=== PATIENT | female | born 1945 | race Caucasian/White ===

== ENCOUNTER 2020-10-23 21:28 | Inpatient (IN) | payer MEDICARE ==
--- NOTE | 2020-10-23 21:42 | ED ---
Psych HPI - General Stated Complaint: Mental Health Time Seen by Provider: 10/23/20 21:32 Source: RN notes reviewed, old records reviewed Mode of arrival: EMS Limitations: altered mental status, physical limitation - History of Present Illness Initial Comments: This is a 75-year-old female DF. Patient is unable to give history secondary to altered mental status, and appropriate delusions delirium anger yelling screaming crying. Patient is brought on pickup order for psychiatric evaluation and treatment otherwise not participating history of present illness, history obtained by EMS MD Complaint: feels depressed, altered mental status -: unknown Associated Psychiatric Symptoms: racing thoughts, visual hallucinations, delusions Quality: constant Improves With: none Worsens With: none Context: not taking psychiatric medications Associated Symptoms: denies other symptoms Treatments Prior to Arrival: placed on mental health hold - Related Data Home Medications Medication Instructions Recorded Confirmed L.acidoph,Paracasei, B.lactis 1 cap PO DAILY 04/24/16 04/24/16 [Probiotic] LORazepam [Ativan] 1 mg PO HS 04/24/16 04/24/16 Pantoprazole [Protonix] 40 mg PO DAILY 04/24/16 04/24/16 Topiramate [Topamax] 100 mg PO HS 04/24/16 04/24/16 Allergies Allergy/AdvReac Type Severity Reaction Status Date / Time duloxetine [From Cymbalta] Allergy Unknown Verified 10/23/20 21:59 escitalopram [From Lexapro] Allergy Unknown Verified 10/23/20 21:59 fluoxetine [From Prozac] Allergy Unknown Verified 10/23/20 21:59 risperidone [From Risperdal] Allergy Unknown Verified 10/23/20 21:59 Sulfa (Sulfonamide Allergy Unknown Verified 10/23/20 21:59 Antibiotics) steroids Allergy Unknown Uncoded 10/23/20 21:59 Review of Systems ROS Statement: Those systems with pertinent positive or pertinent negative responses have been documented in the HPI. ROS Other: All systems not noted in ROS Statement are negative. Past Medical History Past Medical History: Unable to Obtain History of Any Multi-Drug Resistant Organisms: None Reported Past Surgical History: Unable to Obtain Past Psychological History: Anxiety, Bipolar, Depression, PTSD Past Alcohol Use History: None Reported Past Drug Use History: None Reported General Exam Limitations: altered mental status, physical limitation General appearance: alert, in no apparent distress, anxious Head exam: Present: atraumatic, normocephalic, normal inspection Eye exam: Present: normal appearance, PERRL, EOMI. Absent: scleral icterus, conjunctival injection, periorbital swelling ENT exam: Present: normal exam, mucous membranes moist Neck exam: Present: normal inspection. Absent: tenderness, meningismus, lymph adenopathy Respiratory exam: Present: normal lung sounds bilaterally. Absent: respiratory distress, wheezes, rales, rhonchi, stridor Cardiovascular Exam: Present: regular rate, normal rhythm, normal heart sounds. Absent: systolic murmur, diastolic murmur, rubs, gallop, clicks GI/Abdominal exam: Present: soft, normal bowel sounds. Absent: distended, tenderness, guarding, rebound, rigid Extremities exam: Present: normal inspection, full ROM, normal capillary refill. Absent: tenderness, pedal edema, joint swelling, calf tenderness Back exam: Present: normal inspection Neurological exam: Present: alert, oriented X3, CN II-XII intact Psychiatric exam: Present: normal affect, normal mood Skin exam: Present: warm, dry, intact, normal color. Absent: rash Course Vital Signs 10/23/20 21:56 Temperature 97.8 F Pulse Rate 70 Respiratory 18 Rate Blood Pressure 98/54 O2 Sat by Pulse 97 Oximetry - Reevaluation(s) Reevaluation #1: 10/24/20 01:56 Medical record is reviewed Reevaluation #2: 10/24/20 01:56 Patient seen and evaluated psychiatry here in the ER after be made medically clear Medical Decision Making - Medical Decision Making 75 female be admitted for psychiatric evaluation and treatment - Lab Data Result diagrams: 10/23/20 22:13 Lab Results 10/23/20 10/23/20 10/23/20 Range/Units 22:13 22:13 22:13 WBC 6.6 (3.8-10.6) k/uL RBC 4.91 (3.80-5.40) m/uL Hgb 15.6 (11.4-16.0) gm/dL Hct 45.4 (34.0-46.0) % MCV 92.5 (80.0-100.0) fL MCH 31.7 (25.0-35.0) pg MCHC 34.3 (31.0-37.0) g/dL RDW 14.4 (11.5-15.5) % Plt Count 141 L (150-450) k/uL MPV 10.3 Neutrophils % 63 % Lymphocytes % 27 % Monocytes % 6 % Eosinophils % 2 % Basophils % 0 % Neutrophils # 4.2 (1.3-7.7) k/uL Lymphocytes # 1.8 (1.0-4.8) k/uL Monocytes # 0.4 (0-1.0) k/uL Eosinophils # 0.1 (0-0.7) k/uL Basophils # 0.0 (0-0.2) k/uL Salicylates <1.0 mg/dL Acetaminophen <10.0 ug/mL Serum Alcohol <10 mg/dL Coronavirus (PCR) Not Detected (Not Detectd) Disposition Clinical Impression: Psychosis, Monopolar john, Acute psychosis Disposition: TRANSFER TO PSYCH HOSP/UNIT Condition: Fair Is patient prescribed a controlled substance at d/c from ED?: No Referrals: Brigida Aguilar DO [Primary Care Provider] - 1-2 days
[2020-10-23 22:27] LABS: Basophils % (A) 0 %; Eosinophils # (A) 0.1 k/uL (0-0.7); Eosinophils % (A) 2 %; HCT 45.4 % (34.0-46.0); HGB 15.6 gm/dL (11.4-16.0); Lymphocytes # (A) 1.8 k/uL (1.0-4.8); Lymphocytes % (A) 27 %; MCH 31.7 pg (25.0-35.0); MCHC 34.3 g/dL (31.0-37.0); MCV 92.5 fL (80.0-100.0); Mean Platelet Volume 10.3; Monocytes # (A) 0.4 k/uL (0-1.0); Monocytes % (A) 6 %; Neutrophils # (A) 4.2 k/uL (1.3-7.7); Neutrophils % (A) 63 %; Platelet Count 141 k/uL (150-450); RBC 4.91 m/uL (3.80-5.40); RDW 14.4 % (11.5-15.5); WBC 6.6 k/uL (3.8-10.6)
[2020-10-23 22:30] LABS: Acetaminophen <10.0 ug/mL; Alcohol <10 mg/dL; Salicylate <1.0 mg/dL
[2020-10-24] MEDS ORDERED: LORazepam 2 MG/ML INJ IM STA (00:48)
[2020-10-24] MEDS ORDERED: diphenhydrAMINE 50 MG/ML 1 ML VIAL IM STA (00:48)
[2020-10-24] MEDS ORDERED: LORazepam 1 MG TAB PO PRN (02:31)
[2020-10-24] MEDS ORDERED: MAG HYDROX/AL HYDROX/SIMETH 30 ML CUP PO PRN (02:31)
[2020-10-24] MEDS ORDERED: HALOPERIDOL LACTATE 5 MG/ML 1 ML VIAL IM PRN (02:47)
[2020-10-24] MEDS ORDERED: haloperidoL 1 MG TAB PO PRN ×2 (02:47→03:04)
[2020-10-24] MEDS ORDERED: LORazepam 2 MG/ML INJ IM PRN (03:02)
[2020-10-24] MEDS: MAGNESIUM OXIDE 400 MG TAB PO SCH (11:39)
[2020-10-24] MEDS: FLUCONAZOLE 150 MG TAB PO SCH (11:39)
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
[2020-10-24] MEDS: DIVALPROEX ER 250 MG TAB.ER.24H PO SCH ×2 (14:33→20:23)
[2020-10-24] MEDS: NICOTINE POLACRILEX 2 MG GUM BUCCAL PRN (19:50)
[2020-10-25] MEDS: NICOTINE POLACRILEX 2 MG GUM BUCCAL PRN ×4 (00:20→21:20)
[2020-10-25] MEDS ORDERED: diphenhydrAMINE 50 MG CAP PO STA (06:04)
[2020-10-25] MEDS: FLUCONAZOLE 150 MG TAB PO SCH (08:55)
[2020-10-25] MEDS: MAGNESIUM OXIDE 400 MG TAB PO SCH (08:56)
[2020-10-25] MEDS: DIVALPROEX ER 250 MG TAB.ER.24H PO SCH (08:58)
--- NOTE | 2020-10-25 09:06 | P.CONS ---
History of Present Illness - Reason for Consult Consult date: 10/24/20 medical eval - Chief Complaint psychosis - History of Present Illness Falguni Guadarrama is a 75 yo F with PMH of bipolar disorder, HTN, hypothyroidism who was brought to the ED via EMS on a petition. She has been expressing paranoid and delusional beliefs such as her phone being tapped and GPS tracker on her car as well as claiming that her brother has been present. Pt has not been taking her prescribed seroquel in months and is very apprehensive about restarting this. Today she complains to me of chafing and tenderness in her bilateral axilla and groin folds. Review of Systems All systems: negative Constitutional: Denies chills, Denies fever Eyes: denies blurred vision, denies pain Ears, nose, mouth and throat: Denies headache, Denies sore throat Cardiovascular: Denies chest pain, Denies shortness of breath Respiratory: Denies cough Gastrointestinal: Denies abdominal pain, Denies diarrhea, Denies nausea, Denies vomiting Genitourinary: Denies dysuria, Denies hematuria Musculoskeletal: Denies myalgias Integumentary: Denies pruritus, Denies rash Neurological: Denies numbness, Denies weakness Psychiatric: Reports anxiety, Reports difficulty concentrating, Reports irritability, Reports paranoia, Denies depression Endocrine: Denies fatigue, Denies weight change Past Medical History Past Medical History: Unable to Obtain, Hearing Disorder / Deafness, Hypertension, Thyroid Disorder Additional Past Medical History / Comment(s): lymphedema History of Any Multi-Drug Resistant Organisms: None Reported Past Surgical History: No Surgical Hx Reported Past Anesthesia/Blood Transfusion Reactions: No Reported Reaction Past Psychological History: Anxiety, Bipolar, Depression, PTSD Smoking Status: Current every day smoker, Smoker, current status unknown Past Alcohol Use History: None Reported Additional Past Alcohol Use History / Comment(s): When asked about smoking status, pt states that she has not smoked in 4 years and that it was 18 years before that. pt then states that she takes one puff of a cigarette and blows out the smoke to determine which way the wind is going and then puts it out. Tile Mechanic questioned if pt then only smoked one cigarette per day. pt states, "No." Tile Mechanic asked if pt smoked half pack per day or less and pt states, "Probably more. Because I just take them and smoke one puff, blow it out, and then put out the cigarette." Tile Mechanic unable to determine from pt number of PPD, how often, or for how long. Smoking cessation information given. Past Drug Use History: None Reported Medications and Allergies Home Medications Medication Instructions Recorded Confirmed Type L.acidoph,Paracasei, B.lactis 1 cap PO DAILY 04/24/16 10/24/20 History [Probiotic] LORazepam [Ativan] 1 mg PO HS 04/24/16 10/24/20 History Pantoprazole [Protonix] 40 mg PO DAILY 04/24/16 10/24/20 History Topiramate [Topamax] 100 mg PO HS 04/24/16 10/24/20 History Allergies Allergy/AdvReac Type Severity Reaction Status Date / Time duloxetine [From Cymbalta] Allergy Unknown Verified 10/24/20 03:01 escitalopram [From Lexapro] Allergy Unknown Verified 10/24/20 03:01 fluoxetine [From Prozac] Allergy Unknown Verified 10/24/20 03:01 risperidone [From Risperdal] Allergy Unknown Verified 10/24/20 03:01 Sulfa (Sulfonamide Allergy Unknown Verified 10/24/20 03:01 Antibiotics) steroids Allergy Unknown Uncoded 10/24/20 03:01 Physical Exam Vitals: Vital Signs Temp 10/24/20 13:57 97.9 F Intake and Output 10/24/20 10/24/20 10/24/20 06:59 14:59 22:59 Other: Weight 121.194 kg 121.194 kg General: well nourished, obese, NAD. Vitals reviewed Eyes: PERRL, EOMI, conjunctiva normal HENT: normocephalic, mucus membranes moist Neck: supple, no JVD Lungs: normal respiratory effort, no wheezes or rales CV: Regular rate and rhythm, no murmur. Peripheral pulses 2+ Abdomen: soft, nondistended, no organomegaly Lymph: no cervical or axillary LAD Skin: warm and dry. Erythema to axilla Neuro: alert and oriented. anxious mood. tangential thought process. impaired insight and judgement Results CBC & Chem 7: 10/23/20 22:13 Assessment and Plan Plan: 1. Psychosis. Paranoid delusion. Management per psychiatry 2. Tinea corporis. Start oral diflucan 3. Hx HTN. Normotensive today. Continue to monitor
[2020-10-25] MEDS: VALPROIC ACID ORAL SOLN 250 MG/5 ML CUP PO SCH ×2 (10:16→21:21)
--- NOTE | 2020-10-25 10:59 | P.PN ---
Progress Note - Text Progress Note Date: 10/25/20 Interval History: Patient was seen coming out of the bathroom in her room as she was speaking to herself and was directable and agreeable to speak with inspector automatic typewriter in the office. Patient continues to appear to be disheveled in appearance, bizarre and paranoid. She continues to be suspicious of inspector automatic typewriter and claims that she did not take her medications yesterday. She continues to speak highly of her primary care physician and claims "I'm only getting to take medications that's approved by Dr Rob" and repeatedly asked inspector automatic typewriter if he had spoken to him. She was grandiose at times and appeared to be responding to internal stimuli during the conversation. She has poor insight into her condition and her need for treatment. She claims that she would be agreeable to take the Depakote if it was available in liquid daily. She states that she is not able to sleep fairly last night. She claims her mood is "just fine" and has an incongruent affect. At this time patient denies any suicidal or homical ideations, intent or plan. Patient denies any visual hallucinations. She did mention that she was hearing voices of her mother and father. She had racing thoughts and flight of ideas and was fairly labile in her affect. Mental Status Exam: General Appearance: Patient appears to be obese, elderly, stated age is alert, difficult to redirect. Patient appears to have poor hygiene and grooming. Disheveled appearance. Long unkempt hair Behavior: Patient is seated without any agitated behavior. Intrusive Speech: Patient's speech is fluent and nonpressured. Mood/Affect: Patient reports their mood is "just fine", affect is labile. Suicidality/Homicidality: Patient denies having any homicidal ideation intent or plan. Denies any suicidal ideations intent or plan Perceptions: Patient denies any visual hallucinations and denies any auditory hallucinations Though content/process: Endorsing paranoia. Religiously preoccupied. Disorganized speech and thought process. Illogical at times. Memory and concentration: AOX3, grossly intact for the purposes of this session. Judgment and insight: poor Assessment Schizoaffective disorder, bipolar type Nicotine dependence Plan: -Patient continues to meet criteria for inpatient psychiatric admission for symptom stabilization and safety. Patient has not signed adult voluntary form and medication consent and was placed in patient's chart. -Medications: Continue with by mouth Prolixin 1 mg twice a day for psychosis. Switched Depakote tab to depakene liquid 250 mg twice a day for mood stabilization. -When necessary Haldol for agitation/aggression. -NRT - nicotine gum -SW on board for discharge planning. Encouraged the patient to participate in milieu. Currently awaiting deferral with trust and estates attorney and court date.
[2020-10-25] MEDS: ACETAMINOPHEN TAB 325 MG TAB PO PRN (12:29)
[2020-10-25] MEDS ORDERED: hydrOXYzine pamoate 25 MG CAP PO ONE (17:15)
[2020-10-26] MEDS: NICOTINE POLACRILEX 2 MG GUM BUCCAL PRN ×3 (01:11→20:57)
[2020-10-26] MEDS: VALPROIC ACID ORAL SOLN 250 MG/5 ML CUP PO SCH ×2 (07:32→20:57)
[2020-10-26] MEDS: FLUCONAZOLE 150 MG TAB PO SCH (07:32)
[2020-10-26] MEDS: MAGNESIUM OXIDE 400 MG TAB PO SCH (07:32)
[2020-10-26] MEDS: allopurinoL 100 MG TAB PO SCH (09:28)
--- NOTE | 2020-10-26 11:21 | P.PN ---
Progress Note - Text Progress Note Date: 10/26/20 Interval History: Patient was seen wandering the hallways near the nurse's desk this morning and was persistent and demanded to speak to feature writer several times. Patient continues to appear to be disheveled in appearance, bizarre and paranoid. She continues to be demanding and somatically preoccupied. Today she spoke about not trusting the medications that feature writer has been prescribing and listed off several different side effects. She appeared to be difficult to redirect during conversation and was responding to internal stimuli. She continues to speak highly of her primary care physician and states that she wants approval from him and claims that "they're not accepting his psychiatric training". She also claims that she is trusting feature writer more and asked if she can follow-up with him in his clinic. She was labile during the interview and cried several times and spoke today about being scientology and feeling that she is being "pranked" by others and "persecuted against". She was grandiose at times. She has poor insight into her condition and her need for treatment. She states that she is not able to sleep fairly last night. She refused her prolixin this morning however has been taking her depakote. She claims her mood is "sad" and has an incongruent affect. At this time patient denies any suicidal or homical ideations, intent or plan. Patient denies any visual hallucinations. She did mention that she was hearing voices of her mother and father. She had racing thoughts and flight of ideas and was fairly labile in her affect. Mental Status Exam: General Appearance: Patient appears to be obese, elderly, stated age is alert, difficult to redirect. Patient appears to have mildly improving hygiene and grooming. Disheveled appearance. Behavior: Patient is seated without any agitated behavior. bizarre Speech: Patient's speech is fluent and nonpressured. Mood/Affect: Patient reports their mood is "sad", affect is labile. Crying. Suicidality/Homicidality: Patient denies having any homicidal ideation intent or plan. Denies any suicidal ideations intent or plan Perceptions: Patient denies any visual hallucinations and denies any auditory hallucinations Though content/process: Endorsing paranoia, improving mildly. Religiously preoccupied. Disorganized speech and thought process. Illogical at times. Memory and concentration: AOX3, grossly intact for the purposes of this session. Judgment and insight: poor Assessment Schizoaffective disorder, bipolar type Nicotine dependence Plan: -Patient continues to meet criteria for inpatient psychiatric admission for symptom stabilization and safety. Patient has not signed adult voluntary form and medication consent and was placed in patient's chart. -Medications: Increased PO Prolixin 1.5 mg twice a day for psychosis. Increased depakene liquid 325 mg twice a day for mood stabilization. -When necessary Haldol for agitation/aggression. -NRT - nicotine gum -SW on board for discharge planning. Encouraged the patient to participate in milieu. Patient met with her mergers and acquisitions attorney today and deferred.
[2020-10-26 13:09] LABS: Calcium 10.1 mg/dL (8.4-10.2); Potassium 4.6 mmol/L (3.5-5.1); Total Bilirubin 0.5 mg/dL (0.2-1.3)
[2020-10-27] MEDS: FLUCONAZOLE 150 MG TAB PO SCH (07:59)
[2020-10-27] MEDS: allopurinoL 100 MG TAB PO SCH (07:59)
[2020-10-27] MEDS: MAGNESIUM OXIDE 400 MG TAB PO SCH (07:59)
[2020-10-27] MEDS: VALPROIC ACID ORAL SOLN 250 MG/5 ML CUP PO SCH ×2 (08:00→19:57)
[2020-10-27] MEDS ORDERED: flUPHENAZine 2.5 MG/ML (MDV) 10 ML VIAL IM PRN (09:19)
--- NOTE | 2020-10-27 09:35 | P.PN ---
Progress Note - Text Progress Note Date: 10/27/20 Interval History: Patient was seen attending group this morning and was agreeable to speak with financial writer in the office today. Patient continues to appear to be disheveled in appearance, bizarre and paranoid. She brought in a list of different items that she wanted to speak about. She spoke about mainly somatic issues that she has been having. She was fairly demanding today again with financial writer and preoccupied with medications. She claims that she believes that one of the night nurses is giving her Haldol instead of Tylenol. She states that she is "deathly ALLERGIC" to Haldol. She appeared to be difficult to redirect during conversation and today was not responding to internal stimuli. She continues to be labile at times and easily to anger. She claims that she believes that people have been messing with her house and also had been tapping her phones. She continues to request to see other doctors in the hospital for very specific conditions. She states that she is not able to sleep fairly last night. She has been taking her Prolixin and Depakote. She claims her mood is "sad" and has an incongruent affect. At this time patient denies any suicidal or homical ideations, intent or plan. Patient denies any visual hallucinations. She had racing thoughts and flight of ideas and was fairly labile in her affect. Mental Status Exam: General Appearance: Patient appears to be obese, elderly, stated age is alert, difficult to redirect. Patient appears to have mildly improving hygiene and grooming. Disheveled appearance. Behavior: Patient is seated without any agitated behavior. bizarre, improving mildly. Demanding Speech: Patient's speech is fluent and nonpressured. Mood/Affect: Patient reports their mood is "sad", affect is labile. Improving mildly Suicidality/Homicidality: Patient denies having any homicidal ideation intent or plan. Denies any suicidal ideations intent or plan Perceptions: Patient denies any visual hallucinations and denies any auditory hallucinations Though content/process: Endorsing paranoia, improving mildly. Religiously preoccupied. Somatically preoccupied. Memory and concentration: AOX3, grossly intact for the purposes of this session. Judgment and insight: poor, improving mildly Assessment Schizoaffective disorder, bipolar type Nicotine dependence Plan: -Patient continues to meet criteria for inpatient psychiatric admission for symptom stabilization and safety. Patient has not signed adult voluntary form and medication consent and was placed in patient's chart. -Medications: Increased PO Prolixin 2 mg twice a day for psychosis. increase depakene liquid 500 mg twice a day for mood stabilization starting on friday. -When necessary Haldol for agitation/aggression. -NRT - nicotine gum -SW on board for discharge planning. Encouraged the patient to participate in milieu. Patient met with her environmental attorney today and deferred.
[2020-10-27] MEDS: SENNOSIDES-DOCUSATE SODIUM 1 EACH TAB PO SCH ×2 (09:44→20:01)
[2020-10-27] MEDS: NICOTINE POLACRILEX 2 MG GUM BUCCAL PRN ×2 (10:18→19:55)
[2020-10-27] MEDS: LEVOTHYROXINE 50 MCG TAB PO SCH (12:26)
[2020-10-28] MEDS ORDERED: LEVOTHYROXINE 50 MCG TAB PO SCH (06:30)
[2020-10-28] MEDS: LEVOTHYROXINE 50 MCG TAB PO SCH (07:14)
[2020-10-28] MEDS: allopurinoL 100 MG TAB PO SCH (09:38)
[2020-10-28] MEDS: FLUCONAZOLE 150 MG TAB PO SCH (09:39)
[2020-10-28] MEDS: MAGNESIUM OXIDE 400 MG TAB PO SCH (09:40)
[2020-10-28] MEDS: SENNOSIDES-DOCUSATE SODIUM 1 EACH TAB PO SCH ×2 (09:40→22:35)
[2020-10-28] MEDS: VALPROIC ACID ORAL SOLN 250 MG/5 ML CUP PO SCH ×3 (09:42→22:36)
--- NOTE | 2020-10-28 15:43 | P.PN ---
Progress Note - Text Progress Note Date: 10/28/20 Clinical Problems: Schizoaffective disorder bipolar type, tobacco use Interim history: I reviewed the medical record and interviewed the patient. She was labile and aggressive. At times during interview she became angry and loud but then asked regain control of herself. Other times she began sobbing uncontrollably. There is no organized theme to the conversation with the exception of her repeatedly stating that we had met before and at one point expressed the belief that we had met on a plane trip from [facility] to [place]. She has taken her prescribed psychotropic medications-Prolixin and Depakene syrup. She intermittently attends therapeutic groups and activities. The therapist described for a disheveled, attention seeking, intrusive and restless. She only slept 4 hours last night. Mental status exam: She presented as a somewhat disheveled appearing moderately obese elderly woman who is mostly pleasant. She made eye contact but had difficulty concentrating and attending to the interview. She had a labile facial expressions that were consistent with the marked fluctuations in her affect. She was not restless or agitated. Her speech was spontaneous with normal rate and rhythm. Her affect was markedly labile and fluctuated from depression and crying to uncontrolled anger. She denied express suicidal ideation or wishes. She did not express clear ideas reference but was generally paranoid and suspicious. She denied hallucinations did not appear to be responding to internal stimuli. Her thinking was disorganized. Assessment: She is severely mentally ill and mentally improve from admission. Plan: Continue inpatient treatment. Safety precautions. Encourage continued compliance with her psychotropic medications including Prolixin 2 mg twice a day and Depakene syrup 325 mg twice a day. Continue Prolixin3 milligrams IM or by mouth for agitation or aggression. Encourage participation in therapeutic groups and activities. Evaluate clinical status response to treatment daily basis.
[2020-10-29] MEDS: NICOTINE POLACRILEX 2 MG GUM BUCCAL PRN ×2 (05:09→12:47)
[2020-10-29] MEDS: LEVOTHYROXINE 50 MCG TAB PO SCH (05:10)
[2020-10-29] MEDS: FLUCONAZOLE 150 MG TAB PO SCH (07:51)
[2020-10-29] MEDS: allopurinoL 100 MG TAB PO SCH (07:51)
[2020-10-29] MEDS: VALPROIC ACID ORAL SOLN 250 MG/5 ML CUP PO SCH ×2 (07:51→21:19)
[2020-10-29] MEDS: SENNOSIDES-DOCUSATE SODIUM 1 EACH TAB PO SCH ×2 (07:54→21:19)
[2020-10-29] MEDS: MAGNESIUM OXIDE 400 MG TAB PO SCH (07:55)
[2020-10-29] MEDS: CHOLECALCIFEROL 25 MCG (1000 IU) TABLET PO SCH (14:49)
--- NOTE | 2020-10-29 15:16 | P.PN ---
Progress Note - Text Progress Note Date: 10/29/20 linical Problems: Schizoaffective disorder bipolar type, tobacco use Interim history: I reviewed the medical record and interviewed the patient. She was attention seeking throughout the day and frequently demanded to speak with me. We met she was irritable and demanding. For example, she demanded that I prescribe her" D2, K2, coconut oil and coconut water", that I allow her to leave the hospital were open a window to have some "fresh air." She was markedly labile and displayed intense anger and marked dysphoria. At times she became flirtatious. She received 3 mg of Prolixin yesterday afternoon for acute agitation. She has taken her prescribed psychotropic medications-Prolixin and Depakene syrup. She intermittently attends therapeutic groups and activities. She only slept 4 hours last night. Mental status exam: She presented as a somewhat disheveled appearing moderately obese elderly woman who is mostly pleasant. She made eye contact but had difficulty concentrating and attending to the interview. She had a labile facial expressions that were consistent with the marked fluctuations in her affect. She was not restless or agitated. Her speech was spontaneous with normal rate and rhythm. Her affect was markedly labile and fluctuated from depression and crying to uncontrolled anger. She denied express suicidal ideation or wishes. She did not express clear ideas reference but was generally paranoid and suspicious. She denied hallucinations did not appear to be responding to internal stimuli. Her thinking was disorganized. Assessment: She is severely mentally ill and minimally improve from admission. Plan: Continue inpatient treatment. Safety precautions. Encourage continued compliance with her psychotropic medications including Prolixin 2 mg twice a day and Depakene syrup 325 mg twice a day. Continue Prolixin 3 milligrams IM or by mouth for agitation or aggression. Encourage participation in therapeutic groups and activities. Evaluate clinical status response to treatment daily basis.
[2020-10-30] MEDS: LEVOTHYROXINE 50 MCG TAB PO SCH (06:45)
[2020-10-30] MEDS: CHOLECALCIFEROL 25 MCG (1000 IU) TABLET PO SCH (09:19)
[2020-10-30] MEDS: SENNOSIDES-DOCUSATE SODIUM 1 EACH TAB PO PRN ×2 (09:19→09:25)
[2020-10-30] MEDS: MAGNESIUM OXIDE 400 MG TAB PO SCH (09:19)
[2020-10-30] MEDS: FLUCONAZOLE 150 MG TAB PO SCH (09:19)
[2020-10-30] MEDS: VALPROIC ACID ORAL SOLN 250 MG/5 ML CUP PO SCH ×2 (09:19→20:54)
[2020-10-30] MEDS: allopurinoL 100 MG TAB PO SCH (09:19)
[2020-10-30] MEDS: SENNOSIDES-DOCUSATE SODIUM 1 EACH TAB PO SCH (09:26)
--- NOTE | 2020-10-30 10:00 | P.PN ---
Progress Note - Text Progress Note Date: 10/30/20 Interval History: Patient was seen wandering the hallways this morning and was agreeable to speak with selling underwriter in the office today. Patient appeared to have an improvement in her paranoia today. She was less irritable and less labile and only cried once during the conversation. She continues to be preoccupied with her medications and her medical treatment. She is also somatically preoccupied. She listed off different medications that she believes that she is supposed beyond along with different vitamins. She continues to speak about being "deathly ALLERGIC" to Haldol. She appeared to be mildly more appropriately during conversation however continues to be tangential at times. She is showing an improvement in her flight of ideas. She states that she was able to sleep better last night however nurse recorded patient only sleeping 3 hours. She claims that her mood is "fine" and denies any depression today. Technical Sales Support Manager spoke with patient about Prolixin D injection and patient was agreeable to take it upon discharge. At this time patient denies any suicidal or homical ideations, intent or plan. Patient denies any visual hallucinations. Mental Status Exam: General Appearance: Patient appears to be obese, elderly, stated age is alert, more directable today Patient appears to have mildly improving hygiene and grooming. Behavior: Patient is seated without any agitated behavior. bizarre, improving mildly. Demanding Speech: Patient's speech is fluent and nonpressured. Mood/Affect: Patient reports their mood is "fine", affect is less labile today. Suicidality/Homicidality: Patient denies having any homicidal ideation intent or plan. Denies any suicidal ideations intent or plan Perceptions: Patient denies any visual hallucinations and denies any auditory hallucinations Though content/process: Endorsing paranoia, improving mildly. Somatically preoccupied. Memory and concentration: AOX3, grossly intact for the purposes of this session. Judgment and insight: poor, improving mildly Assessment Schizoaffective disorder, bipolar type Nicotine dependence Plan: -Patient continues to meet criteria for inpatient psychiatric admission for symptom stabilization and safety. Patient has not signed adult voluntary form and medication consent and was placed in patient's chart. -Medications: Increased PO Prolixin 2 mg daily +3 mg daily at bedtime for psychosis. Continue with depakene liquid 500 mg twice a day for mood stabilization starting on osvaldo. Patient will receive Prolixin D injection likely tomorrow. -When necessary Haldol for agitation/aggression. -NRT - nicotine gum -SW on board for discharge planning. Encouraged the patient to participate in milieu. Patient met with her litigation attorney deferred and has been taking her medications. Likely discharge in 2-3 days after patient receives her long- acting injection.
[2020-10-30 20:09] LABS: Glucose,Whole Blood 112 mg/dL (75-99)
[2020-10-30] MEDS ORDERED: MELATONIN 5 MG TABLET PO SCH (21:00)
[2020-10-31] MEDS: ACETAMINOPHEN TAB 325 MG TAB PO PRN (01:38)
[2020-10-31] MEDS: LEVOTHYROXINE 50 MCG TAB PO SCH (05:33)
[2020-10-31] MEDS: allopurinoL 100 MG TAB PO SCH (09:25)
[2020-10-31] MEDS: MAGNESIUM OXIDE 400 MG TAB PO SCH (09:25)
[2020-10-31] MEDS: FLUCONAZOLE 150 MG TAB PO SCH (09:25)
[2020-10-31] MEDS: CHOLECALCIFEROL 25 MCG (1000 IU) TABLET PO SCH (09:26)
[2020-10-31] MEDS: VALPROIC ACID ORAL SOLN 250 MG/5 ML CUP PO SCH (09:26)
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
[2020-10-31] MEDS ORDERED: VALPROIC ACID ORAL SOLN 250 MG/5 ML CUP PO SCH (21:00)
[2020-10-31] MEDS: MELATONIN 5 MG TABLET PO SCH (21:34)
[2020-11-01] MEDS: LEVOTHYROXINE 50 MCG TAB PO SCH (06:27)
[2020-11-01] MEDS: FLUCONAZOLE 150 MG TAB PO SCH (08:53)
[2020-11-01] MEDS: MAGNESIUM OXIDE 400 MG TAB PO SCH (08:54)
[2020-11-01] MEDS: CHOLECALCIFEROL 25 MCG (1000 IU) TABLET PO SCH (08:54)
[2020-11-01] MEDS: allopurinoL 100 MG TAB PO SCH (08:54)
[2020-11-01] MEDS ORDERED: VALPROIC ACID ORAL SOLN 250 MG/5 ML CUP PO SCH (09:00)
[2020-11-01] MEDS ORDERED: fluPHENAZine DECANOATE 25 MG/ML 5ML MDV IM ONE (11:30)
--- NOTE | 2020-11-01 13:44 | P.PN ---
Progress Note - Text Progress Note Date: 11/01/20 Interval History: Patient was seen in her room this morning and was agreeable to speak with [facility]. Patient was initially sleeping. Patient appeared to have improvement in her racing thoughts and flight of ideas today. She was mildly less demanding today however did speak of her medications and also different errands that she has to do once she leaves the hospital. She was asking communications writer several times to be moved to another room where she can have the use of the "sunrise in [place]". She also accused certain nurses of "calling me names" and also speaking bad about her however did speak highly of one of the nurses. She continues to ask about further medical treatment and being seen by certain specialists in the area and today pulled out the newspaper and pointed to a assistant prosecuting attorney advertisement and states that "I want an assistant prosecuting attorney who skilled like him". She was a lot less labile today and was not crying. She appeared to be mildly more appropriately during conversation and was more goal oriented today. She is showing an improvement in her flight of ideas. She continues to state that she only slept approximately 4 hours a night. She claims that her mood is "ok" and denies any depression today. At this time patient denies any suicidal or homical ideations, intent or plan. Patient denies any visual hallucinations. Mental Status Exam: General Appearance: Patient appears to be obese, elderly, stated age is alert, more directable today Patient appears to have mildly improving hygiene and grooming. Behavior: Patient is seated without any agitated behavior. Less bizarre. Less Demanding Speech: Patient's speech is fluent and nonpressured. Mood/Affect: Patient reports their mood is "ok", affect is less labile today and not crying. Suicidality/Homicidality: Patient denies having any homicidal ideation intent or plan. Denies any suicidal ideations intent or plan Perceptions: Patient denies any visual hallucinations and denies any auditory hallucinations Though content/process: Somatically preoccupied. Less demanding. More goal oriented. Memory and concentration: AOX3, grossly intact for the purposes of this session. Judgment and insight: Chronically poor, improving mildly Assessment Schizoaffective disorder, bipolar type Nicotine dependence Plan: -Patient continues to meet criteria for inpatient psychiatric admission for symptom stabilization and safety. Patient has not signed adult voluntary form and medication consent and was placed in patient's chart. -Medications: Continue PO Prolixin 3 mg daily + 3 mg qhs for psychosis. Will give patient Prolixin D 25 mg IM today, will be due for her next long-acting injection on 11/15/2020. Switch Depakene to Depakote ER 500 mg daily +1000 mg daily at bedtime for mood stabilization. Continue with melatonin 10mg qhs for insomnia. -When necessary Haldol for agitation/aggression. -NRT - nicotine gum -SW on board for discharge planning. Encouraged the patient to participate in milieu. Patient met with her assistant prosecuting attorney and deferred and has been taking her medications. Likely discharge tomorrow if patient does well overnight.
[2020-11-01] MEDS: DIVALPROEX ER 500 MG TAB.ER.24H PO SCH (22:04)
[2020-11-01] MEDS: MELATONIN 5 MG TABLET PO SCH (22:04)
[2020-11-01] MEDS: SENNOSIDES-DOCUSATE SODIUM 1 EACH TAB PO PRN (22:05)
[2020-11-02] MEDS: LEVOTHYROXINE 50 MCG TAB PO SCH (06:48)
[2020-11-02] MEDS: CHOLECALCIFEROL 25 MCG (1000 IU) TABLET PO SCH (09:16)
[2020-11-02] MEDS: allopurinoL 100 MG TAB PO SCH (09:16)
[2020-11-02] MEDS: DIVALPROEX ER 500 MG TAB.ER.24H PO SCH ×2 (09:16→22:52)
[2020-11-02] MEDS: MAGNESIUM OXIDE 400 MG TAB PO SCH (09:17)
[2020-11-02] MEDS: SENNOSIDES-DOCUSATE SODIUM 1 EACH TAB PO SCH (09:39)
--- NOTE | 2020-11-02 09:44 | P.PN ---
Progress Note - Text Progress Note Date: 11/02/20 Interval History: Patient was seen wandering the hallways this morning and was agreeable to speak with chief writer. Patient was directable with chief writer initially and continues to carry around a folder with various words written on it. She continues to be fairly demanding and spoke about wanting to have her room changed. She also claims that she wants to speak with her primary care doctor and also her surface plate finisher. She claims that she was feeling constipated last night. She was fairly preoccupied today with discharge. She continues to have chronically poor insight into her condition however claims that she has been taking her medications. Patient received the Prolixin D dose yesterday and tolerated it well. She was mildly less demanding today however did speak of her medications and also different errands that she has to do once she leaves the hospital. She continues to speak poorly about the nursing staff on the unit. She was less labile today and was not crying. She appeared to be mildly more appropriately during conversation and was more goal oriented today. She is showing an i mprovement in her flight of ideas. She continues to state that she only slept approximately 4-5 hours a night. She claims that her mood is "fine" and denies any depression today. At this time patient denies any suicidal or homical ideations, intent or plan. Patient denies any visual hallucinations. Mental Status Exam: General Appearance: Patient appears to be obese, elderly, stated age is alert, more directable today Patient appears to have mildly improving hygiene and grooming. Behavior: Patient is seated without any agitated behavior. bizarre. Less Demanding Speech: Patient's speech is fluent and nonpressured. Mood/Affect: Patient reports their mood is "fine", affect is less labile today and not crying. Suicidality/Homicidality: Patient denies having any homicidal ideation intent or plan. Denies any suicidal ideations intent or plan Perceptions: Patient denies any visual hallucinations and denies any auditory hallucinations Though content/process: Somatically preoccupied. Less demanding. More goal oriented. Memory and concentration: AOX3, grossly intact for the purposes of this session. Judgment and insight: Chronically poor, improving mildly Assessment Schizoaffective disorder, bipolar type Nicotine dependence Plan: -Patient continues to meet criteria for inpatient psychiatric admission for symptom stabilization and safety. Patient has not signed adult voluntary form and medication consent and was placed in patient's chart. -Medications: increased Prolixin 4 mg qhs + 3 mg daily for psychosis. Patient received Prolixin D 25 mg IM on 11/01, will be due for her next long-acting injection on 11/15/2020. Continue with Depakote ER 500 mg daily +1000 mg daily at bedtime for mood stabilization. Continue with melatonin 10mg qhs for insomnia. -When necessary Haldol for agitation/aggression. -NRT - nicotine gum -SW on board for discharge planning. Encouraged the patient to participate in milieu. Patient met with her insurance defense attorney and deferred and has been taking her medications. Patient once again took a by mouth Prolixin in the middle of the night. She is improivng mildly and now has taken her SANTOS to ensure compliance however patient still is psychotic and demanding at this time. Patient will need [facility] intake on the unit which can be done at earliest tomorrow prior to d/c as patient is high risk for non compliance and re-hospitalization.
[2020-11-02 15:33] VITALS: BMI 50.7
[2020-11-02] MEDS: MELATONIN 5 MG TABLET PO SCH (22:52)
[2020-11-03] MEDS: LEVOTHYROXINE 50 MCG TAB PO SCH (05:02)
[2020-11-03] MEDS: CHOLECALCIFEROL 25 MCG (1000 IU) TABLET PO SCH (08:06)
[2020-11-03] MEDS: DIVALPROEX ER 500 MG TAB.ER.24H PO SCH ×2 (08:06→21:58)
[2020-11-03] MEDS: allopurinoL 100 MG TAB PO SCH (08:06)
[2020-11-03] MEDS: SENNOSIDES-DOCUSATE SODIUM 1 EACH TAB PO SCH (08:06)
[2020-11-03] MEDS: MAGNESIUM OXIDE 400 MG TAB PO SCH (08:06)
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
[2020-11-03] MEDS: MELATONIN 5 MG TABLET PO SCH (21:58)
[2020-11-04 04:40] VITALS: BP 131/64; PULSE 72; RESP 18
[2020-11-04] MEDS: LEVOTHYROXINE 50 MCG TAB PO SCH (06:32)
[2020-11-04] MEDS: CHOLECALCIFEROL 25 MCG (1000 IU) TABLET PO SCH (09:07)
[2020-11-04] MEDS: DIVALPROEX ER 500 MG TAB.ER.24H PO SCH ×2 (09:07→21:50)
[2020-11-04] MEDS: MAGNESIUM OXIDE 400 MG TAB PO SCH (09:07)
[2020-11-04] MEDS: allopurinoL 100 MG TAB PO SCH (09:07)
[2020-11-04] MEDS: SENNOSIDES-DOCUSATE SODIUM 1 EACH TAB PO SCH (09:07)
[2020-11-04] MEDS: MELATONIN 5 MG TABLET PO SCH (21:50)
--- NOTE | 2020-11-04 21:55 | P.PN ---
Progress Note - Text Progress Note Date: 11/04/20 Identifying Information 75-year-old female admitted for delusional behaviors. Her only complaint is about her being little slow in elimination/ constipation. denies most of the symptoms. She reports her medications are working well for her. She reports good sleep and appetite. She reports going to all her assigned groups and says some of the group instructors are gifted. She denies side effects from medications and has tolerating them well. Mental Status Exam: General Appearance: Patient ambulates with walker. She is obese. Appears stated age in fair hygiene and grooming. Behavior: No psychomotor agitation or retardation. Pleasant and cooperative Speech: Patient's speech is fluent and nonpressured. Mood/Affect: Patient reports their mood is "better", affect is reactive to mood. Suicidality/Homicidality: Patient denies having any homicidal ideation intent or plan. Denies any suicidal ideations intent or plan Perceptions: Patient denies any visual hallucinations and denies any auditory hallucinations Though content/process: Not delusional. Judgment and insight: Chronically poor, improving mildly Assessment Schizoaffective disorder, bipolar type Nicotine dependence Plan: Patient received Prolixin D 25 mg IM on 11/01, will be due for her next long- acting injection on 11/15/2020. Continue with Depakote ER 500 mg daily +1000 mg daily at bedtime for mood stabilization. Continue with melatonin 10mg qhs for insomnia. -When necessary Haldol for agitation/aggression. -NRT - nicotine gum -SW on board for discharge planning.
[2020-11-05] MEDS: LEVOTHYROXINE 50 MCG TAB PO SCH (06:46)
[2020-11-05] MEDS: DIVALPROEX ER 500 MG TAB.ER.24H PO SCH ×2 (08:36→21:11)
[2020-11-05] MEDS: SENNOSIDES-DOCUSATE SODIUM 1 EACH TAB PO SCH (08:36)
[2020-11-05] MEDS: allopurinoL 100 MG TAB PO SCH (08:36)
[2020-11-05] MEDS: MAGNESIUM OXIDE 400 MG TAB PO SCH (08:36)
[2020-11-05] MEDS: CHOLECALCIFEROL 25 MCG (1000 IU) TABLET PO SCH (08:36)
[2020-11-05 12:56] VITALS: TEMP 97.7
--- NOTE | 2020-11-05 19:29 | P.PN ---
Progress Note - Text Progress Note Date: 11/05/20 Identifying Information 75-year-old female admitted for delusional behaviors. Patient ambulates with walker and was seen ambulating in the hallways. She says she is hard of hearing and has to repeat questions. She has no complaints today. . She denies side effects from medications and has tolerating them well. Mental Status Exam: General Appearance: Patient ambulates with walker. She is obese. Appears stated age in fair hygiene and grooming. Behavior: No psychomotor agitation or retardation. Pleasant and cooperative Speech: Patient's speech is fluent and nonpressured. Mood/Affect: Patient reports their mood is "GOOD", affect is reactive to mood. Suicidality/Homicidality: Patient denies having any homicidal ideation intent or plan. Denies any suicidal ideations intent or plan Perceptions: Patient denies any visual hallucinations and denies any auditory hallucinations Though content/process: Not delusional. Judgment and insight: Chronically poor, improving mildly Assessment Schizoaffective disorder, bipolar type Nicotine dependence Plan: Patient received Prolixin D 25 mg IM on 11/01, will be due for her next long- acting injection on 11/15/2020. Continue with Depakote ER 500 mg daily +1000 mg daily at bedtime for mood stabilization. Continue with melatonin 10mg qhs for insomnia. -When necessary Haldol for agitation/aggression. -NRT - nicotine gum -SW on board for discharge planning.
[2020-11-05] MEDS: MELATONIN 5 MG TABLET PO SCH (21:11)
[2020-11-06] MEDS: LEVOTHYROXINE 50 MCG TAB PO SCH (06:26)
[2020-11-06] MEDS: allopurinoL 100 MG TAB PO SCH (08:18)
[2020-11-06] MEDS: MAGNESIUM OXIDE 400 MG TAB PO SCH (08:18)
[2020-11-06] MEDS: CHOLECALCIFEROL 25 MCG (1000 IU) TABLET PO SCH (08:18)
[2020-11-06] MEDS: SENNOSIDES-DOCUSATE SODIUM 1 EACH TAB PO SCH (08:18)
[2020-11-06] MEDS: DIVALPROEX ER 500 MG TAB.ER.24H PO SCH (08:18)
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
== END 2020-11-06 15:44 | disposition home or self-care (01) | DRG 885 ==
LOC: EC 21:28 → 3MHU 10-24 02:14
PROVIDERS: ADMIT Psychiatry & Neurology Psychiatry; ATTEND Psychiatry & Neurology Psychiatry
DX: F25.0 Schizoaffective disorder, bipolar type (principal); Z68.43 Body mass index [BMI] 50.0-59.9, adult; F17.210 Nicotine dependence, cigarettes, uncomplicated; E03.9 Hypothyroidism, unspecified; F17.200 Nicotine dependence, unspecified, uncomplicated; F43.10 Post-traumatic stress disorder, unspecified; G47.00 Insomnia, unspecified; H91.90 Unspecified hearing loss, unspecified ear; I10 Essential (primary) hypertension; K59.00 Constipation, unspecified; Z79.899 Other long term (current) drug therapy; Z88.8 Allergy status to other drugs, medicaments and biological substances; L30.4 Erythema intertrigo; Z20.822 Contact with and (suspected) exposure to COVID-19; E66.9 Obesity, unspecified; M10.9 Gout, unspecified; Z88.1 Allergy status to other antibiotic agents; Z88.2 Allergy status to sulfonamides
CPT/HCPCS: 80053; 80143; 80179; 80320; 82075; 85025; 87635; 96372; 99285

== ENCOUNTER 2020-11-25 09:32 | Inpatient (IN) | payer MEDICARE ==
[2020-11-25] MEDS ORDERED: ACETAMINOPHEN TAB 500 MG TAB PO STA (09:40)
[2020-11-25] MEDS ORDERED: IBUPROFEN 600 MG TAB PO STA (09:40)
--- NOTE | 2020-11-25 09:44 | ED ---
General Adult HPI - General Stated complaint: Fever/Diarrhea Time Seen by Provider: 11/25/20 09:32 Source: patient, RN notes reviewed, old records reviewed - History of Present Illness Initial comments: This is a 69 citral female presents emergency Department complaining that she's had 2 days of diarrhea. Patient states today she had shakes and felt very cold but she couldn't stop having diarrhea so she called EMS. EMS stated patient had 103.7 fever in route. Patient denies any cough however she is coughing right in front of it. Patient denies any chest pain palpitations or abdominal pain. Patient denies knowing that she had a fever prior to EMS taking her temperature. Patient states she did not get the COVID vaccine. Patient states she does not want the COVID vaccine - Related Data Home Medications Medication Instructions Recorded Confirmed Atorvastatin [Lipitor] 10 mg PO MOWEFR 10/27/20 10/27/20 Previous Rx's Medication Instructions Recorded Acetaminophen Tab [Tylenol] 650 mg PO Q4HR PRN tab 11/03/20 Cholecalciferol [Vitamin D3 (25 25 mcg PO DAILY 30 Days tablet 11/03/20 Mcg = 1000 Iu)] Divalproex ER [Depakote ER] 1,000 mg PO HS 30 Days tab.er.24h 11/03/20 Divalproex ER [Depakote ER] 500 mg PO DAILY 30 Days tab.er.24h 11/03/20 Levothyroxine Sodium [Synthroid] 50 mcg PO DAILY@0630 30 Days tab 11/03/20 Melatonin 10 mg PO HS 30 Days tablet 11/03/20 Nicotine Polacrilex [Nicorette] 2 mg BUCCAL Q4HR PRN 14 Days gum 11/03/20 Sennosides-Docusate Sodium 1 each PO DAILY 30 Days tab 11/03/20 [Senokot-S] allopurinoL [Zyloprim] 100 mg PO DAILY 30 Days tab 11/03/20 fluPHENAZine [Prolixin] 4 mg PO HS 5 Days tab 11/03/20 fluPHENAZine decanoate [Prolixin 25 mg IM [id number] #1 vial 11/03/20 Decanoate] Allergies Allergy/AdvReac Type Severity Reaction Status Date / Time duloxetine [From Cymbalta] Allergy Unknown Verified 11/25/20 09:43 escitalopram [From Lexapro] Allergy Unknown Verified 11/25/20 09:43 fluoxetine [From Prozac] Allergy Unknown Verified 11/25/20 09:43 risperidone [From Risperdal] Allergy Unknown Verified 11/25/20 09:43 Sulfa (Sulfonamide Allergy Unknown Verified 11/25/20 09:43 Antibiotics) steroids Allergy Unknown Uncoded 11/25/20 09:43 Review of Systems ROS Statement: Those systems with pertinent positive or pertinent negative responses have been documented in the HPI. ROS Other: All systems not noted in ROS Statement are negative. Past Medical History Past Medical History: Unable to Obtain, Hearing Disorder / Deafness, Hypertension, Thyroid Disorder Additional Past Medical History / Comment(s): lymphedema History of Any Multi-Drug Resistant Organisms: None Reported Past Surgical History: No Surgical Hx Reported Past Anesthesia/Blood Transfusion Reactions: No Reported Reaction Past Psychological History: Anxiety, Bipolar, Depression, PTSD Smoking Status: Current every day smoker, Smoker, current status unknown Past Alcohol Use History: None Reported Additional Past Alcohol Use History / Comment(s): When asked about smoking status, pt states that she has not smoked in 4 years and that it was 18 years before that. pt then states that she takes one puff of a cigarette and blows out the smoke to determine which way the wind is going and then puts it out. Instrument Repair Supervisor questioned if pt then only smoked one cigarette per day. pt states, "No." Instrument Repair Supervisor asked if pt smoked half pack per day or less and pt states, "Probably more. Because I just take them and smoke one puff, blow it out, and then put out the cigarette." Instrument Repair Supervisor unable to determine from pt number of PPD, how often, or for how long. Smoking cessation information given. Past Drug Use History: None Reported General Exam - General Exam Comments Initial Comments: GENERAL: Patient is well-developed and well-nourished. Patient is nontoxic and well-h ydrated and is in mild distress. Pulse ox on room air is 91-92% ENT: Neck is soft and supple. No significant lymphadenopathy is noted. Oropharynx is clear. Moist mucous membranes. Neck has full range of motion without eliciting any pain. EYES: The sclera were anicteric and conjunctiva were pink and moist. Extraocular movements were intact and pupils were equal round and reactive to light. Eyelids were unremarkable. PULMONARY: Unlabored respirations. Good breath sounds bilaterally. No audible rales rhonchi or wheezing was noted. CARDIOVASCULAR: Patient is tachycardic. ABDOMEN: Soft and nontender with normal bowel sounds. SKIN: Skin is clear with no lesions or rashes and otherwise unremarkable. NEUROLOGIC: Patient is alert and oriented x3. Cranial nerves II through XII are grossly intact. Motor and sensory are also intact. Normal speech, volume and content. Symmetrical smile. MUSCULOSKELETAL: Normal extremities with adequate strength and full range of motion. LYMPHATICS: No significant lymphadenopathy is noted PSYCHIATRIC: Normal psychiatric evaluation. Course Vital Signs 11/25/20 11/25/20 11/25/20 09:36 10:02 11:00 Temperature 103.1 F H Pulse Rate 105 H 99 92 Respiratory 20 20 24 Rate Blood Pressure 123/72 138/73 138/73 O2 Sat by Pulse 91 L 92 L 94 L Oximetry 11/25/20 11/25/20 11/25/20 11:08 12:00 12:17 Temperature 100.6 F H 98.4 F Pulse Rate 84 Respiratory 24 Rate Blood Pressure 94/62 O2 Sat by Pulse 93 L Oximetry Medical Decision Making - Medical Decision Making EKG shows sinus tachycardia at 106 bpm IN interval 284 QRS is 162 QT interval 370 QTC is 502. Patient's EKG shows left bundle branch block. Chest x-ray shows no acute abnormality. Because the patient has some white cells in the urine I gave the patient a gram of Rocephin. Patient's creatinine is 4.9 Psych consult the nephrology. I spoke with Dr. Cordova he agreed to admit the patient and the patient wrote admitting orders. I went back into the room to reevaluate the patient she stated that she was feeling considerably better after her temperature came down. - Lab Data Result diagrams: 11/25/20 09:42 11/25/20 09:42 Lab Results 11/25/20 11/25/20 11/25/20 Range/Units 09:42 09:42 09:42 WBC 13.3 H (3.8-10.6) k/uL RBC 4.58 (3.80-5.40) m/uL Hgb 14.4 (11.4-16.0) gm/dL Hct 41.5 (34.0-46.0) % MCV 90.5 (80.0-100.0) fL MCH 31.3 (25.0-35.0) pg MCHC 34.6 (31.0-37.0) g/dL RDW 14.5 (11.5-15.5) % Plt Count 55 L D (150-450) k/uL MPV 10.3 Neutrophils % 84 % Lymphocytes % 10 % Monocytes % 4 % Eosinophils % 1 % Basophils % 0 % Neutrophils # 11.2 H (1.3-7.7) k/uL Lymphocytes # 1.3 (1.0-4.8) k/uL Monocytes # 0.5 (0-1.0) k/uL Eosinophils # 0.2 (0-0.7) k/uL Basophils # 0.1 (0-0.2) k/uL Manual Slide Review Performed RBC Morphology Normal Sodium 132 L (137-145) mmol/L Potassium 4.4 (3.5-5.1) mmol/L Chloride 104 (98-107) mmol/L Carbon Dioxide 18 L (22-30) mmol/L Anion Gap 10 mmol/L BUN 40 H (7-17) mg/dL Creatinine 4.99 H (0.52-1.04) mg/dL Est GFR (CKD-EPI)AfAm 9 (>60 ml/min/1.73 sqM) Est GFR (CKD-EPI)NonAf 8 (>60 ml/min/1.73 sqM) Glucose 140 H (74-99) mg/dL Plasma Lactic Acid José Manuel (0.7-2.0) mmol/L Calcium 8.6 (8.4-10.2) mg/dL Total Bilirubin 0.7 (0.2-1.3) mg/dL AST 43 H (14-36) U/L ALT 22 (4-34) U/L Alkaline Phosphatase 47 (38-126) U/L Total Protein 5.9 L (6.3-8.2) g/dL Albumin 3.0 L (3.5-5.0) g/dL Urine Color Yellow Urine Appearance Cloudy H (Clear) Urine pH 8.0 (5.0-8.0) Ur Specific [place] 1.016 (1.001-1.035) Urine Protein 3+ H (Negative) Urine Glucose (UA) 1+ H (Negative) Urine Ketones Negative (Negative) Urine Blood Moderate H (Negative) Urine Nitrite Negative (Negative) Urine Bilirubin Negative (Negative) Urine Urobilinogen <2.0 (<2.0) mg/dL Ur Leukocyte Esterase Negative (Negative) Urine RBC 137 H (0-5) /hpf Urine WBC 48 H (0-5) /hpf Ur Squamous Epith Cells 1 (0-4) /hpf Urine Bacteria Rare H (None) /hpf Urine Mucus Rare H (None) /hpf Coronavirus (PCR) (Not Detectd) Influenza Type A RNA (Not Detectd) Influenza Type B (PCR) (Not Detectd) 11/25/20 11/25/20 11/25/20 Range/Units 09:42 09:42 09:45 WBC (3.8-10.6) k/uL RBC (3.80-5.40) m/uL Hgb (11.4-16.0) gm/dL Hct (34.0-46.0) % MCV (80.0-100.0) fL MCH (25.0-35.0) pg MCHC (31.0-37.0) g/dL RDW (11.5-15.5) % Plt Count (150-450) k/uL MPV Neutrophils % % Lymphocytes % % Monocytes % % Eosinophils % % Basophils % % Neutrophils # (1.3-7.7) k/uL Lymphocytes # (1.0-4.8) k/uL Monocytes # (0-1.0) k/uL Eosinophils # (0-0.7) k/uL Basophils # (0-0.2) k/uL Manual Slide Review RBC Morphology Sodium (137-145) mmol/L Potassium (3.5-5.1) mmol/L Chloride (98-107) mmol/L Carbon Dioxide (22-30) mmol/L Anion Gap mmol/L BUN (7-17) mg/dL Creatinine (0.52-1.04) mg/dL Est GFR (CKD-EPI)AfAm (>60 ml/min/1.73 sqM) Est GFR (CKD-EPI)NonAf (>60 ml/min/1.73 sqM) Glucose (74-99) mg/dL Plasma Lactic Acid José Manuel 1.3 (0.7-2.0) mmol/L Calcium (8.4-10.2) mg/dL Total Bilirubin (0.2-1.3) mg/dL AST (14-36) U/L ALT (4-34) U/L Alkaline Phosphatase (38-126) U/L Total Protein (6.3-8.2) g/dL Albumin (3.5-5.0) g/dL Urine Color Urine Appearance (Clear) Urine pH (5.0-8.0) Ur Specific [place] (1.001-1.035) Urine Protein (Negative) Urine Glucose (UA) (Negative) Urine Ketones (Negative) Urine Blood (Negative) Urine Nitrite (Negative) Urine Bilirubin (Negative) Urine Urobilinogen (<2.0) mg/dL Ur Leukocyte Esterase (Negative) Urine RBC (0-5) /hpf Urine WBC (0-5) /hpf Ur Squamous Epith Cells (0-4) /hpf Urine Bacteria (None) /hpf Urine Mucus (None) /hpf Coronavirus (PCR) Not Detected (Not Detectd) Influenza Type A RNA Not Detected (Not Detectd) Influenza Type B (PCR) Not Detected (Not Detectd) Disposition Clinical Impression: Acute renal failure, Diarrhea, Urinary tract infection Disposition: ADMITTED IP TO THIS HOSP Referrals: Kellei Rob DO [Primary Care Provider] - 1-2 days Time of Disposition: 12:56
[2020-11-25] MEDS: SODIUM CHLORIDE 0.9% 500 ML 500 ML IV SCH ×2 (09:49→11:14)
[2020-11-25 10:01] LABS: Basophils # (A) 0.1 k/uL (0-0.2); Basophils % (A) 0 %; Eosinophils # (A) 0.2 k/uL (0-0.7); Eosinophils % (A) 1 %; HCT 41.5 % (34.0-46.0); HGB 14.4 gm/dL (11.4-16.0); Lymphocytes # (A) 1.3 k/uL (1.0-4.8); Lymphocytes % (A) 10 %; MCH 31.3 pg (25.0-35.0); MCHC 34.6 g/dL (31.0-37.0); MCV 90.5 fL (80.0-100.0); Mean Platelet Volume 10.3; Monocytes # (A) 0.5 k/uL (0-1.0); Monocytes % (A) 4 %; Neutrophils # (A) 11.2 k/uL (1.3-7.7); Neutrophils % (A) 84 %; RBC 4.58 m/uL (3.80-5.40); RDW 14.5 % (11.5-15.5); WBC 13.3 k/uL (3.8-10.6)
[2020-11-25 10:16] LABS: Calcium 8.6 mg/dL (8.4-10.2); Total Bilirubin 0.7 mg/dL (0.2-1.3); Total Protein 5.9 g/dL (6.3-8.2)
[2020-11-25 10:17] LABS: Potassium 4.4 mmol/L (3.5-5.1)
[2020-11-25 10:25] LABS: Platelet Count 55 k/uL (150-450)
--- NOTE | 2020-11-25 10:50 | XR ---
EXAMINATION TYPE: XR chest 1V portable DATE OF EXAM: 11/25/2020 COMPARISON: None INDICATION: Fever x2 days TECHNIQUE: Single frontal view of the chest is obtained. FINDINGS: The heart size is mildly prominent. The pulmonary vasculature is normal. The lungs are clear. IMPRESSION: 1. Mild cardiomegaly. 2. No suspicious acute changes
[2020-11-25 12:20] LABS: Appearance,Urine Cloudy (Clear); Bacteria,Urine Rare /hpf; Bilirubin,Urine Negative (Negative); Blood,Urine Moderate (Negative); Color,Urine Yellow; Glucose,Urine (UA) 1+ (Negative); Ketones,Urine Negative (Negative); Leukocyte Esterase,Urine Negative (Negative); Mucus,Urine Rare /hpf; Nitrite,Urine Negative (Negative); Protein,Urine 3+ (Negative); RBC,Urine 137 /hpf (0-5); Specific Gravity,Urine 1.016 (1.001-1.035); Squamous Epithelial Cell,Urine 1 /hpf (0-4); Urobilinogen,Urine <2.0 mg/dL (<2.0); WBC,Urine 48 /hpf (0-5)
[2020-11-25] MEDS ORDERED: SODIUM CHLORIDE 0.9% 1,000 ML IV ONE ×2 (12:45→12:56)
--- NOTE | 2020-11-25 13:32 | US ---
EXAMINATION TYPE: US kidneys/renal and bladder DATE OF EXAM: 11/25/2020 COMPARISON: NONE CLINICAL HISTORY: LUKE. EXAM MEASUREMENTS: Right Kidney: 12.9 x 6.2 x 6.5 cm Left Kidney: 12.0 x 6.3 x 6.7 cm Right Kidney: No hydronephrosis or masses seen Left Kidney: No hydronephrosis or masses seen Bladder: not well distended limited Bilateral Jets seen: No IMPRESSION: 1. Normal renal ultrasound
[2020-11-25] MEDS: HEPARIN SODIUM,PORCINE/PF 5,000 UNIT/0.5 ML SYRINGE SQ SCH ×2 (15:57→23:40)
--- NOTE | 2020-11-25 16:02 | CT ---
EXAMINATION TYPE: CT chest wo con DATE OF EXAM: 11/25/2020 COMPARISON: None HISTORY: SOB. Wide mediastinum by chest x-ray. CT DLP: 765.5 mGycm. Automated Exposure Control for Dose Reduction was Utilized. TECHNIQUE: CT scan of the thorax is performed without IV contrast. FINDINGS: The lungs are clear of consolidative or masslike density. There is no pleural effusion, pleural thickening or pneumothorax. There is a 3.5 mm nodular density in the right upper lobe. There is moderate to marked cardiomegaly. The aortic root and aortic arch are normal in size. The pulmonary artery is moderately enlarged likel y indicating pulmonary hypertension. The osseous structures and soft tissues are unremarkable. Impression 1 1. Enlarged pulmonary artery region question of pulmonary hypertension. 2. Moderate to marked cardiomegaly without acute CHF. 3. No parenchymal infiltrates to suggest pneumonia or pulmonary edema.
[2020-11-25] MEDS: ACETAMINOPHEN TAB 325 MG TAB PO PRN (17:51)
[2020-11-25] MEDS: DIVALPROEX ER 500 MG TAB.ER.24H PO SCH (20:24)
[2020-11-25] MEDS: MELATONIN 5 MG TABLET PO SCH (20:24)
[2020-11-25 23:54] LABS: Creatinine,Urine Random 84.3 mg/dL
[2020-11-26] MEDS: ACETAMINOPHEN TAB 325 MG TAB PO PRN ×3 (04:42→20:24)
[2020-11-26] MEDS: LEVOTHYROXINE 50 MCG TAB PO SCH (06:14)
[2020-11-26 08:12] LABS: Basophils % (A) 0 %; Eosinophils % (A) 0 %; HCT 37.9 % (34.0-46.0); Lymphocytes # (A) 1.1 k/uL (1.0-4.8); Lymphocytes % (A) 7 %; MCH 31.3 pg (25.0-35.0); MCHC 34.4 g/dL (31.0-37.0); Mean Platelet Volume 10.8; Monocytes # (A) 0.4 k/uL (0-1.0); Monocytes % (A) 2 %; Neutrophils # (A) 13.7 k/uL (1.3-7.7); Neutrophils % (A) 89 %; RBC 4.17 m/uL (3.80-5.40); RDW 14.7 % (11.5-15.5); WBC 15.3 k/uL (3.8-10.6)
[2020-11-26 08:18] LABS: Platelet Count 54 k/uL (150-450)
[2020-11-26] MEDS: DIVALPROEX ER 500 MG TAB.ER.24H PO SCH ×2 (08:24→20:24)
[2020-11-26] MEDS: HEPARIN SODIUM,PORCINE/PF 5,000 UNIT/0.5 ML SYRINGE SQ SCH ×2 (08:33→16:51)
[2020-11-26 08:41] LABS: African American GFR (CKD) 6 (>60 ml/min/1.73 sqM); Anion Gap 13 mmol/L; Blood Urea Nitrogen 54 mg/dL (7-17); Calcium 7.6 mg/dL (8.4-10.2); Carbon Dioxide 15 mmol/L (22-30); Chloride 104 mmol/L (98-107); Glucose 111 mg/dL (74-99); Non-African American GFR(CKD) 5 (>60 ml/min/1.73 sqM); Sodium 132 mmol/L (137-145)
--- NOTE | 2020-11-26 08:54 | P.NPCON ---
History of Present Illness - Reason for Consult acute renal failure - History of Present Illness Reason for consultation: Acute kidney injury History of present illness: Patient is a 75-year-old female seen in renal consultation for acute kidney injury. Creatinine was 4.99 on admission. Baseline creatinine near 1 from October 2020. Patient presented to the hospital due to diarrhea and poor intake. She also felt weak. Patient states the symptoms started about 3-4 days ago. She also admits to taking about 4-5 tabs of ibuprofen on a daily basis. She has been voiding. No hematuria or dysuria. No vomiting. No history of diabetes. Denies family history of renal disease. She is noted to be febrile. Her temperature was 103.1F on admission. This morning was 99.7F. She is still complaining of loose stools. Renal ultrasound revealed normal size kidneys without any evidence of hydronephrosis. CT of the chest revealed no evidence of vascular congestion. She is currently receiving normal saline at 75 mL an hour. Vital signs are stable. General: The patient appeared well nourished and normally developed. HEENT: Head exam is unremarkable. Neck is without jugular venous distension. LUNGS: Breath sounds decreased. HEART: Rate and Rhythm are regular. ABDOMEN: Soft, nontender. Obese. EXTREMITITES: No edema. Past Medical History Past Medical History: Unable to Obtain, Hearing Disorder / Deafness, Hypertension, Thyroid Disorder Additional Past Medical History / Comment(s): lymphedema History of Any Multi-Drug Resistant Organisms: None Reported Past Surgical History: No Surgical Hx Reported Additional Past Surgical History / Comment(s): removal of nodual rt breast 54 yrs ago. Past Anesthesia/Blood Transfusion Reactions: No Reported Reaction Past Psychological History: Anxiety, Bipolar, Depression, PTSD Smoking Status: Current every day smoker, Smoker, current status unknown Past Alcohol Use History: None Reported Additional Past Alcohol Use History / Comment(s): When asked about smoking status, pt states that she has not smoked in 4 years and that it was 18 years before that. pt then states that she takes one puff of a cigarette and blows out the smoke to determine which way the wind is going and then puts it out. Analyzer Sales questioned if pt then only smoked one cigarette per day. pt states, "No." Analyzer Sales asked if pt smoked half pack per day or less and pt states, "Probably more. Because I just take them and smoke one puff, blow it out, and then put out the cigarette." Analyzer Sales unable to determine from pt number of PPD, how often, or for how long. Smoking cessation information given. Past Drug Use History: None Reported Medications and Allergies Home Medications Medication Instructions Recorded Confirmed Type Atorvastatin [Lipitor] 10 mg PO MOWEFR 10/27/20 11/25/20 History Acetaminophen Tab [Tylenol] 650 mg PO Q4HR PRN tab 11/03/20 11/25/20 Rx Cholecalciferol [Vitamin D3 (25 25 mcg PO DAILY 30 Days tablet 11/03/20 11/25/20 Rx Mcg = 1000 Iu)] Divalproex ER [Depakote ER] 1,000 mg PO HS 30 Days tab.er.24h 11/03/20 11/25/20 Rx Divalproex ER [Depakote ER] 500 mg PO DAILY 30 Days tab.er.24h 11/03/2011/25 Rx Levothyroxine Sodium [Synthroid] 50 mcg PO DAILY@0630 30 Days tab 11/03/20 11/25/20 Rx Melatonin 10 mg PO HS 30 Days tablet 11/03/20 11/25/20 Rx allopurinoL [Zyloprim] 100 mg PO DAILY 30 Days tab 11/03/20 11/25/20 Rx fluPHENAZine decanoate [Prolixin 25 mg IM [id number] #1 vial 11/03/20 11/25/20 Rx Decanoate] Allergies Allergy/AdvReac Type Severity Reaction Status Date / Time duloxetine [From Cymbalta] Allergy Unknown Verified 11/25/20 09:43 escitalopram [From Lexapro] Allergy Unknown Verified 11/25/20 09:43 fluoxetine [From Prozac] Allergy Unknown Verified 11/25/20 09:43 risperidone [From Risperdal] Allergy Unknown Verified 11/25/20 09:43 Sulfa (Sulfonamide Allergy Unknown Verified 11/25/20 09:43 Antibiotics) steroids Allergy Unknown Uncoded 11/25/20 09:43 Physical Exam Vitals: Vital Signs Temp Pulse Pulse Resp BP BP Pulse Ox 11/26/20 08:41 99.7 F H 11/26/20 04:23 98.5 F 117 H 22 130/76 93 L 11/25/20 23:23 100.5 F H 11/25/20 20:10 99.5 F 90 18 91/69 98 11/25/20 19:42 99.5 F 11/25/20 17:58 98.3 F 11/25/20 13:55 97.5 F L 74 22 99/62 95 11/25/20 13:15 98.8 F 78 22 107/54 94 L 11/25/20 12:17 98.4 F 11/25/20 12:00 84 24 94/62 93 L 11/25/20 11:08 100.6 F H 11/25/20 11:00 92 24 138/73 94 L 11/25/20 10:02 99 20 138/73 92 L 11/25/20 09:36 103.1 F H 105 H 20 123/72 91 L Intake and Output 11/25/20 11/26/20 11/26/20 22:59 06:59 14:59 Intake Total 450 Balance 450 Intake: Intake, IV Titration 450 Amount Sodium Chloride 0.9% 1, 450 000 ml @ 75 mls/hr IV . [id number] ONE Rx#:[id number] Other: Voiding Method Toilet Bedside Commode Diaper Diaper # Voids 1 3 # Bowel Movements 1 Results - Lab Results Most recent lab results Calcium 8.6 mg/dL (8.4-10.2) 11/25/20 09:42 Urine Creatinine 84.3 mg/dL 11/25/20 23:26 Urine Total Protein >600 mg/dL 11/25/20 23:26 11/26/20 07:24 11/25/20 09:42 Assessment and Plan Plan: Assessment: 1. Acute kidney injury mostly prerenal secondary to nonsteroidals and hypovolemia from diarrhea. Creatinine 4.99 admission. Baseline creatinine near 1 from October 2020. No evidence of hydronephrosis noted on kidney ultrasound. 2. Diarrhea. Rule out C. diff. 3. Metabolic acidosis secondary to acute kidney injury and GI losses. 4. Hypovolemic hyponatremia. Plan: Maintain normal saline at 75 mL an hour. Avoid nephrotoxins. Follow-up cultures. Morning labs pending. Repeat urinalysis. Thank you for the consultation. I will continue to follow the patient with you during her hospital stay.
--- NOTE | 2020-11-26 11:20 | P.HPIM ---
History of Present Illness H&P Date: 11/25/20 Chief Complaint: Fever Patient is a 75-year-old female with a known history of hypertension, hypothyroidism, hearing disorder/deafness, lymphedema, anxiety/depression, bipolar disorder and PTSD and currently everyday smoker presents to ER due to complaints of fever. Patient states that she has been having diarrhea for the last 2 days prior to admission. Patient states that she felt shaky and had fever at home and called EMS. T-max was 103.1 on admission. Heart rate 105 and saturating at 91% on room air. Otherwise patient denied any cough or sputum production. Patient does have cough without any sputum production. Denied any abdominal pain. No chest pain. Denied any dizziness or lightheadedness. Chest x-ray showed mild cardiomegaly. No suspicious acute changes. EKG showed sinus tachycardia Ultrasound bladder showed normal renal ultrasound. CT chest without contrast showed enlarged pulmonary artery raising question of pulmonary hypertension. Moderate to marked cardiomegaly without acute CHF. No parenchymal infiltrates to suggest pneumonia or pulmonary edema. Laboratory showed WBC 13.3 hemoglobin 14.4 platelets 55 Sodium 132 potassium 4.4 chloride 104 BUN 14 creatinine 4.99 and blood sugar is 140 AST 43 ALT 22 alk phos 47 urinalysis showed cloudy with 3+ protein 1+ glucose leukocyte esterase negative and elevated RBCs and WBCs. Coronavirus PCR not detected. CT is negative. Patient was recently discharged home [facility] on 11/07/2019 Review of Systems Constitutional: Patient does have fever. no chills . + generalized weakness or weight loss. Abdomen: Patient denied nausea vomiting. + diarrhea and no abdominal pain. Cardiovascular: Patient denies any chest pain or short of breath no palpitations. Respiratory: patient denied any cough or sputum production. No shortness of breath Neurologic: Patient denied any numbness or tingling headache. Musculoskeletal: Patient denies any complaints of joint swelling or deformity. Skin: Negative Psychiatric: Negative Endocrine: No heat or cold intolerance. No recent weight gain. Genitourinary: No dysuria or hematuria. All other 14 point ROS negative except the above Past Medical History Past Medical History: Unable to Obtain, Hearing Disorder / Deafness, Hypertension, Thyroid Disorder Additional Past Medical History / Comment(s): lymphedema History of Any Multi-Drug Resistant Organisms: None Reported Past Surgical History: No Surgical Hx Reported Past Anesthesia/Blood Transfusion Reactions: No Reported Reaction Past Psychological History: Anxiety, Bipolar, Depression, PTSD Smoking Status: Current every day smoker, Smoker, current status unknown Past Alcohol Use History: None Reported Additional Past Alcohol Use History / Comment(s): When asked about smoking status, pt states that she has not smoked in 4 years and that it was 18 years before that. pt then states that she takes one puff of a cigarette and blows out the smoke to determine which way the wind is going and then puts it out. Cotton Bag Sewer questioned if pt then only smoked one cigarette per day. pt states, "No." Cotton Bag Sewer asked if pt smoked half pack per day or less and pt states, "Probably more. Because I just take them and smoke one puff, blow it out, and then put out the cigarette." Cotton Bag Sewer unable to determine from pt number of PPD, how often, or for how long. Smoking cessation information given. Past Drug Use History: None Reported Medications and Allergies Home Medications Medication Instructions Recorded Confirmed Type Atorvastatin [Lipitor] 10 mg PO MOWEFR 10/27/20 11/25/20 History Acetaminophen Tab [Tylenol] 650 mg PO Q4HR PRN tab 11/03/20 11/25/20 Rx Cholecalciferol [Vitamin D3 (25 25 mcg PO DAILY 30 Days tablet 11/03/20 11/25/20 Rx Mcg = 1000 Iu)] Divalproex ER [Depakote ER] 1,000 mg PO HS 30 Days tab.er.24h 11/03/20 11/25/20 Rx Divalproex ER [Depakote ER] 500 mg PO DAILY 30 Days tab.er.24h 11/03/20 11/25/20 Rx Levothyroxine Sodium [Synthroid] 50 mcg PO DAILY@0630 30 Days tab 11/03/20 11/25/20 Rx Melatonin 10 mg PO HS 30 Days tablet 11/03/20 11/25/20 Rx allopurinoL [Zyloprim] 100 mg PO DAILY 30 Days tab 11/03/20 11/25/20 Rx fluPHENAZine decanoate [Prolixin 25 mg IM [id number] #1 vial 11/03/20 11/25/20 Rx Decanoate] Allergies Allergy/AdvReac Type Severity Reaction Status Date / Time duloxetine [From Cymbalta] Allergy Unknown Verified 11/25/20 09:43 escitalopram [From Lexapro] Allergy Unknown Verified 11/25/20 09:43 fluoxetine [From Prozac] Allergy Unknown Verified 11/25/20 09:43 risperidone [From Risperdal] Allergy Unknown Verified 11/25/20 09:43 Sulfa (Sulfonamide Allergy Unknown Verified 11/25/20 09:43 Antibiotics) steroids Allergy Unknown Uncoded 11/25/20 09:43 Physical Exam Vitals: Vital Signs Temp Pulse Resp BP Pulse Ox 11/25/20 13:15 98.8 F 78 22 107/54 94 L 11/25/20 12:17 98.4 F 11/25/20 12:00 84 24 94/62 93 L 11/25/20 11:08 100.6 F H 11/25/20 11:00 92 24 138/73 94 L 11/25/20 10:02 99 20 138/73 92 L 11/25/20 09:36 103.1 F H 105 H 20 123/72 91 L Intake and Output 11/24/20 11/25/20 11/25/20 22:59 06:59 14:59 Other: Weight 120.656 kg PHYSICAL EXAMINATION: Patient is lying in the bed comfortably, no acute distress, awake alert and oriented.Morbid obese. Hard of hearing.. HEENT: Normocephalic. Neck is supple. Pupils reactive. Nostrils clear. Oral cavity is moist. Ears reveal no drainage. Neck reveals no JVD, carotid bruits, or thyromegaly. CHEST EXAMINATION: Trachea is central. Symmetrical expansion. Bibasilar diminished sounds.. CARDIAC: Normal S1, S2 with no gallops. No murmurs ABDOMEN: Soft. Bowel sounds normal. No organomegaly. No abdominal bruits. Extremities: reveal trace edema. No clubbing or cyanosis Neurologically awake, alert, oriented x3 with well-coordinated movements. No focal deficits noted Skin: No rash or skin lesions. Psychiatric: Coperative. Nonsuicidal Musculoskeletal: No joint swelling or deformity. Normal range of motion. Results CBC & Chem 7: 11/26/20 07:24 11/26/20 07:24 Labs: Abnormal Lab Results - Last 24 Hours (Table) 11/25/20 11/25/20 11/25/20 Range/Units 09:42 09:42 09:42 WBC 13.3 H (3.8-10.6) k/uL Plt Count 55 L D (150-450) k/uL Neutrophils # 11.2 H (1.3-7.7) k/uL Sodium 132 L (137-145) mmol/L Carbon Dioxide 18 L (22-30) mmol/L BUN 40 H (7-17) mg/dL Creatinine 4.99 H (0.52-1.04) mg/dL Glucose 140 H (74-99) mg/dL AST 43 H (14-36) U/L Total Protein 5.9 L (6.3-8.2) g/dL Albumin 3.0 L (3.5-5.0) g/dL Urine Appearance Cloudy H (Clear) Urine Protein 3+ H (Negative) Urine Glucose (UA) 1+ H (Negative) Urine Blood Moderate H (Negative) Urine RBC 137 H (0-5) /hpf Urine WBC 48 H (0-5) /hpf Urine Bacteria Rare H (None) /hpf Urine Mucus Rare H (None) /hpf Thrombosis Risk Factor Assmnt - DVT/VTE Prophylaxis DVT/VTE Prophylaxis: Pharmacologic Prophylaxis ordered Assessment and Plan Assessment: Acute kidney injury due to ATN secondary to hypotension with diarrhea and sepsis. Creatinine level 4.99 Possible acute urinary tract infection Sepsis secondary to above Acute diarrhea. Rule out C. difficile infection. Hearing disorder/deafness Hypertension Hypothyroidism Anxiety/depression, bipolar and PTSD Currently everyday smoker DVT prophylaxis with heparin subcu Plan: Patient will be continued on IV hydration and antibiotics in the form of ceftriaxone. Follow-up urine culture report. Monitor renal function closely. Nephrology was consulted. Continue with home medications and avoid NSAIDs and nephrotoxic agents. Ultrasound renal was ordered. CT chest showed no evidence of pneumon ia/pulmonary edema. Random urine protein, creatinine, sodium level started. Further recommendations based on the clinical course. Time with Patient: Greater than 30
[2020-11-26] MEDS ORDERED: SODIUM CHLORIDE 0.9% 1,000 ML IV SCH (11:45)
[2020-11-26] MEDS ORDERED: IPRATROPIUM-ALBUTEROL 3 ML NEB INHALATION PRN (12:41)
[2020-11-26] MEDS: DEXTROSE 5% IN WATER 1,000 ML with SODIUM BICARB (1 MEQ/ML) 150 ML IV SCH (14:05)
--- NOTE | 2020-11-26 14:17 | XR ---
EXAMINATION TYPE: XR chest 1V portable DATE OF EXAM: 11/26/2020 COMPARISON: 11/25/2020 HISTORY: Fever TECHNIQUE: Single frontal view of the chest is obtained. FINDINGS: The pulmonary arteries and heart are prominent in size. Question pulmonary hypertension. T he lungs are clear of consolidative or interstitial masslike opacity. There is no pleural effusion or pneumothorax. The osseous structures are intact. There is been no int erval change since the prior study IMPRESSION: Prominence of the pulmonary vasculature and heart reason question pulmonary hypertension . There is been no interval change since prior study. There is no definite acute cardiopulmonary dise ase.
[2020-11-26] MEDS ORDERED: LEVOFLOXACIN 750MG-D5W PMX 750 MG in DEXTROSE/WATER 1 150ML.BAG IVPB SCH (16:00)
[2020-11-26] MEDS: IPRATROPIUM-ALBUTEROL 3 ML NEB INHALATION SCH ×2 (16:29→21:19)
[2020-11-26 16:42] LABS: C Reactive Protein 34.3 mg/dL (<1.0)
--- NOTE | 2020-11-26 19:28 | CONS ---
CONSULTATION DATE OF SERVICE: 11/26/2020 REASON FOR CONSULTATION: Sepsis, UTI. HISTORY OF PRESENT ILLNESS: The patient is a 75-year-old female who presented to [facility] ER yesterday morning for evaluation of diarrhea, feeling shakes and very cold. The patient had diarrhea going on for about 2 days, multiple loose stools. Denies any blood or mucus in the stool. No significant abdominal pain though. The patient felt very cold and did have shaking chills. The patient denies any cough, shortness of breath. No nausea, no vomiting or any other symptoms. With these symptoms, the patient has been evaluated by the ER physician. On arrival to the ER, the patient had a fever of 103.8 degrees Fahrenheit. The patient did have persistent fever and a fever of 102.8 degrees Fahrenheit. Today the patient was tachycardic and mildly hypoxic requiring supplemental oxygen. The patient did have a white count of 13.3, white count up to 15.3 today. There was no lymphopenia and did have a left shift. She did have elevated BUN and creatinine, creatinine up to 7.39, AST mildly elevated. Urine has been positive. Pickard PCR negative x2. Stool for C difficile was negative. The patient did have a chest x-ray, mild atelectasis acute changes. Ultrasound of the abdomen was negative, did not show any abnormality. The patient has been treated with Rocephin with persistent fever and ID was consulted for further management. The patient herself is very hard of hearing, so most of the information has been extracted from review of the chart and as well as talking with the nursing staff. REVIEW OF SYSTEMS: Positive points have been mentioned in HPI. The rest of the systems negative. PAST MEDICAL HISTORY: Hypertension, hypothyroidism, deafness and hearing disorder, lymphedema. PAST SURGICAL HISTORY: No surgeries. PAST PSYCHOLOGICAL DISORDER: History of anxiety, depression, PTSD. SOCIAL HISTORY: Current everyday smoker. No drinking or drug use. FAMILY HISTORY: No pertinent findings noticed. ALLERGIES: TO MULTIPLE MEDICATION INCLUDING SULFA, STEROID, RISPERDAL, LEXAPRO AND CYMBALTA. MEDICATIONS: Medications currently include the patient is on Tylenol, DuoNeb, Lipitor, Rocephin 1 g daily. She is on Depakote, Synthroid and melatonin. PHYSICAL EXAMINATION: Blood pressure is 176/77 with a pulse of 170, temperature 102.8. She is 95% on 2 L nasal cannula. General description: The patient is an elderly female lying in bed in no distress. HEENT examination: No pallor or scleral icterus. Oral mucosal membranes are dry. NECK: Trachea central. No thyromegaly. LUNGS: Unlabored breathing, clear to auscultation anteriorly. No wheeze or crackles. HEART S1, S2. Regular rate and rhythm. ABDOMEN: Soft, no tenderness. No guarding. No rigidity. EXTREMITIES are no edema of the feet. SKIN: No rash or mass palpable. NEUROLOGICAL: Patient is awake and alert and oriented times three. Mood and affect normal. LABS: Hemoglobin 13, white count 15.3 with left shift. No lymphopenia. BUN of 54, creatinine 7.39. WBC up to 48. Pickard PCR negative. CT chest did not show any ground glass opacities suspicious for COVID-19 infection. DIAGNOSTIC IMPRESSION AND PLAN: Patient admitted to the hospital with sepsis. The patient did have fever, tachycardia and elevated white count. The patient did have positive UA. Concern for possible urinary tract infection. The patient did have a soft abdomen on examination. No evidence of any cellulitis. However, in view of significant diarrhea, now with shortness of breath, concern for infection to be ruled out. PLAN: 1. We will check a urine for Legionella antigen check a D-dimer, if positive, she will benefit from a VQ scan. CT angiogram could not be done because of the kidney function. 2. Keep the patient on Rocephin. However add Levaquin 750 mg every 48 hours. 3. We will follow on clinical condition and culture to further adjust medication if needed. Thank you for this consultation. Will follow this patient with you. MMODL / IJN: [id number] / MTDD
[2020-11-26] MEDS: MELATONIN 5 MG TABLET PO SCH (20:24)
[2020-11-26] MEDS ORDERED: methylPREDNISolone SOD SUCCI 125 MG/2 ML VIAL IV STA (20:33)
[2020-11-26] MEDS: LORazepam 2 MG/ML INJ IV PRN (20:39)
[2020-11-26] MEDS ORDERED: QUEtiapine 25 MG TAB PO SCH (21:00)
--- NOTE | 2020-11-26 22:44 | P.PN ---
Subjective Progress Note Date: 11/26/20 Principal diagnosis: Fever. UTI LUKE Diarrhea Patient is a 75-year-old female with a known history of hypertension, hypothyroidism, hearing disorder/deafness, lymphedema, anxiety/depression, bipolar disorder and PTSD and currently everyday smoker presents to ER due to complaints of fever. Patient states that she has been having diarrhea for the last 2 days prior to admission. Patient states that she felt shaky and had fever at home and called EMS. T-max was 103.1 on admission. Heart rate 105 and saturating at 91% on room air. Otherwise patient denied any cough or sputum production. Patient does have cough without any sputum production. Denied any abdominal pain. No chest pain. Denied any dizziness or lightheadedness. Chest x-ray showed mild cardiomegaly. No suspicious acute changes. EKG showed sinus tachycardia Ultrasound bladder showed normal renal ultrasound. CT chest without contrast showed enlarged pulmonary artery raising question of pulmonary hypertension. Moderate to marked cardiomegaly without acute CHF. No parenchymal infiltrates to suggest pneumonia or pulmonary edema. Laboratory showed WBC 13.3 hemoglobin 14.4 platelets 55 Sodium 132 potassium 4.4 chloride 104 BUN 14 creatinine 4.99 and blood sugar is 140 AST 43 ALT 22 alk phos 47 urinalysis showed cloudy with 3+ protein 1+ glucose leukocyte esterase negative and elevated RBCs and WBCs. Coronavirus PCR not detected. CT is negative. 11/26/2020 Patient is awake alert and oriented. Hard of hearing. Otherwise patient is still febrile with T-max 100.5 last night. Patient is being continued on antibiotics in the form of ceftriaxone for urinary tract infection. Laboratory data showed WBC count went up to 15.3 and neutrophils 13.7. Sodium 132 potassium 4.0 BUN 54 and creatinine 7.39. Patient was seen by nephrology. Patient was tachypneic this afternoon time and is saturating at 94% on 2 L oxygen via nasal cannula. Heart rate is improving. Repeat chest x-ray was done which showed prominence of pulmonary vasculature and heart raising question of pulmonary hypertension. There has been no interval change since prior study. There is no definite acute cardiopulmonary disease. Due to suspected COVID-19 viral infection, PCR was sent again. Lab data showed D-dimer level 1.36, LDH 1025 and CRP 34.3. VQ scan was ordered to rule out PE Patient was seen by ID and IV Levaquin. C. difficile is negative. Patient did have 4-5 episodes of diarrhea this morning. Current medications reviewed. Objective - Vital Signs Vital signs: Vital Signs Temp 99.1 F 11/26/20 19:32 Pulse 96 11/26/20 21:29 Resp 16 11/26/20 19:32 BP 118/77 11/26/20 19:32 Pulse Ox 94 L 11/26/20 19:32 Intake & Output 11/26/20 11/26/20 11/27/20 06:59 18:59 06:59 Intake Total 875 Output Total 10 Balance 865 Intake: Intake, IV Titration 875 Amount Dextrose 5% in Water 1, 200 000 ml @ 100 mls/hr IV . [id number] MARCIO with Sodium Bicarb (1 Meq/ml) 150 ml Rx#:[id number] Sodium Chloride 0.9% 1, 675 000 ml @ 75 mls/hr IV . [id number] MARCIO Rx#:[id number] Output: Stool 10 Other: Voiding Method Toilet Bedside Commode Diaper Diaper # Voids 3 2 # Bowel Movements 1 - Exam PHYSICAL EXAMINATION: Patient is lying in the bed comfortably, no acute distress, awake alert and oriented.Morbid obese. Hard of hearing.. HEENT: Normocephalic. Neck is supple. Pupils reactive. Nostrils clear. Oral cavity is moist. Ears reveal no drainage. Neck reveals no JVD, carotid bruits, or thyromegaly. CHEST EXAMINATION: Trachea is central. Symmetrical expansion. Bibasilar diminish ed sounds.. CARDIAC: Normal S1, S2 with no gallops. No murmurs ABDOMEN: Soft. Bowel sounds normal. No organomegaly. No abdominal bruits. Extremities: reveal trace edema. No clubbing or cyanosis Neurologically awake, alert, oriented x3 with well-coordinated movements. No focal deficits noted Skin: No rash or skin lesions. Psychiatric: Coperative. Nonsuicidal Musculoskeletal: No joint swelling or deformity. Normal range of motion. - Labs CBC & Chem 7: 11/26/20 07:24 11/26/20 07:24 Labs: Abnormal Lab Results - Last 24 Hours (Table) 11/26/20 11/26/20 11/26/20 Range/Units 07:24 07:24 07:24 WBC 15.3 H (3.8-10.6) k/uL Plt Count 54 L (150-450) k/uL Neutrophils # 13.7 H (1.3-7.7) k/uL D-Dimer (<0.60) mg/L FEU Sodium 132 L (137-145) mmol/L Carbon Dioxide 15 L (22-30) mmol/L BUN 54 H (7-17) mg/dL Creatinine 7.39 H* (0.52-1.04) mg/dL Glucose 111 H (74-99) mg/dL Calcium 7.6 L (8.4-10.2) mg/dL Lactate Dehydrogenase (313-618) U/L C-Reactive Protein 32.9 H (<1.0) mg/dL 11/26/20 11/26/20 Range/Units 15:44 15:44 WBC (3.8-10.6) k/uL Plt Count (150-450) k/uL Neutrophils # (1.3-7.7) k/uL D-Dimer 11.36 H (<0.60) mg/L FEU Sodium (137-145) mmol/L Carbon Dioxide (22-30) mmol/L BUN (7-17) mg/dL Creatinine (0.52-1.04) mg/dL Glucose (74-99) mg/dL Calcium (8.4-10.2) mg/dL Lactate Dehydrogenase 1025 H (313-618) U/L C-Reactive Protein 34.3 H (<1.0) mg/dL Microbiology - Last 24 Hours (Table) 11/25/20 09:42 Urine Culture - Final Urine,Catheterized 11/25/20 10:13 Blood Culture - Preliminary Blood No Growth after 24 hours 11/25/20 10:13 Blood Culture - Preliminary Blood No Growth after 24 hours Assessment and Plan Assessment: Acute kidney injury due to ATN secondary to hypotension with diarrhea and sepsis. Creatinine level 4.99-->7.39 acute urinary tract infection Sepsis secondary to above Suspected COVID-19 infection. Repeat PCR negative. Acute diarrhea. Ruled out C. difficile infection. Hearing disorder/deafness Hypertension Hypothyroidism Anxiety/depression, bipolar and PTSD Currently everyday smoker DVT prophylaxis with heparin subcu Plan: Patient will be continued on IV hydration and antibiotics in the form of ceftriaxone. added levoquin. Follow-up urine culture report. Monitor renal function closely. Nephrology is on board. Continue with home medications and avoid NSAIDs and nephrotoxic agents. Ultrasound renal Showed no evidence of hydronephrosis.. CT chest showed no evidence of pneumonia/pulmonary edema. Random urine protein, creatinine, sodium level reviewed.. VQ scan was ordered to rule out PE due to elevated D-dimer level. CTA chest could not be done due to elevated creatinine level. Further recommendations based on the clinical course. Time with Patient: Greater than 30
[2020-11-27] MEDS: IPRATROPIUM-ALBUTEROL 3 ML NEB INHALATION SCH ×7 (01:26→21:08)
[2020-11-27] MEDS: DEXTROSE 5% IN WATER 1,000 ML with SODIUM BICARB (1 MEQ/ML) 150 ML IV SCH ×2 (02:25→15:39)
[2020-11-27] MEDS: HEPARIN SODIUM,PORCINE/PF 5,000 UNIT/0.5 ML SYRINGE SQ SCH ×3 (03:10→15:39)
[2020-11-27] MEDS: LORazepam 2 MG/ML INJ IV PRN ×3 (04:41→20:59)
[2020-11-27] MEDS: LEVOTHYROXINE 50 MCG TAB PO SCH (06:08)
[2020-11-27 06:22] LABS: Amorphous Sediment,Urine Moderate /hpf; Appearance,Urine Cloudy (Clear); Bilirubin,Urine Negative (Negative); Blood,Urine Moderate (Negative); Color,Urine Yellow; Glucose,Urine (UA) Trace (Negative); Ketones,Urine Negative (Negative); Leukocyte Esterase,Urine Small (Negative); Nitrite,Urine Negative (Negative); Protein,Urine 3+ (Negative); RBC,Urine 53 /hpf (0-5); Specific Gravity,Urine 1.013 (1.001-1.035); Squamous Epithelial Cell,Urine 2 /hpf (0-4); Urobilinogen,Urine <2.0 mg/dL (<2.0); WBC,Urine 39 /hpf (0-5)
[2020-11-27] MEDS: DIVALPROEX ER 500 MG TAB.ER.24H PO SCH ×3 (08:13→21:03)
[2020-11-27 10:28] LABS: African American GFR (CKD) 4.8 (60.0-200.0); Anion Gap 15.2 mmol/L (4.00-12.00); BUN/Creat Ratio 8.59 Ratio (12.00-20.00); C Reactive Protein 29.9 mg/dL (0.0-0.8); Calcium 7.4 mg/dL (8.7-10.3); Carbon Dioxide 18.8 mmol/L (21.6-31.8); Magnesium 2.1 mg/dL (1.5-2.4); Non-African American GFR(CKD) 4.1 (60.0-200.0)
--- NOTE | 2020-11-27 11:18 | NM ---
EXAMINATION TYPE: NM pul vent and perfuse DATE OF EXAM: 11/27/2020 COMPARISON: NONE HISTORY: elevated D-dimer TECHNIQUE: Utilizing inhalation of 68 mCi Tc 99m DTPA aerosol and intravenous injection of 5.4 mCi o f Tc 99m MAA, ventilation and perfusion images are acquired post injection in multiple projections. FINDINGS: There is central accumulation of radiotracer compatible with COPD. Matched defects are seen within th e periphery of the left mid lung. No perfusion mismatch is identified. IMPRESSION: Low probability for pulmonary embolism.
[2020-11-27 11:37] LABS: Basophils % (A) 0 %; Eosinophils # (A) 0.1 k/uL (0-0.7); Eosinophils % (A) 1 %; HCT 37.9 % (34.0-46.0); HGB 12.7 gm/dL (11.4-16.0); Lymphocytes # (A) 1.1 k/uL (1.0-4.8); Lymphocytes % (A) 11 %; MCH 30.1 pg (25.0-35.0); MCHC 33.6 g/dL (31.0-37.0); MCV 89.7 fL (80.0-100.0); Mean Platelet Volume 12.8; Monocytes # (A) 0.2 k/uL (0-1.0); Monocytes % (A) 2 %; Neutrophils # (A) 8.6 k/uL (1.3-7.7); Neutrophils % (A) 86 %; RBC 4.22 m/uL (3.80-5.40); RDW 15.2 % (11.5-15.5)
[2020-11-27 11:43] LABS: Platelet Count 70 k/uL (150-450)
[2020-11-27] MEDS ORDERED: SODIUM CHLORIDE 0.9% 500 ML 500 ML IV ONE (12:48)
[2020-11-27] MEDS ORDERED: FUROSEMIDE 10 MG/ML 10 ML VIAL IV STA (13:03)
--- NOTE | 2020-11-27 13:04 | P.PN ---
Subjective Patient is seen in follow for acute kidney injury. Renal function progressively worsening. Creatinine 8.5 today. Fernandez catheter was placed last night. Urine output on the lower side. Maintained on bicarb drip. Acidosis improving. No edema. Denies chest pain or shortness of breath. Oral intake has been fair. Currently on 3 L is cannula. Vital signs are stable. General: The patient appeared well nourished and normally developed. HEENT: Head exam is unremarkable. Neck is without jugular venous distension. LUNGS: Breath sounds decreased. HEART: Rate and Rhythm are regular. ABDOMEN: Soft, obese. EXTREMITITES: No edema. Objective - Vital Signs Vital signs: Vital Signs Temp 97.5 F L 11/27/20 11:05 Pulse 84 11/27/20 11:59 Resp 26 H 11/27/20 11:05 BP 110/72 11/27/20 11:05 Pulse Ox 95 11/27/20 11:05 Intake & Output 11/26/20 11/27/20 11/27/20 18:59 06:59 18:59 Intake Total 875 900 Output Total 10 20 100 Balance 865 880 -100 Intake: Intake, IV Titration 875 900 Amount Dextrose 5% in Water 1, 200 900 000 ml @ 100 mls/hr IV . [id number] MARCOI with Sodium Bicarb (1 Meq/ml) 150 ml Rx#:[id number] Sodium Chloride 0.9% 1, 675 000 ml @ 75 mls/hr IV . [id number] MARCIO Rx#:[id number] Output: Urine 20 Uretheral (Fernandez) 20 Stool 10 100 Other: Voiding Method Bedside Commode Diaper Diaper Diaper Incontinent Incontinent # Voids 2 # Bowel Movements 1 3 1 - Labs CBC & Chem 7: 11/27/20 11:22 11/27/20 05:56 Labs: Abnormal Lab Results - Last 24 Hours (Table) 11/26/20 11/26/20 11/26/20 Range/Units 07:24 15:44 15:44 Plt Count (150-450) k/uL Neutrophils # (1.3-7.7) k/uL D-Dimer 11.36 H (<0.60) mg/L FEU Sodium (135-145) mmol/L Carbon Dioxide (21.6-31.8) mmol/L Anion Gap (4.00-12.00) mmol/L BUN (9.0-27.0) mg/dL Creatinine (0.6-1.5) mg/dL Est GFR (CKD-EPI)AfAm (60.0-200.0) Est GFR (CKD-EPI)NonAf (60.0-200.0) BUN/Creatinine Ratio (12.00-20.00) Ratio Glucose (70-110) mg/dL Calcium (8.7-10.3) mg/dL Lactate Dehydrogenase 1025 H (313-618) U/L C-Reactive Protein 32.9 H 34.3 H (<1.0) mg/dL Procalcitonin (0.02-0.09) ng/mL Urine Appearance (Clear) Urine Protein (Negative) Urine Glucose (UA) (Negative) Urine Blood (Negative) Ur Leukocyte Esterase (Negative) Urine RBC (0-5) /hpf Urine WBC (0-5) /hpf Amorphous Sediment (None) /hpf 11/26/20 11/27/20 11/27/20 Range/Units 15:44 03:15 05:56 Plt Count (150-450) k/uL Neutrophils # (1.3-7.7) k/uL D-Dimer (<0.60) mg/L FEU Sodium 133 L (135-145) mmol/L Carbon Dioxide 18.8 L (21.6-31.8) mmol/L Anion Gap 15.20 H (4.00-12.00) mmol/L BUN 73.0 H (9.0-27.0) mg/dL Creatinine 8.5 H* (0.6-1.5) mg/dL Est GFR (CKD-EPI)AfAm 4.8 L (60.0-200.0) Est GFR (CKD-EPI)NonAf 4.1 L (60.0-200.0) BUN/Creatinine Ratio 8.59 L (12.00-20.00) Ratio Glucose 200 H (70-110) mg/dL Calcium 7.4 L (8.7-10.3) mg/dL Lactate Dehydrogenase (313-618) U/L C-Reactive Protein 29.9 H (<1.0) mg/dL Procalcitonin 25.31 H (0.02-0.09) ng/mL Urine Appearance Cloudy H (Clear) Urine Protein 3+ H (Negative) Urine Glucose (UA) Trace H (Negative) Urine Blood Moderate H (Negative) Ur Leukocyte Esterase Small H (Negative) Urine RBC 53 H (0-5) /hpf Urine WBC 39 H (0-5) /hpf Amorphous Sediment Moderate H (None) /hpf 11/27/20 Range/Units 11:22 Plt Count 70 L (150-450) k/uL Neutrophils # 8.6 H (1.3-7.7) k/uL D-Dimer (<0.60) mg/L FEU Sodium (135-145) mmol/L Carbon Dioxide (21.6-31.8) mmol/L Anion Gap (4.00-12.00) mmol/L BUN (9.0-27.0) mg/dL Creatinine (0.6-1.5) mg/dL Est GFR (CKD-EPI)AfAm (60.0-200.0) Est GFR (CKD-EPI)NonAf (60.0-200.0) BUN/Creatinine Ratio (12.00-20.00) Ratio Glucose (70-110) mg/dL Calcium (8.7-10.3) mg/dL Lactate Dehydrogenase (313-618) U/L C-Reactive Protein (<1.0) mg/dL Procalcitonin (0.02-0.09) ng/mL Urine Appearance (Clear) Urine Protein (Negative) Urine Glucose (UA) (Negative) Urine Blood (Negative) Ur Leukocyte Esterase (Negative) Urine RBC (0-5) /hpf Urine WBC (0-5) /hpf Amorphous Sediment (None) /hpf Microbiology - Last 24 Hours (Table) 11/25/20 10:13 Blood Culture - Preliminary Blood No Growth after 48 hours 11/25/20 10:13 Blood Culture - Preliminary Blood No Growth after 48 hours 11/26/20 19:50 Stool Culture - Preliminary Stool 11/25/20 09:42 Urine Culture - Final Urine,Catheterized Assessment and Plan Plan: Assessment: 1. Acute kidney injury secondary to ATN secondary to nonsteroidals and h ypovolemia from diarrhea. Creatinine 4.99 admission and is up to 8.5 today. Baseline creatinine near 1 from October 2020. No evidence of hydronephrosis noted on kidney ultrasound. Rule out GN. 2. Diarrhea. Improved. C. diff negative. 3. Metabolic acidosis secondary to acute kidney injury and GI losses. Improving with bicarbonate drip. 4. Hypovolemic hyponatremia. Stable. Plan: Maintain bicarb drip at 100 mL an hour. 500 mL bolus of 0.9 saline now. Lasix 80 mg IV once today. Avoid nephrotoxins. Follow-up cultures. Check serologies and quantify proteinuria. Check echocardiogram. If no improvement in renal function and urine output in the next 24 hours, will initiate renal replacement therapy.
[2020-11-27 14:42] LABS: Creatinine,Urine Random 100.3 mg/dL; Protein/Creatinine Ratio,Urine 1.854
[2020-11-27] MEDS: guaiFENesin 600 MG TABLET.ER PO SCH ×2 (15:39→20:47)
[2020-11-27] MEDS: methylPREDNISolone SOD SUCCI 125 MG/2 ML VIAL IV SCH (17:37)
--- NOTE | 2020-11-27 17:53 | P.CNPUL ---
History of Present Illness Consult date: 11/27/20 Reason for consult: dyspnea, cough, abnormal CXR/CT Chief complaint: Dyspnea, wheezing, cough History of present illness: This is a 75-year-old white female patient was admitted to the hospital on 11/26/1999 2820 she presented to the hospital with complaints of fever and diarrhea. She called EMS, and when EMS arrived she had a fever of 103.7. She was complaining of a mild cough, but no chest discomfort, no palpitations or abdominal pain. Patient states she did not get the COVID vaccine, however she tested negative for Crohn the virus in the emergency department, C. difficile was negative, influenza and that Legionella urine antigen were also negative. She had been on and off febrile in the hospital and the last 48 hours. Her blood work showed leukocytosis on admission with a white blood cell count of 13 .3, hemoglobin of 14.4, sodium was 132, CO2 was 18, BUN is 40 and creatinine of 4.99, urinalysis showed urinary tract infection, patient's pro calcitonin level came back elevated at 25.3 suggesting possibility of a bacterial infection, patient continued to have multiple episodes of diarrhea. Her kidney function continued to worsen through the hospital stay, and on today's labs are BUN is 73, and creatinine is 8.5. A repeat COVID test came back negative, her d-dimer was also elevated at 11.36. VQ scan showed low probability of pulmonary embolism. Her renal ultrasound showed no evidence of hydronephrosis, and it was a normal renal ultrasound. CT of the chest without contrast showed enlarged pulmonary artery region suggestive of pulmonary hypertension, and moderate to marked cardiomegaly without acute CHF, and in no parenchymal infiltrates to suggest pneumonia or pulmonary edema. Patient has a congested cough, she has wheezing bilaterally, and patient admits to being a former smoker. She was given a dose of IV steroids, and started on breathing treatments, and we were asked to see the patient in evaluation for cough, wheezing, and acute hypoxic respiratory failure. Review of Systems All systems: negative Constitutional: Reports fever, Reports weakness, Denies chills Eyes: denies blurred vision, denies pain Ears, nose, mouth and throat: Denies headache, Denies sore throat Cardiovascular: Denies chest pain, Denies shortness of breath Respiratory: Reports dyspnea, Reports wheezing, Denies cough Gastrointestinal: Denies abdominal pain, Denies diarrhea, Denies nausea, Denies vomiting Genitourinary: Denies dysuria, Denies hematuria Musculoskeletal: Denies myalgias Integumentary: Denies pruritus, Denies rash Neurological: Denies numbness, Denies weakness Psychiatric: Denies anxiety, Denies depression Endocrine: Denies fatigue, Denies weight change Past Medical History Past Medical History: Unable to Obtain, Hearing Disorder / Deafness, Hypertension, Thyroid Disorder Additional Past Medical History / Comment(s): lymphedema History of Any Multi-Drug Resistant Organisms: None Reported Past Surgical History: No Surgical Hx Reported Additional Past Surgical History / Comment(s): removal of nodual rt breast 54 yrs ago. Past Anesthesia/Blood Transfusion Reactions: No Reported Reaction Past Psychological History: Anxiety, Bipolar, Depression, PTSD Smoking Status: Current every day smoker, Smoker, current status unknown Past Alcohol Use History: None Reported Additional Past Alcohol Use History / Comment(s): When asked about smoking status, pt states that she has not smoked in 4 years and that it was 18 years before that. pt then states that she takes one puff of a cigarette and blows out the smoke to determine which way the wind is going and then puts it out. Casing Builder questioned if pt then only smoked one cigarette per day. pt states, "No." Casing Builder asked if pt smoked half pack per day or less and pt states, "Probably more. Because I just take them and smoke one puff, blow it out, and then put out the cigarette." Casing Builder unable to determine from pt number of PPD, how often, or for how long. Smoking cessation information given. Past Drug Use History: None Reported Medications and Allergies Home Medications Medication Instructions Recorded Confirmed Type Atorvastatin [Lipitor] 10 mg PO MOWEFR 10/27/20 11/25/20 History Acetaminophen Tab [Tylenol] 650 mg PO Q4HR PRN tab 11/03/20 11/25/20 Rx Cholecalciferol [Vitamin D3 (25 25 mcg PO DAILY 30 Days tablet 11/03/20 Rx Mcg = 1000 Iu)] Divalproex ER [Depakote ER] 1,000 mg PO HS 30 Days tab.er.24h 11/03/20 11/25/20 Rx Divalproex ER [Depakote ER] 500 mg PO DAILY 30 Days tab.er.24h 11/03/20 11/25/20 Rx Levothyroxine Sodium [Synthroid] 50 mcg PO DAILY@0630 30 Days tab 11/03/20 11/25/20 Rx Melatonin 10 mg PO HS 30 Days tablet 11/03/20 11/25/20 Rx allopurinoL [Zyloprim] 100 mg PO DAILY 30 Days tab 11/03/20 11/25/20 Rx fluPHENAZine decanoate [Prolixin 25 mg IM [id number] #1 vial 11/03/20 11/25/20 Rx Decanoate] Allergies Allergy/AdvReac Type Severity Reaction Status Date / Time duloxetine [From Cymbalta] Allergy Unknown Verified 11/25/20 09:43 escitalopram [From Lexapro] Allergy Unknown Verified 11/25/20 09:43 fluoxetine [From Prozac] Allergy Unknown Verified 11/25/20 09:43 risperidone [From Risperdal] Allergy Unknown Verified 11/25/20 09:43 Sulfa (Sulfonamide Allergy Unknown Verified 11/25/20 09:43 Antibiotics) steroids Allergy Unknown Uncoded 11/25/20 09:43 Physical Exam Vitals: Vital Signs Temp Pulse Pulse Resp BP Pulse Ox 11/27/20 16:55 96 11/27/20 16:42 92 11/27/20 11:59 84 11/27/20 11:48 80 11/27/20 11:05 97.5 F L 82 26 H 110/72 95 11/27/20 05:00 83 24 98/66 93 L 11/27/20 00:10 97.6 F 83 22 126/84 94 L 11/26/20 21:29 96 11/26/20 21:19 96 11/26/20 20:30 117 H 36 H 95 11/26/20 19:32 99.1 F 104 H 16 118/77 94 L Intake and Output 11/27/20 11/27/20 11/27/20 06:59 14:59 22:59 Intake Total 900 Output Total 20 100 Balance 880 -100 Intake: Intake, IV Titration 900 Amount Dextrose 5% in Water 1, 900 000 ml @ 100 mls/hr IV . [id number] MARCIO with Sodium Bicarb (1 Meq/ml) 150 ml Rx#:[id number] Output: Urine 20 Uretheral (Fernandez) 20 Stool 100 Other: Voiding Method Diaper Incontinent # Bowel Movements 3 1 GENERAL EXAM: Alert, very pleasant, 75-year-old white female, on 3 L of oxygen the pulse ox of 95%, has a congested cough, and wheezing comfortable in no apparent distress. HEAD: Normocephalic/atraumatic. EYES: Normal reaction of pupils, equal size. Conjunctiva pink, sclera white. NOSE: Clear with pink turbinates. THROAT: No erythema or exudates. NECK: No masses, no JVD, no thyroid enlargement, no adenopathy. CHEST: No chest wall deformity. Symmetrical expansion. LUNGS: Equal air entry with diffuse wheezes CVS: Regular rate and rhythm, normal S1 and S2, no gallops, no murmurs, no rubs ABDOMEN: Soft, nontender. No hepatosplenomegaly, normal bowel sounds, no guarding or rigidity. EXTREMITIES: No clubbing, no edema, no cyanosis, 2+ pulses and upper and lower extremities. MUSCULOSKELETAL: Muscle strength and tone normal. SPINE: No scoliosis or deformity SKIN: No rashes CENTRAL NERVOUS SYSTEM: Alert and oriented -3. No focal deficits, tone is normal in all 4 extremities. PSYCHIATRIC: Alert and oriented -3. Appropriate affect. Intact judgment and insight. Results - Laboratory Findings CBC and BMP: 11/27/20 11:22 11/27/20 05:56 PT/INR, D-dimer D-Dimer 11.36 mg/L FEU (<0.60) H 11/26/20 15:44 Abnormal lab findings: Abnormal Labs 11/25/20 11/25/20 11/25/20 09:42 09:42 09:42 WBC 13.3 H Plt Count 55 L D Neutrophils # 11.2 H D-Dimer Sodium 132 L Carbon Dioxide 18 L Anion Gap BUN 40 H Creatinine 4.99 H Est GFR (CKD-EPI)AfAm Est GFR (CKD-EPI)NonAf BUN/Creatinine Ratio Glucose 140 H Calcium AST 43 H Lactate Dehydrogenase C-Reactive Protein Total Protein 5.9 L Albumin 3.0 L Procalcitonin Urine Appearance Cloudy H Urine Protein 3+ H Urine Glucose (UA) 1+ H Urine Blood Moderate H Ur Leukocyte Esterase Urine RBC 137 H Urine WBC 48 H Amorphous Sediment Urine Bacteria Rare H Urine Mucus Rare H 11/26/20 11/26/20 11/26/20 07:24 07:24 07:24 WBC 15.3 H Plt Count 54 L Neutrophils # 13.7 H D-Dimer Sodium 132 L Carbon Dioxide 15 L Anion Gap BUN 54 H Creatinine 7.39 H* Est GFR (CKD-EPI)AfAm Est GFR (CKD-EPI)NonAf BUN/Creatinine Ratio Glucose 111 H Calcium 7.6 L AST Lactate Dehydrogenase C-Reactive Protein 32.9 H Total Protein Albumin Procalcitonin Urine Appearance Urine Protein Urine Glucose (UA) Urine Blood Ur Leukocyte Esterase Urine RBC Urine WBC Amorphous Sediment Urine Bacteria Urine Mucus 11/26/20 11/26/20 11/26/20 15:44 15:44 15:44 WBC Plt Count Neutrophils # D-Dimer 11.36 H Sodium Carbon Dioxide Anion Gap BUN Creatinine Est GFR (CKD-EPI)AfAm Est GFR (CKD-EPI)NonAf BUN/Creatinine Ratio Glucose Calcium AST Lactate Dehydrogenase 1025 H C-Reactive Protein 34.3 H Total Protein Albumin Procalcitonin 25.31 H Urine Appearance Urine Protein Urine Glucose (UA) Urine Blood Ur Leukocyte Esterase Urine RBC Urine WBC Amorphous Sediment Urine Bacteria Urine Mucus 11/27/20 11/27/20 11/27/20 03:15 05:56 11:22 WBC Plt Count 70 L Neutrophils # 8.6 H D-Dimer Sodium 133 L Carbon Dioxide 18.8 L Anion Gap 15.20 H BUN 73.0 H Creatinine 8.5 H* Est GFR (CKD-EPI)AfAm 4.8 L Est GFR (CKD-EPI)NonAf 4.1 L BUN/Creatinine Ratio 8.59 L Glucose 200 H Calcium 7.4 L AST Lactate Dehydrogenase C-Reactive Protein 29.9 H Total Protein Albumin Procalcitonin Urine Appearance Cloudy H Urine Protein 3+ H Urine Glucose (UA) Trace H Urine Blood Moderate H Ur Leukocyte Esterase Small H Urine RBC 53 H Urine WBC 39 H Amorphous Sediment Moderate H Urine Bacteria Urine Mucus - Diagnostic Findings Chest x-ray: report reviewed, image reviewed CT scan - chest: report reviewed, image reviewed Additional studies: EKG reviewed, renal ultrasound reviewed, VQ scan reviewed Assessment and Plan Plan: Assessment: #1. Acute hypoxic respiratory failure, likely related to acute exacerbation of COPD. CT chest showed no pulmonary infiltrates, chest x-ray showed evidence of pulmonary hypertension, no acute cardiopulmonary disease #2. Acute urinary tract infection, with sepsis #3. Diarrhea and dehydration #4. Acute kidney injury related to ATN #5. Elevated d-dimer, VQ scan showed low probability of pulmonary embolism #6. Hypertension #7. Hypothyroidism #8. Anxiety #9. Former smoker #10. Suspect history of COPD Plan: We'll continue with the Solu-Medrol at 60 mg every 6 hours Patient can continue on current antibiotics Continue DuoNeb Chest x-ray and CT chest reviewed showing no evidence of active cardiopulmonary disease VQ scan showed low probability of PE We'll obtain lower extremity Dopplers GI and DVT prophylaxis We'll continue to follow I performed a history & physical examination of the patient and discussed their management with my nurse practitioner, Vickie Hopkins. I reviewed the nurse practitioner's note and agree with the documented findings and plan of care. Lung sounds are positive for diffuse wheezes throughout the lung elliott. The findings and the impression was discussed with the patient. I attest to the documentation by the nurse practitioner. Time with Patient: Greater than 30
[2020-11-27] MEDS: MELATONIN 5 MG TABLET PO SCH (20:45)
[2020-11-27] MEDS: ATORVASTATIN 10 MG TAB PO SCH ×2 (20:46→21:03)
[2020-11-27 21:05] LABS: Hepatitis A Antibody IgM Non-Reactive (Non-Reactive); Hepatitis B Core IgM Non-Reactive (Non-Reactive); Hepatitis B Surface Antigen Non-Reactive (Non-Reactive); Hepatitis C IgG Antibody Non-Reactive (Non-Reactive)
[2020-11-27 21:51] LABS: Anti-DNA, DS unit <1.0 IU/mL; DNA Double-Stranded NEGATIVE (NEGATIVE)
[2020-11-28] MEDS: methylPREDNISolone SOD SUCCI 125 MG/2 ML VIAL IV SCH ×5 (00:19→23:05)
[2020-11-28] MEDS: HEPARIN SODIUM,PORCINE/PF 5,000 UNIT/0.5 ML SYRINGE SQ SCH ×4 (00:19→23:05)
[2020-11-28] MEDS: IPRATROPIUM-ALBUTEROL 3 ML NEB INHALATION SCH ×6 (01:18→20:21)
[2020-11-28 03:26] LABS: Protein, Total 5.4 g/dL (6.2-8.2)
[2020-11-28] MEDS: DEXTROSE 5% IN WATER 1,000 ML with SODIUM BICARB (1 MEQ/ML) 150 ML IV SCH ×2 (03:32→05:41)
[2020-11-28] MEDS: LORazepam 2 MG/ML INJ IV PRN ×2 (05:36→20:25)
[2020-11-28] MEDS: LEVOTHYROXINE 50 MCG TAB PO SCH (05:39)
--- NOTE | 2020-11-28 05:59 | PN ---
PROGRESS NOTE DATE OF SERVICE: 11/27/2020 REASON FOR FOLLOWUP: Fever, UTI and pneumonia. INTERVAL HISTORY: Patient overall fever pattern has improved. The patient has been breathing more comfortably, currently on 3 L nasal cannula O2. Denies having any chest pain, shortness of breath. Occasional cough. No abdominal pain. No diarrhea. PHYSICAL EXAMINATION: Blood pressure 107/71 with a pulse of 92, temperature 97.9, she is 95% on 3 L nasal cannula. General description is an elderly female lying in bed in no distress. Respiratory system: Unlabored breathing, decreased intensity of breath sounds. No wheeze. HEART: S1, S2. Regular rate and rhythm. Abdomen soft, no tenderness. LABS: Hemoglobin is 12.1, white count 10, BUN of 73, creatinine 8.5. DIAGNOSTIC IMPRESSION AND PLAN: Patient with fever, concern for UTI and pneumonia, possible atypical. The patient's fever did respond to the Levaquin which was started yesterday to continue along with Rocephin and will monitor clinical course closely. Continue supportive care. MMODL / IJN: [id number] /
[2020-11-28] MEDS: DIVALPROEX ER 500 MG TAB.ER.24H PO SCH ×2 (08:23→20:01)
[2020-11-28] MEDS: guaiFENesin 600 MG TABLET.ER PO SCH ×2 (08:23→20:01)
--- NOTE | 2020-11-28 08:57 | US ---
EXAMINATION TYPE: US venous doppler duplex LE BI DATE OF EXAM: 11/28/2020 8:02 AM COMPARISON: NONE CLINICAL HISTORY: rule out DVT. SIDE PERFORMED: Bilateral TECHNIQUE: The lower extremity deep venous system is examined utilizing real time linear array sonog leanne with graded compression, doppler sonography and color-flow sonography. VESSELS IMAGED: Common Femoral Vein Deep Femoral Vein Greater Saphenous Vein * Femoral Vein Popliteal Vein Small Saphenous Vein * Proximal Calf Veins (* superficial vessels) Right Leg: Negative for DVT as able to visualize Left Leg: Negative for DVT as able to visualize IMPRESSION: 1. Bilateral lower extremity ultrasound negative for deep venous thrombosis. There is some limitation in the examination
--- NOTE | 2020-11-28 09:01 | ECHOF ---
Referral Reason:R/O CHF MEASUREMENTS -------- HEIGHT: 162.6 cm WEIGHT: 120.7 kg BP: IVSd: 0.8 cm (0.6 - 1.1) LVIDd: 6.0 cm (3.9 - 5.3) LVPWd: 1.2 cm (0.6 - 1.1) IVSs: 1.4 cm LVIDs: 5.0 cm LVPWs: 1.3 cm Ao Diam: 2.7 cm (2.0 - 3.7) AV Cusp: 1.9 cm (1.5 - 2.6) LA Diam: 3.1 cm (2.7 - 3.8) MV EXCURSION: 14.577 mm (> 18.000) MV EF SLOPE: 47 mm/s (70 - 150) EPSS: 0.6 cm RAP: 5.00 mmHg RVSP: 15.28 mmHg FINDINGS -------- This was a technically difficult study with suboptimal views. The left ventricle is moderately dilated. Left ventricular wall thickness is normal. There is sev ere global hypokinesis of LV . Overall left ventricular systolic function is severely impaired with , an EF between 20 - 25 %. The right ventricle is normal in size. The left atrial size is normal. The right atrium was not well visualized. 5.0mg of Lumason was utilized for enhancement of images The aortic valve was not well visualized. The mitral valve was not well visualized. Mild mitral regurgitation is present. The tricuspid valve was not well visualized. Mild tricuspid regurgitation present. Right ventricu lar systolic pressure is normal at < 35 mmHg. The pulmonic valve was not well visualized. The aortic root size is normal. IVC Not well visulized. There is no pericardial effusion. CONCLUSIONS -------- 1. The left ventricle is moderately dilated. 2. Left ventricular wall thickness is normal. 3. There is severe global hypokinesis of LV . 4. Overall left ventricular systolic function is severely impaired with, an EF between 20 - 25 %. 5. Mild mitral regurgitation is present. 6. Mild tricuspid regurgitation present. 7. There is no pericardial effusion. CATALOGUE CLERK: Martha Prather [facility]
[2020-11-28 10:16] LABS: African American GFR (CKD) 4.4 (60.0-200.0); Anion Gap 14.9 mmol/L (4.00-12.00); BUN/Creat Ratio 10.22 Ratio (12.00-20.00); Carbon Dioxide 23.1 mmol/L (21.6-31.8); Non-African American GFR(CKD) 3.8 (60.0-200.0); Phosphorus 7.7 mg/dL (2.4-5.1); Potassium 3.7 mmol/L (3.5-5.5)
--- NOTE | 2020-11-28 10:57 | P.PN ---
Subjective Patient is seen in follow for acute kidney injury. Renal function progressively worsening. Creatinine 9 today. Has a Fernandez catheter. Urine output documented as near 900 mL in the last 24 hours. Maintained on bicarb drip. Acidosis improved. No edema. Denies chest pain or shortness of breath. Oral intake has been fair. Currently on 3 L is cannula. Vital signs are stable. General: The patient appeared well nourished and normally developed. HEENT: Head exam is unremarkable. Neck is without jugular venous distension. LUNGS: Breath sounds decreased. HEART: Rate and Rhythm are regular. ABDOMEN: Soft, obese. EXTREMITITES: No edema. Objective - Vital Signs Vital signs: Vital Signs Temp 97.7 F 11/28/20 04:19 Pulse 81 11/28/20 04:19 Resp 24 11/28/20 04:19 BP 110/72 11/28/20 04:19 Pulse Ox 95 11/28/20 04:19 Intake & Output 11/27/20 11/28/20 11/28/20 18:59 06:59 18:59 Intake Total 1500 1500 Output Total 310 600 Balance 1190 900 Intake: Intake, IV Titration 1500 1200 Amount Dextrose 5% in Water 1, 1000 1200 000 ml @ 100 mls/hr IV . [id number] MARCIO with Sodium Bicarb (1 Meq/ml) 150 ml Rx#:[id number] Sodium Chloride 0.9% 500 500 ml 500 ml @ 999 mls/hr IV .Q31M ONE Rx#:[id number] Oral 300 Output: Urine 210 600 Uretheral (Fernandez) 210 300 Stool 100 Other: Voiding Method Diaper Indwelling Catheter Indwelling Catheter Incontinent # Bowel Movements 7 1 - Labs CBC & Chem 7: 11/27/20 11:22 11/28/20 06:42 Labs: Abnormal Lab Results - Last 24 Hours (Table) 11/27/20 11/27/20 11/28/20 Range/Units 11:22 11:22 06:42 Plt Count 70 L (150-450) k/uL Neutrophils # 8.6 H (1.3-7.7) k/uL Sodium 133 L (135-145) mmol/L Chloride 95 L (96-109) mmol/L Anion Gap 14.90 H (4.00-12.00) mmol/L BUN 92.0 H (9.0-27.0) mg/dL Creatinine 9.0 H* (0.6-1.5) mg/dL Est GFR (CKD-EPI)AfAm 4.4 L (60.0-200.0) Est GFR (CKD-EPI)NonAf 3.8 L (60.0-200.0) BUN/Creatinine Ratio 10.22 L (12.00-20.00) Ratio Glucose 179 H (70-110) mg/dL Calcium 7.0 L (8.7-10.3) mg/dL Phosphorus 7.7 H (2.4-5.1) mg/dL Total Protein (PEP) 5.4 L (6.2-8.2) g/dL Microbiology - Last 24 Hours (Table) 11/26/20 15:44 Blood Culture - Preliminary Blood No Growth after 24 hours 11/25/20 10:13 Blood Culture - Preliminary Blood No Growth after 48 hours 11/25/20 10:13 Blood Culture - Preliminary Blood No Growth after 48 hours 11/26/20 19:50 Stool Culture - Preliminary Stool Assessment and Plan Plan: Assessment: 1. Acute kidney injury secondary to ATN secondary to nonsteroidals and hypovolemia from diarrhea. Creatinine 4.99 admission and is up to 9 today. Baseline creatinine near 1 from October 2020. No evidence of hydronephrosis noted on kidney ultrasound. Rule out GN - UPC 1.8 g. 2. Diarrhea. Improved. C. diff negative. 3. Metabolic acidosis secondary to acute kidney injury and GI losses. Improving with bicarbonate drip. 4. Hypovolemic hyponatremia. Stable. 5. Acute systolic CHF with ejection fraction of 20-25%. 6. UTI and possible pneumonia maintained on antibiotics. Infectious disease following. Plan: Stop Bicarb drip. Start normal saline at 75 mL an hour. Status post IV Lasix November 27. Avoid nephrotoxins. Follow-up pending serologies. Will consider kidney biopsy. Due to worsening renal function, initiate renal replacement therapy. Consult vascular surgery for dialysis catheter placement. Plan for first treatment today and second treatment tomorrow. Monitor for renal recovery.
--- NOTE | 2020-11-28 11:09 | P.PN ---
Subjective Progress Note Date: 11/28/20 Principal diagnosis: Exacerbation of COPD This is a 75-year-old white female patient was admitted to the hospital on 11/26/1999 2820 she presented to the hospital with complaints of fever and diarrhea. She called EMS, and when EMS arrived she had a fever of 103.7. She was complaining of a mild cough, but no chest discomfort, no palpitations or abdominal pain. Patient states she did not get the COVID vaccine, however she tested negative for Coronavirus in the emergency department, C. difficile was negative, influenza and that Legionella urine antigen were also negative. She had been on and off febrile in the hospital and the last 48 hours. Her blood work showed leukocytosis on admission with a white blood cell count of 13.3, hemoglobin of 14.4, sodium was 132, CO2 was 18, BUN is 40 and creatinine of 4.99, urinalysis showed urinary tract infection, patient's pro calcitonin level came back elevated at 25.3 suggesting possibility of a bacterial infection, patient continued to have multiple episodes of diarrhea. Her kidney function continued to worsen through the hospital stay, and on today's labs are BUN is 73, and creatinine is 8.5. A repeat COVID test came back negative, her d-dimer was also elevated at 11.36. VQ scan showed low probability of pulmonary embolism. Her renal ultrasound showed no evidence of hydronephrosis, and it was a normal renal ultrasound. CT of the chest without contrast showed enlarged pulmonary artery region suggestive of pulmonary hypertension, and moderate to marked cardiomegaly without acute CHF, and in no parenchymal infiltrates to suggest pneumonia or pulmonary edema. Patient has a congested cough, she has wheezing bilaterally, and patient admits to being a former smoker. She was given a dose of IV steroids, and started on breathing treatments, and we were asked to see the patient in evaluation for cough, wheezing, and acute hypoxic respiratory failure. On 11/28/2020 patient seen in follow-up on medical surgical floor, she is awake, oriented 3, sitting up and into the bed, she is on 3 L of oxygen pulse ox of 95%, she is breathing easier, she remains on IV Solu-Medrol, she still has a cough, and shortness of breath with exertion, but vital signs have been stable, she's been afebrile overnight. Lower extremity Dopplers showed no evidence of DVT. Today's labs have been reviewed, sodium is 133, potassium is 3.7, CO2 is 23, BUN of 92, creatinine of 9.0. Patient had 2 more episodes of diarrhea in the last 24 hours. Cultures have been reviewed, stool culture has been sent and pending, blood cultures and urine cultures have shown no growth thus far. ID service is following, patient is currently on a combination of Rocephin and Levaquin for possibility of urinary tract infection, no evidence of pneumonia CT chest or the chest x-ray. Objective - Vital Signs Vital signs: Vital Signs Temp 97.7 F 11/28/20 04:19 Pulse 81 11/28/20 04:19 Resp 24 11/28/20 04:19 BP 110/72 11/28/20 04:19 Pulse Ox 95 11/28/20 04:19 Intake & Output 11/27/20 11/28/20 11/28/20 18:59 06:59 18:59 Intake Total 1500 1500 Output Total 310 600 Balance 1190 900 Intake: Intake, IV Titration 1500 1200 Amount Dextrose 5% in Water 1, 1000 1200 000 ml @ 100 mls/hr IV . [id number] MARCIO with Sodium Bicarb (1 Meq/ml) 150 ml Rx#:[id number] Sodium Chloride 0.9% 500 500 ml 500 ml @ 999 mls/hr IV .Q31M ONE Rx#:[id number] Oral 300 Output: Urine 210 600 Uretheral (Fernandez) 210 300 Stool 100 Other: Voiding Method Diaper Indwelling Catheter Indwelling Catheter Incontinent # Bowel Movements 7 1 - Exam GENERAL EXAM: Alert, very pleasant, 75-year-old white female, on 3 L of oxygen the pulse ox of 95%, has a congested cough, and wheezing comfortable in no apparent distress. HEAD: Normocephalic/atraumatic. EYES: Normal reaction of pupils, equal size. Conjunctiva pink, sclera white. NOSE: Clear with pink turbinates. THROAT: No erythema or exudates. NECK: No masses, no JVD, no thyroid enlargement, no adenopathy. CHEST: No chest wall deformity. Symmetrical expansion. LUNGS: Equal air entry with diffuse wheezes CVS: Regular rate and rhythm, normal S1 and S2, no gallops, no murmurs, no rubs ABDOMEN: Soft, nontender. No hepatosplenomegaly, normal bowel sounds, no gua rding or rigidity. EXTREMITIES: No clubbing, no edema, no cyanosis, 2+ pulses and upper and lower extremities. MUSCULOSKELETAL: Muscle strength and tone normal. SPINE: No scoliosis or deformity SKIN: No rashes CENTRAL NERVOUS SYSTEM: Alert and oriented -3. No focal deficits, tone is normal in all 4 extremities. PSYCHIATRIC: Alert and oriented -3. Appropriate affect. Intact judgment and insight. - Labs CBC & Chem 7: 11/27/20 11:11/28/20 06:42 Labs: Abnormal Lab Results - Last 24 Hours (Table) 11/27/20 11/27/20 11/28/20 Range/Units 11: 11: 06:42 Plt Count 70 L (150-450) k/uL Neutrophils # 8.6 H (1.3-7.7) k/uL Sodium 133 L (135-145) mmol/L Chloride 95 L (96-109) mmol/L Anion Gap 14.90 H (4.00-12.00) mmol/L BUN 92.0 H (9.0-27.0) mg/dL Creatinine 9.0 H* (0.6-1.5) mg/dL Est GFR (CKD-EPI)AfAm 4.4 L (60.0-200.0) Est GFR (CKD-EPI)NonAf 3.8 L (60.0-200.0) BUN/Creatinine Ratio 10.22 L (12.00-20.00) Ratio Glucose 179 H (70-110) mg/dL Calcium 7.0 L (8.7-10.3) mg/dL Phosphorus 7.7 H (2.4-5.1) mg/dL Total Protein (PEP) 5.4 L (6.2-8.2) g/dL Microbiology - Last 24 Hours (Table) 11/26/20 15:44 Blood Culture - Preliminary Blood No Growth after 24 hours 11/25/20 10:13 Blood Culture - Preliminary Blood No Growth after 48 hours 11/25/20 10:13 Blood Culture - Preliminary Blood No Growth after 48 hours 11/26/20 19:50 Stool Culture - Preliminary Stool Assessment and Plan Plan: Assessment: #1. Acute hypoxic respiratory failure, likely related to acute exacerbation of COPD. CT chest showed no pulmonary infiltrates, chest x-ray showed evidence of pulmonary hypertension, no acute cardiopulmonary disease #2. Acute urinary tract infection, with sepsis #3. Diarrhea and dehydration #4. Acute kidney injury related to ATN, worsening on today's labs and is up to 9.0 today on 11/28/2020, nephrology is following. Patient remains on IV hydration with 0.9 normal sinus 75 ML per hour. #5. Elevated d-dimer, VQ scan showed low probability of pulmonary embolism #6. Hypertension #7. Hypothyroidism #8. Anxiety #9. Former smoker #10. Suspect history of COPD Plan: We'll continue with the Solu-Medrol at 60 mg every 6 hours Patient can continue on current antibiotics for possibility of urinary tract infection ID service is following Continue DuoNeb VQ scan showed low probability of PE Lower extremity Dopplers were negative for DVT Continue GI and DVT prophylaxis We'll continue to follow I performed a history & physical examination of the patient and discussed their management with my nurse practitioner, Vickie Hopkins. I reviewed the nurse practitioner's note and agree with the documented findings and plan of care. Lung sounds are positive for diffuse wheezes throughout the lung elliott. The findings and the impression was discussed with the patient. I attest to the documentation by the nurse practitioner. Time with Patient: Less than 30
[2020-11-28] MEDS: SODIUM CHLORIDE 0.9% 1,000 ML IV SCH (12:32)
[2020-11-28] MEDS: MIDAZOLAM 2 MG/2 ML VIAL IVP ONE ×2 (13:28→13:36)
[2020-11-28] MEDS ORDERED: LIDOCAINE 1% INJ 10MG/ML (20 ML MDV) SQ ONE (13:32)
[2020-11-28 13:41] LABS: C-ANCA <1:20 Titer (<1:20)
--- NOTE | 2020-11-28 13:57 | P.GSCN ---
History of Present Illness History of present illness: 75-year-old white female, patient came with acute chronic renal failure creatinine is 9 today I was consulted for placement of urgent dialysis catheter patient also has history of diabetes heart failure. Patient also has a history of COPD short of breath Neck examination neck is supple no bruit appreciated Chest patient has elected with somewhat decreased bilaterally pulses second maria del rosario nd present Abdomen is soft nontender Vascular brachial radial femoral pulses are present Plan is placement of a dialysis catheter risk and complication discussed Past Medical History Past Medical History: Unable to Obtain, Hearing Disorder / Deafness, Hyper tension, Thyroid Disorder Additional Past Medical History / Comment(s): lymphedema History of Any Multi-Drug Resistant Organisms: None Reported Past Surgical History: No Surgical Hx Reported Additional Past Surgical History / Comment(s): removal of nodual rt breast 54 yrs ago. Past Anesthesia/Blood Transfusion Reactions: No Reported Reaction Past Psychological History: Anxiety, Bipolar, Depression, PTSD Smoking Status: Current every day smoker, Smoker, current status unknown Past Alcohol Use History: None Reported Additional Past Alcohol Use History / Comment(s): When asked about smoking status, pt states that she has not smoked in 4 years and that it was 18 years be fore that. pt then states that she takes one puff of a cigarette and blows out the smoke to determine which way the wind is going and then puts it out. Chicken Fancier questioned if pt then only smoked one cigarette per day. pt states, "No." Chicken Fancier asked if pt smoked half pack per day or less and pt states, "Probably more. Because I just take them and smoke one puff, blow it out, and then put out the cigarette." Chicken Fancier unable to determine from pt number of PPD, how often, or for how long. Smoking cessation information given. Past Drug Use History: None Reported Medications and Allergies Home Medications Medication Instructions Recorded Confirmed Type Atorvastatin [Lipitor] 10 mg PO MOWEFR 10/27/20 11/25/20 History Acetaminophen Tab [Tylenol] 650 mg PO Q4HR PRN tab 11/03/20 11/25/20 Rx Cholecalciferol [Vitamin D3 (25 25 mcg PO DAILY 30 Days tablet 11/03/20 11/25/20 Rx Mcg = 1000 Iu)] Divalproex ER [Depakote ER] 1,000 mg PO HS 30 Days tab.er.24h 11/03/20 11/25/20 Rx Divalproex ER [Depakote ER] 500 mg PO DAILY 30 Days tab.er.24h 11/03/20 11/25/20 Rx Levothyroxine Sodium [Synthroid] 50 mcg PO DAILY@0630 30 Days tab 11/03/20 11/25/20 Rx Melatonin 10 mg PO HS 30 Days tablet 11/03/20 11/25/20 Rx allopurinoL [Zyloprim] 100 mg PO DAILY 30 Days tab 11/03/20 11/25/20 Rx fluPHENAZine decanoate [Prolixin 25 mg IM [id number] #1 vial 11/03/20 11/25/20 Rx Decanoate] Allergies Allergy/AdvReac Type Severity Reaction Status Date / Time duloxetine [From Cymbalta] Allergy Unknown Verified 11/25/20 09:43 escitalopram [From Lexapro] Allergy Unknown Verified 11/25/20 09:43 fluoxetine [From Prozac] Allergy Unknown Verified 11/25/20 09:43 risperidone [From Risperdal] Allergy Unknown Verified 11/25/20 09:43 Sulfa (Sulfonamide Allergy Unknown Verified 11/25/20 09:43 Antibiotics) steroids Allergy Unknown Uncoded 11/25/20 09:43 Surgical - Exam Vital Signs Temp Pulse Resp BP Pulse Ox 103.1 F H 105 H 20 123/72 91 L 11/25/20 09:36 11/25/20 09:36 11/25/20 09:36 11/25/20 09:36 11/25/20 09:36 Results - Labs 11/27/20 11:22 11/28/20 06:42 Abnormal Lab Results - Last 24 Hours (Table) 11/27/20 11/28/20 Range/Units 11:22 06:42 Sodium 133 L (135-145) mmol/L Chloride 95 L (96-109) mmol/L Anion Gap 14.90 H (4.00-12.00) mmol/L BUN 92.0 H (9.0-27.0) mg/dL Creatinine 9.0 H* (0.6-1.5) mg/dL Est GFR (CKD-EPI)AfAm 4.4 L (60.0-200.0) Est GFR (CKD-EPI)NonAf 3.8 L (60.0-200.0) BUN/Creatinine Ratio 10.22 L (12.00-20.00) Ratio Glucose 179 H (70-110) mg/dL Calcium 7.0 L (8.7-10.3) mg/dL Phosphorus 7.7 H (2.4-5.1) mg/dL Total Protein (PEP) 5.4 L (6.2-8.2) g/dL Microbiology - Last 24 Hours (Table) 11/25/20 10:13 Blood Culture - Preliminary Blood No Growth after 72 hours 11/25/20 10:13 Blood Culture - Preliminary Blood No Growth after 72 hours 11/26/20 15:44 Blood Culture - Preliminary Blood No Growth after 24 hours Diabetes panel 11/28/20 Range/Units 06:42 Sodium 133 L (135-145) mmol/L Potassium 3.7 (3.5-5.5) mmol/L Chloride 95 L (96-109) mmol/L Carbon Dioxide 23.1 (21.6-31.8) mmol/L BUN 92.0 H (9.0-27.0) mg/dL Creatinine 9.0 H* (0.6-1.5) mg/dL Glucose 179 H (70-110) mg/dL Calcium 7.0 L (8.7-10.3) mg/dL Calcium panel 11/28/20 Range/Units 06:42 Calcium 7.0 L (8.7-10.3) mg/dL Phosphorus 7.7 H (2.4-5.1) mg/dL Pituitary panel 11/28/20 Range/Units 06:42 Sodium 133 L (135-145) mmol/L Potassium 3.7 (3.5-5.5) mmol/L Chloride 95 L (96-109) mmol/L Carbon Dioxide 23.1 (21.6-31.8) mmol/L BUN 92.0 H (9.0-27.0) mg/dL Creatinine 9.0 H* (0.6-1.5) mg/dL Glucose 179 H (70-110) mg/dL Calcium 7.0 L (8.7-10.3) mg/dL Adrenal panel 11/28/20 Range/Units 06:42 Sodium 133 L (135-145) mmol/L Potassium 3.7 (3.5-5.5) mmol/L Chloride 95 L (96-109) mmol/L Carbon Dioxide 23.1 (21.6-31.8) mmol/L BUN 92.0 H (9.0-27.0) mg/dL Creatinine 9.0 H* (0.6-1.5) mg/dL Glucose 179 H (70-110) mg/dL Calcium 7.0 L (8.7-10.3) mg/dL
--- NOTE | 2020-11-28 13:59 | P.PCN ---
Description of Procedure: Diagnoses acute chronic renal failure Postoperative same Procedure placement of a dialysis catheter ultrasound-guided 20 cm right femoral approach sedation time was 17 minutes Procedure patient brought to the City Director right groin was prepped and draped applied usual standard manner. 1% lidocaine were infiltrated right groin area ultrasound-guided micropuncture introduced to right femoral vein micropuncture guidewire passed and 4. at her advanced top the guidewire. After that we passed a regular guidewire and dilator was advanced. The guidewire then we placed 20 same dialysis catheter flushed with heparin saline and Hep-Lock Secured with 3-0 nylon dressing applied patient tolerated the procedure well
--- NOTE | 2020-11-28 14:05 | PN ---
PROGRESS NOTE DATE OF SERVICE: 11/28/2020 REASON FOR FOLLOWUP: Fever, source likely pneumonia/UTI. INTERVAL HISTORY: The patient is currently afebrile. The patient is feeling much better. She is breathing comfortably. The patient did have a cough, not bringing up any sputum. No chest pain. No abdominal pain. She did have diarrhea but no worsening. PHYSICAL EXAMINATION: Blood pressure 118/75, pulse of 70, temperature 97.7. She is 93% on 2 L nasal cannula. GENERAL DESCRIPTION: An elderly female lying in bed in no distress. RESPIRATORY SYSTEM: Unlabored breathing, clear to auscultation anteriorly. HEART: S1, S2. Regular rate and rhythm. ABDOMEN: Soft, no tenderness. LAB DATA: BUN of 92, creatinine 9.0. Cultures so far negative. DIAGNOSTIC IMPRESSION AND PLAN: Patient admitted to the hospital with a fever, shortness of breath, concern for possible pneumonia. He did have elevated procalcitonin. Clinical suspicion for Legionella with significant GI symptoms. The patient's fever responded to Levaquin that will be continued for now while monitoring clinical course closely. Continue supportive care. MMODL / IJN: [id number] / MTDD
--- NOTE | 2020-11-28 14:40 | IR ---
Fluoroscopy HISTORY: Dialysis catheter placement 0.1 minutes fluoroscopy time supplied to the referring clinician. 59 intraoperative C-arm images doc ument the procedure. See dictated report from vascular surgery.
[2020-11-28] MEDS ORDERED: LEVOFLOXACIN 750 MG TAB PO SCH (16:00)
[2020-11-28] MEDS: MELATONIN 5 MG TABLET PO SCH (20:01)
--- NOTE | 2020-11-29 00:50 | P.PN ---
Subjective Progress Note Date: 11/27/20 Principal diagnosis: Fever. UTI LUKE Diarrhea Patient is a 75-year-old female with a known history of hypertension, hypothyroidism, hearing disorder/deafness, lymphedema, anxiety/depression, bipolar disorder and PTSD and currently everyday smoker presents to ER due to complaints of fever. Patient states that she has been having diarrhea for the last 2 days prior to admission. Patient states that she felt shaky and had fever at home and called EMS. T-max was 103.1 on admission. Heart rate 105 and saturating at 91% on room air. Otherwise patient denied any cough or sputum production. Patient does have cough without any sputum production. Denied any abdominal pain. No chest pain. Denied any dizziness or lightheadedness. Chest x-ray showed mild cardiomegaly. No suspicious acute changes. EKG showed sinus tachycardia Ultrasound bladder showed normal renal ultrasound. CT chest without contrast showed enlarged pulmonary artery raising question of pulmonary hypertension. Moderate to marked cardiomegaly without acute CHF. No parenchymal infiltrates to suggest pneumonia or pulmonary edema. Laboratory showed WBC 13.3 hemoglobin 14.4 platelets 55 Sodium 132 potassium 4.4 chloride 104 BUN 14 creatinine 4.99 and blood sugar is 140 AST 43 ALT 22 alk phos 47 urinalysis showed cloudy with 3+ protein 1+ glucose leukocyte esterase negative and elevated RBCs and WBCs. Coronavirus PCR not detected. CT is negative. 11/26/2020 Patient is awake alert and oriented. Hard of hearing. Otherwise patient is still febrile with T-max 100.5 last night. Patient is being continued on antibiotics in the form of ceftriaxone for urinary tract infection. Laboratory data showed WBC count went up to 15.3 and neutrophils 13.7. Sodium 132 potassium 4.0 BUN 54 and creatinine 7.39. Patient was seen by nephrology. Patient was tachypneic this afternoon time and is saturating at 94% on 2 L oxygen via nasal cannula. Heart rate is improving. Repeat chest x-ray was done which showed prominence of pulmonary vasculature and heart raising question of pulmonary hypertension. There has been no interval change since prior study. There is no definite acute cardiopulmonary disease. Due to suspected COVID-19 viral infection, PCR was sent again. Lab data showed D-dimer level 1.36, LDH 1025 and CRP 34.3. VQ scan was ordered to rule out PE Patient was seen by ID and IV Levaquin. C. difficile is negative. Patient did have 4-5 episodes of diarrhea this morning. 11/27/2020 Patient is more awake and oriented today. Feels comfortable. Afebrile today. Currently on 3 L o2 via nasal cannula. Patient is being continued antibiotics in the form of ceftriaxone and Levaquin was added by ID. Cultures showed no growth so far. Laboratory data showed sodium 133 potassium 4.0 BUN 73 and creatinine 8.5. Patient does have good urine output. CRP level is 29.9 and serological work-up for CKD is negative so far. Nephrology is planning for hemodialysis. Patient is being continued on duo nebs and IV steroids were added. Pulmonary is on board. Current medications reviewed. Objective - Vital Signs Vital signs: Vital Signs Temp 97.6 F 11/27/20 00:10 Pulse 83 11/27/20 05:00 Resp 24 11/27/20 05:00 BP 98/66 11/27/20 05:00 Pulse Ox 93 L 11/27/20 05:00 Intake & Output 11/26/20 11/27/20 11/27/20 18:59 06:59 18:59 Intake Total 875 900 Output Total 10 20 100 Balance 865 880 -100 Intake: Intake, IV Titration 875 900 Amount Dextrose 5% in Water 1, 200 900 000 ml @ 100 mls/hr IV . [id number] MARCIO with Sodium Bicarb (1 Meq/ml) 150 ml Rx#:[id number] Sodium Chloride 0.9% 1, 675 000 ml @ 75 mls/hr IV . [id number] MARCIO Rx#:[id number] Output: Urine 20 Uretheral (Fernandez) 20 Stool 10 100 Other: Voiding Method Bedside Commode Diaper Diaper Diaper Incontinent Incontinent # Voids 2 # Bowel Movements 1 3 1 - Exam PHYSICAL EXAMINATION: Patient is lying in the bed comfortably, no acute distress, awake alert and oriented.Morbid obese. Hard of hearing.. HEENT: Normocephalic. Neck is supple. Pupils reactive. Nostrils clear. Oral cavity is moist. Ears reveal no drainage. Neck reveals no JVD, carotid bruits, or thyromegaly. CHEST EXAMINATION: Trachea is central. Symmetrical expansion. Bibasilar diminished sounds.. CARDIAC: Normal S1, S2 with no gallops. No murmurs ABDOMEN: Soft. Bowel sounds normal. No organomegaly. No abdominal bruits. Extremities: reveal trace edema. No clubbing or cyanosis Neurologically awake, alert, oriented x3 with well-coordinated movements. No focal deficits noted Skin: No rash or skin lesions. Psychiatric: Coperative. Nonsuicidal Musculoskeletal: No joint swelling or deformity. Normal range of motion. - Labs CBC & Chem 7: 11/27/20 11:22 11/28/20 06:42 Labs: Abnormal Lab Results - Last 24 Hours (Table) 11/26/20 11/26/20 11/26/20 Range/Units 07:24 15:44 15:44 D-Dimer 11.36 H (<0.60) mg/L FEU Sodium (135-145) mmol/L Carbon Dioxide (21.6-31.8) mmol/L Anion Gap (4.00-12.00) mmol/L BUN (9.0-27.0) mg/dL Creatinine (0.6-1.5) mg/dL Est GFR (CKD-EPI)AfAm (60.0-200.0) Est GFR (CKD-EPI)NonAf (60.0-200.0) BUN/Creatinine Ratio (12.00-20.00) Ratio Glucose (70-110) mg/dL Calcium (8.7-10.3) mg/dL Lactate Dehydrogenase 1025 H (313-618) U/L C-Reactive Protein 32.9 H 34.3 H (<1.0) mg/dL Procalcitonin (0.02-0.09) ng/mL Urine Appearance (Clear) Urine Protein (Negative) Urine Glucose (UA) (Negative) Urine Blood (Negative) Ur Leukocyte Esterase (Negative) Urine RBC (0-5) /hpf Urine WBC (0-5) /hpf Amorphous Sediment (None) /hpf 11/26/20 11/27/20 11/27/20 Range/Units 15:44 03:15 05:56 D-Dimer (<0.60) mg/L FEU Sodium 133 L (135-145) mmol/L Carbon Dioxide 18.8 L (21.6-31.8) mmol/L Anion Gap 15.20 H (4.00-12.00) mmol/L BUN 73.0 H (9.0-27.0) mg/dL Creatinine 8.5 H* (0.6-1.5) mg/dL Est GFR (CKD-EPI)AfAm 4.8 L (60.0-200.0) Est GFR (CKD-EPI)NonAf 4.1 L (60.0-200.0) BUN/Creatinine Ratio 8.59 L (12.00-20.00) Ratio Glucose 200 H (70-110) mg/dL Calcium 7.4 L (8.7-10.3) mg/dL Lactate Dehydrogenase (313-618) U/L C-Reactive Protein 29.9 H (<1.0) mg/dL Procalcitonin 25.31 H (0.02-0.09) ng/mL Urine Appearance Cloudy H (Clear) Urine Protein 3+ H (Negative) Urine Glucose (UA) Trace H (Negative) Urine Blood Moderate H (Negative) Ur Leukocyte Esterase Small H (Negative) Urine RBC 53 H (0-5) /hpf Urine WBC 39 H (0-5) /hpf Amorphous Sediment Moderate H (None) /hpf Microbiology - Last 24 Hours (Table) 11/26/20 19:50 Stool Culture - Preliminary Stool 11/25/20 09:42 Urine Culture - Final Urine,Catheterized 11/25/20 10:13 Blood Culture - Preliminary Blood No Growth after 24 hours 11/25/20 10:13 Blood Culture - Preliminary Blood No Growth after 24 hours Assessment and Plan Assessment: Acute kidney injury due to ATN secondary to hypotension with diarrhea and sepsis. Creatinine level 4.99-->7.39--8 acute urinary tract infection Sepsis secondary to above Acute COPD exacerbation Suspected COVID-19 infection. Repeat PCR negative. Acute diarrhea. Ruled out C. difficile infection. Hearing disorder/deafness Hypertension Hypothyroidism Anxiety/depression, bipolar and PTSD Currently everyday smoker DVT prophylaxis with heparin subcu Plan: Patient will be continued on IV hydration and antibiotics in the form of ceftriaxone. added levoquin. Follow-up urine culture report. Monitor renal function closely. Nephrology is on board. Continue with home medications and avoid NSAIDs and nephrotoxic agents. Ultrasound renal Showed no evidence of hydronephrosis.. CT chest showed no ursula dence of pneumonia/pulmonary edema. Random urine protein, creatinine, sodium level reviewed.. VQ scan was ordered to rule out PE due to elevated D-dimer level. CTA chest could not be done due to elevated creatinine level.Elevated D-dimer level could be due to LUKE. Further recommendations based on the clinical course. Time with Patient: Greater than 30
--- NOTE | 2020-11-29 00:53 | P.PN ---
Subjective Progress Note Date: 11/28/20 Principal diagnosis: Fever. UTI LUKE Diarrhea Patient is a 75-year-old female with a known history of hypertension, hypothyroidism, hearing disorder/deafness, lymphedema, anxiety/depression, bipolar disorder and PTSD and currently everyday smoker presents to ER due to complaints of fever. Patient states that she has been having diarrhea for the last 2 days prior to admission. Patient states that she felt shaky and had fever at home and called EMS. T-max was 103.1 on admission. Heart rate 105 and saturating at 91% on room air. Otherwise patient denied any cough or sputum production. Patient does have cough without any sputum production. Denied any abdominal pain. No chest pain. Denied any dizziness or lightheadedness. Chest x-ray showed mild cardiomegaly. No suspicious acute changes. EKG showed sinus tachycardia Ultrasound bladder showed normal renal ultrasound. CT chest without contrast showed enlarged pulmonary artery raising question of pulmonary hypertension. Moderate to marked cardiomegaly without acute CHF. No parenchymal infiltrates to suggest pneumonia or pulmonary edema. Laboratory showed WBC 13.3 hemoglobin 14.4 platelets 55 Sodium 132 potassium 4.4 chloride 104 BUN 14 creatinine 4.99 and blood sugar is 140 AST 43 ALT 22 alk phos 47 urinalysis showed cloudy with 3+ protein 1+ glucose leukocyte esterase negative and elevated RBCs and WBCs. Coronavirus PCR not detected. CT is negative. 11/26/2020 Patient is awake alert and oriented. Hard of hearing. Otherwise patient is still febrile with T-max 100.5 last night. Patient is being continued on antibiotics in the form of ceftriaxone for urinary tract infection. Laboratory data showed WBC count went up to 15.3 and neutrophils 13.7. Sodium 132 potassium 4.0 BUN 54 and creatinine 7.39. Patient was seen by nephrology. Patient was tachypneic this afternoon time and is saturating at 94% on 2 L oxygen via nasal cannula. Heart rate is improving. Repeat chest x-ray was done which showed prominence of pulmonary vasculature and heart raising question of pulmonary hypertension. There has been no interval change since prior study. There is no definite acute cardiopulmonary disease. Due to suspected COVID-19 viral infection, PCR was sent again. Lab data showed D-dimer level 1.36, LDH 1025 and CRP 34.3. VQ scan was ordered to rule out PE Patient was seen by ID and IV Levaquin. C. difficile is negative. Patient did have 4-5 episodes of diarrhea this morning. 11/27/2020 Patient is more awake and oriented today. Feels comfortable. Afebrile today. Currently on 3 L o2 via nasal cannula. Patient is being continued antibiotics in the form of ceftriaxone and Levaquin was added by ID. Cultures showed no growth so far. Laboratory data showed sodium 133 potassium 4.0 BUN 73 and creatinine 8.5. Patient does have good urine output. CRP level is 29.9 and serological work-up for CKD is negative so far. Nephrology is planning for hemodialysis. Patient is being continued on duo nebs and IV steroids were added. Pulmonary is on board. 11/28/2020 Patient is awake alert oriented x3. Currently on 3 L oxygen via nasal cannula. Patient is being continued IV Solu-Medrol and duo nebs. Patient does have cough without much sputum production. Patient has been afebrile. No nausea vomiting or abdominal pain or diarrhea. Patient is being continued on antibiotics (from ceftriaxone and Levaquin. Cultures showed no growth so far. Lab data showed sodium 133 potassium 3.7 BUN 92 and creatinine went up to 9.0. Nephrology is planning for hemodialysis. Bilateral lower extremity duplex scan is negative for DVT. Current medications reviewed. Objective - Vital Signs Vital signs: Vital Signs Temp 97.4 F L 11/28/20 15:31 Pulse 80 11/28/20 20:52 Resp 22 11/28/20 15:31 BP 127/82 11/28/20 15:31 Pulse Ox 95 11/28/20 15:31 Intake & Output 11/28/20 11/28/20 11/29/20 06:59 18:59 06:59 Intake Total 1500 Output Total 600 Balance 900 Intake: Intake, IV Titration 1200 Amount Dextrose 5% in Water 1, 1200 000 ml @ 100 mls/hr IV . [id number] MARCIO with Sodium Bicarb (1 Meq/ml) 150 ml Rx#:[id number] Oral 300 Output: Urine 600 Uretheral (Fernandez) 300 Other: Voiding Method Indwelling Catheter Indwelling Catheter # Bowel Movements 3 - Exam PHYSICAL EXAMINATION: Patient is lying in the bed comfortably, no acute distress, awake alert and oriented.Morbid obese. Hard of hearing.. HEENT: Normocephalic. Neck is supple. Pupils reactive. Nostrils clear. Oral cavity is moist. Ears reveal no drainage. Neck reveals no JVD, carotid bruits, or thyromegaly. CHEST EXAMINATION: Trachea is central. Symmetrical expansion. Bibasilar diminished sounds. mild exp wheeze. CARDIAC: Normal S1, S2 with no gallops. No murmurs ABDOMEN: Soft. Bowel sounds normal. No organomegaly. No abdominal bruits. Extremities: reveal trace edema. No clubbing or cyanosis Neurologically awake, alert, oriented x3 with well-coordinated movements. No focal deficits noted Skin: No rash or skin lesions. Psychiatric: Coperative. Nonsuicidal Musculoskeletal: No joint swelling or deformity. Normal range of motion. - Labs CBC & Chem 7: 11/27/20 11:22 11/28/20 06:42 Labs: Abnormal Lab Results - Last 24 Hours (Table) 11/27/20 11/28/20 Range/Units 11:22 06:42 Sodium 133 L (135-145) mmol/L Chloride 95 L (96-109) mmol/L Anion Gap 14.90 H (4.00-12.00) mmol/L BUN 92.0 H (9.0-27.0) mg/dL Creatinine 9.0 H* (0.6-1.5) mg/dL Est GFR (CKD-EPI)AfAm 4.4 L (60.0-200.0) Est GFR (CKD-EPI)NonAf 3.8 L (60.0-200.0) BUN/Creatinine Ratio 10.22 L (12.00-20.00) Ratio Glucose 179 H (70-110) mg/dL Calcium 7.0 L (8.7-10.3) mg/dL Phosphorus 7.7 H (2.4-5.1) mg/dL Total Protein (PEP) 5.4 L (6.2-8.2) g/dL Microbiology - Last 24 Hours (Table) 11/26/20 15:44 Blood Culture - Preliminary Blood No Growth after 48 hours 11/25/20 10:13 Blood Culture - Preliminary Blood No Growth after 72 hours 11/25/20 10:13 Blood Culture - Preliminary Blood No Growth after 72 hours Assessment and Plan Assessment: Acute kidney injury due to ATN secondary to hypotension with diarrhea and sepsis. Requiring hemodialysis. Creatinine level 4.99-->7.39--8.5--9 acute urinary tract infection Sepsis secondary to above Acute COPD exacerbation Suspected COVID-19 infection. Repeat PCR negative. Acute diarrhea. Ruled out C. difficile infection. Hearing disorder/deafness Hypertension Hypothyroidism Anxiety/depression, bipolar and PTSD Currently everyday smoker DVT prophylaxis with heparin subcu Plan: Patient will be continued on IV hydration and antibiotics in the form of ceftriaxone. added levoquin. Follow-up urine culture report. Monitor renal function closely. Nephrology is on board. Continue with home medications and avoid NSAIDs and nephrotoxic agents. Planning for hemodialysis due to worsening renal function. Ultrasound renal Showed no evidence of hydronephrosis.. CT chest showed no evidence of pneumonia/pulmonary edema. Random urine protein, creatinine, sodium level reviewed.. VQ scan was ordered to rule out PE due to elevated D-dimer level. CTA chest could not be done due to elevated creatinine level.Elevated D-dimer level could be due to LUKE. Lower extremity Duplex scan negative. Further recommendations based on the clinical course. Time with Patient: Greater than 30
[2020-11-29 01:32] LABS: Hepatitis B Surface AB- Quant 3.5 mIU/mL; Hepatitis B Surface Antibody Non-Reactive (Non-Reactive); Hepatitis B Surface Antigen Non-Reactive (Non-Reactive)
[2020-11-29] MEDS: IPRATROPIUM-ALBUTEROL 3 ML NEB INHALATION SCH ×6 (02:29→20:51)
[2020-11-29] MEDS: methylPREDNISolone SOD SUCCI 125 MG/2 ML VIAL IV SCH ×3 (03:01→17:05)
[2020-11-29] MEDS: LORazepam 2 MG/ML INJ IV PRN ×3 (03:38→20:21)
[2020-11-29] MEDS: SODIUM CHLORIDE 0.9% 1,000 ML IV SCH ×2 (04:45→11:05)
[2020-11-29 06:20] LABS: Basophils % (A) 0 %; Eosinophils % (A) 0 %; HCT 35.8 % (34.0-46.0); HGB 12.2 gm/dL (11.4-16.0); Lymphocytes # (A) 0.7 k/uL (1.0-4.8); Lymphocytes % (A) 11 %; MCH 30.6 pg (25.0-35.0); MCHC 34.1 g/dL (31.0-37.0); MCV 89.8 fL (80.0-100.0); Mean Platelet Volume 11.6; Monocytes # (A) 0.2 k/uL (0-1.0); Monocytes % (A) 4 %; Neutrophils # (A) 5.9 k/uL (1.3-7.7); Neutrophils % (A) 85 %; Platelet Count 76 k/uL (150-450); RBC 3.98 m/uL (3.80-5.40); RDW 14.4 % (11.5-15.5)
[2020-11-29 06:27] LABS: WBC 6.9 k/uL (3.8-10.6)
[2020-11-29 07:40] LABS: African American GFR (CKD) 5 (>60 ml/min/1.73 sqM); Anion Gap 12 mmol/L; Blood Urea Nitrogen 85 mg/dL (7-17); Calcium 7.4 mg/dL (8.4-10.2); Carbon Dioxide 22 mmol/L (22-30); Chloride 97 mmol/L (98-107); Glucose 145 mg/dL (74-99); Magnesium 2.1 mg/dL (1.6-2.3); Non-African American GFR(CKD) 4 (>60 ml/min/1.73 sqM); Potassium 3.6 mmol/L (3.5-5.1); Sodium 131 mmol/L (137-145)
[2020-11-29] MEDS: LEVOTHYROXINE 50 MCG TAB PO SCH (08:05)
--- NOTE | 2020-11-29 08:08 | XR ---
EXAMINATION TYPE: XR chest 1V DATE OF EXAM: 11/29/2020 COMPARISON: 11/26/2020 INDICATION: Short of breath TECHNIQUE: Single frontal view of the chest is obtained. FINDINGS: The heart size is mildly prominent. The pulmonary vasculature is normal. Lung elliott are clear. IMPRESSION: 1. Mild cardiomegaly
[2020-11-29] MEDS: HEPARIN SODIUM,PORCINE/PF 5,000 UNIT/0.5 ML SYRINGE SQ SCH ×2 (09:50→17:03)
[2020-11-29] MEDS: DIVALPROEX ER 500 MG TAB.ER.24H PO SCH ×3 (09:56→20:21)
[2020-11-29] MEDS: guaiFENesin 600 MG TABLET.ER PO SCH ×2 (09:56→20:21)
--- NOTE | 2020-11-29 11:12 | P.PN ---
Subjective Patient is seen in follow for acute kidney injury. Creatinine peaked at 9 this admission. Started on hemodialysis November 28. Tolerating dialysis well. Has a Fernandez catheter. Urine output documented as near 1000 mL in the last 24 hours. Maintained on normal saline. No edema. Denies chest pain or shortness of breath. Oral intake has been fair. Currently on 3 L is cannula. Vital signs are stable. General: The patient appeared well nourished and normally developed. HEENT: Head exam is unremarkable. LUNGS: Breath sounds decreased. HEART: Rate and Rhythm are regular. ABDOMEN: Soft, obese. EXTREMITITES: No edema. Objective - Vital Signs Vital signs: Vital Signs Temp 97.5 F L 11/29/20 05:30 Pulse 76 11/29/20 07:55 Resp 20 11/29/20 05:30 BP 112/72 11/29/20 05:30 Pulse Ox 95 11/29/20 05:30 Intake & Output 11/28/20 11/29/20 11/29/20 18:59 06:59 18:59 Intake Total 300 Output Total 1000 Balance -700 Intake: Oral 300 Output: Urine 900 Uretheral (Fernandez) 200 Stool 100 Other: Voiding Method Indwelling Catheter Indwelling Catheter # Bowel Movements 3 - Labs CBC & Chem 7: 11/29/20 05:40 11/29/20 05:40 Labs: Abnormal Lab Results - Last 24 Hours (Table) 11/29/20 11/29/20 Range/Units 05:40 05:40 Plt Count 76 L (150-450) k/uL Lymphocytes # 0.7 L (1.0-4.8) k/uL Sodium 131 L (137-145) mmol/L Chloride 97 L (98-107) mmol/L BUN 85 H (7-17) mg/dL Creatinine 8.10 H* (0.52-1.04) mg/dL Glucose 145 H (74-99) mg/dL Calcium 7.4 L (8.4-10.2) mg/dL Microbiology - Last 24 Hours (Table) 11/26/20 19:50 Stool Culture - Preliminary Stool 11/26/20 15:44 Blood Culture - Preliminary Blood No Growth after 48 hours 11/25/20 10:13 Blood Culture - Preliminary Blood No Growth after 72 hours 11/25/20 10:13 Blood Culture - Preliminary Blood No Growth after 72 hours Assessment and Plan Plan: Assessment: 1. Acute kidney injury secondary to ATN secondary to nonsteroidals and hypovolemia from diarrhea. Creatinine 4.99 admission and peaked at 9 this admission. Baseline creatinine near 1 from October 2020. No evidence of hydronephrosis noted on kidney ultrasound. Rule out GN - UPC 1.8 g. Started on hemodialysis November 28. Has a femoral catheter. 2. Diarrhea. Improved. C. diff negative. 3. Metabolic acidosis secondary to acute kidney injury and GI losses. Status post bicarb drip. Better. 4. Hyponatremia secondary to acute kidney injury. 5. Chronic systolic CHF with ejection fraction of 20-25%. 6. UTI and possible pneumonia maintained on antibiotics. Infectious disease following. 7. Hyperphosphatemia secondary to acute kidney injury. Plan: Maintain normal saline at 75 mL an hour. Status post IV Lasix November 27. Avoid nephrotoxins. Follow-up pending serologies - negative so far. Will consider kidney biopsy. Monitor for renal recovery. Currently seen while undergoing hemodialysis. Third treatment tomorrow. Add PhosLo.
--- NOTE | 2020-11-29 12:40 | P.PN ---
Subjective Progress Note Date: 11/29/20 Principal diagnosis: Acute exacerbation of COPD This is a 75-year-old white female patient was admitted to the hospital on 11/26/1999 2820 she presented to the hospital with complaints of fever and diarrhea. She called EMS, and when EMS arrived she had a fever of 103.7. She was complaining of a mild cough, but no chest discomfort, no palpitations or abdominal pain. Patient states she did not get the COVID vaccine, however she tested negative for Coronavirus in the emergency department, C. difficile was negative, influenza and that Legionella urine antigen were also negative. She had been on and off febrile in the hospital and the last 48 hours. Her blood work showed leukocytosis on admission with a white blood cell count of 13.3, hemoglobin of 14.4, sodium was 132, CO2 was 18, BUN is 40 and creatinine of 4.99, urinalysis showed urinary tract infection, patient's pro calcitonin level came back elevated at 25.3 suggesting possibility of a bacterial infection, p atient continued to have multiple episodes of diarrhea. Her kidney function continued to worsen through the hospital stay, and on today's labs are BUN is 73, and creatinine is 8.5. A repeat COVID test came back negative, her d-dimer was also elevated at 11.36. VQ scan showed low probability of pulmonary embolism. Her renal ultrasound showed no evidence of hydronephrosis, and it was a normal renal ultrasound. CT of the chest without contrast showed enlarged pulmonary artery region suggestive of pulmonary hypertension, and moderate to marked cardiomegaly without acute CHF, and in no parenchymal infiltrates to suggest pneumonia or pulmonary edema. Patient has a congested cough, she has wh eezing bilaterally, and patient admits to being a former smoker. She was given a dose of IV steroids, and started on breathing treatments, and we were asked to see the patient in evaluation for cough, wheezing, and acute hypoxic respiratory failure. On 11/28/2020 patient seen in follow-up on medical surgical floor, she is awake, oriented 3, sitting up and into the bed, she is on 3 L of oxygen pulse ox of 95%, she is breathing easier, she remains on IV Solu-Medrol, she still has a cough, and shortness of breath with exertion, but vital signs have been stable, she's been afebrile overnight. Lower extremity Dopplers showed no evidence of DVT. Today's labs have been reviewed, sodium is 133, potassium is 3.7, CO2 is 23, BUN of 92, creatinine of 9.0. Patient had 2 more episodes of diarrhea in the last 24 hours. Cultures have been reviewed, stool culture has been sent and pending, blood cultures and urine cultures have shown no growth thus far. ID service is following, patient is currently on a combination of Rocephin and Levaquin for possibility of urinary tract infection, no evidence of pneumonia CT chest or the chest x-ray. The patient is seen today November 29, 2020 in follow-up on the regular medical floor. She is currently resting flat in bed. Awake and alert in no acute d istress. Maintaining O2 saturation in the 90s on 3 L/m per nasal cannula. Chest x-ray reveals mild cardiomegaly with clear lung elliott. She is receiving hemodialysis again today. Creatinine 8.10. BUN 85. White count 6.9. Hemoglobin 12.2. Hepatitis screen negative. Blood culture reveals no growth. Urine culture no growth. Stool culture pending. She remains on bronchodilators, IV Solu-Medrol, Mucinex. Antibiotics in the form of Levaquin and ceftriaxone. Objective - Vital Signs Vital signs: Vital Signs Temp 97.5 F L 11/29/20 05:30 Pulse 76 11/29/20 07:55 Resp 20 11/29/20 05:30 BP 112/72 11/29/20 05:30 Pulse Ox 95 11/29/20 05:30 Intake & Output 11/28/20 11/29/20 11/29/20 18:59 06:59 18:59 Intake Total 300 Output Total 1000 100 Balance -700 -100 Intake: Oral 300 Output: Urine 900 Uretheral (Fernandez) 200 Stool 100 100 Other: Voiding Method Indwelling Catheter Indwelling Catheter Indwelling Catheter # Bowel Movements 3 - Exam GENERAL EXAM: Alert, 75-year-old female, on 3 L of oxygen the pulse ox of 95%, comfortable in no apparent distress. HEAD: Normocephalic/atraumatic. EYES: Normal reaction of pupils, equal size. Conjunctiva pink, sclera white. NOSE: Clear with pink turbinates. THROAT: No erythema or exudates. NECK: No masses, no JVD, no thyroid enlargement, no adenopathy. CHEST: No chest wall deformity. Symmetrical expansion. LUNGS: Equal air entry with diffuse wheezes CVS: Regular rate and rhythm, normal S1 and S2, no gallops, no murmurs, no rubs ABDOMEN: Soft, nontender. No hepatosplenomegaly, normal bowel sounds, no guarding or rigidity. EXTREMITIES: No clubbing, no edema, no cyanosis, 2+ pulses and upper and lower extremities. MUSCULOSKELETAL: Muscle strength and tone normal. SPINE: No scoliosis or deformity SKIN: No rashes CENTRAL NERVOUS SYSTEM: No focal deficits, tone is normal in all 4 extremities. PSYCHIATRIC: Alert and oriented -3. Appropriate affect. Intact judgment and insight. - Labs CBC & Chem 7: 11/29/20 05:40 11/29/20 05:40 Labs: Abnormal Lab Results - Last 24 Hours (Table) 11/29/20 11/29/20 Range/Units 05:40 05:40 Plt Count 76 L (150-450) k/uL Lymphocytes # 0.7 L (1.0-4.8) k/uL Sodium 131 L (137-145) mmol/L Chloride 97 L (98-107) mmol/L BUN 85 H (7-17) mg/dL Creatinine 8.10 H* (0.52-1.04) mg/dL Glucose 145 H (74-99) mg/dL Calcium 7.4 L (8.4-10.2) mg/dL Microbiology - Last 24 Hours (Table) 11/25/20 10:13 Blood Culture - Preliminary Blood No Growth after 96 hours 11/25/20 10:13 Blood Culture - Preliminary Blood No Growth after 96 hours 11/26/20 19:50 Stool Culture - Preliminary Stool 11/26/20 15:44 Blood Culture - Preliminary Blood No Growth after 48 hours Assessment and Plan Assessment: 1 Acute hypoxic respiratory failure, likely related to acute exacerbation of COPD. CT chest showed no pulmonary infiltrates, chest x-ray showed evidence of pulmonary hypertension, no acute cardiopulmonary disease 2 Acute urinary tract infection, with sepsis 3 Diarrhea and dehydration, stool culture pending 4 Acute kidney injury related to ATN, currently receiving hemodialysis 5 Elevated d-dimer, VQ scan showed low probability of pulmonary embolism 6 Hypertension 7 Hypothyroidism 8 Anxiety 9 Former smoker 10 Suspect history of COPD Plan: The patient was seen and evaluated by Dr. Mcghee Chest x-ray and labs reviewed Receiving hemodialysis again today Continue the current treatment plan We will continue to follow I, the cosigning physician, performed a history & physical examination of the patient. Lungs sounds with bilateral end expiratory. Maintaining good O2 sat urations in the 90s on 3 L/m per nasal cannula. I discussed the assessment and plan of care with my nurse practitioner, Cheryle Diez. I attest to the above note as dictated by her.
[2020-11-29] MEDS: CALCIUM ACETATE 667 MG TAB PO SCH ×2 (13:30→17:21)
[2020-11-29] MEDS: MELATONIN 5 MG TABLET PO SCH (20:21)
[2020-11-29] MEDS: ATORVASTATIN 10 MG TAB PO SCH (22:15)
--- NOTE | 2020-11-29 22:28 | PN ---
PROGRESS NOTE DATE OF SERVICE: 11/29/2020 REASON FOR FOLLOWUP: Pneumonia and UTI. INTERVAL HISTORY: The patient is currently afebrile. Patient is breathing more comfortably. Patient denies having any chest pain, shortness of breath or cough. No nausea. No vomiting. No abdominal pain. No diarrhea. PHYSICAL EXAMINATION: Blood pressure is 132/78 with a pulse of 73, temperature 98.3. She is 94% on room air. General description: The patient is an elderly female lying in bed in no distress. Respiratory system: Unlabored breathing, clear to auscultation anteriorly. Heart S1, S2. Regular rate and rhythm. ABDOMEN: Soft, no tenderness. EXTREMITIES: No edema of the feet. LABS: Hemoglobin is 12.1, white count 6.9, BUN of 85, creatinine 8.10. Blood culture negative. Stool culture negative. DIAGNOSTIC IMPRESSION AND PLAN: Patient admitted to the hospital with fever and shortness of breath with concern for possible pneumonia/urinary tract infection and concern for possible Legionella. Legionella came back negative. The patient's fever responded to the Rocephin and Levaquin to continue while monitoring clinical course closely. Continue supportive care. MMODL / IJN: [id number] /
[2020-11-30] MEDS: IPRATROPIUM-ALBUTEROL 3 ML NEB INHALATION SCH ×7 (01:08→23:59)
[2020-11-30] MEDS: methylPREDNISolone SOD SUCCI 125 MG/2 ML VIAL IV SCH ×5 (01:16→23:26)
[2020-11-30] MEDS: HEPARIN SODIUM,PORCINE/PF 5,000 UNIT/0.5 ML SYRINGE SQ SCH ×4 (01:16→23:25)
[2020-11-30] MEDS: SODIUM CHLORIDE 0.9% 1,000 ML IV SCH ×2 (03:18→13:12)
[2020-11-30] MEDS: LEVOTHYROXINE 50 MCG TAB PO SCH (05:38)
[2020-11-30 07:27] LABS: Basophils % (A) 0 %; Eosinophils % (A) 1 %; HCT 36.2 % (34.0-46.0); HGB 12.3 gm/dL (11.4-16.0); Lymphocytes # (A) 0.7 k/uL (1.0-4.8); Lymphocytes % (A) 12 %; MCH 30.6 pg (25.0-35.0); MCHC 33.9 g/dL (31.0-37.0); MCV 90.2 fL (80.0-100.0); Mean Platelet Volume 10.9; Monocytes # (A) 0.2 k/uL (0-1.0); Monocytes % (A) 4 %; Neutrophils # (A) 4.6 k/uL (1.3-7.7); Neutrophils % (A) 83 %; RBC 4.02 m/uL (3.80-5.40); RDW 14.4 % (11.5-15.5); WBC 5.5 k/uL (3.8-10.6)
[2020-11-30] MEDS: CALCIUM ACETATE 667 MG TAB PO SCH ×3 (07:35→18:06)
[2020-11-30] MEDS: guaiFENesin 600 MG TABLET.ER PO SCH ×2 (07:35→20:03)
[2020-11-30] MEDS: DIVALPROEX ER 500 MG TAB.ER.24H PO SCH ×2 (07:35→19:25)
[2020-11-30 07:41] LABS: Platelet Count 82 k/uL (150-450)
[2020-11-30] MEDS: LORazepam 2 MG/ML INJ IV PRN ×2 (07:47→20:04)
[2020-11-30 09:17] LABS: Albumin 2.53 g/dL (3.80-4.90); Gamma Globulin 0.67 g/dL (0.70-1.50)
--- NOTE | 2020-11-30 11:50 | P.PN ---
Subjective Patient is seen in follow for acute kidney injury. Creatinine peaked at 9 this admission. Started on hemodialysis November 28. Tolerating dialysis well. Has a Fernandez catheter. Urine output documented as near 1.6 L in the last 24 hours. No edema. Denies chest pain or shortness of breath. Oral intake has been fair. Currently on 2 L is cannula. Vital signs are stable. General: The patient appeared well nourished and normally developed. HEENT: Head exam is unremarkable. LUNGS: Breath sounds decreased. HEART: Rate and Rhythm are regular. ABDOMEN: Soft, obese. EXTREMITITES: No edema. Objective - Vital Signs Vital signs: Vital Signs Temp 98.2 F 11/30/20 05:00 Pulse 72 11/30/20 08:29 Resp 16 11/30/20 05:00 BP 123/72 11/30/20 05:00 Pulse Ox 95 11/30/20 05:00 Intake & Output 11/29/20 11/30/20 11/30/20 18:59 06:59 18:59 Intake Total 560 Output Total 900 750 Balance -900 -190 Intake: Intake, IV Titration 240 Amount Sodium Chloride 0.9% 1, 240 000 ml @ 75 mls/hr IV . [id number] [facility] Rx#:[id number] Oral 320 Output: Urine 800 750 Stool 100 Hemodialysis 0 Other: Voiding Method Indwelling Catheter Indwelling Catheter Indwelling Catheter # Bowel Movements 1 - Labs CBC & Chem 7: 11/30/20 06:51 11/29/20 05:40 Labs: Abnormal Lab Results - Last 24 Hours (Table) 11/27/20 11/30/20 Range/Units 11:22 06:51 Plt Count 82 L (150-450) k/uL Lymphocytes # 0.7 L (1.0-4.8) k/uL Albumin (PEP) 2.53 L (3.80-4.90) g/dL Camed-1-Zxltnofpd 0.74 H (0.10-0.40) g/dL Gamma Globulins 0.67 L (0.70-1.50) g/dL Microbiology - Last 24 Hours (Table) 11/26/20 19:50 Stool Culture - Final Stool 11/26/20 15:44 Blood Culture - Preliminary Blood No Growth after 72 hours 11/25/20 10:13 Blood Culture - Preliminary Blood No Growth after 96 hours 11/25/20 10:13 Blood Culture - Preliminary Blood No Growth after 96 hours Assessment and Plan Plan: Assessment: 1. Acute kidney injury secondary to ATN secondary to nonsteroidals, infection and hypovolemia from diarrhea. Creatinine 4.99 admission and peaked at 9 this admission. Baseline creatinine near 1 from October 2020. No evidence of hydronephrosis noted on kidney ultrasound. Rule out GN - UPC 1.8 g. Started on hemodialysis November 28. Has a femoral catheter. 2. Diarrhea. Improved. C. diff negative. 3. Metabolic acidosis secondary to acute kidney injury and GI losses. Status post bicarb drip. Better. 4. Hyponatremia secondary to acute kidney injury. 5. Chronic systolic CHF with ejection fraction of 20-25%. 6. UTI and possible pneumonia maintained on antibiotics. Infectious disease following. 7. Hyperphosphatemia secondary to acute kidney injury. Maintained on PhosLo. Plan: Decrease normal saline to 50 mL an hour. Avoid nephrotoxins. Follow-up pending serologies - negative so far. Will consider kidney biopsy. Currently seen while undergoing hemodialysis. Plan to hold dialysis tomorrow. Monitor for renal recovery. Strict Is and Os. Add PhosLo. Repeat electrolytes in the morning.
--- NOTE | 2020-11-30 12:16 | P.PN ---
Subjective Progress Note Date: 11/30/20 Principal diagnosis: Acute exacerbation of COPD This is a 75-year-old white female patient was admitted to the hospital on 11/26/1999 2820 she presented to the hospital with complaints of fever and diarrhea. She called EMS, and when EMS arrived she had a fever of 103.7. She was complaining of a mild cough, but no chest discomfort, no palpitations or abdominal pain. Patient states she did not get the COVID vaccine, however she tested negative for Coronavirus in the emergency department, C. difficile was negative, influenza and that Legionella urine antigen were also negative. She had been on and off febrile in the hospital and the last 48 hours. Her blood work showed leukocytosis on admission with a white blood cell count of 13.3, hemoglobin of 14.4, sodium was 132, CO2 was 18, BUN is 40 and creatinine of 4.99, urinalysis showed urinary tract infection, patient's pro calcitonin level came back elevated at 25.3 suggesting possibility of a bacterial infection, p atient continued to have multiple episodes of diarrhea. Her kidney function continued to worsen through the hospital stay, and on today's labs are BUN is 73, and creatinine is 8.5. A repeat COVID test came back negative, her d-dimer was also elevated at 11.36. VQ scan showed low probability of pulmonary embolism. Her renal ultrasound showed no evidence of hydronephrosis, and it was a normal renal ultrasound. CT of the chest without contrast showed enlarged pulmonary artery region suggestive of pulmonary hypertension, and moderate to marked cardiomegaly without acute CHF, and in no parenchymal infiltrates to suggest pneumonia or pulmonary edema. Patient has a congested cough, she has wh eezing bilaterally, and patient admits to being a former smoker. She was given a dose of IV steroids, and started on breathing treatments, and we were asked to see the patient in evaluation for cough, wheezing, and acute hypoxic respiratory failure. On 11/28/2020 patient seen in follow-up on medical surgical floor, she is awake, oriented 3, sitting up and into the bed, she is on 3 L of oxygen pulse ox of 95%, she is breathing easier, she remains on IV Solu-Medrol, she still has a cough, and shortness of breath with exertion, but vital signs have been stable, she's been afebrile overnight. Lower extremity Dopplers showed no evidence of DVT. Today's labs have been reviewed, sodium is 133, potassium is 3.7, CO2 is 23, BUN of 92, creatinine of 9.0. Patient had 2 more episodes of diarrhea in the last 24 hours. Cultures have been reviewed, stool culture has been sent and pending, blood cultures and urine cultures have shown no growth thus far. ID service is following, patient is currently on a combination of Rocephin and Levaquin for possibility of urinary tract infection, no evidence of pneumonia CT chest or the chest x-ray. The patient is seen today November 29, 2020 in follow-up on the regular medical floor. She is currently resting flat in bed. Awake and alert in no acute d istress. Maintaining O2 saturation in the 90s on 3 L/m per nasal cannula. Chest x-ray reveals mild cardiomegaly with clear lung elliott. She is receiving hemodialysis again today. Creatinine 8.10. BUN 85. White count 6.9. Hemoglobin 12.2. Hepatitis screen negative. Blood culture reveals no growth. Urine culture no growth. Stool culture pending. She remains on bronchodilators, IV Solu-Medrol, Mucinex. Antibiotics in the form of Levaquin and ceftriaxone. The patient is seen today 11/30/2020 in follow-up on the regular medical floor. Currently resting in bed. Just completing another round of hemodialysis. He denies any worsening shortness of breath, cough or congestion. Maintaining O2 saturation in the mid 90s on room air. She's afebrile. Hemodynamically stable. Blood, urine, stool cultures reveal no growth. White count 5.5. Hemoglobin 12.3. Platelet count 82,000. She remains on DuoNeb inhalations, Mucinex, IV Solu-Medrol. Antibiotics in the form of Levaquin and ceftriaxone. Objective - Vital Signs Vital signs: Vital Signs Temp 98.2 F 11/30/20 05:00 Pulse 72 11/30/20 08:29 Resp 16 11/30/20 05:00 BP 123/72 11/30/20 05:00 Pulse Ox 95 11/30/20 05:00 Intake & Output 11/29/20 11/30/20 11/30/20 18:59 06:59 18:59 Intake Total 560 Output Total 900 750 Balance -900 -190 Intake: Intake, IV Titration 240 Amount Sodium Chloride 0.9% 1, 240 000 ml @ 75 mls/hr IV . [id number] [facility] Rx#:[id number] Oral 320 Output: Urine 800 750 Stool 100 Hemodialysis 0 Other: Voiding Method Indwelling Catheter Indwelling Catheter Indwelling Catheter # Bowel Movements 1 - Exam GENERAL EXAM: Alert, 75-year-old female, on room air with a pulse ox of 95%, comfortable in no apparent distress. HEAD: Normocephalic/atraumatic. EYES: Normal reaction of pupils, equal size. Conjunctiva pink, sclera white. NOSE: Clear with pink turbinates. THROAT: No erythema or exudates. NECK: No masses, no JVD, no thyroid enlargement, no adenopathy. CHEST: No chest wall deformity. Symmetrical expansion. LUNGS: Equal air entry with faint end expiratory wheeze CVS: Regular rate and rhythm, normal S1 and S2, no gallops, no murmurs, no rubs ABDOMEN: Soft, nontender. No hepatosplenomegaly, normal bowel sounds, no guarding or rigidity. EXTREMITIES: No clubbing, no edema, no cyanosis, 2+ pulses and upper and lower extremities. MUSCULOSKELETAL: Muscle strength and tone normal. SPINE: No scoliosis or deformity SKIN: No rashes CENTRAL NERVOUS SYSTEM: No focal deficits, tone is normal in all 4 extremities. PSYCHIATRIC: Alert and oriented -3. Appropriate affect. Intact judgment and insight. - Labs CBC & Chem 7: 11/30/20 06:51 11/29/20 05:40 Labs: Abnormal Lab Results - Last 24 Hours (Table) 11/27/20 11/30/20 Range/Units 11:22 06:51 Plt Count 82 L (150-450) k/uL Lymphocytes # 0.7 L (1.0-4.8) k/uL Albumin (PEP) 2.53 L (3.80-4.90) g/dL Tbrdc-5-Niqjhvcip 0.74 H (0.10-0.40) g/dL Gamma Globulins 0.67 L (0.70-1.50) g/dL Microbiology - Last 24 Hours (Table) 11/26/20 19:50 Stool Culture - Final Stool 11/26/20 15:44 Blood Culture - Preliminary Blood No Growth after 72 hours 11/25/20 10:13 Blood Culture - Preliminary Blood No Growth after 96 hours 11/25/20 10:13 Blood Culture - Preliminary Blood No Growth after 96 hours Assessment and Plan Assessment: 1 Acute hypoxic respiratory failure, likely related to acute exacerbation of COPD. CT chest showed no pulmonary infiltrates, chest x-ray showed evidence of pulmonary hypertension, no acute cardiopulmonary disease 2 Suspect urinary tract infection, with sepsis, however follow-up culture revealed no growth 3 Diarrhea and dehydration, stool culture negative 4 Acute kidney injury related to ATN, currently receiving hemodialysis 5 Elevated d-dimer, VQ scan showed low probability of pulmonary embolism 6 Hypertension 7 Hypothyroidism 8 Anxiety 9 Former smoker 10 Suspect history of COPD Plan: The patient was seen and evaluated by Dr. Litzy Jennings from the pulmonary standpoint Receiving hemodialysis again today Continue the current treatment plan We will continue to follow I, the cosigning physician, performed a history & physical examination of the patient. Lungs sounds with bilateral end expiratory wheeze. Diminished. Maintaining good O2 saturations in the 90s on room air. I discussed the assessment and plan of care with my nurse practitioner, Cheryle Diez. I attest to the above note as dictated by her.
[2020-11-30 15:25] VITALS: BMI 45.6
[2020-11-30 16:03] LABS: African American GFR (CKD) 7.7 (60.0-200.0); Anion Gap 17.4 mmol/L (4.00-12.00); BUN/Creat Ratio 12.63 Ratio (12.00-20.00); Calcium 7.7 mg/dL (8.7-10.3); Carbon Dioxide 23.6 mmol/L (21.6-31.8); Non-African American GFR(CKD) 6.7 (60.0-200.0); Potassium 3.8 mmol/L (3.5-5.5)
[2020-11-30 16:37] LABS: LD Isoenzymes 1 15 % (19-38); LD Isoenzymes 2 24 % (30-43); LD Isoenzymes 3 24 % (16-26); LD Isoenzymes 4 18 % (3-12); LD Isoenzymes 5 19 % (3-14); Lactacte Dehydrogenase(LD) ISO 393 U/L (120-250)
[2020-11-30] MEDS: ACETAMINOPHEN TAB 325 MG TAB PO PRN (18:05)
[2020-11-30] MEDS: MELATONIN 5 MG TABLET PO SCH (20:03)
[2020-11-30] MEDS: LEVOFLOXACIN 500 MG TAB PO SCH (21:03)
--- NOTE | 2020-11-30 23:25 | P.PN ---
Subjective Progress Note Date: 11/29/20 Principal diagnosis: Fever. UTI LUKE Diarrhea Patient is a 75-year-old female with a known history of hypertension, hypothyroidism, hearing disorder/deafness, lymphedema, anxiety/depression, bipolar disorder and PTSD and currently everyday smoker presents to ER due to complaints of fever. Patient states that she has been having diarrhea for the last 2 days prior to admission. Patient states that she felt shaky and had fever at home and called EMS. T-max was 103.1 on admission. Heart rate 105 and saturating at 91% on room air. Otherwise patient denied any cough or sputum production. Patient does have cough without any sputum production. Denied any abdominal pain. No chest pain. Denied any dizziness or lightheadedness. Chest x-ray showed mild cardiomegaly. No suspicious acute changes. EKG showed sinus tachycardia Ultrasound bladder showed normal renal ultrasound. CT chest without contrast showed enlarged pulmonary artery raising question of pulmonary hypertension. Moderate to marked cardiomegaly without acute CHF. No parenchymal infiltrates to suggest pneumonia or pulmonary edema. Laboratory showed WBC 13.3 hemoglobin 14.4 platelets 55 Sodium 132 potassium 4.4 chloride 104 BUN 14 creatinine 4.99 and blood sugar is 140 AST 43 ALT 22 alk phos 47 urinalysis showed cloudy with 3+ protein 1+ glucose leukocyte esterase negative and elevated RBCs and WBCs. Coronavirus PCR not detected. CT is negative. 11/26/2020 Patient is awake alert and oriented. Hard of hearing. Otherwise patient is still febrile with T-max 100.5 last night. Patient is being continued on antibiotics in the form of ceftriaxone for urinary tract infection. Laboratory data showed WBC count went up to 15.3 and neutrophils 13.7. Sodium 132 potassium 4.0 BUN 54 and creatinine 7.39. Patient was seen by nephrology. Patient was tachypneic this afternoon time and is saturating at 94% on 2 L oxygen via nasal cannula. Heart rate is improving. Repeat chest x-ray was done which showed prominence of pulmonary vasculature and heart raising question of pulmonary hypertension. There has been no interval change since prior study. There is no definite acute cardiopulmonary disease. Due to suspected COVID-19 viral infection, PCR was sent again. Lab data showed D-dimer level 1.36, LDH 1025 and CRP 34.3. VQ scan was ordered to rule out PE Patient was seen by ID and IV Levaquin. C. difficile is negative. Patient did have 4-5 episodes of diarrhea this morning. 11/27/2020 Patient is more awake and oriented today. Feels comfortable. Afebrile today. Currently on 3 L o2 via nasal cannula. Patient is being continued antibiotics in the form of ceftriaxone and Levaquin was added by ID. Cultures showed no growth so far. Laboratory data showed sodium 133 potassium 4.0 BUN 73 and creatinine 8.5. Patient does have good urine output. CRP level is 29.9 and serological work-up for CKD is negative so far. Nephrology is planning for hemodialysis. Patient is being continued on duo nebs and IV steroids were added. Pulmonary is on board. 11/28/2020 Patient is awake alert oriented x3. Currently on 3 L oxygen via nasal cannula. Patient is being continued IV Solu-Medrol and duo nebs. Patient does have cough without much sputum production. Patient has been afebrile. No nausea vomiting or abdominal pain or diarrhea. Patient is being continued on antibiotics (from ceftriaxone and Levaquin. Cultures showed no growth so far. Lab data showed sodium 133 potassium 3.7 BUN 92 and creatinine went up to 9.0. Nephrology is planning for hemodialysis. Bilateral lower extremity duplex scan is negative for DVT. 11/29/2020 Patient is currently lying in the bed comfortably. Patient states that her breathing is better. on 3 antibiotics and a nasal cannula. No complaints of chest pain. Otherwise patient does note urine output. Patient is getting hemodialysis. Otherwise patient is IV Solu-Medrol and breathing treatments and antibiotics and off Levaquin ceftriaxone. ID and pulmonary and nephrology is on board. Operative data showed WBC 6.9 hemoglobin 12.2 and platelets 76 BUN 85 creatinine 8.1 Current medications reviewed. Objective - Vital Signs Vital signs: Vital Signs Temp 98.3 F 11/29/20 21:00 Pulse 73 11/29/20 21:02 Resp 16 11/29/20 21:00 BP 138/78 11/29/20 21:00 Pulse Ox 94 L 11/29/20 21:00 Intake & Output 11/29/20 11/29/20 11/30/20 06:59 18:59 06:59 Intake Total 300 Output Total 1000 900 Balance -700 -900 Intake: Oral 300 Output: Urine 900 800 Uretheral (Fernandez) 200 Stool 100 100 Hemodialysis 0 Other: Voiding Method Indwelling Catheter Indwelling Catheter Indwelling Catheter - Exam PHYSICAL EXAMINATION: Patient is lying in the bed comfortably, no acute distress, awake alert and oriented.Morbid obese. Hard of hearing.. HEENT: Normocephalic. Neck is supple. Pupils reactive. Nostrils clear. Oral cavity is moist. Ears reveal no drainage. Neck reveals no JVD, carotid bruits, or thyromegaly. CHEST EXAMINATION: Trachea is central. Symmetrical expansion. improved air entry, mild exp wheeze. CARDIAC: Normal S1, S2 with no gallops. No murmurs ABDOMEN: Soft. Bowel sounds normal. No organomegaly. No abdominal bruits. Extremities: reveal trace edema. No clubbing or cyanosis Neurologically awake, alert, oriented x3 with well-coordinated movements. No focal deficits noted Skin: No rash or skin lesions. Psychiatric: Coperative. Nonsuicidal Musculoskeletal: No joint swelling or deformity. Normal range of motion. - Labs CBC & Chem 7: 11/30/20 06:51 11/30/20 06:51 Labs: Abnormal Lab Results - Last 24 Hours (Table) 11/29/20 11/29/20 Range/Units 05:40 05:40 Plt Count 76 L (150-450) k/uL Lymphocytes # 0.7 L (1.0-4.8) k/uL Sodium 131 L (137-145) mmol/L Chloride 97 L (98-107) mmol/L BUN 85 H (7-17) mg/dL Creatinine 8.10 H* (0.52-1.04) mg/dL Glucose 145 H (74-99) mg/dL Calcium 7.4 L (8.4-10.2) mg/dL Microbiology - Last 24 Hours (Table) 11/26/20 15:44 Blood Culture - Preliminary Blood No Growth after 72 hours 11/25/20 10:13 Blood Culture - Preliminary Blood No Growth after 96 hours 11/25/20 10:13 Blood Culture - Preliminary Blood No Growth after 96 hours 11/26/20 19:50 Stool Culture - Preliminary Stool Assessment and Plan Assessment: Acute kidney injury due to ATN secondary to hypotension with diarrhea and se psis. Requiring hemodialysis. Creatinine level 4.99-->7.39--8.5--9--8.1 acute urinary tract infection Sepsis secondary to above Acute COPD exacerbation Suspected COVID-19 infection. Repeat PCR negative. Acute diarrhea. Ruled out C. difficile infection. Hearing disorder/deafness Hypertension Hypothyroidism Anxiety/depression, bipolar and PTSD Currently everyday smoker DVT prophylaxis with heparin subcu Plan: Patient will be continued on IV hydration and antibiotics in the form of ceftriaxone. added levoquin. Follow-up urine culture report. Monitor renal function closely. Nephrology is on board. Continue with home medications and avoid NSAIDs and nephrotoxic agents. on hemodialysis due to worsening renal function. Ultrasound renal Showed no evidence of hydronephrosis.. CT chest showed no evidence of pneumonia/pulmonary edema. Random urine protein, creatinine, sodium level reviewed.. VQ scan was ordered to rule out PE due to elevated D-dimer level. low prob ability. CTA chest could not be done due to elevated creatinine level.Elevated D-dimer level could be due to LUKE. Lower extremity Duplex scan negative. Further recommendations based on the clinical course. Time with Patient: Greater than 30
--- NOTE | 2020-11-30 23:28 | P.PN ---
Subjective Progress Note Date: 11/30/20 Principal diagnosis: Fever. UTI LUKE Diarrhea Patient is a 75-year-old female with a known history of hypertension, hypothyroidism, hearing disorder/deafness, lymphedema, anxiety/depression, bipolar disorder and PTSD and currently everyday smoker presents to ER due to complaints of fever. Patient states that she has been having diarrhea for the last 2 days prior to admission. Patient states that she felt shaky and had fever at home and called EMS. T-max was 103.1 on admission. Heart rate 105 and saturating at 91% on room air. Otherwise patient denied any cough or sputum production. Patient does have cough without any sputum production. Denied any abdominal pain. No chest pain. Denied any dizziness or lightheadedness. Chest x-ray showed mild cardiomegaly. No suspicious acute changes. EKG showed sinus tachycardia Ultrasound bladder showed normal renal ultrasound. CT chest without contrast showed enlarged pulmonary artery raising question of pulmonary hypertension. Moderate to marked cardiomegaly without acute CHF. No parenchymal infiltrates to suggest pneumonia or pulmonary edema. Laboratory showed WBC 13.3 hemoglobin 14.4 platelets 55 Sodium 132 potassium 4.4 chloride 104 BUN 14 creatinine 4.99 and blood sugar is 140 AST 43 ALT 22 alk phos 47 urinalysis showed cloudy with 3+ protein 1+ glucose leukocyte esterase negative and elevated RBCs and WBCs. Coronavirus PCR not detected. CT is negative. 11/26/2020 Patient is awake alert and oriented. Hard of hearing. Otherwise patient is still febrile with T-max 100.5 last night. Patient is being continued on antibiotics in the form of ceftriaxone for urinary tract infection. Laboratory data showed WBC count went up to 15.3 and neutrophils 13.7. Sodium 132 potassium 4.0 BUN 54 and creatinine 7.39. Patient was seen by nephrology. Patient was tachypneic this afternoon time and is saturating at 94% on 2 L oxygen via nasal cannula. Heart rate is improving. Repeat chest x-ray was done which showed prominence of pulmonary vasculature and heart raising question of pulmonary hypertension. There has been no interval change since prior study. There is no definite acute cardiopulmonary disease. Due to suspected COVID-19 viral infection, PCR was sent again. Lab data showed D-dimer level 1.36, LDH 1025 and CRP 34.3. VQ scan was ordered to rule out PE Patient was seen by ID and IV Levaquin. C. difficile is negative. Patient did have 4-5 episodes of diarrhea this morning. 11/27/2020 Patient is more awake and oriented today. Feels comfortable. Afebrile today. Currently on 3 L o2 via nasal cannula. Patient is being continued antibiotics in the form of ceftriaxone and Levaquin was added by ID. Cultures showed no growth so far. Laboratory data showed sodium 133 potassium 4.0 BUN 73 and creatinine 8.5. Patient does have good urine output. CRP level is 29.9 and serological work-up for CKD is negative so far. Nephrology is planning for hemodialysis. Patient is being continued on duo nebs and IV steroids were added. Pulmonary is on board. 11/28/2020 Patient is awake alert oriented x3. Currently on 3 L oxygen via nasal cannula. Patient is being continued IV Solu-Medrol and duo nebs. Patient does have cough without much sputum production. Patient has been afebrile. No nausea vomiting or abdominal pain or diarrhea. Patient is being continued on antibiotics (from ceftriaxone and Levaquin. Cultures showed no growth so far. Lab data showed sodium 133 potassium 3.7 BUN 92 and creatinine went up to 9.0. Nephrology is planning for hemodialysis. Bilateral lower extremity duplex scan is negative for DVT. 11/29/2020 Patient is currently lying in the bed comfortably. Patient states that her breathing is better. on 3 antibiotics and a nasal cannula. No complaints of chest pain. Otherwise patient does note urine output. Patient is getting hemodialysis. Otherwise patient is IV Solu-Medrol and breathing treatments and antibiotics and off Levaquin ceftriaxone. ID and pulmonary and nephrology is on board. Operative data showed WBC 6.9 hemoglobin 12.2 and platelets 76 BUN 85 creatinine 8.1 11/30/2020 Patient is awake alert oriented x3. Lying in the bed comfortably. Breathing status is much improved. Patient is being continued on IV steroids and breathing treatments. Also on antibiotic and follow-up ceftriaxone and Levaquin. Urine culture showed no growth. Blood cultures are negative as well. Initially was on room air saturating at 90% this morning but currently at 2 L via nasal cannula. Renal function improved with creatinine level 5.7. BUN 72. Patient had hemodialysis. Pulmonary, nephrology and ID on board. Current medications reviewed. Objective - Vital Signs Vital signs: Vital Signs Temp 98.6 F 11/30/20 12:13 Pulse 96 05/13/21 20:21 Resp 18 11/30/20 12:13 BP 132/75 11/30/20 12:13 Pulse Ox 94 L 11/30/20 20:07 Intake & Output 11/30/20 11/30/20 12/01/20 06:59 18:59 06:59 Intake Total 560 1006 Output Total 750 1900 Balance -190 -894 Weight 120.656 kg Intake: Intake, IV Titration 240 470 Amount Sodium Chloride 0.9% 1, 240 420 000 ml @ 50 mls/hr IV . Q20H MARCIO Rx#:[id number] cefTRIAXone 1 gm In 50 Sodium Chloride 0.9% 50 ml @ 100 mls/hr IVPB Q24HR MARCIO Rx#:[id number] Oral 320 236 Hemodialysis 300 Output: Urine 750 600 Hemodialysis 1300 Other: Voiding Method Indwelling Catheter Indwelling Catheter # Bowel Movements 1 1 - Exam PHYSICAL EXAMINATION: Patient is lying in the bed comfortably, no acute distress, awake alert and oriented.Morbid obese. Hard of hearing.. HEENT: Normocephalic. Neck is supple. Pupils reactive. Nostrils clear. Oral cavity is moist. Ears reveal no drainage. Neck reveals no JVD, carotid bruits, or thyromegaly. CHEST EXAMINATION: Trachea is central. Symmetrical expansion. improved air entry, mild exp wheeze. CARDIAC: Normal S1, S2 with no gallops. No murmurs ABDOMEN: Soft. Bowel sounds normal. No organomegaly. No abdominal bruits. Extremities: reveal trace edema. No clubbing or cyanosis Neurologically awake, alert, oriented x3 with well-coordinated movements. No focal deficits noted Skin: No rash or skin lesions. Psychiatric: Coperative. Nonsuicidal Musculoskeletal: No joint swelling or deformity. Normal range of motion. - Labs CBC & Chem 7: 11/30/20 06:51 11/30/20 06:51 Labs: Abnormal Lab Results - Last 24 Hours (Table) 11/26/20 11/27/20 11/30/20 Range/Units 07:24 11:22 06:51 Plt Count 82 L (150-450) k/uL Lymphocytes # 0.7 L (1.0-4.8) k/uL Anion Gap (4.00-12.00) mmol/L BUN (9.0-27.0) mg/dL Creatinine (0.6-1.5) mg/dL Est GFR (CKD-EPI)AfAm (60.0-200.0) Est GFR (CKD-EPI)NonAf (60.0-200.0) Glucose (70-110) mg/dL Calcium (8.7-10.3) mg/dL LD Isoenzymes 393 H (120-250) U/L LD 1 15 L (19-38) % LD 2 24 L (30-43) % LD 4 18 H (3-12) % LD 5 19 H (3-14) % Albumin (PEP) 2.53 L (3.80-4.90) g/dL Nwonh-6-Eygepzkrf 0.74 H (0.10-0.40) g/dL Gamma Globulins 0.67 L (0.70-1.50) g/dL 11/30/20 Range/Units 06:51 Plt Count (150-450) k/uL Lymphocytes # (1.0-4.8) k/uL Anion Gap 17.40 H (4.00-12.00) mmol/L BUN 72.0 H (9.0-27.0) mg/dL Creatinine 5.7 H (0.6-1.5) mg/dL Est GFR (CKD-EPI)AfAm 7.7 L (60.0-200.0) Est GFR (CKD-EPI)NonAf 6.7 L (60.0-200.0) Glucose 161 H (70-110) mg/dL Calcium 7.7 L (8.7-10.3) mg/dL LD Isoenzymes (120-250) U/L LD 1 (19-38) % LD 2 (30-43) % LD 4 (3-12) % LD 5 (3-14) % Albumin (PEP) (3.80-4.90) g/dL Fosfr-7-Puwzzfimr (0.10-0.40) g/dL Gamma Globulins (0.70-1.50) g/dL Microbiology - Last 24 Hours (Table) 11/26/20 15:44 Blood Culture - Preliminary Blood No Growth after 96 hours 11/25/20 10:13 Blood Culture - Preliminary Blood No Growth after 120 hours 11/25/20 10:13 Blood Culture - Preliminary Blood No Growth after 120 hours 11/26/20 19:50 Stool Culture - Final Stool Assessment and Plan Assessment: Acute kidney injury due to ATN secondary to hypotension with diarrhea and sepsis. Requiring hemodialysis. Creatinine level 4.99-->7.39--8.5--9--8.1--5.7 acute urinary tract infection Sepsis secondary to above Acute COPD exacerbation Suspected COVID-19 infection. Repeat PCR negative. Acute diarrhea. Ruled out C. difficile infection. Hearing disorder/deafness Hypertension Hypothyroidism Anxiety/depression, bipolar and PTSD Currently everyday smoker DVT prophylaxis with heparin subcu Plan: Patient will be continued on IV hydration and antibiotics in the form of ceftriaxone. added levoquin.Cultures are negative so far.. Monitor renal function closely. Nephrology is on board. Continue with home m edications and avoid NSAIDs and nephrotoxic agents. on hemodialysis due to worsening renal function. Ultrasound renal Showed no evidence of hydronephrosis.. CT chest showed no evidence of pneumonia/pulmonary edema. Random urine protein, creatinine, sodium level reviewed.. VQ scan was ordered to rule out PE due to elevated D-dimer level. low probability. CTA chest could not be done due to elevated creatinine level.Elevated D-dimer level could be due to LUKE. Lower extremity Duplex scan negative. Further recommendations based on the clinical course. Time with Patient: Greater than 30
[2020-12-01] MEDS: IPRATROPIUM-ALBUTEROL 3 ML NEB INHALATION SCH ×6 (00:13→23:27)
[2020-12-01] MEDS: LORazepam 2 MG/ML INJ IV PRN ×2 (03:32→19:47)
--- NOTE | 2020-12-01 05:05 | PN ---
PROGRESS NOTE DATE OF SERVICE: 11/30/2020 REASON FOR FOLLOWUP: Fever, concern for UTI/pneumonia. INTERVAL HISTORY: The patient is afebrile. The patient has been breathing more comfortably. Patient denies having any chest pain or shortness of breath. Occasional cough. No abdominal pain. No diarrhea. PHYSICAL EXAMINATION: Blood pressure 132/75 with a pulse of 81, temperature 98.6. GENERAL description is an elderly female lying in bed in no distress. RESPIRATORY system: Unlabored breathing, clear to auscultation anteriorly. HEART S1, S2. Regular rate and rhythm. ABDOMEN: Soft, no tenderness. EXTREMITIES: No edema of the feet. LABS: Hemoglobin is 12.1, white count of 5.5, BUN of 72, creatinine 5.7. DIAGNOSTIC IMPRESSION AND PLAN: Patient with fever with concern for urinary tract infection/pneumonia. Clinically responded to the Rocephin and Levaquin. Culture has been negative so far. Continue current antibiotics while waiting for condition to stabilize and monitor clinical course closely. MMODL / IJN: [id number] /
[2020-12-01] MEDS: ACETAMINOPHEN TAB 325 MG TAB PO PRN (05:28)
[2020-12-01] MEDS: LEVOTHYROXINE 50 MCG TAB PO SCH (05:28)
[2020-12-01] MEDS: methylPREDNISolone SOD SUCCI 125 MG/2 ML VIAL IV SCH ×4 (05:29→23:55)
[2020-12-01] MEDS: HEPARIN SODIUM,PORCINE/PF 5,000 UNIT/0.5 ML SYRINGE SQ SCH ×3 (07:26→23:53)
[2020-12-01] MEDS: CALCIUM ACETATE 667 MG TAB PO SCH ×3 (07:27→16:19)
[2020-12-01] MEDS: guaiFENesin 600 MG TABLET.ER PO SCH ×2 (07:27→21:08)
[2020-12-01] MEDS: DIVALPROEX ER 500 MG TAB.ER.24H PO SCH ×2 (07:28→21:10)
[2020-12-01] MEDS ORDERED: guaiFENesin-DM 100-10MG/5ML 10 ML CUP PO PRN (10:23)
[2020-12-01 10:43] LABS: African American GFR (CKD) 12.2 (60.0-200.0); Anion Gap 13.6 mmol/L (4.00-12.00); BUN/Creat Ratio 14.36 Ratio (12.00-20.00); Carbon Dioxide 26.4 mmol/L (21.6-31.8); Magnesium 1.8 mg/dL (1.5-2.4); Non-African American GFR(CKD) 10.5 (60.0-200.0); Phosphorus 5.5 mg/dL (2.4-5.1); Potassium 3.7 mmol/L (3.5-5.5)
[2020-12-01] MEDS: SODIUM CHLORIDE 0.9% 1,000 ML IV SCH (11:37)
--- NOTE | 2020-12-01 13:06 | P.PN ---
Subjective Patient is seen in follow for acute kidney injury. Creatinine peaked at 9 this admission. Started on hemodialysis November 28. Last hemodialysis November 30. Has a Fernandez catheter. Urine output significantly improved. No edema. Denies chest pain or shortness of breath. Oral intake has been fair. Currently on 2 L is cannula. Vital signs are stable. General: The patient appeared well nourished and normally developed. HEENT: Head exam is unremarkable. LUNGS: Breath sounds decreased. HEART: Rate and Rhythm are regular. ABDOMEN: Soft, obese. EXTREMITITES: No edema. Objective - Vital Signs Vital signs: Vital Signs Temp 98.3 F 12/01/20 05:00 Pulse 96 12/01/20 11:31 Resp 24 12/01/20 05:00 BP 136/77 12/01/20 05:00 Pulse Ox 93 L 12/01/20 05:00 Intake & Output 11/30/20 12/01/20 12/01/20 18:59 06:59 18:59 Intake Total 1006 780 Output Total 1900 1275 Balance -894 -495 Weight 120.656 kg Intake: Intake, IV Titration 470 300 Amount Sodium Chloride 0.9% 1, 420 300 000 ml @ 50 mls/hr IV . Q20H MARCIO Rx#:[id number] cefTRIAXone 1 gm In 50 Sodium Chloride 0.9% 50 ml @ 100 mls/hr IVPB Q24HR MARCIO Rx#:[id number] Oral 236 480 Hemodialysis 300 Output: Urine 600 1275 Uretheral (Fernandez) 1275 Hemodialysis 1300 Other: Voiding Method Indwelling Catheter Indwelling Catheter Indwelling Catheter # Bowel Movements 1 - Labs CBC & Chem 7: 11/30/20 06:51 12/01/20 04:40 Labs: Abnormal Lab Results - Last 24 Hours (Table) 11/26/20 11/30/20 12/01/20 Range/Units 07:24 06:51 04:40 Anion Gap 17.40 H 13.60 H (4.00-12.00) mmol/L BUN 72.0 H 56.0 H (9.0-27.0) mg/dL Creatinine 5.7 H 3.9 H (0.6-1.5) mg/dL Est GFR (CKD-EPI)AfAm 7.7 L 12.2 L (60.0-200.0) Est GFR (CKD-EPI)NonAf 6.7 L 10.5 L (60.0-200.0) Glucose 161 H 150 H (70-110) mg/dL Calcium 7.7 L 8.0 L (8.7-10.3) mg/dL Phosphorus 5.5 H (2.4-5.1) mg/dL LD Isoenzymes 393 H (120-250) U/L LD 1 15 L (19-38) % LD 2 24 L (30-43) % LD 4 18 H (3-12) % LD 5 19 H (3-14) % Microbiology - Last 24 Hours (Table) 11/25/20 10:13 Blood Culture - Final Blood No Growth after 144 hours 11/25/20 10:13 Blood Culture - Final Blood No Growth after 144 hours 11/26/20 19:50 Stool Culture - Final Stool 11/26/20 15:44 Blood Culture - Preliminary Blood No Growth after 96 hours Assessment and Plan Plan: Assessment: 1. Acute kidney injury secondary to ATN secondary to nonsteroidals, infection and hypovolemia from diarrhea. Creatinine 4.99 admission and peaked at 9 this admission. Baseline creatinine near 1 from October 2020. No evidence of hydronephrosis noted on kidney ultrasound. Rule out GN - UPC 1.8 g. Started on hemodialysis November 28. Has a femoral catheter. 2. Diarrhea. Improved. C. diff negative. 3. Metabolic acidosis secondary to acute kidney injury and GI losses. Status post bicarb drip. Better. 4. Hyponatremia secondary to acute kidney injury. Improved postdialysis. 5. Chronic systolic CHF with ejection fraction of 20-25%. 6. UTI and possible pneumonia maintained on antibiotics. Infectious disease following. 7. Hyperphosphatemia secondary to acute kidney injury. Maintained on PhosLo. Better. Plan: Hep-Lock IV fluids. Avoid nephrotoxins. Follow-up pending serologies - negative so far. Will consider kidney biopsy if no improvement in renal function. Monitor for renal recovery. Strict Is and Os. Last hemodialysis November 30. Hold hemodialysis today. Monitor for renal recovery. Follow-up chest x-ray.
--- NOTE | 2020-12-01 13:24 | CDI ---
Documentation Clarification Form Date: 12/01/2020 01:11:54 PM From: Chary PalmerNunezRAY, CCDS Admit Date: 11/25/2020 12:56:00 PM Patient Name: Falguni Guadarrama Visit Number: [id number] Discharge Date: ATTENTION: The Clinical Documentation Specialists (CDI) and [facility] Coding Staff appreciate your assistance in clarifying documentation. Please respond to the clarification below the line at the bottom and electronically sign. The CDI & [facility] Coding staff will review the response and follow-up if needed. Please note: Queries are made part of the Legal Health Record. If you have any questions, please contact the author of this message via ITS. Dr. Kelsie Godinez: The COVID-19 test obtained on 11/25 was reported as Negative. Per the 11/26 Attending Progress Note and subsequent Progress Notes: LUKE due to ATN secondary to Hypotension and Sepsis, Acute UTI, Sepsis secondary to above, Suspected COVID 19 infection. Repeat PCR negative. History/risk factors Per the 11/25 ED Note Past Medical History: OHKAY OWINGEH, Hypertension, Hypothyroid, Lymphedema, Anxiety, Bipolar, PTSD and smoker. Clinical Indicators: Presented to the ED on 11/25 via EMS with Fever, Diarrhea, shakes, cough. Temp per EMS: 103.7. ED Clinical Impression: LUKE, Diarrhea, UTI. LAB 11/25: WBC 13.3, Pl Ct 55, Neut 11.2, Lymph 1.3 11/25 COVID Negative LAB 11/26: WBC 15.3, Pl Ct 54, Neut 13.7, LDH 1025, CRP 32.9, Procalcitonin 25.31 11/26 COVID Negative Treatment 11/25: IV fl NaCl 500 mls @ 1000 mls/hr q35M, IV fluid 1,000 mls @ 999 mls/hr q1H, IV fluid Na Cl 1,000 mls @ 75 mls/hr q13H, Heparin sq, po Melatonin 11/26: IV Rocephin, IV fl 1,000 mls @ 75 mls/hr q13H, INH Duoneb, IV Levaquin, IV Solumedrol Please clarify the COVID-19 status: [ ] False negative, treating for COVID-19 infection [ ] With Sepsis, POA [ ] With Pneumonia, POA [ ] COVID-19 ruled out [ ] Other, please specify (Template Last Revised: September 2020) Query response documented in 12/02 Progress Note & Subsequent Progress Notes per Dr. Gamino: COVID ruled out. (mka) MTDD
--- NOTE | 2020-12-01 13:49 | XR ---
EXAMINATION TYPE: XR chest 1V portable DATE OF EXAM: 12/01/2020 COMPARISON: Chest x-ray 11/29/2020, chest CT 11/25/2020 HISTORY: Cough and shortness of breath TECHNIQUE: Single frontal view of the chest is obtained. FINDINGS: Cardiac mediastinal silhouette is stable, heart is enlarged. Central vascularity is promin ent. There is no evident pneumothorax or pleural effusion. Bones are stable. Aorta appears prominentl y. No evident airspace disease. IMPRESSION: Cardiomegaly persists. Correlate for possible pulmonary artery hypertension.
--- NOTE | 2020-12-01 18:35 | PN ---
PROGRESS NOTE DATE OF SERVICE: 12/01/2020 REASON FOR FOLLOWUP: Fever, question of UTI and pneumonia. INTERVAL HISTORY: The patient is afebrile. The patient is breathing comfortably, currently on 3 L nasal cannula. The patient denies having any chest pain or shortness of breath. She did have some cough, not bringing up any sputum. No abdominal pain or any diarrhea. PHYSICAL EXAMINATION: Blood pressure 152/73, pulse of 89, temperature 98. She is 93% on 3 L nasal cannula. General description is an elderly female lying in bed in no distress. RESPIRATORY SYSTEM: Unlabored breathing. Clear to auscultation anteriorly. HEART: S1, S2. Regular rate and rhythm. ABDOMEN: Soft. No tenderness. LABS: Culture has been negative so far. BUN of 56, creatinine 3.9. DIAGNOSTIC IMPRESSION AND PLAN: Patient admitted to hospital with acute nausea, vomiting and diarrhea in this patient who did have acute renal failure and a fever with significant respiratory symptoms and cough with concern for possible atypical pneumonia/urinary tract infection, overall improvement on Rocephin and Levaquin. Will keep the patient on Levaquin to finish therapy. Discontinue Rocephin and continue supportive care. MMODL / IJN: [id number] / MTDD
[2020-12-01 20:45] LABS: Glucose,Whole Blood 146 mg/dL (75-99)
[2020-12-01] MEDS: MELATONIN 5 MG TABLET PO SCH (21:08)
[2020-12-01] MEDS: INSULIN ASPART (NovoLOG) 100 UNIT/ML VIAL SQ SCH (21:10)
[2020-12-01] MEDS: ATORVASTATIN 10 MG TAB PO SCH (21:10)
--- NOTE | 2020-12-01 23:04 | PN ---
PROGRESS NOTE DATE OF SERVICE: 12/01/2020 This 75-year-old woman who was admitted with acute kidney injury, acute tubular necrosis is being closely monitored. Patient the being closely monitored by Dr. Smith also. Dr. Abebe is also following the patient closely. Patient is started on hemodialysis. Last hemodialysis on November 30. Urine output showed significant improvement. Patient being closely monitored at this time. The most recent labs showed creatinine elevated up to 3.9, platelets 82. PAST MEDICAL HISTORY: Reviewed. REVIEW OF SYSTEMS: Cardiovascular: No angina. Respiration: As mentioned earlier. GI as mentioned earlier. as mentioned earlier. Nervous system: No numbness, weakness. CURRENT MEDICATIONS: Reviewed and include: Tylenol, DuoNeb, Lipitor, PhosLo, Depakote, Mucinex. Doses are reviewed. Other medications are noted. PHYSICAL EXAMINATION: Patient is alert and oriented x2. Pulse 88, blood pressure 152/79, respiration 22, temperature 98.2, pulse ox 94% on 3 L. HEENT: Conjunctivae normal. NECK: No JVD. CARDIOVASCULAR: S1, S2 muffled. RESPIRATORY: Breath sounds diminished in the bases. No rhonchi. No crackles. ABDOMEN: Soft. Nontender. LEGS are no edema. No swelling. NERVOUS SYSTEM: No focal deficits. LAB STUDIES: Hemoglobin 12.3, platelets 82. Sodium 140, potassium 4.7. ASSESSMENT: 1. Acute kidney injury due to acute tubular necrosis secondary to hypotension with acute diarrhea and as well as sepsis requiring hemodialysis. 2. Acute urinary tract infection with possible sepsis, present on admission. 3. Chronic obstructive pulmonary disease acute exacerbation. 4. Initial suspected Covid 19 infection ruled out COVID-19. 5. Acute diarrhea, possible acute diarrheal illness. 6. Hard of hearing, deafness. 7. Hypertension. 8. Hypothyroidism. 9. Anxiety, depression, bipolar, PTSD. 10.History of nicotine dependence. 11.Deep vein thrombosis prophylaxis. RECOMMENDATIONS AND DISCUSSION: Recommend to continue current medications, management and symptomatic treatment. Otherwise, continue to monitor with Nephrology. Creatinine is 3.9, BUN is 56 today. The output also seems to be improving at this time. I would recommend repeat labs in the morning. Continue the rest of medications. DVT prophylaxis. Continue with levothyroxine. Continue the rest of medications. Patient is started on IV steroids. I would recommend monitor the blood sugars closely and guarded prognosis. Further recommendations to follow. MMODL / IJN: [id number] /
[2020-12-02 03:18] LABS: African American GFR (CKD) 13.5 (60.0-200.0); Albumin 3.1 g/dL (3.80-4.90); Albumin/Globulin Ratio 1.72 (1.60-3.17); Anion Gap 12.8 mmol/L (4.00-12.00); BUN/Creat Ratio 16.94 Ratio (12.00-20.00); Calcium 8.3 mg/dL (8.7-10.3); Carbon Dioxide 27.2 mmol/L (21.6-31.8); Globulin 1.8 g/dL (1.6-3.3); Non-African American GFR(CKD) 11.6 (60.0-200.0); Potassium 3.6 mmol/L (3.5-5.5); Total Bilirubin 0.5 mg/dL (0.2-1.2); Total Protein 4.9 g/dL (6.2-8.2)
[2020-12-02] MEDS: LORazepam 2 MG/ML INJ IV PRN ×2 (04:34→15:08)
[2020-12-02] MEDS: IPRATROPIUM-ALBUTEROL 3 ML NEB INHALATION SCH ×6 (04:45→22:24)
[2020-12-02] MEDS: LEVOTHYROXINE 50 MCG TAB PO SCH (05:54)
[2020-12-02] MEDS: methylPREDNISolone SOD SUCCI 125 MG/2 ML VIAL IV SCH ×3 (05:55→17:57)
[2020-12-02 06:32] LABS: Basophils % (A) 0 %; Eosinophils % (A) 0 %; HGB 12.1 gm/dL (11.4-16.0); Lymphocytes # (A) 0.7 k/uL (1.0-4.8); Lymphocytes % (A) 10 %; MCH 30.5 pg (25.0-35.0); MCHC 33.7 g/dL (31.0-37.0); MCV 90.6 fL (80.0-100.0); Mean Platelet Volume 10.4; Monocytes # (A) 0.4 k/uL (0-1.0); Monocytes % (A) 6 %; Neutrophils # (A) 5.8 k/uL (1.3-7.7); Neutrophils % (A) 83 %; Platelet Count 122 k/uL (150-450); RBC 3.97 m/uL (3.80-5.40); RDW 14.4 % (11.5-15.5)
[2020-12-02 07:15] LABS: Glucose,Whole Blood 126 mg/dL (75-99)
[2020-12-02] MEDS: CALCIUM ACETATE 667 MG TAB PO SCH ×3 (07:55→17:57)
[2020-12-02] MEDS: DIVALPROEX ER 500 MG TAB.ER.24H PO SCH ×2 (07:55→21:01)
[2020-12-02] MEDS: HEPARIN SODIUM,PORCINE/PF 5,000 UNIT/0.5 ML SYRINGE SQ SCH ×2 (07:55→15:08)
[2020-12-02] MEDS: guaiFENesin 600 MG TABLET.ER PO SCH ×2 (07:55→21:00)
[2020-12-02] MEDS: ACETAMINOPHEN TAB 325 MG TAB PO PRN ×3 (07:56→17:59)
[2020-12-02] MEDS: INSULIN ASPART (NovoLOG) 100 UNIT/ML VIAL SQ SCH ×4 (09:03→21:01)
[2020-12-02 10:00] LABS: Anion Gap 11.7 mmol/L (4.00-12.00); BUN/Creat Ratio 19.7 Ratio (12.00-20.00); Calcium 8.3 mg/dL (8.7-10.3); Carbon Dioxide 29.3 mmol/L (21.6-31.8); Magnesium 1.7 mg/dL (1.5-2.4); Non-African American GFR(CKD) 12.9 (60.0-200.0); Phosphorus 5.3 mg/dL (2.4-5.1); Potassium 3.7 mmol/L (3.5-5.5)
[2020-12-02 11:22] LABS: Glucose,Whole Blood 130 mg/dL (75-99)
--- NOTE | 2020-12-02 16:12 | PN ---
PROGRESS NOTE The patient is seen for followup for acute kidney injury. She had received hemodialysis, however, her urine output has improved. Renal function is improving and currently dialysis is on hold. PHYSICAL EXAMINATION: On examination today, patient is awake, comfortable, not in any acute distress. Blood pressure was 138/78, heart rate 90 per minute, she is afebrile. Examination of the heart S1, S2. Examination of the lungs, bilateral breath sounds are heard. Abdomen is soft, nontender. Examination of lower extremities shows no significant edema. TRANSIT DEPARTMENT CLERK exam grossly intact. LABS: From today show sodium 142, potassium 3.7, BUN 65, creatinine 3.3, hemoglobin 12.1 g/dL. ASSESSMENT: 1. Acute kidney injury, acute tubular necrosis, continue to hold off on dialysis for now. 2. Metabolic acidosis associated acute kidney injury, GI fluid losses, status post bicarb drip. 3. Chronic systolic congestive heart failure. 4. Cardiomyopathy, ejection fraction 20-25%. 5. Urinary tract infection, possible pneumonia, maintained on antibiotics. 6. Hyperphosphatemia associated with renal failure, maintained on phosphate binders in the form of PhosLo. PLAN: Continue to hold off on dialysis for now. Repeat labs in a.m. MMODL / IJN: [id number] /
[2020-12-02 17:25] LABS: Glucose,Whole Blood 148 mg/dL (75-99)
--- NOTE | 2020-12-02 18:50 | PN ---
PROGRESS NOTE DATE OF SERVICE: 12/02/2020 REASON FOR FOLLOWUP: Fever, question of pneumonia and UTI. INTERVAL HISTORY: The patient is currently afebrile. The patient is breathing better. She is breathing comfortably. Did have a cough, not bringing up sputum. No abdominal pain or diarrhea. PHYSICAL EXAMINATION: Blood pressure 137/77, pulse of 92, temperature 98. She is 94% on 2 L nasal cannula. General description is an elderly female lying in bed in no distress. Respiratory system: Unlabored breathing, clear to auscultation anteriorly. Heart S1, S2. Regular rate and rhythm. Abdomen soft, no tenderness. No guarding or rigidity. LABS: Hemoglobin is 12, white count 7.0, BUN of 65, creatinine 3.3. Cultures remain to be negative. DIAGNOSTIC IMPRESSION AND PLAN: Patient admitted to the hospital with fever, shortness of breath with initial concern for pneumonia and urinary tract infection. Culture so far negative. Patient responded to Levaquin to continue to finish a course of therapy and continue supportive care. MMODL / IJN: [id number] /
[2020-12-02 20:10] LABS: Glucose,Whole Blood 140 mg/dL (75-99)
--- NOTE | 2020-12-02 20:54 | PN ---
PROGRESS NOTE DATE OF SERVICE: 12/01/2020 This 75-year-old woman who was admitted with acute kidney injury, also had acute tubular necrosis. The patient also had acute urinary tract infection with sepsis present on admission. Patient is being closely monitored. No chest pain. No palpitations. No fever. PHYSICAL EXAMINATION: Alert and oriented x1. Pulse is 83, blood pressure 150/72, respiration 20, temperature 98 degrees, pulse ox 94% on 3 L HEENT: Conjunctivae normal. Oral mucosa moist. NECK: No jugular venous distention. No lymph node enlargement. CARDIOVASCULAR: S1, S2, muffled. No S3, no S4, RESPIRATORY: Diminished breath sounds at the bases. A few scattered rhonchi. ABDOMEN: Soft, nontender. LEGS: No edema, no swelling. NERVOUS SYSTEM: Diffusely weak. LABS: Platelets 132. Other labs are noted. Creatinine is 3.3. ASSESSMENT: 1. Acute kidney injury secondary to acute tubular necrosis secondary to hypotension as well as acute diarrhea as well as sepsis requiring hemodialysis. 2. Acute urinary tract infection with possible sepsis present on admission. 3. Chronic obstructive pulmonary disease acute exacerbation. 4. History of suspected COVID-19, COVID-19 ruled out. 5. Acute diarrhea, possible acute diarrheal illness. 6. Hard of hearing, deafness. 7. Hypertension. 8. Hypothyroidism. 9. History of anxiety, depression, bipolar PTSD. 10.History of nicotine dependence. 11.Deep vein thrombosis prophylaxis. 12.Obesity with body mass index of 45.7. RECOMMENDATIONS AND DISCUSSION: Recommend to continue current management and symptomatic treatment. Otherwise, repeat labs tomorrow. Closely follow with Nephrology. Guarded prognosis because of multiple complex medical issues. Further recommendations to follow. Avoid nephrotoxic medications. MMODL / IJN: [id number] /
[2020-12-02] MEDS: MELATONIN 5 MG TABLET PO SCH (21:00)
[2020-12-02] MEDS: LEVOFLOXACIN 500 MG TAB PO SCH (21:01)
[2020-12-03] MEDS: LORazepam 2 MG/ML INJ IV PRN ×2 (00:30→20:37)
[2020-12-03] MEDS: HEPARIN SODIUM,PORCINE/PF 5,000 UNIT/0.5 ML SYRINGE SQ SCH ×3 (00:47→14:27)
[2020-12-03] MEDS: methylPREDNISolone SOD SUCCI 125 MG/2 ML VIAL IV SCH ×4 (00:47→18:00)
[2020-12-03] MEDS: IPRATROPIUM-ALBUTEROL 3 ML NEB INHALATION SCH ×5 (04:17→21:17)
[2020-12-03] MEDS: ACETAMINOPHEN TAB 325 MG TAB PO PRN ×2 (04:36→14:27)
[2020-12-03] MEDS: LEVOTHYROXINE 50 MCG TAB PO SCH (05:45)
[2020-12-03 06:03] LABS: Basophils % (A) 0 %; Eosinophils % (A) 0 %; HCT 37.6 % (34.0-46.0); HGB 13.1 gm/dL (11.4-16.0); Lymphocytes # (A) 0.6 k/uL (1.0-4.8); Lymphocytes % (A) 9 %; MCH 31.3 pg (25.0-35.0); MCHC 34.7 g/dL (31.0-37.0); MCV 90.1 fL (80.0-100.0); Mean Platelet Volume 9.9; Monocytes # (A) 0.4 k/uL (0-1.0); Monocytes % (A) 6 %; Neutrophils # (A) 5.5 k/uL (1.3-7.7); Neutrophils % (A) 84 %; Platelet Count 129 k/uL (150-450); RBC 4.17 m/uL (3.80-5.40); RDW 14.1 % (11.5-15.5); WBC 6.5 k/uL (3.8-10.6)
[2020-12-03 07:25] LABS: Glucose,Whole Blood 125 mg/dL (75-99)
[2020-12-03] MEDS: INSULIN ASPART (NovoLOG) 100 UNIT/ML VIAL SQ SCH ×4 (08:52→21:33)
[2020-12-03] MEDS: DIVALPROEX ER 500 MG TAB.ER.24H PO SCH ×2 (08:55→20:30)
[2020-12-03] MEDS: CALCIUM ACETATE 667 MG TAB PO SCH ×2 (08:55→15:52)
[2020-12-03] MEDS: guaiFENesin 600 MG TABLET.ER PO SCH ×2 (08:55→20:36)
[2020-12-03 10:05] LABS: Anion Gap 9.3 mmol/L (4.00-12.00); BUN/Creat Ratio 24.62 Ratio (12.00-20.00); Calcium 8.7 mg/dL (8.7-10.3); Carbon Dioxide 34.7 mmol/L (21.6-31.8); Non-African American GFR(CKD) 17.2 (60.0-200.0); Potassium 3.5 mmol/L (3.5-5.5)
[2020-12-03 12:23] LABS: Glucose,Whole Blood 129 mg/dL (75-99)
--- NOTE | 2020-12-03 15:10 | PN ---
PROGRESS NOTE Patient is seen for followup for acute kidney injury. She was maintained on dialysis. However, renal function has been improving and dialysis has been on hold. Creatinine was as high as 9.0 mg/dL. It is now down to 2.6. Patient has good urine output. She has an indwelling Fernandez catheter. PHYSICAL EXAMINATION: Blood pressure 126/72, heart rate 92 per minute, she is afebrile. Examination of the heart S1, S2. Examination of lungs, decreased breath sounds at bases. Abdomen is soft, nontender, obese. Examination of lower extremities shows no significant edema. LAB: Show sodium 143, potassium 3.5, chloride 99, CO2 is 34.7, BUN 64, creatinine 2.6. ASSESSMENT: 1. Acute kidney injury, acute tubular necrosis, currently improving. Continue to hold off dialysis. Will remove the dialysis catheter tomorrow. 2. Hyperphosphatemia associated with renal failure, maintained on PhosLo which I will DC now since renal function has improved significantly. 3. Cardiomyopathy, ejection fraction 20-25%. 4. Chronic systolic congestive heart failure. 5. Possible pneumonia, maintained on antibiotics. PLAN: Continue to hold off on dialysis. Discontinue PhosLo. Repeat labs in a.m. Will discontinue the dialysis catheter tomorrow. MMODL / IJN: [id number] /
[2020-12-03 17:42] LABS: Glucose,Whole Blood 129 mg/dL (75-99)
--- NOTE | 2020-12-03 17:55 | PN ---
PROGRESS NOTE DATE OF SERVICE: 12/03/2020 INTERVAL HISTORY: This 75-year-old woman who was admitted with acute kidney injury is being closely monitored. The COVID-19 has been ruled out. No chest pain. No palpitations. No fever. PHYSICAL EXAMINATION: Alert and oriented x2. Pulse is 87, blood pressure 126/70, respiration 21, temp 98 degrees, pulse ox 98% on 3 L. HEENT: Conjunctivae normal. Oral mucosa moist. NECK: No jugular venous distention. No lymph node enlargement. CARDIOVASCULAR: S1, S2, muffled. No S3, no S4, RESPIRATORY: Diminished breath sounds at the bases. A few scattered rhonchi. ABDOMEN: Soft, nontender. LEGS: No edema, no swelling. NERVOUS SYSTEM: Diffusely weak. LABS: Platelets 129. The glucose noted. ASSESSMENT: 1. Acute kidney injury and acute renal failure secondary to acute tubular necrosis secondary to hypotension as well as acute diarrhea as well as sepsis, requiring hemodialysis. 2. Acute urinary tract infection with possible sepsis present on admission. 3. Chronic obstructive pulmonary disease acute exacerbation. 4. History of suspected COVID-19 but COVID-19 ruled out. 5. Acute diarrhea, possible acute diarrheal illness. 6. History of hearing loss and deafness. 7. Hypertension. 8. Hypothyroidism. 9. History of anxiety, depression, PTSD. 10.History of nicotine dependence. 11.Deep vein thrombosis prophylaxis. 12.Thrombocytopenia. 13.Obesity with body mass index 45.7. RECOMMENDATIONS AND DISCUSSION: I recommend to continue current medication, continue symptomatic treatment. Otherwise, patient treated with empiric antibiotics and the labs are also improving. Guarded prognosis. Further recommendations to follow. MMODL / IJN: [id number] /
--- NOTE | 2020-12-03 20:14 | PN ---
PROGRESS NOTE DATE OF SERVICE: 12/03/2020 REASON FOR FOLLOWUP: Fever and concern for UTI/pneumonia. INTERVAL HISTORY: Patient is afebrile. The patient is feeling better. Breathing comfortably. Denies having any chest pain. No shortness of breath. Occasional cough. No abdominal pain, no diarrhea. PHYSICAL EXAMINATION: VITAL SIGNS: Blood pressure 126/72 with a pulse of 80, temperature 98. She is 99% 3 L nasal cannula. GENERAL DESCRIPTION: An elderly female lying in bed in no distress. RESPIRATORY SYSTEM: Unlabored breathing, clear to auscultation anteriorly. HEART: S1, S2. Regular rate and rhythm. ABDOMEN: Soft, no tenderness. EXTREMITIES: No edema of the feet. LABS: Hemoglobin 13.1, white count 6.5, BUN of 64, creatinine is 2.6. Cultures remain to be negative. DIAGNOSTIC IMPRESSION AND PLAN: Patient admitted to the hospital with a fever, vomiting, diarrhea, cough with concern for possible atypical pneumonia/UTI. Overall improvement on Levaquin, to continue for another few days and continue supportive care. MMODL / IJN: [id number] /
[2020-12-03 20:29] LABS: Glucose,Whole Blood 142 mg/dL (75-99)
[2020-12-03] MEDS: MELATONIN 5 MG TABLET PO SCH (20:36)
[2020-12-03] MEDS: ATORVASTATIN 10 MG TAB PO SCH (20:36)
[2020-12-04] MEDS: methylPREDNISolone SOD SUCCI 125 MG/2 ML VIAL IV SCH ×4 (00:03→17:52)
[2020-12-04] MEDS: HEPARIN SODIUM,PORCINE/PF 5,000 UNIT/0.5 ML SYRINGE SQ SCH ×3 (00:04→16:29)
[2020-12-04] MEDS: IPRATROPIUM-ALBUTEROL 3 ML NEB INHALATION SCH ×6 (00:09→20:39)
[2020-12-04] MEDS: LEVOTHYROXINE 50 MCG TAB PO SCH (05:48)
[2020-12-04 07:31] LABS: Glucose,Whole Blood 119 mg/dL (75-99)
[2020-12-04] MEDS: INSULIN ASPART (NovoLOG) 100 UNIT/ML VIAL SQ SCH ×4 (07:39→21:31)
[2020-12-04] MEDS: DIVALPROEX ER 500 MG TAB.ER.24H PO SCH ×3 (07:40→21:43)
[2020-12-04] MEDS: guaiFENesin 600 MG TABLET.ER PO SCH ×2 (09:11→21:18)
[2020-12-04 11:43] LABS: African American GFR (CKD) 26 (>60 ml/min/1.73 sqM); Anion Gap 6 mmol/L; Blood Urea Nitrogen 71 mg/dL (7-17); Calcium 8.3 mg/dL (8.4-10.2); Carbon Dioxide 37 mmol/L (22-30); Chloride 95 mmol/L (98-107); Glucose 153 mg/dL (74-99); Non-African American GFR(CKD) 22 (>60 ml/min/1.73 sqM); Potassium 3.3 mmol/L (3.5-5.1); Sodium 138 mmol/L (137-145)
[2020-12-04 11:51] LABS: Glucose,Whole Blood 152 mg/dL (75-99)
[2020-12-04] MEDS ORDERED: POTASSIUM CHLORIDE ER 20 MEQ TAB.ER PO STA (13:25)
--- NOTE | 2020-12-04 15:52 | PN ---
PROGRESS NOTE Patient is seen for followup for acute kidney injury. She had been on hemodialysis; however, her renal function has been improving and dialysis has been on hold. Patient continues to have good urine output. Her serum creatinine continues to decrease, and it is down to 2.1 today. On examination today, patient is comfortable, awake, not in any acute distress. Blood pressure 130/77, heart rate 87 per minute. She is afebrile. EXAMINATION OF THE HEART: S1 and S2. EXAMINATION OF LUNGS: Bilateral breath sounds are heard. Decreased breath sounds at bases. ABDOMEN: Soft, non-tender, obese. Examination of lower extremities shows no significant edema. EVENT PROMOTIONS COORDINATOR exam shows patient moving all 4 extremities. Labs show sodium 138, potassium 3.3, chloride 95. CO2 is 37, BUN 71, creatinine 2.12. ASSESSMENT: 1. Acute kidney injury, acute tubular necrosis, nonoliguric, currently improving. 2. Cardiomyopathy, ejection fraction 20% to 25%. 3. Hyperphosphatemia, status post phosphate binders. PhosLo was discontinued, as renal function continues to improve. 4. Possible pneumonia, maintained on antibiotics. PLAN: Can discontinue the dialysis catheter. Replace potassium. Continue to avoid nephrotoxic agents. MMODL / IJN: [id number] /
[2020-12-04 17:16] LABS: Glucose,Whole Blood 109 mg/dL (75-99)
[2020-12-04] MEDS: LORazepam 2 MG/ML INJ IV PRN (18:01)
[2020-12-04 20:07] LABS: Glucose,Whole Blood 146 mg/dL (75-99)
[2020-12-04] MEDS: MELATONIN 5 MG TABLET PO SCH (21:19)
[2020-12-04] MEDS: LEVOFLOXACIN 500 MG TAB PO SCH (21:19)
--- NOTE | 2020-12-04 22:39 | PCN ---
PROCEDURE NOTE PREOP DIAGNOSIS: Acute on chronic renal failure. PROCEDURE PERFORMED: Removal of dialysis catheter right femoral approach. DESCRIPTION OF PROCEDURE: The patient was seen in her room. Right groin was prepped and drapes applied in the usual sterile manner. Stitches were removed. The catheter was removed. Pressure held. Patient tolerated the procedure well. MMODL / IJN: [id number] /
--- NOTE | 2020-12-04 23:27 | PN ---
PROGRESS NOTE DATE OF SERVICE: 12/04/2020 REASON FOR FOLLOWUP: Fever, concerning for UTI/pneumonia. INTERVAL HISTORY: The patient is afebrile. The patient has been breathing comfortably. The patient denies having any chest pain or shortness of breath or cough. No nausea, no vomiting, no abdominal pain or diarrhea. PHYSICAL EXAMINATION: Blood pressure 111/69, pulse 85, temperature 97.5. She is 94% on 3 L nasal cannula. General description is an elderly female lying in bed in no distress. RESPIRATORY SYSTEM: Unlabored breathing. Clear to auscultation anteriorly. HEART: S1, S2. Regular rate and rhythm. ABDOMEN: Soft. No tenderness. LABS: BUN of 71, creatinine is 2.12. DIAGNOSTIC IMPRESSION AND PLAN: Patient admitted to hospital with a fever, nausea, vomiting, diarrhea in this patient who did have acute renal failure with concern for possible pneumonia/urinary tract infection. Overall improvement with Levaquin; to continue to finish a course of therapy and monitor clinical course closely. MMODL / IJN: [id number] /
[2020-12-05] MEDS: methylPREDNISolone SOD SUCCI 125 MG/2 ML VIAL IV SCH ×2 (01:13→05:56)
[2020-12-05] MEDS: HEPARIN SODIUM,PORCINE/PF 5,000 UNIT/0.5 ML SYRINGE SQ SCH ×3 (01:14→16:55)
[2020-12-05] MEDS: LORazepam 2 MG/ML INJ IV PRN ×3 (01:30→21:52)
[2020-12-05] MEDS: ACETAMINOPHEN TAB 325 MG TAB PO PRN (01:30)
[2020-12-05] MEDS: IPRATROPIUM-ALBUTEROL 3 ML NEB INHALATION SCH ×6 (03:27→23:35)
[2020-12-05] MEDS: LEVOTHYROXINE 50 MCG TAB PO SCH (05:57)
--- NOTE | 2020-12-05 06:11 | P.PN ---
Subjective Progress Note Date: 12/04/20 Principal diagnosis: ARF Pt remains afebrile, vitals stable and she denies chest pain or shortness of breath. Her creatinine is trending down to 2.1 from 2.6 nephrology following and dialysis on hold. Fernandez with good urine output. She continues on levaquin for UTI. Objective - Vital Signs Vital signs: Vital Signs Temp 97.5 F L 12/05/20 05:05 Pulse 77 12/05/20 05:05 Resp 16 12/05/20 05:05 BP 128/75 12/05/20 05:05 Pulse Ox 93 L 12/05/20 05:05 Intake & Output 12/04/20 12/04/20 12/05/20 06:59 18:59 06:59 Intake Total 480 Output Total 2074 1475 1400 Balance -1595 -1475 -1400 Intake: Oral 480 Output: Urine 2074 1475 1400 Uretheral (Fernandez) 5 700 Other: Voiding Method Indwelling Catheter Indwelling Catheter Indwelling Catheter # Bowel Movements 1 1 - Exam General: well nourished, obese, NAD. Vitals reviewed Lungs: normal respiratory effort, no wheezes or rales CV: Regular rate and rhythm, no murmur. Peripheral pulses 1+ Abdomen: soft, nondistended, no organomegaly. Tenderness suprapubic Skin: warm and dry. - Labs CBC & Chem 7: 12/03/20 05:34 12/04/20 11:13 Labs: Abnormal Lab Results - Last 24 Hours (Table) 12/04/20 12/04/20 12/04/20 Range/Units 07:30 11:13 11:43 Potassium 3.3 L (3.5-5.1) mmol/L Chloride 95 L (98-107) mmol/L Carbon Dioxide 37 H (22-30) mmol/L BUN 71 H (7-17) mg/dL Creatinine 2.12 H (0.52-1.04) mg/dL Glucose 153 H (74-99) mg/dL POC Glucose (mg/dL) 119 H 152 H (75-99) mg/dL Calcium 8.3 L (8.4-10.2) mg/dL 12/04/20 12/04/20 Range/Units 17:09 20:05 Potassium (3.5-5.1) mmol/L Chloride (98-107) mmol/L Carbon Dioxide (22-30) mmol/L BUN (7-17) mg/dL Creatinine (0.52-1.04) mg/dL Glucose (74-99) mg/dL POC Glucose (mg/dL) 109 H 146 H (75-99) mg/dL Calcium (8.4-10.2) mg/dL Assessment and Plan Plan: 1. Acute renal failure on CKD 3. Continue to closely follow renal function. Dialysis catheter removed 2. Sepsis seconday to UTI. Continue levaquin 3. COPD exacerbation, improved. Stop solumedrol and switch to PO prednisone. ID following
[2020-12-05 07:20] LABS: Glucose,Whole Blood 112 mg/dL (75-99)
[2020-12-05] MEDS: INSULIN ASPART (NovoLOG) 100 UNIT/ML VIAL SQ SCH ×4 (07:27→21:41)
[2020-12-05] MEDS: DIVALPROEX ER 500 MG TAB.ER.24H PO SCH ×2 (08:57→21:42)
[2020-12-05] MEDS: predniSONE 20 MG TAB PO SCH (09:00)
[2020-12-05] MEDS: guaiFENesin 600 MG TABLET.ER PO SCH ×2 (09:00→21:41)
[2020-12-05 11:45] LABS: Glucose,Whole Blood 121 mg/dL (75-99)
--- NOTE | 2020-12-05 13:04 | PN ---
PROGRESS NOTE Patient is seen for followup for acute kidney injury. Her renal function has continued to improve. Dialysis catheter was removed yesterday. PHYSICAL EXAMINATION: On examination today, patient is comfortable, awake. She is not in any acute distress. She is sleeping but arousable easily. On examination, blood pressure was 146/85, heart rate 84 per minute. She is afebrile. EXAMINATION OF THE HEART: S1, S2. EXAMINATION OF THE LUNGS: Bilateral breath sounds are heard. Abdomen is soft, nontender, obese. Examination of lower extremities shows no significant edema. MODEL DRESSER exam grossly intact. LABS: Labs are not available from today. ASSESSMENT: 1. Acute kidney injury, acute tubular necrosis currently improving. Dialysis catheter was removed. The patient had temporary hemodialysis. 2. Cardiomyopathy, ejection fraction 20% to 25%. 3. Possible pneumonia, maintained on antibiotics. 4. Hyperphosphatemia, status post phosphate binders, currently discontinued. PLAN: Check labs in a.m. Encourage increased oral protein intake. MMODL / IJN: [id number] /
[2020-12-05 14:48] LABS: Potassium 3.9 mmol/L (3.5-5.1)
[2020-12-05 14:49] LABS: African American GFR (CKD) 29 (>60 ml/min/1.73 sqM); Anion Gap 6 mmol/L; Blood Urea Nitrogen 71 mg/dL (7-17); Calcium 8.5 mg/dL (8.4-10.2); Carbon Dioxide 36 mmol/L (22-30); Chloride 95 mmol/L (98-107); Glucose 155 mg/dL (74-99); Non-African American GFR(CKD) 25 (>60 ml/min/1.73 sqM); Sodium 137 mmol/L (137-145)
--- NOTE | 2020-12-05 15:17 | PN ---
PROGRESS NOTE DATE OF SERVICE: 12/05/2020 REASON FOR FOLLOWUP: UTI, pneumonia. INTERVAL HISTORY: The patient is currently afebrile. The patient is breathing comfortably. The patient denies having any chest pain or shortness of breath or cough. No nausea, no vomiting, no abdominal pain or diarrhea. PHYSICAL EXAMINATION: Blood pressure 146/81, pulse 84, temperature 98.2. She is 92% on 3 L nasal cannula. General description is an elderly female lying in bed in no distress. RESPIRATORY SYSTEM: Unlabored breathing. Clear to auscultation anteriorly. HEART: S1, S2. Regular rate and rhythm. ABDOMEN: Soft. No tenderness. LABS: Hemoglobin is 13.1, white count 6.5. Cultures have been negative. DIAGNOSTIC IMPRESSION AND PLAN: Patient admitted to hospital with a fever presenting with respiratory symptoms concerning for pneumonia/urinary tract infection. Overall improvement with Levaquin; to continue for another 3-4 days to finish a 2-week course of therapy and close outpatient followup. MMODL / IJN: [id number] / MTDLupe
[2020-12-05 15:19] LABS: HCT 41.1 % (34.0-46.0); MCH 29.4 pg (25.0-35.0); MCHC 31.7 g/dL (31.0-37.0); MCV 92.6 fL (80.0-100.0); Mean Platelet Volume 10.4; RBC 4.44 m/uL (3.80-5.40); RDW 14.5 % (11.5-15.5); WBC 10.2 k/uL (3.8-10.6)
[2020-12-05 16:20] LABS: Platelet Count 98 k/uL (150-450)
--- NOTE | 2020-12-05 16:27 | P.PN ---
Subjective Progress Note Date: 12/05/20 ARF Pt remains afebrile, vitals stable and she denies chest pain or shortness of breath. Her creatinine is trending down to 2.1 from 2.6 nephrology following and dialysis on hold. Fernandez with good urine output. She continues on levaquin for UTI. 12/05/2020 Creatinine continues trending down, currently 1.91. Femoral dialysis catheter removed. Continues on Levaquin secondary to UTI. Afebrile, normal WBC. Consumed 50% of lunch with no nausea vomiting or diarrhea. Denies abdominal pain. Blood sugars controlled. Objective - Vital Signs Vital signs: Vital Signs Temp 98.2 F 12/05/20 11:52 Pulse 84 12/05/20 11:52 Resp 21 12/05/20 11:52 BP 146/85 12/05/20 11:52 Pulse Ox 92 L 12/05/20 11:52 Intake & Output 12/04/20 12/05/20 12/05/20 18:59 06:59 18:59 Output Total 1475 1400 100 Balance -1475 -1400 -100 Weight 120.656 kg Output: Urine 1475 1400 Uretheral (Fernandez) 700 Stool 100 Other: Voiding Method Indwelling Catheter Indwelling Catheter Indwelling Catheter # Bowel Movements 1 1 - Exam General: Sitting up in bed ,NAD. Vitals reviewed Lungs: normal respiratory effort, no wheezes or rales CV: Regular rate and rhythm, no murmur. Peripheral pulses 1+ Abdomen: soft, nondistended, no organomegaly. Minimal Tenderness suprapubic Skin: warm and dry. - Labs CBC & Chem 7: 12/05/20 14:24 12/05/20 14:24 Labs: Abnormal Lab Results - Last 24 Hours (Table) 12/04/20 12/04/20 12/05/20 Range/Units 17:09 20:05 07:18 Chloride (98-107) mmol/L Carbon Dioxide (22-30) mmol/L BUN (7-17) mg/dL Creatinine (0.52-1.04) mg/dL Glucose (74-99) mg/dL POC Glucose (mg/dL) 109 H 146 H 112 H (75-99) mg/dL 12/05/20 12/05/20 Range/Units 11:16 14:24 Chloride 95 L (98-107) mmol/L Carbon Dioxide 36 H (22-30) mmol/L BUN 71 H (7-17) mg/dL Creatinine 1.91 H (0.52-1.04) mg/dL Glucose 155 H (74-99) mg/dL POC Glucose (mg/dL) 121 H (75-99) mg/dL Assessment and Plan Assessment: 1. Acute renal failure on CKD 3. 2. Sepsis seconday to UTI. 3. COPD exacerbation, improved. Plan: Continue on current medication regime ,monitoring and symptomatic treatment. Continue encouraging oral intake .Close monitoring of renal function with repeat labs ordered for a.m. maintain antibiotics, oral steroids. Discharge planning in progress for tomorrow to [facility] a large subacute rehab, pending final DC recommendations and clearance from infectious disease and nephrology. The impression and plan of care has been dictated as directed. : I performed a history and examination of this patient, discussed the same with the dictator. I agree with the dictator's note ,documented as a scribe. Any additional findings or plans will be noted.
[2020-12-05 17:27] LABS: Glucose,Whole Blood 126 mg/dL (75-99)
[2020-12-05 21:20] LABS: Glucose,Whole Blood 143 mg/dL (75-99)
[2020-12-05] MEDS: MELATONIN 5 MG TABLET PO SCH (21:41)
[2020-12-06] MEDS: HEPARIN SODIUM,PORCINE/PF 5,000 UNIT/0.5 ML SYRINGE SQ SCH ×2 (00:12→08:50)
[2020-12-06 04:55] VITALS: BP 122/71; PULSE 75; RESP 18; TEMP 97.6
[2020-12-06] MEDS: LEVOTHYROXINE 50 MCG TAB PO SCH (05:50)
[2020-12-06 07:08] LABS: Glucose,Whole Blood 81 mg/dL (75-99)
[2020-12-06] MEDS: INSULIN ASPART (NovoLOG) 100 UNIT/ML VIAL SQ SCH (07:16)
[2020-12-06] MEDS: IPRATROPIUM-ALBUTEROL 3 ML NEB INHALATION SCH ×2 (07:42→11:03)
[2020-12-06 07:48] LABS: Basophils % (A) 0 %; Eosinophils # (A) 0.1 k/uL (0-0.7); Eosinophils % (A) 1 %; HCT 38.9 % (34.0-46.0); HGB 13.1 gm/dL (11.4-16.0); Lymphocytes # (A) 1.5 k/uL (1.0-4.8); Lymphocytes % (A) 14 %; MCH 30.9 pg (25.0-35.0); MCHC 33.7 g/dL (31.0-37.0); MCV 91.8 fL (80.0-100.0); Mean Platelet Volume 10.4; Monocytes # (A) 0.4 k/uL (0-1.0); Monocytes % (A) 4 %; Neutrophils # (A) 8.7 k/uL (1.3-7.7); Neutrophils % (A) 81 %; RBC 4.24 m/uL (3.80-5.40); RDW 13.9 % (11.5-15.5); WBC 10.8 k/uL (3.8-10.6)
[2020-12-06 08:06] LABS: Platelet Count 82 k/uL (150-450)
[2020-12-06] MEDS: DIVALPROEX ER 500 MG TAB.ER.24H PO SCH (08:48)
[2020-12-06] MEDS: guaiFENesin 600 MG TABLET.ER PO SCH (08:50)
[2020-12-06] MEDS: predniSONE 20 MG TAB PO SCH (08:50)
[2020-12-06] MEDS ORDERED: LORazepam 0.5 MG TAB PO PRN (09:05)
--- NOTE | 2020-12-06 09:12 | P.DS ---
Providers Date of admission: 11/25/20 12:56 Expected date of discharge: 11/29/20 Attending physician: Jose Manuel Rob MD Consults: 11/25/20 12:52 Consult Physician Routine Consulting Provider: Bimal Smith Consult Reason/Comments: LUKE Do you want consulting provider notified?: Yes 11/26/20 11:22 Consult Physician Routine Consulting Provider: Mary Abebe Consult Reason/Comments: Sepsis/UTI Do you want consulting provider notified?: Yes 11/26/20 22:48 Consult Physician Routine Consulting Provider: Ara Wesley Consult Reason/Comments: Sepsis, metabolic acidosis, elevated d-dimer Do you want consulting provider notified?: Yes, Notify in am 11/28/20 11:12 Consult Physician Stat Consulting Provider: Pal Millard Consult Reason/Comments: Dialysis catheter placement Do you want consulting provider notified?: Yes Primary care physician: Kellie Rob [facility] Hospital Course: Final Diagnoses: 1. Acute renal failure on CKD 3. 2. Sepsis seconday to UTI. 3. COPD exacerbation, improved. 4. Anxiety, depression, bipolar and PTSD. 5. Hypertension 6. Hypothyroidism 7. Hearing disorder 8. Hospital course: This a 75-year-old female admitted with multiple medical issues including acute on chronic renal failure, sepsis secondary to UTI, acute exacerbation. Evaluated and treated by both nephrology and infectious disease. Maintained on gentle IV fluid hydration, antibiotics. Significant clinical improvement. Reports mild anxiety, states she "feels isolated." Patient will be discharged today to [facility]., in a stable condition with guarded prognosis, pending a.m. labs/creatinine and final DC recommendations and clearance from nephrology. The impression and plan of care has been dictated as directed. : I performed a history and examination of this patient, discussed the same with the dictator. I agree with the dictator's note ,documented as a scribe. Any additional findings or plans will be noted. Patient Condition at Discharge: Stable Plan - Discharge Summary New Discharge Prescriptions: New Ipratropium-Albuterol Nebulize [Duoneb 0.5 mg-3 mg/3 ml Soln] 3 ml INHALATION Q4H PRN ml PRN Reason: Shortness Of Breath Or Wheezing INSULIN LISPRO (HumaLOG) [humaLOG] 0 unit SQ ACHS #1 vial Levofloxacin [Levaquin] 500 mg PO Q48H #4 tab guaiFENesin [Mucinex] 600 mg PO Q12HR tablet.er Ipratropium-Albuterol Nebulize [Duoneb 0.5 mg-3 mg/3 ml Soln] 3 ml INHALATION QID ml predniSONE 10 mg PO DIRECTED #30 tab LORazepam [Ativan] 0.5 mg PO BID PRN #6 tab PRN Reason: Anxiety Continue Atorvastatin [Lipitor] 10 mg PO MOWEFR Divalproex ER [Depakote ER] 500 mg PO DAILY 30 Days tab.er.24h Divalproex ER [Depakote ER] 1,000 mg PO HS 30 Days tab.er.24h fluPHENAZine decanoate [Prolixin Decanoate] 25 mg IM [id number] #1 vial Levothyroxine Sodium [Synthroid] 50 mcg PO DAILY@0630 30 Days tab Melatonin 10 mg PO HS 30 Days tablet Acetaminophen Tab [Tylenol] 650 mg PO Q4HR PRN tab PRN Reason: Pain/Discomfort Cholecalciferol [Vitamin D3 (25 Mcg = 1000 Iu)] 25 mcg PO DAILY 30 Days tablet Discontinued allopurinoL [Zyloprim] 100 mg PO DAILY 30 Days tab Discharge Medication List Atorvastatin [Lipitor] 10 mg PO MOWEFR 10/27/20 [History] Acetaminophen Tab [Tylenol] 650 mg PO Q4HR PRN tab 11/03/20 [Rx] Cholecalciferol [Vitamin D3 (25 Mcg = 1000 Iu)] 25 mcg PO DAILY 30 Days tablet 11/03/20 [Rx] Divalproex ER [Depakote ER] 1,000 mg PO HS 30 Days tab.er.24h 11/03/20 [Rx] Divalproex ER [Depakote ER] 500 mg PO DAILY 30 Days tab.er.24h 11/03/20 [Rx] Levothyroxine Sodium [Synthroid] 50 mcg PO DAILY@0630 30 Days tab 11/03/20 [Rx] Melatonin 10 mg PO HS 30 Days tablet 11/03/20 [Rx] fluPHENAZine decanoate [Prolixin Decanoate] 25 mg IM [id number] #1 vial 11/03/20 [Rx] INSULIN LISPRO (HumaLOG) [humaLOG] 0 unit SQ ACHS #1 vial 12/06/20 [Rx] Ipratropium-Albuterol Nebulize [Duoneb 0.5 mg-3 mg/3 ml Soln] 3 ml INHALATION Q4H PRN ml 12/06/20 [Rx] Ipratropium-Albuterol Nebulize [Duoneb 0.5 mg-3 mg/3 ml Soln] 3 ml INHALATION QID ml 12/06/20 [Rx] LORazepam [Ativan] 0.5 mg PO BID PRN #6 tab 12/06/20 [Rx] Levofloxacin [Levaquin] 500 mg PO Q48H #4 tab 12/06/20 [Rx] guaiFENesin [Mucinex] 600 mg PO Q12HR tablet.er 12/06/20 [Rx] predniSONE 10 mg PO DIRECTED #30 tab 12/06/20 [Rx] Follow up Appointment(s)/Referral(s): [facility], [NON-STAFF] - 1 Week Kellie Rob DO [Primary Care Provider] - 1 Week (after dc from ECF) Patient Instructions/Handouts: Acute Kidney Injury (DC), Urinary Tract Infection in Women (DC), Impaired Kidney Function (DC), Perma-cath Placement (DC), Hemodialysis (DC), Hemodialysis for Acute Kidney Failure (DC) Activity/Diet/Wound Care/Special Instructions: Medi CBC,bmp in 3 days
[2020-12-06 13:08] LABS: African American GFR (CKD) 35.9 (60.0-200.0); Anion Gap 7.5 mmol/L (4.00-12.00); BUN/Creat Ratio 36.88 Ratio (12.00-20.00); Calcium 8.4 mg/dL (8.7-10.3); Carbon Dioxide 37.5 mmol/L (21.6-31.8); Potassium 3.5 mmol/L (3.5-5.5)
--- NOTE | 2020-12-06 15:36 | PN ---
PROGRESS NOTE Patient is seen for followup for acute kidney injury. Her renal function continues to improve. Patient wants to go home. She has had good urine output. PHYSICAL EXAMINATION: Blood pressure is 122/71, heart rate 75 per minute. She is afebrile. EXAMINATION OF THE HEART: S1 and S2. EXAMINATION OF LUNGS: Bilateral breath sounds are heard. ABDOMEN: Morbidly obese, soft. Examination of lower extremities shows chronic skin changes. No significant edema noted. LABS: Sodium 143, potassium 3.5, chloride 98, BUN 59, creatinine 1.6. ASSESSMENT: 1. Acute kidney injury with short-term hemodialysis, currently improved. Dialysis catheter has been discontinued. Creatinine down to 1.6. Patient can be discharged from nephrology standpoint. 2. Cardiomyopathy, ejection fraction 20% to 25%. 3. Possible pneumonia, maintained on antibiotics. 4. Hyperphosphatemia secondary to renal failure. Phosphate binders were discontinued yesterday. PLAN: Patient can be discharged from nephrological standpoint. Continue to monitor labs as outpatient. We will see the patient back for followup in the office in about 1 to 2 weeks' time. Continue to avoid nephrotoxic agents. MMODL / IJN: [id number] /
--- NOTE | 2020-12-07 14:05 | P.PN ---
Progress Note - Text Progress Note Date: 12/06/20 REASON FOR FOLLOWUP: UTI, pneumonia. INTERVAL HISTORY: The patient remains to be afebrile. The patient is breathing comfortably. The patient denies having any chest pain or shortness of breath or cough. No nausea, no vomiting, no abdominal pain or diarrhea. PHYSICAL EXAMINATION: Blood pressure 140/80, pulse 74, temperature 98.2. She is 92% on 3 L nasal cannula. General description is an elderly female lying in bed in no distress. RESPIRATORY SYSTEM: Unlabored breathing. Clear to auscultation anteriorly. HEART: S1, S2. Regular rate and rhythm. ABDOMEN: Soft. No tenderness. LABS: reviewed DIAGNOSTIC IMPRESSION AND PLAN: Patient admitted to hospital with a fever presenting with respiratory symptoms concerning for pneumonia/urinary tract infection.work up so far negative , pt did have improvement with Levaquin; to continue for another 3 days to finish a 2-week course of therapy and close outpatient followup.
== END 2020-12-06 11:46 | DRG 871 ==
LOC: EC 09:32 → 5NMEDONC 12:56
PROVIDERS: ADMIT Family Medicine; ATTEND Family Medicine
PROC: 06HY33Z Insertion of Infusion Device into Lower Vein, Percutaneous Approach (ICD-10-PCS; principal; 2020-11-28 14:10)
PROC: 5A1D70Z Performance of Urinary Filtration, Intermittent, Less than 6 Hours Per Day (ICD-10-PCS; 2020-11-29)
PROC: 06PYX3Z Removal of Infusion Device from Lower Vein, External Approach (ICD-10-PCS; 2020-12-04)
DX: A41.9 Sepsis, unspecified organism (principal); N17.0 Acute kidney failure with tubular necrosis; J96.01 Acute respiratory failure with hypoxia; J18.9 Pneumonia, unspecified organism; I50.23 Acute on chronic systolic (congestive) heart failure; N39.0 Urinary tract infection, site not specified; E87.2 Acidosis; E87.1 Hypo-osmolality and hyponatremia; J44.1 Chronic obstructive pulmonary disease with (acute) exacerbation; J44.0 Chronic obstructive pulmonary disease with (acute) lower respiratory infection; Z68.42 Body mass index [BMI] 45.0-49.9, adult; I42.9 Cardiomyopathy, unspecified; Z20.822 Contact with and (suspected) exposure to COVID-19; I13.0 Hypertensive heart and chronic kidney disease with heart failure and stage 1 through stage 4 chronic kidney disease, or unspecified chronic kidney disease; I11.0 Hypertensive heart disease with heart failure; F31.9 Bipolar disorder, unspecified; I27.20 Pulmonary hypertension, unspecified; E86.0 Dehydration; R19.7 Diarrhea, unspecified; E86.1 Hypovolemia; T39.395A Adverse effect of other nonsteroidal anti-inflammatory drugs [NSAID], initial encounter; E83.39 Other disorders of phosphorus metabolism; I11.9 Hypertensive heart disease without heart failure; E66.9 Obesity, unspecified; I44.7 Left bundle-branch block, unspecified; F43.10 Post-traumatic stress disorder, unspecified; H91.90 Unspecified hearing loss, unspecified ear; E03.9 Hypothyroidism, unspecified; F17.200 Nicotine dependence, unspecified, uncomplicated; Z71.6 Tobacco abuse counseling; Z88.2 Allergy status to sulfonamides; Z88.8 Allergy status to other drugs, medicaments and biological substances; Z79.899 Other long term (current) drug therapy; Z79.890 Hormone replacement therapy; D69.6 Thrombocytopenia, unspecified; N18.30 Chronic kidney disease, stage 3 unspecified
CPT/HCPCS: 36415; 36556; 71045; 71250; 76770; 76937; 77001; 78582; 80048; 80053; 80074; 81001; 82570; 83605; 83615; 83625; 83735; 84100; 84145; 84156; 84165; 84300; 85025; 85027; 85379; 86038; 86140; 86160; 86162; 86225; 86255; 86334; 86335; 86704; 86706; 87040; 87045; 87046; 87086; 87205; 87324; 87340; 87449; 87493; 87502; 87635; 90935; 93005; 93306; 93970; 94640; 94760; 96360; 96361; 99285

== ENCOUNTER 2020-12-22 13:40 | Emergency (ER) | payer MEDICARE ==
[2020-12-22 14:59] VITALS: BP 131/79; PULSE 96; RESP 20; TEMP 98
[2020-12-22] MEDS ORDERED: SODIUM CHLORIDE 0.9% 1,000 ML IV ONE (15:32)
--- NOTE | 2020-12-22 15:42 | ED ---
Fall HPI - General Source: patient Mode of arrival: wheelchair <Jamal Xiong - Last Filed: 12/22/20 22:30> <Silvano Howard - Last Filed: 12/23/20 00:04> - General Chief Complaint: Fall Stated Complaint: fell. L shoulder and elbow painful Time Seen by Provider: 12/22/20 15:06 - History of Present Illness Initial Comments: 75-year-old female with this history of bipolar disorder presents to the emergency department with a chief complaint of a fall. Patient reports she was outside earlier today when the incident occurred while she was attempting to get inside of the house. States she missed the last step, fell on the left side of her body. She also reports injury to the left occipital region to the head. Denies any loss of consciousness but states she was the only one present at the site. Also reports tenderness and pain in the left elbow with limited range of motion. Reports an abrasion to the region as well. Her tetanus is up-to-date. Patient reports she has been currently experiencing PTSD symptoms and believes for bipolar condition is aggravated and she is experiencing relapsing symptoms. Patient requesting psychiatric evaluation. She is denying any homicidal, suicidal thoughts or ideations at this time. (Jamal Xiong) - Related Data Home Medications Medication Instructions Recorded Confirmed Atorvastatin [Lipitor] 10 mg PO MOWEFR 10/27/20 12/22/20 INSULIN LISPRO (HumaLOG) [humaLOG] See Protocol SQ ACHS 12/22/20 12/22/20 Ipratropium-Albuterol Nebulize 3 ml INHALATION RT-Q4H PRN 12/22/20 12/22/20 [Duoneb 0.5 mg-3 mg/3 ml Soln] LORazepam [Ativan] 0.5 mg PO Q8H PRN 12/22/20 12/22/20 Levothyroxine Sodium [Synthroid] 50 mcg PO DAILY 12/22/20 12/22/20 QUEtiapine [SEROquel] 25 mg PO HS 12/22/20 12/22/20 Previous Rx's Medication Instructions Recorded Acetaminophen Tab [Tylenol] 650 mg PO Q4HR PRN tab 11/03/20 Cholecalciferol [Vitamin D3 (25 25 mcg PO DAILY 30 Days tablet 11/03/20 Mcg = 1000 Iu)] Melatonin 10 mg PO HS 30 Days tablet 11/03/20 fluPHENAZine decanoate [Prolixin 25 mg IM [id number] #1 vial 11/03/20 Decanoate] guaiFENesin [Mucinex] 600 mg PO Q12HR tablet.er 12/06/20 Allergies Allergy/AdvReac Type Severity Reaction Status Date / Time duloxetine [From Cymbalta] Allergy Unknown Verified 12/22/20 16:57 escitalopram [From Lexapro] Allergy Unknown Verified 12/22/20 16:57 fluoxetine [From Prozac] Allergy Unknown Verified 12/22/20 16:57 risperidone [From Risperdal] Allergy Unknown Verified 12/22/20 16:57 Sulfa (Sulfonamide Allergy Unknown Verified 12/22/20 16:57 Antibiotics) steroids Allergy Unknown Uncoded 12/22/20 16:57 Review of Systems ROS Other: All systems not noted in ROS Statement are negative. <Jamal Xinog - Last Filed: 12/22/20 22:30> ROS Other: All systems not noted in ROS Statement are negative. <Silvano Howard - Last Filed: 12/23/20 00:04> ROS Statement: Those systems with pertinent positive or pertinent negative responses have been documented in the HPI. Past Medical History Past Medical History: Unable to Obtain, Hearing Disorder / Deafness, Hypertension, Thyroid Disorder Additional Past Medical History / Comment(s): lymphedema History of Any Multi-Drug Resistant Organisms: None Reported Past Surgical History: No Surgical Hx Reported Additional Past Surgical History / Comment(s): removal of nodual rt breast 54 yrs ago. Past Anesthesia/Blood Transfusion Reactions: No Reported Reaction Past Psychological History: Anxiety, Bipolar, Depression, PTSD Smoking Status: Current every day smoker, Smoker, current status unknown Past Alcohol Use History: None Reported Past Drug Use History: None Reported <Jamal Xiong - Last Filed: 12/22/20 22:30> General Exam Limitations: no limitations General appearance: alert, in no apparent distress, obese Head exam: Present: atraumatic, normocephalic, normal inspection. Absent: other (Mild hematoma noted on the left occipital region. Negative Cantor sign, raccoon eyes, hemotympanum.) Eye exam: Present: normal appearance, PERRL, EOMI Pupils: Present: normal accommodation ENT exam: Present: normal exam, normal oropharynx, mucous membranes moist, TM's normal bilaterally, normal external ear exam Neck exam: Present: normal inspection, full ROM. Absent: tenderness, lymphadenopathy Respiratory exam: Present: normal lung sounds bilaterally. Absent: respiratory distress, wheezes, rales, rhonchi, stridor, chest wall tenderness, accessory muscle use Cardiovascular Exam: Present: regular rate, normal rhythm, normal heart sounds. Absent: systolic murmur Extremities exam: Present: tenderness (Tenderness the left elbow), normal capillary refill, other (Palpable ulnar and radial pulses bilaterally). Absent: normal inspection (Small abrasion noted on the left elbow), full ROM (Limited range of motion with full extension of the left elbow), pedal edema, joint swelling, calf tenderness Back exam: Present: normal inspection, full ROM. Absent: tenderness, CVA tenderness (R), CVA tenderness (L) Neurological exam: Present: alert, oriented X3 Psychiatric exam: Present: normal affect, normal mood Skin exam: Present: warm, dry, intact, normal color <Jamal Xiong - Last Filed: 12/22/20 22:30> Course Vital Signs 12/22/20 14:55 Temperature 98.0 F Pulse Rate 96 Respiratory 20 Rate Blood Pressure 131/79 O2 Sat by Pulse 95 Oximetry Medical Decision Making - Lab Data Result diagrams: 12/22/20 15:51 12/22/20 15:51 <Jamal Xiong - Last Filed: 12/22/20 22:30> - Lab Data Result diagrams: 12/22/20 15:51 12/22/20 15:51 <Silvano Howard - Last Filed: 12/23/20 00:04> - Medical Decision Making 75-year-old female with history of bipolar disorder presents to emergency Department chief complaint of fall. On physical examination, abrasion to the left elbow with a negative x-ray. She is otherwise neurovascularly intact. CT of the brain and C-spine is also unremarkable. Patient was requesting psychiatric evaluation because her bipolar symptoms are relapsing. CBC CMP unremarkable. UA indicative of questionable UTI. Urine culture pending. EPS evaluation pending. At this time, patient care signed off to (Jamal Xiong) - Lab Data Lab Results 12/22/20 12/22/20 12/22/20 Range/Units 15:51 15:51 15:51 WBC 6.4 (3.8-10.6) k/uL RBC 4.68 (3.80-5.40) m/uL Hgb 13.9 (11.4-16.0) gm/dL Hct 42.3 (34.0-46.0) % MCV 90.3 (80.0-100.0) fL MCH 29.8 (25.0-35.0) pg MCHC 33.0 (31.0-37.0) g/dL RDW 14.8 (11.5-15.5) % Plt Count 94 L (150-450) k/uL MPV 10.4 Neutrophils % 54 % Lymphocytes % 33 % Monocytes % 8 % Eosinophils % 2 % Basophils % 1 % Neutrophils # 3.4 (1.3-7.7) k/uL Lymphocytes # 2.1 (1.0-4.8) k/uL Monocytes # 0.5 (0-1.0) k/uL Eosinophils # 0.1 (0-0.7) k/uL Basophils # 0.0 (0-0.2) k/uL PT 10.5 (9.0-12.0) sec INR 1.0 (<1.2) APTT 21.0 L (22.0-30.0) sec Sodium 138 (137-145) mmol/L Potassium 3.6 (3.5-5.1) mmol/L Chloride 103 (98-107) mmol/L Carbon Dioxide 26 (22-30) mmol/L Anion Gap 9 mmol/L BUN 15 (7-17) mg/dL Creatinine 0.91 (0.52-1.04) mg/dL Est GFR (CKD-EPI)AfAm 71 (>60 ml/min/1.73 sqM) Est GFR (CKD-EPI)NonAf 61 (>60 ml/min/1.73 sqM) Glucose 95 (74-99) mg/dL Calcium 9.9 (8.4-10.2) mg/dL Total Bilirubin 0.6 (0.2-1.3) mg/dL AST 35 (14-36) U/L ALT 22 (4-34) U/L Alkaline Phosphatase 93 (38-126) U/L Total Protein 6.8 (6.3-8.2) g/dL Albumin 4.1 (3.5-5.0) g/dL Urine Color Urine Appearance (Clear) Urine pH (5.0-8.0) Ur Specific [place] (1.001-1.035) Urine Protein (Negative) Urine Glucose (UA) (Negative) Urine Ketones (Negative) Urine Blood (Negative) Urine Nitrite (Negative) Urine Bilirubin (Negative) Urine Urobilinogen (<2.0) mg/dL Ur Leukocyte Esterase (Negative) Urine RBC (0-5) /hpf Urine WBC (0-5) /hpf Ur Squamous Epith Cells (0-4) /hpf Calcium Oxalate Crystal (None) /hpf Urine Bacteria (None) /hpf Hyaline Casts (0-2) /lpf Urine Mucus (None) /hpf 12/22/20 Range/Units 15:51 WBC (3.8-10.6) k/uL RBC (3.80-5.40) m/uL Hgb (11.4-16.0) gm/dL Hct (34.0-46.0) % MCV (80.0-100.0) fL MCH (25.0-35.0) pg MCHC (31.0-37.0) g/dL RDW (11.5-15.5) % Plt Count (150-450) k/uL MPV Neutrophils % % Lymphocytes % % Monocytes % % Eosinophils % % Basophils % % Neutrophils # (1.3-7.7) k/uL Lymphocytes # (1.0-4.8) k/uL Monocytes # (0-1.0) k/uL Eosinophils # (0-0.7) k/uL Basophils # (0-0.2) k/uL PT (9.0-12.0) sec INR (<1.2) APTT (22.0-30.0) sec Sodium (137-145) mmol/L Potassium (3.5-5.1) mmol/L Chloride (98-107) mmol/L Carbon Dioxide (22-30) mmol/L Anion Gap mmol/L BUN (7-17) mg/dL Creatinine (0.52-1.04) mg/dL Est GFR (CKD-EPI)AfAm (>60 ml/min/1.73 sqM) Est GFR (CKD-EPI)NonAf (>60 ml/min/1.73 sqM) Glucose (74-99) mg/dL Calcium (8.4-10.2) mg/dL Total Bilirubin (0.2-1.3) mg/dL AST (14-36) U/L ALT (4-34) U/L Alkaline Phosphatase (38-126) U/L Total Protein (6.3-8.2) g/dL Albumin (3.5-5.0) g/dL Urine Color Yellow Urine Appearance Cloudy H (Clear) Urine pH 6.0 (5.0-8.0) Ur Specific [place] 1.024 (1.001-1.035) Urine Protein 1+ H (Negative) Urine Glucose (UA) Negative (Negative) Urine Ketones Trace H (Negative) Urine Blood Trace H (Negative) Urine Nitrite Negative (Negative) Urine Bilirubin Negative (Negative) Urine Urobilinogen <2.0 (<2.0) mg/dL Ur Leukocyte Esterase Small H (Negative) Urine RBC 2 (0-5) /hpf Urine WBC 15 H (0-5) /hpf Ur Squamous Epith Cells 8 H (0-4) /hpf Calcium Oxalate Crystal Occasional H (None) /hpf Urine Bacteria Rare H (None) /hpf Hyaline Casts 1 (0-2) /lpf Urine Mucus Few H (None) /hpf Disposition <Jamal Xiong - Last Filed: 12/22/20 22:30> Is patient prescribed a controlled substance at d/c from ED?: No <Silvano Howard - Last Filed: 12/23/20 00:04> Clinical Impression: Fall, PTSD (post-traumatic stress disorder) Disposition: HOME SELF-CARE Condition: Good Instructions (If sedation given, give patient instructions): Fall Prevention for Older Adults (ED) Referrals: Kellie Rob DO [Primary Care Provider] - 1-2 days
--- NOTE | 2020-12-22 16:06 | CT ---
EXAMINATION TYPE: CT brain aundrea zavala DATE OF EXAM: 12/22/2020 COMPARISON: NONE HISTORY: Fall injury with headache and neck pain. CT DLP: 1761.9 mGycm. Automated Exposure Control for Dose Reduction was Utilized. TECHNIQUE: CT scan of the head and cervical spine are performed without contrast. FINDINGS: There is no acute intracranial hemorrhage or midline shift identified. Mild to moderate v entricular and sulcal prominence. The calvarium is intact. Quevedo-white matter differentiation fairly w ell preserved. The globes are intact and the visualized sinuses are clear. Cervical spine is visualized in its entirety from C1 through upper thoracic levels and demonstrates s traightened alignment without evidence of acute fracture or dislocation. Slight grade 1 anterolisthes is C4 on C5. Prevertebral soft tissue appears within normal limits. The C1-C2 articulation is within normal limits on the coronal images. Vertebral body heights are maintained. Moderate disc space alfredo rowing C3-C4 level. Xchwefor-vd-chnzga disc space narrowing and spurring C5-C6 level. Moderate disc s pace narrowing and spurring C6-C7 level. Axial images show multilevel uncovertebral facet degenerativ e changes bilaterally contributing to multilevel bilateral neural foraminal narrowing. Thyroid gland is within normal limits. Mild calcified plaque bilateral carotid bulb level. Lung apices show no pneu mothorax. IMPRESSION: 1. There is no acute fracture or dislocation evident in the cervical spine. 2. No acute intracranial hemorrhage or midline shift is seen.
--- NOTE | 2020-12-22 16:09 | XR ---
EXAMINATION TYPE: XR elbow complete LT DATE OF EXAM: 12/22/2020 CLINICAL HISTORY: Fall injury with pain TECHNIQUE: Frontal, lateral and oblique images of the left elbow are obtained. COMPARISON: None FINDINGS: There is no acute fracture/dislocation evident in the left elbow. No abnormal fat pad sig ns are seen. The overlying soft tissue appears unremarkable. IMPRESSION: There is no acute fracture or dislocation in the left elbow.
[2020-12-22 16:21] LABS: Basophils % (A) 1 %; Eosinophils # (A) 0.1 k/uL (0-0.7); Eosinophils % (A) 2 %; HCT 42.3 % (34.0-46.0); HGB 13.9 gm/dL (11.4-16.0); Lymphocytes # (A) 2.1 k/uL (1.0-4.8); Lymphocytes % (A) 33 %; MCH 29.8 pg (25.0-35.0); MCV 90.3 fL (80.0-100.0); Mean Platelet Volume 10.4; Monocytes # (A) 0.5 k/uL (0-1.0); Monocytes % (A) 8 %; Neutrophils # (A) 3.4 k/uL (1.3-7.7); Neutrophils % (A) 54 %; RBC 4.68 m/uL (3.80-5.40); RDW 14.8 % (11.5-15.5); WBC 6.4 k/uL (3.8-10.6)
[2020-12-22 16:29] LABS: Albumin 4.1 g/dL (3.5-5.0); Calcium 9.9 mg/dL (8.4-10.2); Potassium 3.6 mmol/L (3.5-5.1); Total Bilirubin 0.6 mg/dL (0.2-1.3); Total Protein 6.8 g/dL (6.3-8.2)
[2020-12-22 16:41] LABS: Prothrombin Time 10.5 sec (9.0-12.0)
[2020-12-22 16:43] LABS: Appearance,Urine Cloudy (Clear); Bacteria,Urine Rare /hpf; Bilirubin,Urine Negative (Negative); Blood,Urine Trace (Negative); Calcium Oxalate Crystals,Urine Occasional /hpf; Color,Urine Yellow; Glucose,Urine (UA) Negative (Negative); Hyaline Casts,Urine 1 /lpf (0-2); Ketones,Urine Trace (Negative); Leukocyte Esterase,Urine Small (Negative); Mucus,Urine Few /hpf; Nitrite,Urine Negative (Negative); Protein,Urine 1+ (Negative); RBC,Urine 2 /hpf (0-5); Specific Gravity,Urine 1.024 (1.001-1.035); Squamous Epithelial Cell,Urine 8 /hpf (0-4); Urobilinogen,Urine <2.0 mg/dL (<2.0); WBC,Urine 15 /hpf (0-5)
[2020-12-22 16:50] LABS: Platelet Count 94 k/uL (150-450)
[2020-12-23] MEDS ORDERED: ACETAMINOPHEN TAB 325 MG TAB PO STA (00:03)
== END 2020-12-23 09:27 | disposition home or self-care (01) ==
LOC: EC 13:40
DX: S00.03XA Contusion of scalp, initial encounter (principal); S50.312A Abrasion of left elbow, initial encounter; F43.10 Post-traumatic stress disorder, unspecified; I10 Essential (primary) hypertension; E07.9 Disorder of thyroid, unspecified; F31.9 Bipolar disorder, unspecified; F41.9 Anxiety disorder, unspecified; F17.200 Nicotine dependence, unspecified, uncomplicated; Z79.890 Hormone replacement therapy; Z79.899 Other long term (current) drug therapy; Z88.8 Allergy status to other drugs, medicaments and biological substances; Z88.2 Allergy status to sulfonamides; W10.9XXA Fall (on) (from) unspecified stairs and steps, initial encounter; Y93.89 Activity, other specified; Y92.89 Other specified places as the place of occurrence of the external cause
CPT/HCPCS: 36415; 70450; 72125; 80053; 81001; 85025; 85610; 85730; 87077; 87086; 87186; 96360; 99284

== ENCOUNTER → 2021-01-10 | Outpatient (CLI) | payer MEDICARE ==
[2021-01-10 17:53] LABS: Hemoglobin A1C 6.3 % (4.0-6.0)
[2021-01-11 00:31] LABS: Valproic Acid (Depakene) <3.0 ug/mL (50.0-100.0)
[2021-01-11 01:21] LABS: ALT 11 U/L (8-44); AST 18 U/L (13-35); Alkaline Phosphatase 90 U/L (41-126); Bilirubin, Conjugated <0.20 mg/dL (0.20-0.40); Chol/HDL Ratio 7.19; Cholesterol 266 mg/dL (0-200); Globulin 2.1 g/dL (1.6-3.3); Glucose 99 mg/dL (70-110); LDL Cholesterol,Calculated 186.2 mg/dL (0.0-131.0); Non-African American GFR(CKD) 71.6 (60.0-200.0); Total Bilirubin 0.5 mg/dL (0.3-1.2); Total Protein 6.1 g/dL (6.2-8.2)
== END | disposition home or self-care (01) ==
LOC: LABWHC1 10:37
PROVIDERS: ATTEND Psychiatry & Neurology Psychiatry
DX: Z51.81 Encounter for therapeutic drug level monitoring (principal); Z79.899 Other long term (current) drug therapy
CPT/HCPCS: 36415; 80061; 80076; 80164; 82565; 82947; 83036; 84439; 84443; 84520

== ENCOUNTER → 2021-12-21 | Outpatient (CLI) | payer MEDICARE ==
--- NOTE | 2021-12-21 18:41 | CT ---
EXAMINATION TYPE: CT chest wo con DATE OF EXAM: 12/21/2021 COMPARISON: 11/25/2020 HISTORY: pulmonary nodule CT DLP: 605.30 mGycm. Automated Exposure Control for Dose Reduction was Utilized. TECHNIQUE: CT scan of the thorax is performed without IV contrast. FINDINGS: LUNGS: The lungs are grossly clear, there is no focal pneumonia. There is no pleural effusion or pn eumothorax seen. The tracheobronchial tree is patent. There is a 3 mm nodule in the right upper lobe. There is a nodule axial image 30 superior segment right lower lobe obscured on the prior exam due to respiratory motion. Within the anterior segment lower margin right upper lobe there is an additional 5 mm nodule. The medial aspect of the right lung base image 52 there is a 4 mm nodule. Within the superior segment left lower lobe axial image 29 there is a 3 mm nodule. Subsegmental areas are seen bilaterally most typical of atelectasis or scarring. MEDIASTINUM: Lack of IV contrast is noted to limit evaluation for mediastinal and especially hilar ad enopathy. There are no definitive greater than 1 cm hilar or mediastinal lymph nodes. No heart size normal. There is a small hiatal hernia. Mild prominence of the pulmonary arteries again noted. Aorta of normal caliber. Coronary artery calcification noted.. OTHER: Hypertrophic and degenerative change of the spine. Incidental note made of breast calcificatio ns.. IMPRESSION: 1. There are multiple 5 mm or less bilateral pulmonary nodules some of which were not seen on prior e xam are too small to characterize. Recommend additional 6 month follow-up to confirm stability.
== END | disposition home or self-care (01) ==
LOC: RADCTMAIN 16:14
PROVIDERS: ATTEND Family Medicine
DX: R91.1 Solitary pulmonary nodule (principal)
CPT/HCPCS: 71250

== ENCOUNTER → 2022-05-09 | Outpatient (CLI) | payer MEDICARE ==
--- NOTE | 2022-05-10 08:04 | MM ---
Reason for Exam: Screening (asymptomatic). Last mammogram was performed 5 year(s) and 5 month(s) ago. Patient History: Menarche at age 11. First Full-Term at age 18. Postmenopausal. 07/05/2011, Ultrasound-Guided Core Biopsy on the Left side. Paternal cousin had breast cancer under age 50. Paternal cousin had breast cancer under age 50. Risk Values: Roberta 5 year model risk: 1.5%. NCI Lifetime model risk: 2.9%. Prior Study Comparison: 12/04/2016 Bilateral MG screening mammo w CAD - 2, Aailyah Smtih. Tissue Density: The breast tissue is heterogeneously dense. This may lower the sensitivity of mammography. Findings: Analyzed By CAD. There is no suspicious group of microcalcifications or new suspicious mass in either breast. Overall Assessment: Negative, BI-RAD 1 Management: Screening Mammogram of both breasts in 1 year. A clinical breast exam by your physician is recommended on an annual basis and results should be correlated with mammographic findings. [facility] will attempt to contact patient to return for supplemental views and ultrasound if indicated. Electronically signed and approved by: Nikko Maria DO
== END | disposition home or self-care (01) ==
LOC: RADMAMWWP 15:02
PROVIDERS: ATTEND Family Medicine
DX: Z12.31 Encounter for screening mammogram for malignant neoplasm of breast (principal)
CPT/HCPCS: 77063; 77067

== ENCOUNTER → 2022-08-17 | Outpatient (CLI) | payer MEDICARE ==
[2022-08-17 17:52] LABS: ALT 20 U/L (8-44); AST 27 U/L (13-35); African American GFR (CKD) 64.2 (60.0-200.0); Albumin 4.3 g/dL (3.8-4.9); Albumin/Globulin Ratio 1.79 (1.60-3.17); Alkaline Phosphatase 101 U/L (41-126); BUN/Creat Ratio 15.14 Ratio (12.00-20.00); Blood Urea Nitrogen 14.9 mg/dL (9.0-27.0); Calcium 9.8 mg/dL (8.7-10.3); Carbon Dioxide 22.6 mmol/L (20.0-27.5); Chloride 99 mmol/L (96-109); Chol/HDL Ratio 5.45 Ratio; Globulin 2.4 g/dL (1.6-3.3); Glucose 99 mg/dL (70-110); LDL Cholesterol,Calculated 186.7 mg/dL (0.0-131.0); Non-African American GFR(CKD) 55.4 (60.0-200.0); Potassium 4.4 mmol/L (3.5-5.5); Sodium 138 mmol/L (135-145); Total Protein 6.7 g/dL (6.2-8.2); Uric Acid 8.4 mg/dL (2.9-7.7)
[2022-08-17 18:04] LABS: HCT 44.5 % (37.2-46.3); HGB 14.4 g/dL (12.0-15.0); MCH 30.3 pg (27.0-32.0); MCHC 32.4 g/dL (32.0-37.0); MCV 93.7 fL (80.0-97.0); Mean Platelet Volume 13.8 fL (9.5-12.2); NRBC Per 100 WBC 0 /100 WBCS (0.0-0.0); Platelet Count 153 X 10*3/uL (140-440); RBC 4.75 X 10*6/uL (4.10-5.20); RDW 15.1 % (11.5-14.5); WBC 7.49 X 10*3/uL (4.50-10.00)
== END | disposition home or self-care (01) ==
LOC: LABWHC1 08:59 → EDSTATUS 11:47
PROVIDERS: ATTEND Family Medicine
DX: E66.01 Morbid (severe) obesity due to excess calories (principal); M10.9 Gout, unspecified; K21.9 Gastro-esophageal reflux disease without esophagitis; K76.0 Fatty (change of) liver, not elsewhere classified; R73.02 Impaired glucose tolerance (oral)
CPT/HCPCS: 36415; 80053; 80061; 83036; 84439; 84443; 84480; 84550; 85027

== ENCOUNTER → 2022-08-19 | Outpatient (CLI) | payer MEDICARE ==
--- NOTE | 2022-08-20 22:08 | CT ---
EXAMINATION TYPE: CT chest wo con CT DLP: 549.20 mGycm, Automated exposure control for dose reduction was used. DATE OF EXAM: 08/19/2022 4:41 PM COMPARISON: CT chest 11/25/2020 CLINICAL INDICATION:Female, 76 years old with history of R91.8, f/u lung nodule TECHNIQUE: Multiple axial images were obtained through the chest. Sagittal and coronal reformats were created for review. Contrast used: none. Oral contrast used: none. FINDINGS: LUNGS/ PLEURA: Right apical scarring/atelectasis has resolved. No focal consolidation or pleural effu maria guadalupe. Scattered pulmonary nodules including, * Left upper lobe 4 mm nodule image 16 series 3. Stable. * Left upper lobe 5 mm image 18. Stable. * Left major fissure intrafissural lymph node measuring 4 mm, image 30, stable. * Right upper lobe peripheral anterior 3 mm nodule, image 14, stable. * Right upper lobe 5 mm pulmonary nodule image 20, stable. * Right minor fissure millimeter pulmonary nodule image 36, stable. * Right lower lobe 4 mm pulmonary nodule image 31, stable. AIRWAY: Patent and unremarkable. HEART: The heart is enlarged for size. There is coronary artery calcifications and aortic valve leafl et calcifications present. MEDIASTINUM: No gross evidence of adenopathy. Small hiatal hernia. VASCULATURE: No aortic aneurysm. MUSCULOSKELETAL: No acute osseous abnormalities. Multilevel disc degeneration changes throughout the spine SOFT TISSUES/LYMPH NODES: Unremarkable. LOWER NECK: No significant findings. UPPER ABDOMEN: No significant findings. IMPRESSION: 1. Stable pulmonary nodules, no new or enlarging pulmonary nodules. Continued follow-up CT chest in one year is recommended. 2. Small hiatal hernia. 3. Mild to moderate coronary artery atherosclerosis. 4. Mild aortic valve leaflet calcifications.
== END | disposition home or self-care (01) ==
LOC: RADCTMAIN 16:25
PROVIDERS: ATTEND Family Medicine
DX: K44.9 Diaphragmatic hernia without obstruction or gangrene (principal); I25.10 Atherosclerotic heart disease of native coronary artery without angina pectoris; R91.8 Other nonspecific abnormal finding of lung field; I35.8 Other nonrheumatic aortic valve disorders
CPT/HCPCS: 71250

== ENCOUNTER → 2023-04-23 | Outpatient (CLI) | payer MEDICARE ==
--- NOTE | 2023-04-23 14:39 | CT ---
EXAMINATION TYPE: CT abdomen pelvis wo con CT DLP: 1156.9 mGycm, Automated exposure control for dose reduction was used. DATE OF EXAM: 04/23/2023 2:30 PM COMPARISON: None CLINICAL INDICATION:Female, 77 years old with history of K57.92, R10.32 LEFT LOWER QUADRANT PAIN; LEF T LOWER QUADRANT PAIN TECHNIQUE: Axial CT of the abdomen and pelvis. Sagittal and coronal reformats were created on a [employer] workstation. Contrast used: e(none if empty) Oral contrast used: with Oral Contrast (none if empty) FINDINGS: LOWER CHEST: Mild cardiomegaly. ABDOMEN LIVER: Unremarkable GALLBLADDER AND BILE DUCTS: Unremarkable. PANCREAS: Unremarkable. SPLEEN: Unremarkable. ADRENAL GLANDS: Unremarkable. KIDNEYS AND URETERS: No evidence of hydronephrosis. The ureters are unremarkable. Nonobstructing righ t 2 mm renal calculus. PELVIS BLADDER: Unremarkable REPRODUCTIVE: Unremarkable. ABDOMEN & PELVIS STOMACH AND BOWEL: No evidence of bowel obstruction. Mild Fat stranding changes along the sigmoid col on and there are some clot colonic diverticula in this area. The appendix is normal. PERITONEUM/RETROPERITONEUM: No evidence of pneumoperitoneum or free fluid. VASCULATURE: Mild atherosclerotic calcifications are present throughout the abdominal aorta and its b ranches. No evidence of aortic aneurysm. MUSCULOSKELETAL: No acute osseous abnormalities. Moderate disc degeneration changes are present throu ghout the thoracolumbar spine. Scoliosis changes are present. There is osteophyte formation and grade 2 anterolisthesis with spondylolysis of L5 on S1. Degeneration changes of the hips with osteophyte f ormation acetabulum and subchondral cystic change in the left hip. LYMPH NODES: No gross evidence for lymphadenopathy. SOFT TISSUE/ABDOMINAL WALL: Unremarkable IMPRESSION: 1. Mild inflammation changes along the sigmoid colon could represent mild colitis/diverticulitis. No additional finding to correlate with patient's left lower quadrant pain. 2. grade 2 anterolisthesis with spondylolysis of L5 on S1. 3. Nonobstructing right renal calculus. 4. Cardiomegaly.
== END | disposition home or self-care (01) ==
LOC: RADCTMAIN 12:10
PROVIDERS: ATTEND Family Medicine
DX: K57.92 Diverticulitis of intestine, part unspecified, without perforation or abscess without bleeding (principal); M43.17 Spondylolisthesis, lumbosacral region; K52.9 Noninfective gastroenteritis and colitis, unspecified; I51.7 Cardiomegaly; N20.0 Calculus of kidney; R10.32 Left lower quadrant pain
CPT/HCPCS: 74176

== ENCOUNTER → 2023-10-21 | Outpatient (CLI) | payer MEDICARE ==
--- NOTE | 2023-10-23 12:56 | MM ---
Reason for Exam: Screening (asymptomatic). Last mammogram was performed 1 year(s) and 2 month(s) ago. Patient History: Menarche at age 11. First Full-Term at age 18. Postmenopausal. 07/05/2011, Ultrasound-Guided Core Biopsy on the Left side. Paternal cousin had breast cancer under age 50. Paternal cousin had breast cancer under age 50. Mother had ovarian cancer at or over age 50. Risk Values: Roberta 5 year model risk: 1.4%. NCI Lifetime model risk: 2.4%. Prior Study Comparison: 12/04/2016 Bilateral MG screening mammo w CAD - 2, [facility]. 05/09/2022 Bilateral MG 3D screening mammo w/cad, [facility]. 09/10/2022 Bilateral MG 3D diag mammo w/cad [facility], [facility]. Tissue Density: The breasts are heterogeneously dense, which may obscure small masses. Findings: Analyzed By CAD. There is no suspicious group of microcalcifications or new suspicious mass in either breast. Overall Assessment: Benign, BI-RAD 2 Management: Screening Mammogram of both breasts in 1 year. . Patient should continue monthly self-breast exams. A clinical breast exam by your physician is recommended on an annual basis. This exam should not preclude additional follow-up of suspicious palpable abnormalities. Note on Roberta scores and lifetime risk: 1. A Roberta score greater than 3% is considered moderate risk. If this is the case, consider specialist referral to assess eligibility for a risk reducing agent. 2. If overall lifetime risk for the development of breast cancer is 20% or higher, the patient may qualify for future screening with alternating mammogram and breast MRI. Electronically signed and approved by: Aram Darnell M.D. Radiologis
== END | disposition home or self-care (01) ==
LOC: RADMAMWWP 12:44
PROVIDERS: ATTEND Family Medicine
DX: Z12.31 Encounter for screening mammogram for malignant neoplasm of breast (principal); Z78.0 Asymptomatic menopausal state; Z80.3 Family history of malignant neoplasm of breast
CPT/HCPCS: 77063; 77067

== ENCOUNTER → 2023-11-18 | Outpatient (CLI) | payer MEDICARE ==
--- NOTE | 2023-11-18 13:31 | CT ---
EXAMINATION TYPE: CT chest wo con CT DLP: 675 mGycm, Automated exposure control for dose reduction was used. DATE OF EXAM: 11/18/2023 1:13 PM COMPARISON: 08/19/2022. CLINICAL INDICATION:Female, 78 years old with history of R91.1 PULMONARY NODULE; [facility], left lung nodul es f/u TECHNIQUE: Multiple axial images were obtained through the chest. Sagittal and coronal reformats were created for review. Contrast used: mL of (None if empty) Oral contrast used: (None if empty) FINDINGS: LUNGS/ PLEURA: Stable scattered pulmonary nodules.. No new or enlarging pulmonary nodules identified. Scattered 4 mm pulmonary nodules. No evidence of focal consolidation, pneumothorax or pleural effusi on. AIRWAY: Patent and unremarkable. HEART: Size within normal limits. There is mild to moderate coronary artery calcifications. MEDIASTINUM: No gross evidence of adenopathy. VASCULATURE: No aortic aneurysm. MUSCULOSKELETAL: No acute osseous abnormalities SOFT TISSUES/LYMPH NODES: Unremarkable. LOWER NECK: No significant findings. UPPER ABDOMEN: No significant findings. IMPRESSION: Stable pulmonary nodules throughout the lungs. No new or enlarging pulmonary nodules. Continued yearl y surveillance recommended with low-dose lung cancer screening.
== END | disposition home or self-care (01) ==
LOC: RADCTMAIN 12:36
PROVIDERS: ATTEND Family Medicine
DX: R91.8 Other nonspecific abnormal finding of lung field (principal)
CPT/HCPCS: 71250

== ENCOUNTER 2024-01-23 08:32 | Emergency (ER) | payer MEDICARE ==
[2024-01-23 08:36] VITALS: RESP 18
[2024-01-23] MEDS: SODIUM CHLORIDE 0.9% 500 ML 500 ML IV STA (09:28)
[2024-01-23] MEDS: SODIUM CHLORIDE 0.9% 1,000 ML IV STA (09:28)
[2024-01-23] MEDS: HYDROmorphone 0.5 MG/0.5 ML SYRINGE IVP STA (09:29)
--- NOTE | 2024-01-23 09:30 | ED ---
General Adult HPI - General Chief complaint: Abdominal Pain Stated complaint: Abdominal Pain Time Seen by Provider: 01/23/24 08:45 Source: family, RN notes reviewed, old records reviewed Mode of arrival: wheelchair Limitations: no limitations - History of Present Illness Initial comments: This is a 78-year-old female who presents to the emergency department complaining of abdominal pain. Patient states has been ongoing since last February she states it never goes away completely but it does have episodes where it gets much worse. Patient states she has had CAT scans ultrasounds and x-rays and is seeing Dr. Rice and they tell her she has irritable bowel syndrome. Patient comes in today stating she had a normal bowel movement yesterday and tonight about 3:00 the abdominal pain started back up and continues currently. Patient states it is throughout her whole abdomen but mostly the right and left lower quadrant. Patient Nuys any fever or chills. Patient states has been mildly nauseated but has not vomited. Patient denies any diarrhea. - Related Data Home Medications Medication Instructions Recorded Confirmed Atorvastatin [Lipitor] 10 mg PO MOWEFR 10/27/20 12/22/20 INSULIN LISPRO (HumaLOG) [humaLOG] See Protocol SQ ACHS 12/22/20 12/22/20 Ipratropium-Albuterol Nebulize 3 ml INHALATION RT-Q4H PRN 12/22/20 12/22/20 [Duoneb 0.5 mg-3 mg/3 ml Soln] LORazepam [Ativan] 0.5 mg PO Q8H PRN 12/22/20 12/22/20 Levothyroxine Sodium [Synthroid] 50 mcg PO DAILY 12/22/20 12/22/20 QUEtiapine [SEROquel] 25 mg PO HS 12/22/20 12/22/20 Previous Rx's Medication Instructions Recorded Acetaminophen Tab [Tylenol] 650 mg PO Q4HR PRN tab 11/03/20 Cholecalciferol [Vitamin D3 (25 25 mcg PO DAILY 30 Days tablet 11/03/20 Mcg = 1000 Iu)] Melatonin 10 mg PO HS 30 Days tablet 11/03/20 fluPHENAZine decanoate [Prolixin 25 mg IM [id number] #1 vial 11/03/20 Decanoate] guaiFENesin [Mucinex] 600 mg PO Q12HR tablet.er 12/06/20 Allergies Allergy/AdvReac Type Severity Reaction Status Date / Time duloxetine [From Cymbalta] Allergy Unknown Verified 01/23/24 08:37 escitalopram [From Lexapro] Allergy Unknown Verified 01/23/24 08:37 fluoxetine [From Prozac] Allergy Unknown Verified 01/23/24 08:37 risperidone [From Risperdal] Allergy Unknown Verified 01/23/24 08:37 Sulfa (Sulfonamide Allergy Unknown Verified 01/23/24 08:37 Antibiotics) steroids Allergy Unknown Uncoded 01/23/24 08:37 Review of Systems ROS Statement: Those systems with pertinent positive or pertinent negative responses have been documented in the HPI. ROS Other: All systems not noted in ROS Statement are negative. Past Medical History Past Medical History: Unable to Obtain, Hearing Disorder / Deafness, Hypertension, Thyroid Disorder Additional Past Medical History / Comment(s): lymphedema History of Any Multi-Drug Resistant Organisms: None Reported Past Surgical History: No Surgical Hx Reported Additional Past Surgical History / Comment(s): removal of nodual rt breast 54 yrs ago. Past Anesthesia/Blood Transfusion Reactions: No Reported Reaction Past Psychological History: Anxiety, Bipolar, Depression, PTSD Smoking Status: Current every day smoker, Smoker, current status unknown Past Alcohol Use History: None Reported Past Drug Use History: None Reported General Exam - General Exam Comments Initial Comments: GENERAL: Patient is well-developed and well-nourished. Patient is nontoxic and well- hydrated and is in mild distress. ENT: Neck is soft and supple. No significant lymphadenopathy is noted. Oropharynx is clear. Moist mucous membranes. Neck has full range of motion without eliciting any pain. EYES: The sclera were anicteric and conjunctiva were pink and moist. Extraocular movements were intact and pupils were equal round and reactive to light. Eyelids were unremarkable. PULMONARY: Unlabored respirations. Good breath sounds bilaterally. No audible rales rhonchi or wheezing was noted. CARDIOVASCULAR: There is a regular rate and rhythm without any murmurs gallops or rubs. ABDOMEN: Lower abdominal pain to the right and the left seems to be more tender but she is diffusely tender everywhere mildly there is no rebound SKIN: Skin is clear with no lesions or rashes and otherwise unremarkable. NEUROLOGIC: Patient is alert and oriented x3. Cranial nerves II through XII are grossly intact. Motor and sensory are also intact. Normal speech, volume and content. Symmetrical smile. MUSCULOSKELETAL: Normal extremities with adequate strength and full range of motion. LYMPHATICS: No significant lymphadenopathy is noted PSYCHIATRIC: Normal psychiatric evaluation. Limitations: no limitations Course Vital Signs 01/23/24 01/23/24 01/23/24 08:33 09:07 10:00 Temperature 97.7 F Pulse Rate 80 73 66 Respiratory 18 18 Rate Blood Pressure 81/51 128/56 99/76 O2 Sat by Pulse 97 98 95 Oximetry 01/23/24 11:00 Temperature Pulse Rate 73 Respiratory Rate Blood Pressure 130/60 O2 Sat by Pulse 95 Oximetry Medical Decision Making - Medical Decision Making EKG is interpreted by myself. EKG shows a sinus rhythm at 78 bpm ID interval 188 QRS 181 QT interval 466 QTc is 499. Patient has a left bundle branch block. Was pt. sent in by a medical professional or institution (, PA, SILVER CLEANER, urgent care, hospital, or skilled nursing...) When possible be specific @ -No Did you speak to anyone other than the patient for history (EMS, parent, family, police, friend...)? What history was obtained from this source @ -No Did you review nursing and triage notes (agree or disagree)? Why? @ -I reviewed and agree with nursing and triage notes Were old charts reviewed (outside hosp., previous admission, EMS record, old EKG, old radiological studies, urgent care reports/EKG's, skilled nursing records)? Report findings @ -No old charts were reviewed Differential Diagnosis? @ -Differential Abdominal Pain Women: Appendicitis, Cholecystitis, diverticulosis, ischemic bowel, pancreatitis, hepatitis, UTI, gastroenteritis, AAA, incarcerated hernia, bowel obstruction, constipation, inflammatory bowel, hepatitis, peptic ulcer disease, splenic infarction, perforated viscus, vulvitis, ovarian torsion, PID, kidney stone, placenta abruption, this is not meant to be an all-inclusive list EKG interpreted by me (3pts min.). @ -As above X-rays interpreted by me (1pt min.). @ -None CT interpreted by me (1pt min.). @ -CT scan of the abdomen pelvis shows a abnormality of the pancreas. U/S interpreted by me (1pt. min.). @ -None done What testing was considered but not performed or refused? (CT, X-rays, U/S, labs)? Why? @ -None What meds were considered but not given or refused? Why? @ -None Did you discuss the management of the patient with other professionals (professionals i.e. , PA, SILVER CLEANER, lab, RT, psych nurse, social services technician, package maker, teacher, general service officer, case coordinator)? Give summary @ -No Was smoking cessation discussed for >3mins.? @ -No Was critical care preformed (if so, how long)? @ -No Were there social determinants of health that impacted care today? How? (Homelessness, low income, unemployed, alcoholism, drug addiction, transportation, low edu. Level, literacy, decrease access to med. care, prison, rehab)? @ -No Was there de-escalation of care discussed even if they declined (Discuss DNR or withdrawal of care, Hospice)? DNR status @ -No What co-morbidities impacted this encounter? (DM, HTN, Smoking, COPD, CAD, Cancer, CVA, ARF, Chemo, Hep., AIDS, mental health diagnosis, sleep apnea, morbid obesity)? @ -None Was patient admitted / discharged? Hospital course, mention meds given and route, prescriptions, significant lab abnormalities, going to OR and other pertinent info. @ -Patient was given Dilaudid and Bentyl and Toradol and the pain was considerably reduced she states she will follow-up with her GI specialist. Undiagnosed new problem with uncertain prognosis? @ -No Drug Therapy requiring intensive monitoring for toxicity (Heparin, Nitro, Insulin, Cardizem)? @ -No Were any procedures done? @ -No Diagnosis/symptom? @ -Abdominal pain Acute, or Chronic, or Acute on Chronic? @ -Acute on chronic Uncomplicated (without systemic symptoms) or Complicated (systemic symptoms)? @ -Complicated Side effects of treatment? @ -No Exacerbation, Progression, or Severe Exacerbation? @ -No Poses a threat to life or bodily function? How? (Chest pain, USA, MD, pneumonia, PE, COPD, DKA, ARF, appy, cholecystitis, CVA, Diverticulitis, Homicidal, Suicidal, threat to staff... and all critical care pts) @ -No Diagnosis/symptom? @ -Pancreatic lesion Acute, or Chronic, or Acute on Chronic? @ -Acute Uncomplicated (without systemic symptoms) or Complicated (systemic symptoms)? @ -Complicated Side effects of treatment? @ -None Exacerbation, Progression, or Severe Exacerbation] @ -No Poses a threat to life or bodily function? @ -No - Lab Data Result diagrams: 01/23/24 09:25 01/23/24 09:25 Lab Results 01/23/24 01/23/24 01/23/24 Range/Units 09:25 09:25 09:25 WBC 8.6 (3.8-10.6) k/uL RBC 4.26 (3.80-5.40) m/uL Hgb 13.4 (11.4-16.0) gm/dL Hct 40.9 (34.0-46.0) % MCV 96.1 (80.0-100.0) fL MCH 31.5 (25.0-35.0) pg MCHC 32.8 (31.0-37.0) g/dL RDW 14.8 (11.5-15.5) % Plt Count 169 (150-450) k/uL MPV 11.3 Neutrophils % 67 % Lymphocytes % 25 % Monocytes % 5 % Eosinophils % 1 % Basophils % 0 % Neutrophils # 5.7 (1.3-7.7) k/uL Lymphocytes # 2.1 (1.0-4.8) k/uL Monocytes # 0.5 (0-1.0) k/uL Eosinophils # 0.1 (0-0.7) k/uL Basophils # 0.0 (0-0.2) k/uL Sodium 133 L (137-145) mmol/L Potassium 3.8 (3.5-5.1) mmol/L Chloride 106 (98-107) mmol/L Carbon Dioxide 14 L (22-30) mmol/L Anion Gap 13 mmol/L BUN 14 (7-17) mg/dL Creatinine 0.63 (0.52-1.04) mg/dL Est GFR (CKD-EPI)AfAm >90 (>60 ml/min/1.73 sqM) Est GFR (CKD-EPI)NonAf 86 (>60 ml/min/1.73 sqM) Glucose 101 H (74-99) mg/dL Plasma Lactic Acid José Manuel 1.4 (0.7-2.0) mmol/L Calcium 9.4 (8.4-10.2) mg/dL Magnesium 2.0 (1.6-2.3) mg/dL Total Bilirubin 1.1 (0.2-1.3) mg/dL AST 32 (14-36) U/L ALT 14 (4-34) U/L Alkaline Phosphatase 92 (38-126) U/L Total Protein 6.5 (6.3-8.2) g/dL Albumin 3.9 (3.5-5.0) g/dL Amylase 41 (30-110) U/L Lipase 190 (23-300) U/L Disposition Clinical Impression: Abdominal pain, Pancreatic lesion Disposition: HOME SELF-CARE Condition: Good Instructions (If sedation given, give patient instructions): Abdominal Pain (ED) Is patient prescribed a controlled substance at d/c from ED?: No Referrals: Jose Manuel Rob MD [Primary Care Provider] - 1-2 days Time of Disposition: 13:50
[2024-01-23 09:34] LABS: Basophils % (A) 0 %; Eosinophils # (A) 0.1 k/uL (0-0.7); Eosinophils % (A) 1 %; HCT 40.9 % (34.0-46.0); HGB 13.4 gm/dL (11.4-16.0); Lymphocytes # (A) 2.1 k/uL (1.0-4.8); Lymphocytes % (A) 25 %; MCH 31.5 pg (25.0-35.0); MCHC 32.8 g/dL (31.0-37.0); MCV 96.1 fL (80.0-100.0); Mean Platelet Volume 11.3; Monocytes # (A) 0.5 k/uL (0-1.0); Monocytes % (A) 5 %; Neutrophils # (A) 5.7 k/uL (1.3-7.7); Neutrophils % (A) 67 %; Platelet Count 169 k/uL (150-450); RBC 4.26 m/uL (3.80-5.40); RDW 14.8 % (11.5-15.5); WBC 8.6 k/uL (3.8-10.6)
[2024-01-23 09:53] LABS: ALT 14 U/L (4-34); AST 32 U/L (14-36); African American GFR (CKD) >90 (>60 ml/min/1.73 sqM); Albumin 3.9 g/dL (3.5-5.0); Alkaline Phosphatase 92 U/L (38-126); Amylase 41 U/L (30-110); Anion Gap 13 mmol/L; Blood Urea Nitrogen 14 mg/dL (7-17); Calcium 9.4 mg/dL (8.4-10.2); Carbon Dioxide 14 mmol/L (22-30); Chloride 106 mmol/L (98-107); Glucose 101 mg/dL (74-99); Non-African American GFR(CKD) 86 (>60 ml/min/1.73 sqM); Potassium 3.8 mmol/L (3.5-5.1); Sodium 133 mmol/L (137-145); Total Bilirubin 1.1 mg/dL (0.2-1.3); Total Protein 6.5 g/dL (6.3-8.2)
[2024-01-23] MEDS: KETOROLAC 15 MG/ML 1 ML VIAL IVP STA (11:43)
[2024-01-23] MEDS: DICYCLOMINE 10 MG/ML 2 ML AMP IM STA (11:44)
[2024-01-23 12:53] LABS: Lipase 190 U/L (23-300)
--- NOTE | 2024-01-23 13:35 | CT ---
EXAMINATION TYPE: CT abdomen pelvis w con CT DLP: 882.7 mGycm, Automated exposure control for dose reduction was used. DATE OF EXAM: 01/23/2024 12:47 PM COMPARISON: 04/23/2023. CLINICAL INDICATION:Female, 78 years old with history of Abdominal pain; abd pain TECHNIQUE: Axial CT abdomen pelvis w con;Sagittal and coronal reformats were created on a separate [employer]. Contrast used:100 mL of Isovue 300 with IV Contrast, (none if empty) Oral contrast used: without Oral Contrast (none if empty) FINDINGS: LOWER CHEST: Mild cardiomegaly. ABDOMEN LIVER: Unremarkable GALLBLADDER AND BILE DUCTS: Unremarkable. PANCREAS: Low-density area in the body/tail of the pancreas with possible dilated duct. Series 201 im age 23 SPLEEN: Unremarkable. ADRENAL GLANDS: Unremarkable. KIDNEYS AND URETERS: No evidence of hydronephrosis. The ureters are unremarkable. Nonobstructing righ t 2 mm renal calculus. PELVIS BLADDER: Unremarkable REPRODUCTIVE: Unremarkable. ABDOMEN & PELVIS STOMACH AND BOWEL: No evidence of bowel obstruction. PERITONEUM/RETROPERITONEUM: No evidence of pneumoperitoneum or free fluid. VASCULATURE: Mild atherosclerotic calcifications are present throughout the abdominal aorta and its b ranches. No evidence of aortic aneurysm. MUSCULOSKELETAL: No acute osseous abnormalities. Moderate disc degeneration changes are present throu ghout the thoracolumbar spine. Scoliosis changes are present. There is osteophyte formation and grade 2 anterolisthesis with spondylolysis of L5 on S1. Degeneration changes of the hips with osteophyte f ormation acetabulum and subchondral cystic change in the left hip. LYMPH NODES: No gross evidence for lymphadenopathy. SOFT TISSUE/ABDOMINAL WALL: Unremarkable IMPRESSION: 1. Abnormal appearance of the pancreas with area of decreased attenuation in the body/tail. Correlat e with serum markers for pancreatitis versus pancreatic mass. Further evaluation MRI MRCP with IV con trast recommended. Findings new from prior. 2. Grade 2 anterolisthesis with spondylolysis of L5 on S1. 3. Nonobstructing right renal calculus. 4. Cardiomegaly.
[2024-01-23 14:14] VITALS: BP 121/76; PULSE 72; TEMP 98.7
== END 2024-01-23 14:23 | disposition home or self-care (01) ==
LOC: EC 08:32
DX: K86.89 Other specified diseases of pancreas (principal); F17.200 Nicotine dependence, unspecified, uncomplicated; Z88.1 Allergy status to other antibiotic agents; Z88.2 Allergy status to sulfonamides; Z88.8 Allergy status to other drugs, medicaments and biological substances
CPT/HCPCS: 36415; 93005; 80053; 82150; 83605; 83690; 83735; 85025; 74177; 99284; 96374; 96375; 96361 ×2; 96372; J0500; J1885; J1170; Q9967

== ENCOUNTER 2024-01-24 01:59 | Inpatient (IN) | payer MEDICARE ==
--- NOTE | 2024-01-24 02:32 | ED ---
General Adult HPI - General Chief complaint: Abdominal Pain Stated complaint: Abdominal Pain Time Seen by Provider: 01/24/24 02:02 Source: patient, EMS, RN notes reviewed, old records reviewed Mode of arrival: EMS Limitations: no limitations - History of Present Illness Initial comments: 78 female presenting for reevaluation of abdominal pain. Patient was seen within the last 24 hours. She had laboratory testing and CT imaging. She states that she had been feeling significantly better at the time of discharge but then over the past several hours her pain has returned. She has no fever. She has nausea without vomiting. She states she does deal with constipation and believes she may be constipated. - Related Data Home Medications Medication Instructions Recorded Confirmed Atorvastatin [Lipitor] 10 mg PO MOWEFR 10/27/20 12/22/20 INSULIN LISPRO (HumaLOG) [humaLOG] See Protocol SQ ACHS 12/22/20 12/22/20 Ipratropium-Albuterol Nebulize 3 ml INHALATION RT-Q4H PRN 12/22/20 12/22/20 [Duoneb 0.5 mg-3 mg/3 ml Soln] LORazepam [Ativan] 0.5 mg PO Q8H PRN 12/22/20 12/22/20 Levothyroxine Sodium [Synthroid] 50 mcg PO DAILY 12/22/20 12/22/20 QUEtiapine [SEROquel] 25 mg PO HS 12/22/20 12/22/20 Previous Rx's Medication Instructions Recorded Acetaminophen Tab [Tylenol] 650 mg PO Q4HR PRN tab 11/03/20 Cholecalciferol [Vitamin D3 (25 25 mcg PO DAILY 30 Days tablet 11/03/20 Mcg = 1000 Iu)] Melatonin 10 mg PO HS 30 Days tablet 11/03/20 fluPHENAZine decanoate [Prolixin 25 mg IM [id number] #1 vial 11/03/20 Decanoate] guaiFENesin [Mucinex] 600 mg PO Q12HR tablet.er 12/06/20 Allergies Allergy/AdvReac Type Severity Reaction Status Date / Time duloxetine [From Cymbalta] Allergy Unknown Verified 01/24/24 02:09 escitalopram [From Lexapro] Allergy Unknown Verified 01/24/24 02:09 fluoxetine [From Prozac] Allergy Unknown Verified 01/24/24 02:09 risperidone [From Risperdal] Allergy Unknown Verified 01/24/24 02:09 Sulfa (Sulfonamide Allergy Unknown Verified 01/24/24 02:09 Antibiotics) steroids Allergy Unknown Uncoded 01/24/24 02:09 Review of Systems ROS Statement: Those systems with pertinent positive or pertinent negative responses have been documented in the HPI. ROS Other: All systems not noted in ROS Statement are negative. Past Medical History Past Medical History: Unable to Obtain, Hearing Disorder / Deafness, Hypertension, Thyroid Disorder Additional Past Medical History / Comment(s): lymphedema History of Any Multi-Drug Resistant Organisms: None Reported Past Surgical History: No Surgical Hx Reported Additional Past Surgical History / Comment(s): removal of nodual rt breast 54 yrs ago. Past Anesthesia/Blood Transfusion Reactions: No Reported Reaction Past Psychological History: Anxiety, Bipolar, Depression, PTSD Smoking Status: Current every day smoker, Smoker, current status unknown Past Alcohol Use History: None Reported Past Drug Use History: None Reported General Exam General appearance: alert, in no apparent distress Head exam: Present: atraumatic, normocephalic Eye exam: Present: normal appearance, PERRL ENT exam: Present: normal exam Neck exam: Present: normal inspection. Absent: tenderness, meningismus Respiratory exam: Present: normal lung sounds bilaterally. Absent: respiratory distress, wheezes Cardiovascular Exam: Present: regular rate, normal rhythm GI/Abdominal exam: Present: soft, tenderness. Absent: distended Extremities exam: Present: normal inspection, normal capillary refill Neurological exam: Present: alert, oriented X3, CN II-XII intact Psychiatric exam: Present: normal affect, normal mood Skin exam: Present: warm, dry, intact Course Vital Signs 01/24/24 01/24/24 02:02 04:23 Temperature 98.2 F Pulse Rate 74 78 Respiratory 20 18 Rate Blood Pressure 132/72 129/65 O2 Sat by Pulse 98 98 Oximetry Medical Decision Making - Medical Decision Making Was pt. sent in by a medical professional or institution (, PA, CHANNEL MAN, urgent care, hospital, or jail...) When possible be specific @ -No Did you speak to anyone other than the patient for history (EMS, parent, family, police, friend...)? What history was obtained from this source @ -No Did you review nursing and triage notes (agree or disagree)? Why? @ -I reviewed and agree with nursing and triage notes Were old charts reviewed (outside hosp., previous admission, EMS record, old EKG, old radiological studies, urgent care reports/EKG's, jail records)? Report findings @ -No old charts were reviewed Differential Abdominal Pain Women: Appendicitis, Cholecystitis, diverticulosis, ischemic bowel, pancreatitis, hepatitis, UTI, gastroenteritis, AAA, incarcerated hernia, bowel obstruction, constipation, inflammatory bowel, hepatitis, peptic ulcer disease, splenic infarction, perforated viscus, vulvitis, ovarian torsion, PID, kidney stone, placenta abruption, this is not meant to be an all-inclusive list ] EKG interpreted by me (3pts min.). @Sinus rhythm with left bundle branch block, rate of 72, MT interval 204, QRS duration 170, QTc 501, history of left bundle branch block. X-rays interpreted by me (1pt min.). @KUB is negative for obstruction or intraperitoneal free air. CT interpreted by me (1pt min.). @CT from ER visit today showed possibility of pancreatic mass versus infl ammatory change. U/S interpreted by me (1pt. min.). @ -None done What testing was considered but not performed or refused? (CT, X-rays, U/S, labs)? Why? @ -None What meds were considered but not given or refused? Why? @ -None Did you discuss the management of the patient with other professionals (professionals i.e. , PA, CHANNEL MAN, lab, RT, psych nurse, social media marketing manager, rehab liaison, teacher, u.s. revenue officer, wrapper caser)? Give summary @EM. Was smoking cessation discussed for >3mins.? @ -No Was critical care preformed (if so, how long)? @ -No Were there social determinants of health that impacted care today? How? (Homelessness, low income, unemployed, alcoholism, drug addiction, transportation, low edu. Level, literacy, decrease access to med. care, correction, rehab)? @ -No Was there de-escalation of care discussed even if they declined (Discuss DNR or withdrawal of care, Hospice)? DNR status @ -No What co-morbidities impacted this encounter? (DM, HTN, Smoking, COPD, CAD, Cancer, CVA, ARF, Chemo, Hep., AIDS, mental health diagnosis, sleep apnea, morbid obesity)? @ -[Chronic abdominal pain Was patient admitted / discharged? Hospital course, mention meds given and route, prescriptions, significant lab abnormalities, going to OR and other pertinent info. @ -78-year-old female presenting for reevaluation of abdominal pain. Pain is generalized on exam she does have tenderness without rebound or guarding. Vital signs are stable. She has a normal CBC without leukocytosis, she has stable hemoglobin, potassium is 3.0 which is replaced. Lactic acid 1.1. Urinalysis is unremarkable. She continues to be symptomatic. She will be placed in observation for intractable abdominal pain, dehydration, hypokalemia. Undiagnosed new problem with uncertain prognosis? @ -No Drug Therapy requiring intensive monitoring for toxicity (Heparin, Nitro, Insulin, Cardizem)? @ -No Were any procedures done? @ -No Diagnosis/symptom? @Intractable abdominal pain, dehydration Acute, or Chronic, or Acute on Chronic? @ -Acute on chronic Uncomplicated (without systemic symptoms) or Complicated (systemic symptoms)? @ -Default Side effects of treatment? @ -No Exacerbation, Progression, or Severe Exacerbation? @ -No Poses a threat to life or bodily function? How? (Chest pain, USA, LA, pneumonia, PE, COPD, DKA, ARF, appy, cholecystitis, CVA, Diverticulitis, Homicidal, Suicidal, threat to staff... and all critical care pts) @ -No - Lab Data Result diagrams: 01/24/24 02:28 01/24/24 02:28 Lab Results 01/24/24 01/24/24 01/24/24 Range/Units 02:28 02:28 02:28 WBC 6.7 (3.8-10.6) k/uL RBC 3.94 (3.80-5.40) m/uL Hgb 12.4 (11.4-16.0) gm/dL Hct 37.5 (34.0-46.0) % MCV 95.3 (80.0-100.0) fL MCH 31.6 (25.0-35.0) pg MCHC 33.2 (31.0-37.0) g/dL RDW 15.4 (11.5-15.5) % Plt Count 102 L (150-450) k/uL MPV 11.4 Neutrophils % 62 % Lymphocytes % 28 % Monocytes % 6 % Eosinophils % 3 % Basophils % 1 % Neutrophils # 4.1 (1.3-7.7) k/uL Lymphocytes # 1.9 (1.0-4.8) k/uL Monocytes # 0.4 (0-1.0) k/uL Eosinophils # 0.2 (0-0.7) k/uL Basophils # 0.1 (0-0.2) k/uL Sodium 133 L (137-145) mmol/L Potassium 3.0 L (3.5-5.1) mmol/L Chloride 107 (98-107) mmol/L Carbon Dioxide 15 L (22-30) mmol/L Anion Gap 11 mmol/L BUN 10 (7-17) mg/dL Creatinine 0.59 (0.52-1.04) mg/dL Est GFR (CKD-EPI)AfAm >90 (>60 ml/min/1.73 sqM) Est GFR (CKD-EPI)NonAf 88 (>60 ml/min/1.73 sqM) Glucose 113 H (74-99) mg/dL Plasma Lactic Acid José Manuel (0.7-2.0) mmol/L Calcium 8.9 (8.4-10.2) mg/dL Total Bilirubin 0.5 (0.2-1.3) mg/dL AST 24 (14-36) U/L ALT 13 (4-34) U/L Alkaline Phosphatase 98 (38-126) U/L Troponin I (0.000-0.034) ng/mL Total Protein 5.7 L (6.3-8.2) g/dL Albumin 3.4 L (3.5-5.0) g/dL Amylase 40 (30-110) U/L Lipase 202 (23-300) U/L Urine Color Colorless Urine Appearance Cloudy H (Clear) Urine pH 7.0 (5.0-8.0) Ur Specific [place] 1.014 (1.001-1.035) Urine Protein Negative (Negative) Urine Glucose (UA) Negative (Negative) Urine Ketones 1+ H (Negative) Urine Blood Negative (Negative) Urine Nitrite Negative (Negative) Urine Bilirubin Negative (Negative) Urine Urobilinogen <2.0 (<2.0) mg/dL Ur Leukocyte Esterase Negative (Negative) Urine RBC <1 (0-5) /hpf Urine WBC 2 (0-5) /hpf Ur Squamous Epith Cells 13 H (0-4) /hpf Urine Bacteria Rare H (None) /hpf Urine Mucus Rare H (None) /hpf 01/24/24 01/24/24 Range/Units 02:28 02:28 WBC (3.8-10.6) k/uL RBC (3.80-5.40) m/uL Hgb (11.4-16.0) gm/dL Hct (34.0-46.0) % MCV (80.0-100.0) fL MCH (25.0-35.0) pg MCHC (31.0-37.0) g/dL RDW (11.5-15.5) % Plt Count (150-450) k/uL MPV Neutrophils % % Lymphocytes % % Monocytes % % Eosinophils % % Basophils % % Neutrophils # (1.3-7.7) k/uL Lymphocytes # (1.0-4.8) k/uL Monocytes # (0-1.0) k/uL Eosinophils # (0-0.7) k/uL Basophils # (0-0.2) k/uL Sodium (137-145) mmol/L Potassium (3.5-5.1) mmol/L Chloride (98-107) mmol/L Carbon Dioxide (22-30) mmol/L Anion Gap mmol/L BUN (7-17) mg/dL Creatinine (0.52-1.04) mg/dL Est GFR (CKD-EPI)AfAm (>60 ml/min/1.73 sqM) Est GFR (CKD-EPI)NonAf (>60 ml/min/1.73 sqM) Glucose (74-99) mg/dL Plasma Lactic Acid José Manuel 1.1 (0.7-2.0) mmol/L Calcium (8.4-10.2) mg/dL Total Bilirubin (0.2-1.3) mg/dL AST (14-36) U/L ALT (4-34) U/L Alkaline Phosphatase (38-126) U/L Troponin I <0.012 (0.000-0.034) ng/mL Total Protein (6.3-8.2) g/dL Albumin (3.5-5.0) g/dL Amylase (30-110) U/L Lipase (23-300) U/L Urine Color Urine Appearance (Clear) Urine pH (5.0-8.0) Ur Specific [place] (1.001-1.035) Urine Protein (Negative) Urine Glucose (UA) (Negative) Urine Ketones (Negative) Urine Blood (Negative) Urine Nitrite (Negative) Urine Bilirubin (Negative) Urine Urobilinogen (<2.0) mg/dL Ur Leukocyte Esterase (Negative) Urine RBC (0-5) /hpf Urine WBC (0-5) /hpf Ur Squamous Epith Cells (0-4) /hpf Urine Bacteria (None) /hpf Urine Mucus (None) /hpf Disposition Clinical Impression: Abdominal pain, Intractable abdominal pain, Dehydration Disposition: ADMITTED IP TO THIS HOSP Is patient prescribed a controlled substance at d/c from ED?: No Referrals: Jose Manuel Rob MD [Primary Care Provider] - 1-2 days Time of Disposition: 04:30
[2024-01-24] MEDS: SODIUM CHLORIDE 0.9% 500 ML 500 ML IV STA (02:34)
[2024-01-24] MEDS: HYDROmorphone 0.5 MG/0.5 ML SYRINGE IVP STA (02:35)
[2024-01-24 02:44] LABS: Appearance,Urine Cloudy (Clear); Bacteria,Urine Rare /hpf; Bilirubin,Urine Negative (Negative); Blood,Urine Negative (Negative); Color,Urine Colorless; Glucose,Urine (UA) Negative (Negative); Ketones,Urine 1+ (Negative); Leukocyte Esterase,Urine Negative (Negative); Mucus,Urine Rare /hpf; Nitrite,Urine Negative (Negative); Protein,Urine Negative (Negative); RBC,Urine <1 /hpf (0-5); Specific Gravity,Urine 1.014 (1.001-1.035); Squamous Epithelial Cell,Urine 13 /hpf (0-4); Urobilinogen,Urine <2.0 mg/dL (<2.0); WBC,Urine 2 /hpf (0-5)
[2024-01-24 02:48] LABS: Basophils # (A) 0.1 k/uL (0-0.2); Basophils % (A) 1 %; Eosinophils # (A) 0.2 k/uL (0-0.7); Eosinophils % (A) 3 %; HCT 37.5 % (34.0-46.0); HGB 12.4 gm/dL (11.4-16.0); Lymphocytes # (A) 1.9 k/uL (1.0-4.8); Lymphocytes % (A) 28 %; MCH 31.6 pg (25.0-35.0); MCHC 33.2 g/dL (31.0-37.0); MCV 95.3 fL (80.0-100.0); Mean Platelet Volume 11.4; Monocytes # (A) 0.4 k/uL (0-1.0); Monocytes % (A) 6 %; Neutrophils # (A) 4.1 k/uL (1.3-7.7); Neutrophils % (A) 62 %; Platelet Count 102 k/uL (150-450); RBC 3.94 m/uL (3.80-5.40); RDW 15.4 % (11.5-15.5); WBC 6.7 k/uL (3.8-10.6)
[2024-01-24 03:11] LABS: ALT 13 U/L (4-34)
[2024-01-24 03:53] LABS: AST 24 U/L (14-36); African American GFR (CKD) >90 (>60 ml/min/1.73 sqM); Albumin 3.4 g/dL (3.5-5.0); Alkaline Phosphatase 98 U/L (38-126); Amylase 40 U/L (30-110); Anion Gap 11 mmol/L; Blood Urea Nitrogen 10 mg/dL (7-17); Calcium 8.9 mg/dL (8.4-10.2); Carbon Dioxide 15 mmol/L (22-30); Chloride 107 mmol/L (98-107); Glucose 113 mg/dL (74-99); Lipase 202 U/L (23-300); Non-African American GFR(CKD) 88 (>60 ml/min/1.73 sqM); Sodium 133 mmol/L (137-145); Total Bilirubin 0.5 mg/dL (0.2-1.3); Total Protein 5.7 g/dL (6.3-8.2)
--- NOTE | 2024-01-24 04:07 | XR ---
EXAM: XR Abdomen, 1 View CLINICAL HISTORY: ITS.REASON XR Reason: abdominal pain TECHNIQUE: Frontal supine view of the abdomen/pelvis. COMPARISON: None FINDINGS: Hardware: None. Abdomen: Nonobstructive bowel gas pattern. No free air. Bones: Average of the spine. Degenerative changes of the spine. Soft tissues: Normal. Lower chest: Normal. Other: Presumed phleboliths in the pelvis. IMPRESSION: Nonobstructive bowel gas pattern.
[2024-01-24] MEDS: POTASSIUM CHLORIDE ER 20 MEQ TAB.ER PO STA (04:24)
[2024-01-24] MEDS ORDERED: NALOXONE 0.4 MG/ML 1 ML VIAL IV PRN (04:26)
[2024-01-24] MEDS: SODIUM CHLORIDE 0.9% 1,000 ML IV SCH (04:50)
[2024-01-24] MEDS: HYDROmorphone 0.5 MG/0.5 ML SYRINGE IVP PRN (05:23)
--- NOTE | 2024-01-24 09:24 | P.HPIM ---
History of Present Illness H&P Date: 01/24/24 History of present illness; patient is a 78-year-old lady with past medical history significant for depression, hypothyroidism, hyperlipidemia, diabetes mellitus who presented to the ER because of abdominal pain. Patient was seen in the ER couple of days ago with similar complaints at which time patient had a CT abdominal pelvis done which showed abnormal appearance of the pancreas areas of decreased drainage in the body/tail suspicion for pancreatitis versus mass, lipase was normal at the time, patient was discharged to follow-up outpatient with GI. Patient stated ever since her discharge her abdominal pain reoccurred. Abdominal pain is generalized, intermittent, nonradiating. Abdominal pain associated with nausea but no vomiting. Patient also complains of constipation. Patient stated that she normally follows Dr. Rice and has been diagnosed with IBS. Because of the symptoms, patient went to to the ER Initial lab work done in the ER showed BBC 6.7, hemoglobin 12.4, platelet count 102, sodium 133, potassium 4, BUN 10, creatinine 0.59 EKG done in the ER showed heart rate of 72, no ST segment elevation or depression seen, no T-wave inversions seen. X-ray KUB done showed no obstructive bowel gas pattern Patient admitted to internal medicine service REVIEW OF SYSTEMS: CONSTITUTIONAL: No fever, no malaise, no fatigue. HEENT: No recent visual problems or hearing problems. Denied any sore throat. CARDIOVASCULAR: No chest pain, orthopnea, PND, no palpitations, no syncope. PULMONARY: No shortness of breath, no cough, no hemoptysis. GASTROINTESTINAL: As mentioned above NEUROLOGICAL: No headaches, no weakness, no numbness. HEMATOLOGICAL: Denies any bleeding or petechiae. GENITOURINARY: Denies any burning micturition, frequency, or urgency. MUSCULOSKELETAL/RHEUMATOLOGICAL: Denies any joint pain, swelling, or any muscle pain. ENDOCRINE: Denies any polyuria or polydipsia. The rest of the 14-point review of systems is negative. PHYSICAL EXAMINATION: GENERAL: The patient is alert and oriented x3, not in any acute distress. Well developed, well nourished. HEENT: Pupils are round and equally reacting to light. EOMI. No scleral icterus. No conjunctival pallor. Normocephalic, atraumatic. No pharyngeal erythema. No thyromegaly. CARDIOVASCULAR: S1 and S2 present. No murmurs, rubs, or gallops. PULMONARY: Chest is clear to auscultation, no wheezing or crackles. ABDOMEN: Soft, nontender, nondistended, normoactive bowel sounds. No palpable organomegaly. MUSCULOSKELETAL: No joint swelling or deformity. EXTREMITIES: No cyanosis, clubbing, or pedal edema. NEUROLOGICAL: Gross neurological examination did not reveal any focal deficits. SKIN: No rashes. Assessment and plan Intractable abdominal pain Hyponatremia Hypokalemia History of IBS Hypothyroidism Hearing disorder/deafness Hypertension Anxiety/depression bipolar PTSD Monitor vital signs Monitor CBC Monitor CMP Continue antiemetics Continue IV fluids Continue IV Protonix Resume Synthroid Continue home meds Consult surgery Labs and medication were reviewed.. Continue same treatment. Continue with symptomatic treatment. Resume home medication. Monitor labs and vitals. DVT and GI prophylaxis. Further recommendations as per clinical course of the patient Dictation was produced using [employer] dictation software. please excuse any grammatical, word or spelling errors. Past Medical History Past Medical History: Unable to Obtain, Hearing Disorder / Deafness, Hypertension, Thyroid Disorder Additional Past Medical History / Comment(s): lymphedema History of Any Multi-Drug Resistant Organisms: None Reported Past Surgical History: No Surgical Hx Reported Additional Past Surgical History / Comment(s): removal of nodual rt breast 54 yrs ago. Past Anesthesia/Blood Transfusion Reactions: No Reported Reaction Past Psychological History: Anxiety, Bipolar, Depression, PTSD Smoking Status: Current every day smoker, Smoker, current status unknown Past Alcohol Use History: None Reported Past Drug Use History: None Reported Medications and Allergies Home Medications Medication Instructions Recorded Confirmed Type Atorvastatin [Lipitor] 10 mg PO MOWEFR 10/27/20 12/22/20 History Acetaminophen Tab [Tylenol] 650 mg PO Q4HR PRN tab 11/03/20 12/22/20 Rx Cholecalciferol [Vitamin D3 (25 25 mcg PO DAILY 30 Days tablet 11/03/20 12/22/20 Rx Mcg = 1000 Iu)] Melatonin 10 mg PO HS 30 Days tablet 11/03/20 12/22/20 Rx fluPHENAZine decanoate [Prolixin 25 mg IM [id number] #1 vial 11/03/20 12/22/20 Rx Decanoate] guaiFENesin [Mucinex] 600 mg PO Q12HR tablet.er 12/06/20 12/22/20 Rx INSULIN LISPRO (HumaLOG) [humaLOG] See Protocol SQ ACHS 12/22/20 12/22/20 History Ipratropium-Albuterol Nebulize 3 ml INHALATION RT-Q4H PRN 12/22/20 12/22/20 History [Duoneb 0.5 mg-3 mg/3 ml Soln] LORazepam [Ativan] 0.5 mg PO Q8H PRN 12/22/20 12/22/20 History Levothyroxine Sodium [Synthroid] 50 mcg PO DAILY 12/22/20 12/22/20 History QUEtiapine [SEROquel] 25 mg PO HS 12/22/20 12/22/20 History Allergies Allergy/AdvReac Type Severity Reaction Status Date / Time duloxetine [From Cymbalta] Allergy Unknown Verified 01/24/24 02:09 escitalopram [From Lexapro] Allergy Unknown Verified 01/24/24 02:09 fluoxetine [From Prozac] Allergy Unknown Verified 01/24/24 02:09 risperidone [From Risperdal] Allergy Unknown Verified 01/24/24 02:09 Sulfa (Sulfonamide Allergy Unknown Verified 01/24/24 02:09 Antibiotics) steroids Allergy Unknown Uncoded 01/24/24 02:09 Physical Exam Vitals: Vital Signs Temp Pulse Resp BP Pulse Ox 01/24/24 04:23 78 18 129/65 98 01/24/24 02:02 98.2 F 74 20 132/72 98 Intake and Output 01/23/24 01/24/24 01/24/24 22:59 06:59 14:59 Other: Weight 76.657 kg Results CBC & Chem 7: 01/24/24 02:28 01/24/24 02:28 Labs: Abnormal Lab Results - Last 24 Hours (Table) 01/24/24 01/24/24 01/24/24 Range/Units 02:28 02:28 02:28 Plt Count 102 L (150-450) k/uL Sodium 133 L (137-145) mmol/L Potassium 3.0 L (3.5-5.1) mmol/L Carbon Dioxide 15 L (22-30) mmol/L Glucose 113 H (74-99) mg/dL Total Protein 5.7 L (6.3-8.2) g/dL Albumin 3.4 L (3.5-5.0) g/dL Urine Appearance Cloudy H (Clear) Urine Ketones 1+ H (Negative) Ur Squamous Epith Cells 13 H (0-4) /hpf Urine Bacteria Rare H (None) /hpf Urine Mucus Rare H (None) /hpf
[2024-01-24] MEDS: lamoTRIgine 100 MG TAB PO SCH (11:22)
[2024-01-24] MEDS: PANTOPRAZOLE 40 MG/10 ML VIAL IVP SCH (11:23)
[2024-01-24] MEDS: DICYCLOMINE 20 MG TAB PO SCH (14:32)
[2024-01-24] MEDS: polyethylene glycoL 3350 17 GM POWD.PACK PO SCH (14:35)
--- NOTE | 2024-01-24 19:08 | P.CON ---
Consult Note - . Consult date: 01/24/24 Assessment/Plan:: History of Present Illness: Patient is a 78-year-old lady who presented to the ER because of abdominal pain. Patient was seen in the ER a couple of days ago with similar complaints at which time patient had a CT abdomen-pelvis done which showed suspicion for pancreatitis versus mass. Patient was discharged to follow-up outpatient with GI. Patient states since her discharge her abdominal pain has reoccurred. Abdominal pain is diffuse. Abdominal pain associated with nausea but no vomiting. Patient also complains of constipation. Patient states that she has been diagnosed with IBS. Patient had an abdominal X-ray which showed no obstructive bowel gas pattern. REVIEW OF SYSTEMS: CONSTITUTIONAL: No fever, no malaise, no fatigue. HEENT: No recent visual problems or hearing problems. Denied any sore throat. CARDIOVASCULAR: No chest pain, orthopnea, PND, no palpitations, no syncope. PULMONARY: No shortness of breath, no cough, no hemoptysis. GASTROINTESTINAL: As mentioned above NEUROLOGICAL: No headaches, no weakness, no numbness. HEMATOLOGICAL: Denies any bleeding or petechiae. GENITOURINARY: Denies any burning micturition, frequency, or urgency. MUSCULOSKELETAL/RHEUMATOLOGICAL: Denies any joint pain, swelling, or any muscle pain. ENDOCRINE: Denies any polyuria or polydipsia. The rest of the 14-point review of systems is negative. PHYSICAL EXAMINATION: GENERAL: The patient is alert and oriented x3, not in any acute distress. Well developed, well nourished. HEENT: Pupils are round and equally reacting to light. EOMI. No scleral icterus. No conjunctival pallor. Normocephalic, atraumatic. No pharyngeal erythema. No thyromegaly. CARDIOVASCULAR: S1 and S2 present. No murmurs, rubs, or gallops. PULMONARY: Chest is clear to auscultation, no wheezing or crackles. ABDOMEN: Soft, nontender, nondistended, normoactive bowel sounds. No palpable organomegaly. MUSCULOSKELETAL: No joint swelling or deformity. EXTREMITIES: No cyanosis, clubbing, or pedal edema. NEUROLOGICAL: Gross neurological examination did not reveal any focal deficits. SKIN: No rashes. Assessment and Plan Intractable abdominal pain Hyponatremia Hypokalemia History of IBS Hypothyroidism Hearing disorder/deafness Hypertension Anxiety/depression bipolar PTSD CLD, Advance Diet as Tolerated Pain and Nausea Control No acute surgical intervention Recommend outpatient follow up with GI
[2024-01-24] MEDS: allopurinoL 300 MG TAB PO SCH (20:46)
[2024-01-25] MEDS: LEVOTHYROXINE 50 MCG TAB PO SCH (06:33)
[2024-01-25] MEDS: VALBENAZINE TOSYLATE 80 MG PO SCH (09:13)
[2024-01-25 10:02] LABS: Basophils % (A) 1 %; Eosinophils # (A) 0.1 k/uL (0-0.7); Eosinophils % (A) 2 %; HGB 12.4 gm/dL (11.4-16.0); Lymphocytes # (A) 1.6 k/uL (1.0-4.8); Lymphocytes % (A) 26 %; MCH 31.9 pg (25.0-35.0); MCHC 32.5 g/dL (31.0-37.0); MCV 98.2 fL (80.0-100.0); Macrocytosis Slight; Mean Platelet Volume 10.8; Monocytes # (A) 0.4 k/uL (0-1.0); Monocytes % (A) 6 %; Neutrophils # (A) 3.9 k/uL (1.3-7.7); Neutrophils % (A) 64 %; Platelet Count 149 k/uL (150-450); RBC 3.87 m/uL (3.80-5.40); RDW 15.2 % (11.5-15.5); WBC 6.2 k/uL (3.8-10.6)
[2024-01-25 10:13] LABS: ALT 16 U/L (4-34); AST 24 U/L (14-36); African American GFR (CKD) >90 (>60 ml/min/1.73 sqM); Albumin 3.4 g/dL (3.5-5.0); Albumin/Globulin Ratio 1.5; Alkaline Phosphatase 81 U/L (38-126); Anion Gap 7 mmol/L; Blood Urea Nitrogen 4 mg/dL (7-17); Calcium 9.4 mg/dL (8.4-10.2); Carbon Dioxide 22 mmol/L (22-30); Chloride 106 mmol/L (98-107); Globulin 2.3 g/dL; Glucose 115 mg/dL (74-99); Non-African American GFR(CKD) 85 (>60 ml/min/1.73 sqM); Potassium 3.2 mmol/L (3.5-5.1); Sodium 135 mmol/L (137-145); Total Bilirubin 0.6 mg/dL (0.2-1.3); Total Protein 5.7 g/dL (6.3-8.2)
--- NOTE | 2024-01-25 12:01 | P.PN ---
Subjective Progress Note Date: 01/25/24 Patient seen and evaluated. CT did and pelvis reviewed demonstrates pancreatic mass. Incidentally, patient does complain primarily of lower abdominal pain. CT scan consistent with diverticulosis. White blood cell count normal. Patient is extremely hard of hearing. Do recommend MRI of the abdomen particularly MRCP for further assessment of pancreatic mass and lesion. At this time, symptomatic management for lower abdominal pain. Recommend GI consultation. Objective - Vital Signs Vital signs: Vital Signs Temp 97.6 F 01/25/24 07:00 Pulse 83 01/25/24 07:00 Resp 16 01/25/24 02:33 BP 100/61 01/25/24 07:00 Pulse Ox 98 01/25/24 07:00 FiO2 Intake & Output 01/24/24 01/25/24 01/25/24 18:59 06:59 18:59 Intake Total 480 480 Balance 480 480 Intake: Oral 480 480 Other: Voiding Method Toilet # Voids 1 2 - Labs CBC & Chem 7: 01/25/24 09:24 01/25/24 09:24 Labs: Abnormal Lab Results - Last 24 Hours (Table) 01/25/24 01/25/24 Range/Units 09:24 09:24 Plt Count 149 L (150-450) k/uL Sodium 135 L (137-145) mmol/L Potassium 3.2 L (3.5-5.1) mmol/L BUN 4 L (7-17) mg/dL Glucose 115 H (74-99) mg/dL Total Protein 5.7 L (6.3-8.2) g/dL Albumin 3.4 L (3.5-5.0) g/dL
[2024-01-25] MEDS: ONDANSETRON 4 MG/2 ML VIAL IVP PRN (12:42)
[2024-01-25] MEDS: buPROPion XL 300 MG TAB.ER.24H PO SCH (12:50)
--- NOTE | 2024-01-25 12:51 | P.PN ---
Subjective Progress Note Date: 01/25/24 patient is a 78-year-old lady with past medical history significant for depression, hypothyroidism, hyperlipidemia, diabetes mellitus who presented to the ER because of abdominal pain. Patient was seen in the ER couple of days ago with similar complaints at which time patient had a CT abdominal pelvis done which showed abnormal appearance of the pancreas areas of decreased drainage in the body/tail suspicion for pancreatitis versus mass, lipase was normal at the time, patient was discharged to follow-up outpatient with GI. Patient stated ever since her discharge her abdominal pain reoccurred. Abdominal pain is generalized, intermittent, nonradiating. Abdominal pain associated with nausea but no vomiting. Patient also complains of constipation. Patient stated that she normally follows Dr. Rice and has been diagnosed with IBS. Because of the symptoms, patient went to to the ER Initial lab work done in the ER showed BBC 6.7, hemoglobin 12.4, platelet count 102, sodium 133, potassium 4, BUN 10, creatinine 0.59 EKG done in the ER showed heart rate of 72, no ST segment elevation or depress ion seen, no T-wave inversions seen. X-ray KUB done showed no obstructive bowel gas pattern Patient admitted to internal medicine service 01/24. Patient seen and examined. Multiple of patient's friends were at the bedside, they had multiple questions which were answered. They were concerned about patient's abdominal pain. All questions were answered. Patient pain is out of proportion to the physical exam, on physical exam patient is not tender at all. Patient keen to eat and states that she is hungry and wants to eat right now. REVIEW OF SYSTEMS: CONSTITUTIONAL: No fever, no malaise,. CARDIOVASCULAR: No chest pain, no palpitations, no syncope. PULMONARY: No shortness of breath, no cough, GASTROINTESTINAL: No diarrhea, no nausea, no vomiting, . NEUROLOGICAL: No headaches, no weakness, PHYSICAL EXAMINATION: GENERAL: The patient is alert and oriented x3, not in any acute distress. Well developed, well nourished. HEENT: Pupils are round and equally reacting to light. EOMI. No scleral icterus. No conjunctival pallor. Normocephalic, atraumatic. No pharyngeal erythema. No thyromegaly. CARDIOVASCULAR: S1 and S2 present. No murmurs, rubs, or gallops. PULMONARY: Chest is clear to auscultation, no wheezing or crackles. ABDOMEN: Soft, nontender, nondistended, normoactive bowel sounds. No palpable organomegaly. MUSCULOSKELETAL: No joint swelling or deformity. EXTREMITIES: No cyanosis, clubbing, or pedal edema. NEUROLOGICAL: Gross neurological examination did not reveal any focal deficits. SKIN: No rashes. Assessment and plan Intractable abdominal pain Hyponatremia Hypokalemia History of IBS Hypothyroidism Hearing disorder/deafness Hypertension Anxiety/depression bipolar PTSD Monitor vital signs Monitor CBC Monitor CMP Continue antiemetics Continue IV fluids Continue IV Protonix Continue Synthroid Continue home meds Advance diet as tolerated MRI pancreas ordered for CT scan finding of a possible pancreatic mass Surgery following Labs and medication were reviewed.. Continue same treatment. Continue with symptomatic treatment. Resume home medication. Monitor labs and vitals. DVT and GI prophylaxis. Further recommendations as per clinical course of the patient Dictation was produced using [employer] dictation software. please excuse any grammatical, word or spelling errors. Objective - Vital Signs Vital signs: Vital Signs Temp 97.6 F 01/25/24 07:00 Pulse 83 01/25/24 07:00 Resp 16 01/25/24 02:33 BP 100/61 01/25/24 07:00 Pulse Ox 98 01/25/24 07:00 FiO2 Intake & Output 01/24/24 01/25/24 01/25/24 18:59 06:59 18:59 Intake Total 480 480 Balance 480 480 Intake: Oral 480 480 Other: Voiding Method Toilet # Voids 1 2 - Labs CBC & Chem 7: 01/25/24 09:24 01/25/24 09:24
[2024-01-25] MEDS: INGREZZA 80 MG PO SCH (19:58)
[2024-01-25] MEDS ORDERED: Potassium Replacement Protocol 1 EACH MISC MISCELLANE PRN (20:11)
[2024-01-25] MEDS: ACETAMINOPHEN TAB 325 MG TAB PO PRN (20:46)
[2024-01-25] MEDS: POTASSIUM CHLORIDE ER 20 MEQ TAB.ER PO SCH (22:04)
[2024-01-25] MEDS: MELATONIN 5 MG TABLET PO PRN (23:34)
--- NOTE | 2024-01-26 09:59 | P.CONS ---
History of Present Illness - Reason for Consult Consult date: 01/26/24 Pancreatic mass Requesting physician: Erika Gonzalez - Chief Complaint abdominal pain - History of Present Illness This a pleasant 78-year-old female who is hard of hearing, has a history of chronic abdominal pain, hypertension, thyroid disorder, lymphedema, anxiety, bipolar, depression and PTSD who is a current every day smoker. She presented to the emergency department 3 days ago with complaints of abdominal pain which she had a CT of the abdomen pelvis reporting possible pancreatic mass. She was discharged home as her pain had improved. She returned back with complaints of worsening pain. Gastroenterology was consulted for pancreatic mass reported on abdominal CAT scan. States is worse if she eats food or cold food, or cold drinks. She reports that as a "squishy "pain that is mostly constant. She has been seen by Archie nurse practitioner at gastroenterology [facility] around June for follow-up on a MRI and her abdominal pain. Patient states she has had 100 pound weight loss associated with the abdominal pain due to not wanting to eat or the last 1 year duration. Denies any nausea or vomiting. Pain is diffuse. Labs are unremarkable, no elevation in LFTs. Patient was hypokalemic on admission with potassium of 3.0 with repeat of 3.4 yesterday. Review of Systems REVIEW OF SYSTEMS: CARDIOPULMONARY: No chest pain or shortness of breath. Gastrointestinal: Abdominal pain, Worse with eating. Diffuse. No nausea or vomiting. No hematemesis, coffee-ground emesis. No rectal bleeding, or melena. GENITOURINARY: No dysuria or hematuria. MUSCULOSKELETAL: Reports normal range of motion., Joint pain. SKIN: No rashes. No jaundice. ENDOCRINE: No chills, fevers. No excessive weight gain or loss. No polydipsia or polyuria. PSYCHIATRIC: Unremarkable. NEUROLOGY: No change in mental status. Denies dizziness, headache. ENT: Vision unremarkable. Hard of hearing. CONSTITUTIONAL: Reported weight loss 100 pounds over the past 1 year no fever, chills, night sweats. Past Medical History Past Medical History: Unable to Obtain, Hearing Disorder / Deafness, Hypert ension, Thyroid Disorder Additional Past Medical History / Comment(s): lymphedema History of Any Multi-Drug Resistant Organisms: None Reported Past Surgical History: No Surgical Hx Reported Additional Past Surgical History / Comment(s): removal of nodual rt breast 54 yrs ago. Past Anesthesia/Blood Transfusion Reactions: No Reported Reaction Past Psychological History: Anxiety, Bipolar, Depression, PTSD Smoking Status: Current every day smoker, Smoker, current status unknown Past Alcohol Use History: None Reported Past Drug Use History: None Reported Medications and Allergies Home Medications Medication Instructions Recorded Confirmed Type Acetaminophen Tab [Tylenol] 650 mg PO Q4HR PRN tab 11/03/20 01/24/24 Rx Levothyroxine Sodium [Synthroid] 50 mcg PO DAILY 12/22/20 01/24/24 History Bloat Banisher Supplement 3 cap PO AC-TID 01/24/24 01/24/24 History Dicyclomine [Bentyl] 40 mg PO QID 01/24/24 01/24/24 History Omeprazole 40 mg PO DAILY 01/24/24 01/24/24 History Oxy-Powder Natural Digestive 4 cap PO HS 01/24/24 01/24/24 History Cleanse Valbenazine Tosylate [Ingrezza] 80 mg PO DAILY 01/24/24 01/24/24 History allopurinoL [Zyloprim] 300 mg PO HS 01/24/24 01/24/24 History buPROPion XL [Wellbutrin XL] 300 mg PO DAILY 01/24/24 01/24/24 History lamoTRIgine 100 mg PO BID 01/24/24 01/24/24 History Allergies Allergy/AdvReac Type Severity Reaction Status Date / Time duloxetine [From Cymbalta] Allergy Patient Verified 01/24/24 10:31 denies allergy escitalopram [From Lexapro] Allergy Patient Verified 01/24/24 10:31 denies allergy fluoxetine [From Prozac] Allergy Patient Verified 01/24/24 10:31 denies allergy risperidone [From Risperdal] Allergy Patient Verified 01/24/24 10:31 denies allergy Sulfa (Sulfonamide Allergy Patient Verified 01/24/24 10:31 Antibiotics) denies allergy steroids Allergy Patient Uncoded 01/24/24 10:31 denies allergy Physical Exam Vitals: Vital Signs Temp Pulse Resp BP Pulse Ox 01/26/24 07:00 97.7 F 74 16 119/56 97 01/26/24 05:08 97.9 F 65 15 97/64 95 01/25/24 19:49 97.9 F 72 15 123/77 98 01/25/24 14:36 97.8 F 78 136/66 95 Intake and Output 01/25/24 01/26/24 01/26/24 22:59 06:59 14:59 Other: Voiding Method Toilet # Voids 1 3 General appearance: The patient is alert, oriented, appears in no acute dist ress. HET: Head is normocephalic and atraumatic. Pupils are equal and reactive. Hard of hearing. Neck: Supple. Heart: Regular. Lungs: Equal expansion, normal respiratory effort. Abdomen: Soft, diffuse tenderness, nondistended. Extremities: Normal skin color and turgor. Neurological: No focal deficits. Alert and oriented. Results CBC & Chem 7: 01/26/24 07:29 01/26/24 18:30 Labs: Abnormal Lab Results - Last 24 Hours (Table) 01/25/24 01/25/24 01/25/24 Range/Units 09:24 09:24 20:30 Plt Count 149 L (150-450) k/uL Sodium 135 L (137-145) mmol/L Potassium 3.2 L 3.4 L (3.5-5.1) mmol/L BUN 4 L (7-17) mg/dL Glucose 115 H (74-99) mg/dL Total Protein 5.7 L (6.3-8.2) g/dL Albumin 3.4 L (3.5-5.0) g/dL Comments: CT abdomen pelvis with contrast reports abnormal appearance of the pancreas with area of decreased attenuation in the body/tail. Correlate with serum markers for pancreatitis versus pancreatic mass. Further evaluation MRI MRCP and IV contrast recommended. Findings new from prior. Grade 2 anterolisthesis with spondylolysis of L5 on S1. Nonobstructing right renal calculus. Cardiomegaly. CT scan - abdomen: report reviewed Assessment and Plan (1) Abdominal pain Narrative/Plan: 78-year-old female presenting with abdominal pain which she states she has had since a year ago that is chronic ongoing worse with eating hot and cold foods. Apparently has followed in the past with gastroenterology for IBS and constipation. Takes dicyclomine for abdominal cramping and MiraLAX for constipation. LFTs and pancreatic enzymes unremarkable. She had a CT of the abdomen pelvis showing abnormal appearance of the pancreas with area of decreased attenuation in the body/tail. Unclear etiology. CT report recommends possible MRI/MRCP which was ordered by general surgery and currently pending. Further recommendations forthcoming following MRCP Current Visit: Yes Status: Acute Code(s): R10.9 - UNSPECIFIED ABDOMINAL PAIN SNOMED Code(s): 33121946 (2) Hypokalemia Current Visit: Yes Status: Acute Code(s): E87.6 - HYPOKALEMIA SNOMED C ode(s): 12286244 (3) Anxiety Current Visit: Yes Status: Acute Code(s): F41.9 - ANXIETY DISORDER, UNSPECIFIED SNOMED Code(s): 56685821 (4) Nicotine dependence Current Visit: No Status: Acute Priority: Low Code(s): F17.200 - NICOTINE DEPENDENCE, UNSPECIFIED, UNCOMPLICATED SNOMED Code(s): 08758119 Plan: 1. Keep n.p.o. for MRI/MRCP pancreas 2. CA 19-9 ordered 3. Protonix 40 mg daily for GI prophylaxis 4. Patient may have diet as tolerated after MRCP completed 5. Further recommendations forthcoming based on clinical course Thank you for this consultation, we will continue to follow. Dr. Hugh Willis I agree with the dictator's note, documented as a scribe by Ramona Siegel.
[2024-01-26 10:56] LABS: Basophils # (A) 0.02 X 10*3/uL (0.00-0.10); Basophils % (A) 0.4 %; Eosinophils # (A) 0.14 X 10*3/uL (0.04-0.35); Eosinophils % (A) 2.7 %; HCT 34.7 % (37.2-46.3); HGB 11.9 g/dL (12.0-15.0); Lymphocytes # (A) 1.67 X 10*3/uL (0.90-5.00); Lymphocytes % (A) 31.9 %; MCH 32.2 pg (27.0-32.0); MCHC 34.3 g/dL (32.0-37.0); Mean Platelet Volume 13.6 FL (9.5-12.2); Monocytes # (A) 0.58 X 10*3/uL (0.20-1.00); Monocytes % (A) 11.1 %; NRBC Per 100 WBC 0 X 10*3/uL (0.00-0.01); Neutrophils # (A) 2.79 X 10*3/uL (1.80-7.70); Neutrophils % (A) 53.3 %; Platelet Count 150 X 10*3/uL (140-440); RBC 3.69 X 10*6/uL (4.10-5.20); RDW 15.8 % (11.5-14.5); WBC 5.23 X 10*3/uL (4.50-10.00)
--- NOTE | 2024-01-26 13:18 | MR ---
EXAMINATION TYPE: MR pancreas wo con DATE OF EXAM: 01/26/2024 1:00 PM CLINICAL INDICATION:Female, 78 years old with history of Mass; PHH, Abnormal CT COMPARISON: CT scan abdomen from 01/23/2024. TECHNIQUE: Limited evaluation due to patient pain terminating the exam early. IV Contrast: 7 cc Gadavist FINDINGS: LOWER CHEST: No gross irregularity. ABDOMEN Liver: No evidence for hepatic steatosis or cirrhosis. Gallbladder and Bile ducts: No evidence for ductal dilation, or biliary stricture or evidence of chol edocholithiasis. The gallbladder is within normal limits. Pancreas: Masslike area remain suspicious in the pancreatic body/tail and is thought to be seen on ax ial T2 fat sat imaging which is very limited on a single slice.. No ductal dilation. No evidence for solid mass. Spleen: Masslike area remains suspicious Adrenal glands: Unremarkable. Kidneys: No evidence for obstructive uropathy. No suspicious renal masses. Stomach and Bowel: No evidence for bowel wall thickening or evidence for obstruction. Retroperitoneum/Peritoneum: No evidence of pneumoperitoneum or free fluid. Vasculature: No aortic aneurysm. Musculoskeletal: The osseous structures appear intact. Scoliosis changes of the spine. Lymph Nodes: No gross evidence for lymphadenopathy. Abdominal wall: Unremarkable. IMPRESSION: Motion limited exam patient was unable to complete the exam due to pain. The area of concern is not w ell evaluated in remains suspicious consider CT imaging pancreatic mass protocol since patient is luli ble to complete MRI scans due to hearing loss. Correlate with serum markers for focal pancreatitis.
[2024-01-26] MEDS: POTASSIUM CHLORIDE ER 20 MEQ TAB.ER PO SCH (13:22)
--- NOTE | 2024-01-26 17:02 | P.PN ---
Subjective Progress Note Date: 01/26/24 CHIEF COMPLAINT: Abdominal pain HISTORY OF PRESENT ILLNESS: The patient is a 78-year-old female presents with pre-existing epigastric pancreatic mass. She has been complaining primarily of lower abdominal pain. At the time of my assessment, patient is resting comfortably. She is tolerating liquid diet. MRCP was obtained. ROS: No reports of nausea and vomiting. No fevers or chills. No new chest pain. No productive sputum PHYSICAL EXAM: VITAL SIGNS: Reviewed CONSTITUTIONAL: Well developed and in no acute distress. EYES: Conjuctivae without sclera icterus. Extraocular movements grossly intact. HEAD, EARS, NOSE, THROAT: Moist buccal mucosa. Head is atraumatic, normocephalic. Patient is hard of hearingNo nasal drainage. RESPIRATORY: Non-labored respirations and equal bilateral excursions. CARDIOVASCULAR: Palpable 2+ radial pulses. ABDOMEN: No peritonitis. Minimal lower abdominal pain. MUSCULOSKELETAL: No gross deformity of the lower extremities noted. No clubbing. No cyanosis. SKIN: Good skin turgor. Well perfused. NEUROLOGIC: Cranial nerves II through XII grossly intact. No focal or lateralizing signs. PSYCH: Appropriate affect. Alert and oriented to person, place and time. CLINICAL LABS: Reviewed. WBC normal. STUDIES: MRCP independent review demonstrates masslike lesion affecting the mid to body of the pancreas. This is my independent or potation. ASSESSMENT: 1. Abdominal pain 2. Pancreatic mass suspicious for neoplasm 3. Diverticulosis PLAN: 1. Clinically, patient has been tolerating diet. She does question when she can go home. 2. Appreciate GI assessment regarding pancreatic lesion. Additional outpatient follow-up will be needed at gastroenterology/hepatobiliary center 3. No acute surgical invention at this time Objective - Vital Signs Vital signs: Vital Signs Temp 98.4 F 01/26/24 14:51 Pulse 66 01/26/24 14:51 Resp 17 01/26/24 14:51 BP 116/65 01/26/24 14:51 Pulse Ox 97 01/26/24 14:51 FiO2 Intake & Output 01/25/24 01/26/24 01/26/24 18:59 06:59 18:59 Intake Total 720 236 Balance 720 236 Intake: Oral 720 236 Other: Voiding Method Toilet Toilet # Voids 1 3 3 - Labs CBC & Chem 7: 01/26/24 07:29 01/25/24 20:30 Labs: Abnormal Lab Results - Last 24 Hours (Table) 01/25/24 01/26/24 01/26/24 Range/Units 20:30 07:29 07:56 RBC 3.69 L (4.10-5.20) X 10*6/uL Hgb 11.9 L (12.0-15.0) g/dL Hct 34.7 L (37.2-46.3) % MCH 32.2 H (27.0-32.0) pg RDW 15.8 H (11.5-14.5) % MPV 13.6 H (9.5-12.2) FL Potassium 3.4 L (3.5-5.1) mmol/L CA 19-9 Antigen 7369.0 H (0.0-34.9) U/mL
--- NOTE | 2024-01-26 17:43 | P.PN ---
Subjective Progress Note Date: 01/26/24 This is a 78-year-old female with chronic abdominal pain of 1 year, pancreatic mass and multiple other medical issues. Denies nausea or vomiting. Currently no abdominal pain, reports minimal diffuse fluctuating abdominal pain evaluated by GI and scheduled for MRCP. Hematology unremarkable .LFTs within normal limits. Renal function stable. received supplementation of potassium yesterday with repeat potassium 3.4. Today's labs pending. Objective - Vital Signs Vital signs: Vital Signs Temp 98.4 F 01/26/24 14:51 Pulse 66 01/26/24 14:51 Resp 17 01/26/24 14:51 BP 116/65 01/26/24 14:51 Pulse Ox 97 01/26/24 14:51 FiO2 Intake & Output 01/25/24 01/26/24 01/26/24 18:59 06:59 18:59 Intake Total 720 236 Balance 720 236 Intake: Oral 720 236 Other: Voiding Method Toilet Toilet # Voids 1 3 3 - Exam PHYSICAL EXAM: VITAL SIGNS: As above GENERAL: [place] ,alert and oriented x 3, no acute distress HEENT: Normocephalic, atraumatic, conjunctivae normal. eyes normal. NECK: Supple, no JVD. CARDIOVASCULAR: S1, S2 regular. No murmur RESPIRATION: Unlabored, equal air entry, essentially clear with breath sounds diminished in the bases. ABDOMEN: Soft, nondistended, epigastric tenderness, no guarding. LEGS: No edema. no swelling PSYCHIATRY: Alert and oriented X3, mood and affect normal. NERVOUS SYSTEM: Cranial N 2-12 grossly normal. Moves all 4 limbs. Diffuse weakness No focal deficits. Strength and sensation grossly intact.. Skin: Warm and dry, no rash - Labs CBC & Chem 7: 01/26/24 07:29 01/25/24 20:30 Labs: Abnormal Lab Results - Last 24 Hours (Table) 01/25/24 01/26/24 01/26/24 Range/Units 20:30 07:29 07:56 RBC 3.69 L (4.10-5.20) X 10*6/uL Hgb 11.9 L (12.0-15.0) g/dL Hct 34.7 L (37.2-46.3) % MCH 32.2 H (27.0-32.0) pg RDW 15.8 H (11.5-14.5) % MPV 13.6 H (9.5-12.2) FL Potassium 3.4 L (3.5-5.1) mmol/L CA 19-9 Antigen 7369.0 H (0.0-34.9) U/mL Assessment and Plan Assessment: Acute on chronic abdominal pain, possible pancreatic mass, MRCP pending Hypokalemia Hypertension Bipolar Anxiety Depression Hearing disorder Ongoing nicotine dependence Obesity, BMI 31 Plan: Continue on current medication resume ,monitoring and symptomatic treat ment. Labs as pending. CA 19-9 pending. NPO,MRCP pending. PPI for GI prophylaxis. Nicotine cessation reinforced. The impression and plan of care has been dictated as directed. : I performed a history and examination of this patient, discussed the same with the dictator. I agree with the dictator's note ,documented as a scribe. Any additional findings or plans will be noted.
[2024-01-26 18:55] LABS: Magnesium 1.9 mg/dL (1.6-2.3); Potassium 3.9 mmol/L (3.5-5.1)
[2024-01-27 01:02] LABS: ALT 14 U/L (8-44); AST 19 U/L (13-35); Albumin 3.7 g/dL (3.8-4.9); Albumin/Globulin Ratio 1.95 Ratio (1.60-3.17); Alkaline Phosphatase 88 U/L (41-126); Calcium 9.1 mg/dL (8.7-10.3); Carbon Dioxide 17.6 mmol/L (21.6-31.8); Chloride 105 mmol/L (96-109); Globulin 1.9 g/dL (1.6-3.3); Glucose 112 mg/dL (70-110); Potassium 4.1 mmol/L (3.5-5.5); Sodium 137 mmol/L (135-145); Total Bilirubin 0.3 mg/dL (0.3-1.2); Total Protein 5.6 g/dL (6.2-8.2)
[2024-01-27 07:27] LABS: HCT 38.7 % (34.0-46.0); MCH 30.8 pg (25.0-35.0); MCHC 31.1 g/dL (31.0-37.0); MCV 99.1 fL (80.0-100.0); Macrocytosis Slight; Mean Platelet Volume 10.7; Platelet Count 167 k/uL (150-450); RDW 15.2 % (11.5-15.5); WBC 5.5 k/uL (3.8-10.6)
[2024-01-27 07:41] LABS: African American GFR (CKD) >90 (>60 ml/min/1.73 sqM); Anion Gap 5 mmol/L; Blood Urea Nitrogen 9 mg/dL (7-17); Calcium 9.2 mg/dL (8.4-10.2); Carbon Dioxide 23 mmol/L (22-30); Chloride 107 mmol/L (98-107); Glucose 126 mg/dL (74-99); Non-African American GFR(CKD) 85 (>60 ml/min/1.73 sqM); Potassium 4.2 mmol/L (3.5-5.1); Sodium 135 mmol/L (137-145)
[2024-01-27] MEDS ORDERED: IOPAMIDOL CONTRAST (ORAL USE) VIAL PO PRN (09:38)
--- NOTE | 2024-01-27 10:06 | P.PN ---
Subjective Progress Note Date: 01/27/24 Principal diagnosis: Abdominal pain This a pleasant 78-year-old female who is hard of hearing, has a history of chronic abdominal pain, hypertension, thyroid disorder, lymphedema, anxiety, bipolar, depression and PTSD who is a current every day smoker. She presented to the emergency department 3 days ago with complaints of abdominal pain which she had a CT of the abdomen pelvis reporting possible pancreatic mass. She was discharged home as her pain had improved. She returned back with complaints of worsening pain. Gastroenterology was consulted for pancreatic mass reported on abdominal CAT scan. States is worse if she eats food or cold food, or cold drinks. She reports that as a "squishy "pain that is mostly constant. She has been seen by Archie nurse practitioner at gastroenterology [facility] around June for follow-up on a MRI and her abdominal pain. Patient states she has had 100 pound weight loss associated with the abdominal pain due to not wanting to eat or the last 1 year duration. Denies any nausea or vomiting. Pain is diffuse. Labs are unremarkable, no elevation in LFTs. Patient was hypokalemic on admission with potassium of 3.0 with repeat of 3.4 yesterday. 01/27/2024 Patient seen and examined today as a follow-up. Patient was resting comfortably when I came into the room. Yesterday she underwent MRI however was not unable to tolerate the MRI and that lie still. MRI was not completed due to patient not cooperating, with recommendation for CT pancreas mass protocol. Patient states she has abdominal pain that is constant. No nausea or vomiting. CA 19-9 came back at 7369. Today's labs otherwise unremarkable. Objective - Vital Signs Vital signs: Vital Signs Temp 97.9 F 01/27/24 02:00 Pulse 70 01/27/24 02:00 Resp 18 01/27/24 02:00 BP 115/69 01/27/24 02:00 Pulse Ox 96 01/27/24 02:00 FiO2 Intake & Output 01/26/24 01/27/24 01/27/24 18:59 06:59 18:59 Intake Total 696 Balance 696 Intake: Oral 696 Other: Voiding Method Toilet Toilet # Voids 3 1 - Exam General appearance: The patient is alert, oriented, appears in no acute distress. HET: Head is normocephalic and atraumatic. Conjunctiva pink. Sclera anicteric. Neck: Supple without lymphadenopathy. Abdomen: Soft, diffuse tenderness with palpation. Nondistended with bowel sounds. No guarding or rigidity. Extremities: Normal skin color and turgor. No pedal edema Skin: No rashes, no jaundice Neurological: No focal deficits. Alert and oriented. - Labs CBC & Chem 7: 01/27/24 06:43 01/27/24 06:43 Labs: Abnormal Lab Results - Last 24 Hours (Table) 01/26/24 01/26/24 01/26/24 Range/Units 07:29 07:29 07:56 RBC 3.69 L (4.10-5.20) X 10*6/uL Hgb 11.9 L (12.0-15.0) g/dL Hct 34.7 L (37.2-46.3) % MCH 32.2 H (27.0-32.0) pg RDW 15.8 H (11.5-14.5) % MPV 13.6 H (9.5-12.2) FL Sodium (137-145) mmol/L Carbon Dioxide 17.6 L (21.6-31.8) mmol/L Anion Gap 14.40 H (4.00-12.00) mmol/L BUN 7.0 L (9.0-27.0) mg/dL BUN/Creatinine Ratio 10.00 L (12.00-20.00) Ratio Glucose 112 H (70-110) mg/dL Total Protein 5.6 L (6.2-8.2) g/dL Albumin 3.7 L (3.8-4.9) g/dL CA 19-9 Antigen 7369.0 H (0.0-34.9) U/mL 01/27/24 Range/Units 06:43 RBC (4.10-5.20) X 10*6/uL Hgb (12.0-15.0) g/dL Hct (37.2-46.3) % MCH (27.0-32.0) pg RDW (11.5-14.5) % MPV (9.5-12.2) FL Sodium 135 L (137-145) mmol/L Carbon Dioxide (21.6-31.8) mmol/L Anion Gap (4.00-12.00) mmol/L BUN (9.0-27.0) mg/dL BUN/Creatinine Ratio (12.00-20.00) Ratio Glucose 126 H (70-110) mg/dL Total Protein (6.2-8.2) g/dL Albumin (3.8-4.9) g/dL CA 19-9 Antigen (0.0-34.9) U/mL Assessment and Plan (1) Abdominal pain Narrative/Plan: 78-year-old female presenting with abdominal pain which she states she has had since a year ago that is chronic ongoing worse with eating hot and cold foods. Apparently has followed in the past with gastroenterology for IBS and constipation. Takes dicyclomine for abdominal cramping and MiraLAX for constipation. LFTs and pancreatic enzymes unremarkable. She had a CT of the abdomen pelvis showing abnormal appearance of the pancreas with area of decreased attenuation in the body/tail. Unclear etiology. MRI/MRCP ordered by general surgery however was unable to complete due to patient being uncooperative during testing. Will order CT abdomen for pancreas mass protocol. CA 19-9 elevated. Patient will likely need outpatient referral for EUS. Current Visit: Yes Status: Acute Code(s): R10.9 - UNSPECIFIED ABDOMINAL PAIN SNOMED Code(s): 43636515 (2) Abnormal CT of the abdomen Narrative/Plan: CT abdomen pancreas mass protocol reports heterogeneous appearance of pancreatic body/tail with multiple peritoneal nodules. Findings are highly concerning for pancreatic cancer with peritoneal metastasis until proven otherwise. 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 Nonspecific thickening of left adrenal gland. Cannot exclude metastasis. Discussed with PCP consider transfer to tertiary center for endoscopic ultrasound and biopsy for continuity of care. Current Visit: Yes Status: Acute Code(s): R93.5 - ABN FINDINGS ON DX IMAGING OF ABD REGIONS, INC RETROPERITON SNOMED Code(s): 51735688077580300 (3) Hypokalemia Current Visit: Yes Status: Acute Code(s): E87.6 - HYPOKALEMIA SNOMED Code(s): 63760688 (4) Anxiety Current Visit: Yes Status: Acute Code(s): F41.9 - ANXIETY DISORDER, UNSP ECIFIED SNOMED Code(s): 02151679 (5) Nicotine dependence Current Visit: No Status: Acute Priority: Low Code(s): F17.200 - NICOTINE DEPENDENCE, UNSPECIFIED, UNCOMPLICATED SNOMED Code(s): 50990521 (6) Elevated CA 19-9 level Current Visit: Yes Status: Acute Code(s): R97.8 - OTHER ABNORMAL TUMOR MARKERS SNOMED Code(s): 69056704768473012 Plan: 1. Continue symptomatic and supportive care 2. Pain medication as needed 3. Patient may have regular diet 4. CT abdomen pancreas mass protocol ordered and reviewed 5. Consider transfer to tertiary center [facility] for advanced endoscopist, patient will need endoscopic ultrasound with biopsy of the pancreas. Thank you for this consultation, we will continue to follow. Dr. Hugh Willis I agree with the dictator's note, documented as a scribe by Ramona Siegel.
--- NOTE | 2024-01-27 11:40 | CT ---
EXAMINATION TYPE: CT abdomen w con CT DLP: 700.00 mGycm, Automated exposure control for dose reduction was used. DATE OF EXAM: 01/27/2024 11:09 AM COMPARISON: CT abdomen pelvis 02/10, MR pancreas 01/26/2024 CLINICAL INDICATION:Female, 78 years old with history of evaluate for pancreatic mass, abdominal pain ; evaluate for pancreatic mass, abd pain TECHNIQUE: Multiphase CT of the abdomen following the administration of 100 cc of Isovue 300 IV cont rast material. Coronal and sagittal reformats were performed. FINDINGS: Motion degraded examination. LOWER CHEST: Bibasilar dependent subsegmental atelectasis. Cardiomegaly. ABDOMEN LIVER: Unremarkable GALLBLADDER AND BILE DUCTS: Unremarkable. PANCREAS: Thickened heterogenous hypodense appearance of the pancreatic body/tail. This grossly measu res 3.8 x 2.4 cm (series 7, image 41). No arterial enhancement identified. No pancreatic ductal dilat ation. SPLEEN: Unremarkable. ADRENAL GLANDS: Right adrenal gland appears unremarkable. There is thickening of the left adrenal gla nd.. KIDNEYS AND URETERS: No evidence of hydronephrosis or renal calculus. The ureters are unremarkable. STOMACH AND BOWEL: Stomach and duodenum are unremarkable. No focal bowel wall thickening. Moderate am ount stool is present within the cecum. The visualized portion of the appendix is unremarkable. No ev idence of bowel obstruction. PERITONEUM: No evidence of pneumoperitoneum or free fluid. Multiple peritoneal metastasis identified with largest in the anterior right mid abdomen measuring 1.9 cm (series 4, image 93). Additional exam ple nodule within the mid lower abdomen measuring up to 2.4 cm (series 4, image 116). VASCULATURE: Mild to moderate atherosclerotic calcifications are present throughout the abdominal aor ta and its branches. No evidence of aortic aneurysm. There is abutment with a least 180 [address]ge sted encasement of the celiac axis. 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 Perigastric co llateral vessels identified. Tortuous appearance of the SMV with possible occlusion. MUSCULOSKELETAL: No acute osseous abnormalities. No aggressive osseous lesion. Mild dextrocurvature o f the thoracic spine. Vertebral hemangioma involving the L1 vertebral body. Grade 1 anterolisthesis o f T12 and L1. Grade 2 anterolisthesis with bilateral pars defects involving L5-S1. LYMPH NODES: No enlarged lymph nodes greater than 1 cm short axis. SOFT TISSUE/ABDOMINAL WALL: Unremarkable IMPRESSION: Motion degraded examination. 1. Abnormal heterogenous appearance of the pancreatic body/tail with multiple peritoneal nodules. Fin dings are highly concerning for pancreatic cancer with peritoneal metastasis until proven otherwise. 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 2. Nonspecific thickening of the left adrenal gland. Cannot exclude metastasis.
[2024-01-27] MEDS: polyethylene glycoL 3350 17 GM POWD.PACK PO SCH (17:55)
--- NOTE | 2024-01-27 17:56 | P.DS ---
Providers Date of admission: 01/24/24 04:26 Expected date of discharge: 01/27/24 Attending physician: Jose Manuel Rob MD Consults: 01/24/24 09:47 Consult Physician Routine Consulting Provider: Erika Gonzalez Consult Reason/Comments: abdominal pain Do you want consulting provider notified?: Yes 01/25/24 12:42 Consult Physician Routine Consulting Provider: Molly Willis Consult Reason/Comments: Pancreatic mass Do you want consulting provider notified?: Yes, Notify in am Primary care physician: Jose Manuel Rob MD Hospital Course: Final Diagnoses: Acute on chronic abdominal pain, possible pancreatic mass, unable to tolerate MRI. Pancreas CT pending. Hypokalemia Hypertension Bipolar Anxiety Depression Hearing disorder Ongoing nicotine dependence Obesity, BMI 31 Hospital course: This is a 78-year-old female with chronic abdominal pain of 1 year, pancreatic mass and multiple other medical issues. Denies nausea or vomiting. Currently no abdominal pain, reports minimal diffuse fluctuating abdominal pain evaluated by GI and scheduled for MRCP. Hematology unremarkable .LFTs within normal limits. Renal function stable. received supplementation of potassium yesterday with repeat potassium 3.4. Today's labs pending. 01/27/2024 CA 19-9 7369. patient was unable to tolerate MRI, unable to lie still. Therefore CT of pancrease has been ordered by GI. Sitting up eating breakfast. Denies nausea or vomiting. Currently denies abdominal pain. Denies chest pain, palpitations or shortness of breath. Patient will be discharged home today in a stable condition with guarded prognosis pending CT, final DC recommendations/outpatient EUS referral and clearance as per GI. The impression and plan of care has been dictated as directed. : I performed a history and examination of this patient, discussed the same with the dictator. I agree with the dictator's note ,documented as a scribe. Any additional findings or plans will be noted. Patient Condition at Discharge: Stable Plan - Discharge Summary Discharge Rx Participant: No New Discharge Prescriptions: New polyethylene glycoL 3350 [Miralax] 17 gm PO DAILY packet Continue allopurinoL [Zyloprim] 300 mg PO HS lamoTRIgine 100 mg PO BID Dicyclomine [Bentyl] 40 mg PO QID Bloat Banisher Supplement 3 cap PO AC-TID Oxy-Powder Natural Digestive Cleanse 4 cap PO HS Acetaminophen Tab [Tylenol] 650 mg PO Q4HR PRN tab PRN Reason: Pain/Discomfort Levothyroxine Sodium [Synthroid] 50 mcg PO DAILY buPROPion XL [Wellbutrin XL] 300 mg PO DAILY Valbenazine Tosylate [Ingrezza] 80 mg PO DAILY Omeprazole 40 mg PO DAILY Discharge Medication List Acetaminophen Tab [Tylenol] 650 mg PO Q4HR PRN tab 11/03/20 [Rx] Levothyroxine Sodium [Synthroid] 50 mcg PO DAILY 12/22/20 [History] Bloat Banisher Supplement 3 cap PO AC-TID 01/24/24 [History] Dicyclomine [Bentyl] 40 mg PO QID 01/24/24 [History] Omeprazole 40 mg PO DAILY 01/24/24 [History] Oxy-Powder Natural Digestive Cleanse 4 cap PO HS 01/24/24 [History] Valbenazine Tosylate [Ingrezza] 80 mg PO DAILY 01/24/24 [History] allopurinoL [Zyloprim] 300 mg PO HS 01/24/24 [History] buPROPion XL [Wellbutrin XL] 300 mg PO DAILY 01/24/24 [History] lamoTRIgine 100 mg PO BID 01/24/24 [History] polyethylene glycoL 3350 [Miralax] 17 gm PO DAILY packet 01/27/24 [Rx] Follow up Appointment(s)/Referral(s): Jose Manuel Rob MD [Primary Care Provider] - 3 Days Iad Kraus MD [STAFF PHYSICIAN] - 01/29/24 3:30 pm (Follow up with oncology for abnormal CT scan) Molly Willis MD [STAFF PHYSICIAN] - 1 Week Activity/Diet/Wound Care/Special Instructions: EUS:
[2024-01-27] MEDS ORDERED: IBUPROFEN 600 MG TAB PO SCH (18:00)
[2024-01-27] MEDS: IBUPROFEN 600 MG TAB PO PRN (18:06)
[2024-01-27 22:20] VITALS: RESP 18
--- NOTE | 2024-01-28 08:04 | P.PN ---
Subjective Progress Note Date: 01/28/24 CHIEF COMPLAINT: Abdominal pain HISTORY OF PRESENT ILLNESS: The patient is a 78-year-old female presents with pre-existing epigastric pancreatic mass. She is resting comfortably. ROS: No reports of nausea and vomiting. No fevers or chills. No new chest pain. No productive sputum PHYSICAL EXAM: VITAL SIGNS: Reviewed CONSTITUTIONAL: Well developed and in no acute distress. EYES: Conjuctivae without sclera icterus. Extraocular movements grossly intact. HEAD, EARS, NOSE, THROAT: Moist buccal mucosa. Head is atraumatic, normocephalic. Patient is hard of hearing. No nasal drainage. RESPIRATORY: Non-labored respirations and equal bilateral excursions. CARDIOVASCULAR: Palpable 2+ radial pulses. ABDOMEN: No peritonitis. MUSCULOSKELETAL: No gross deformity of the lower extremities noted. No clubbing. No cyanosis. SKIN: Good skin turgor. Well perfused. NEUROLOGIC: Cranial nerves II through XII grossly intact. No focal or lateralizing signs. PSYCH: Appropriate affect. Alert and oriented to person, place and time. CLINICAL LABS: Reviewed. WBC normal. STUDIES: CT of the abdomen pelvis reviewed independently demonstrating multiple abnormal lymphadenopathy within the abdomen with pancreatic mass suspicious for metastatic pancreatic cancer. This is my independent interpretation. But findings on CT imaging, ASSESSMENT: 1. Abdominal pain 2. Pancreatic mass suspicious for neoplasm 3. Diverticulosis PLAN: 1. CT findings, oncology recommendations further needed 2. Will likely need biopsy via interventional radiology if suspicious nodes. 3. No acute surgical intervention 4. Discharge per medicine when medically stable with outpatient follow-up with oncology and GI Objective - Vital Signs Vital signs: Vital Signs Temp 98.3 F 01/28/24 02:00 Pulse 70 01/28/24 02:00 Resp 18 01/28/24 02:00 BP 95/58 01/28/24 02:00 Pulse Ox 93 L 01/28/24 02:00 FiO2 Intake & Output 01/27/24 01/28/24 01/28/24 18:59 06:59 18:59 Intake Total 536 Balance 536 Intake: Oral 536 Other: Voiding Method Toilet # Voids 1 2 - Labs CBC & Chem 7: 01/27/24 06:43 01/27/24 06:43
[2024-01-28 08:21] VITALS: BP 105/65; PULSE 71; TEMP 98.2
[2024-01-28] MEDS ORDERED: LACTULOSE 20 GM/30 ML CUP PO ONE (08:57)
[2024-01-28] MEDS: LORazepam 0.5 MG TAB PO ONE (10:13)
[2024-01-28] MEDS: LACTULOSE 20 GM/30 ML CUP PO ONE (10:13)
--- NOTE | 2024-01-28 12:09 | P.PN ---
Subjective Progress Note Date: 01/28/24 Principal diagnosis: Abdominal pain This a pleasant 78-year-old female who is hard of hearing, has a history of chronic abdominal pain, hypertension, thyroid disorder, lymphedema, anxiety, bipolar, depression and PTSD who is a current every day smoker. She presented to the emergency department 3 days ago with complaints of abdominal pain which she had a CT of the abdomen pelvis reporting possible pancreatic mass. She was discharged home as her pain had improved. She returned back with complaints of worsening pain. Gastroenterology was consulted for pancreatic mass reported on abdominal CAT scan. States is worse if she eats food or cold food, or cold drinks. She reports that as a "squishy "pain that is mostly constant. She has been seen by Archie nurse practitioner at gastroenterology [facility] around June for follow-up on a MRI and her abdominal pain. Patient states she has had 100 pound weight loss associated with the abdominal pain due to not wanting to eat or the last 1 year duration. Denies any nausea or vomiting. Pain is diffuse. Labs are unremarkable, no elevation in LFTs. Patient was hypokalemic on admission with potassium of 3.0 with repeat of 3.4 yesterday. 01/27/2024 Patient seen and examined today as a follow-up. Patient was resting comfortably when I came into the room. Yesterday she underwent MRI however was not unable to tolerate the MRI and that lie still. MRI was not completed due to patient not cooperating, with recommendation for CT pancreas mass protocol. Patient states she has abdominal pain that is constant. No nausea or vomiting. CA 19-9 came back at 7369. Today's labs otherwise unremarkable. 1024 Patient seen and examined today as a follow-up. Consideration for possible transfer to [facility] yesterday however there was no accepting physician. Patient is sitting up having breakfast, currently states she is comfortable. No nausea or vomiting. Objective - Vital Signs Vital signs: Vital Signs Temp 98.2 F 01/28/24 07:00 Pulse 71 01/28/24 07:00 Resp 18 01/28/24 07:00 BP 105/65 01/28/24 07:00 Pulse Ox 95 01/28/24 07:00 FiO2 Intake & Output 01/27/24 01/28/24 01/28/24 18:59 06:59 18:59 Intake Total 536 Balance 536 Intake: Oral 536 Other: Voiding Method Toilet # Voids 1 2 - Exam General appearance: The patient is alert, oriented, appears in no acute distress. HET: Head is normocephalic and atraumatic. Conjunctiva pink. Sclera anicteric. Neck: Supple without lymphadenopathy. Abdomen: Soft, diffuse tenderness with palpation. Nondistended. Extremities: Normal skin color and turgor. No pedal edema Skin: No rashes, no jaundice Neurological: No focal deficits. Alert and oriented. - Labs CBC & Chem 7: 01/27/24 06:43 01/27/24 06:43 Assessment and Plan (1) Abdominal pain Narrative/Plan: 78-year-old female presenting with abdominal pain which she states she has had since a year ago that is chronic ongoing worse with eating hot and cold foods. Apparently has followed in the past with gastroenterology for IBS and constipation. Takes dicyclomine for abdominal cramping and MiraLAX for constipation. LFTs and pancreatic enzymes unremarkable. She had a CT of the abdomen pelvis showing abnormal appearance of the pancreas with area of decreased attenuation in the body/tail. Unclear etiology. MRI/MRCP ordered by general surgery however was unable to complete due to patient being uncooperative during testing. Will order CT abdomen for pancreas mass protocol. CA 19-9 elevated. Patient will likely need outpatient referral for EUS. Status: Acute Code(s): R10.9 - UNSPECIFIED ABDOMINAL PAIN SNOMED Code(s): 23174599 (2) Abnormal CT of the abdomen Narrative/Plan: CT abdomen pancreas mass protocol reports heterogeneous appearance of pancreatic body/tail with multiple peritoneal nodules. Findings are highly concerning for pancreatic cancer with peritoneal metastasis until proven otherwise. 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 Nonspecific thickening of left adrenal gland. Cannot exclude metastasis. Discussed with PCP consider transfer to tertiary center for endoscopic ultrasound and biopsy for continuity of care, however accepting physician according to PCP. Will plan for outpatient follow-up and referral for outpatient EUS Status: Acute Code(s): R93.5 - ABN FINDINGS ON DX IMAGING OF ABD REGIONS, INC RETROPERITON SNOMED Code(s): 57570749530602600 (3) Hypokalemia Status: Acute Code(s): E87.6 - HYPOKALEMIA SNOMED Code(s): 86693602 (4) Anxiety Status: Acute Code(s): F41.9 - ANXIETY DISORDER, UNSPECIFIED SNOMED Code(s): 75598175 (5) Nicotine dependence Status: Acute Priority: Low Code(s): F17.200 - NICOTINE DEPENDENCE, UNSPECIFIED, UNCOMPLICATED SNOMED Code(s): 42976219 (6) Elevated CA 19-9 level Status: Acute Code(s): R97.8 - OTHER ABNORMAL TUMOR MARKERS SNOMED Code(s): 36382046884759406 Plan: 1. Continue symptomatic and supportive care 2. Pain medication as needed 3. Patient may have regular diet 4. CT abdomen pancreas mass protocol ordered and reviewed 5. Patient is cleared from gastroenterology for discharge. No accepting physician at tertiary center [place] for discharge home with outpatient follow-up with gastroenterology and referral for endoscopic ultrasound at tertiary center. Thank you for this consultation, we will sign off at this time. Dr. Hugh Willis I agree with the dictator's note, documented as a scribe by Ramona Siegel.
== END 2024-01-28 11:07 | disposition home or self-care (01) | DRG 436 ==
LOC: EC 01:59 → 6NMEDSUR 04:26 → OBSVTOIN 01-27 12:00
PROVIDERS: ADMIT Family Medicine; ATTEND Family Medicine
DX: C25.8 Malignant neoplasm of overlapping sites of pancreas (principal); C79.89 Secondary malignant neoplasm of other specified sites; E87.1 Hypo-osmolality and hyponatremia; I82.890 Acute embolism and thrombosis of other specified veins; F31.9 Bipolar disorder, unspecified; E11.9 Type 2 diabetes mellitus without complications; Z79.4 Long term (current) use of insulin; I11.9 Hypertensive heart disease without heart failure; E86.0 Dehydration; R63.4 Abnormal weight loss; Z68.31 Body mass index [BMI] 31.0-31.9, adult; E66.9 Obesity, unspecified; E03.9 Hypothyroidism, unspecified; E78.5 Hyperlipidemia, unspecified; E87.6 Hypokalemia; K58.9 Irritable bowel syndrome, unspecified; H91.90 Unspecified hearing loss, unspecified ear; F41.9 Anxiety disorder, unspecified; F43.10 Post-traumatic stress disorder, unspecified; F17.210 Nicotine dependence, cigarettes, uncomplicated; K57.90 Diverticulosis of intestine, part unspecified, without perforation or abscess without bleeding; G89.29 Other chronic pain; E07.9 Disorder of thyroid, unspecified; R97.8 Other abnormal tumor markers; Z79.899 Other long term (current) drug therapy; Z79.890 Hormone replacement therapy; Z88.2 Allergy status to sulfonamides; Z88.8 Allergy status to other drugs, medicaments and biological substances
CPT/HCPCS: 36415; 74018; 74160; 74181; 80048; 80053; 81001; 82150; 83605; 83690; 83735; 84132; 84484; 85025; 85027; 86301; 96361; 96374; 96375; 96376; 99285

== ENCOUNTER 2024-02-11 16:55 | Observation (INO) | payer MEDICARE ==
[2024-02-11] MEDS: MORPHINE SULFATE 4 MG/ML SYRINGE IVP STA (18:44)
[2024-02-11] MEDS: SODIUM CHLORIDE 0.9% 500 ML 500 ML IV ONE (18:45)
[2024-02-11] MEDS ORDERED: NALOXONE 0.4 MG/ML 1 ML VIAL IV PRN (19:02)
--- NOTE | 2024-02-11 19:02 | ED ---
Altered Mental Status HPI - General Chief Complaint: Altered Mental Status Stated Complaint: failure to thrive Time Seen by Provider: 02/11/24 17:30 Source: EMS Mode of arrival: EMS Limitations: altered mental status - History of Present Illness Initial Comments: 78-year-old female with recently diagnosed pancreatic cancer who presents to the emergency department with failure to thrive. She is currently being cared for by a close friend. She does not have much family. She does have a niece who is not in good health and therefore the friend is the one taking care of her and is attempting to get guardianship on Friday. She reports that the patient has had multiple falls due to her weakness. She is not eating or drinking. She is extremely agitated. Hospice did meet with the patient yesterday however she cannot be signed on until guardianship is established on Friday. She does have fentanyl and tramadol at home for pain control however it still appears that the patient is in pain. She is very restless. Caretakers are requesting assistance with comfort. The patient has not made much urine. They are unsure of her last bowel movement. Patient cannot provide any meaningful history. Oncology has given the patient a 2-month prognosis. Patient is not going to proceed with any type of treatment - Related Data Home Medications Medication Instructions Recorded Confirmed Levothyroxine Sodium [Synthroid] 50 mcg PO DAILY 12/22/20 02/11/24 Valbenazine Tosylate [Ingrezza] 80 mg PO DAILY 01/24/24 02/11/24 allopurinoL [Zyloprim] 300 mg PO HS 01/24/24 02/11/24 buPROPion XL [Wellbutrin XL] 300 mg PO DAILY 01/24/24 02/11/24 lamoTRIgine 100 mg PO BID 01/24/24 02/11/24 ALPRAZolam [Xanax] 0.5 mg PO BID PRN 02/11/24 02/11/24 LORazepam [Ativan] 0.5 mg PO BID PRN 02/11/24 02/11/24 Ondansetron Odt [Zofran Odt] 8 mg PO BID PRN 02/11/24 02/11/24 fentaNYL 25MCG/HR PATCH [Duragesic 1 patch TRANSDERM Q72H 02/11/24 02/11/24 25MCG/HR] traMADol HCL 50 mg PO TID PRN 02/11/24 02/11/24 Allergies Allergy/AdvReac Type Severity Reaction Status Date / Time duloxetine [From Cymbalta] Allergy Patient Verified 02/11/24 17:31 denies allergy escitalopram [From Lexapro] Allergy Patient Verified 02/11/24 17:31 denies allergy fluoxetine [From Prozac] Allergy Patient Verified 02/11/24 17:31 denies allergy risperidone [From Risperdal] Allergy Patient Verified 02/11/24 17:31 denies allergy Sulfa (Sulfonamide Allergy Patient Verified 02/11/24 18:20 Antibiotics) denies allergy steroids Allergy Patient Uncoded 02/11/24 17:31 denies allergy Review of Systems ROS Statement: Those systems with pertinent positive or pertinent negative responses have been documented in the HPI. ROS Other: All systems not noted in ROS Statement are negative. Past Medical History Past Medical History: Unable to Obtain, Hearing Disorder / Deafness, Hypertension, Thyroid Disorder Additional Past Medical History / Comment(s): lymphedema History of Any Multi-Drug Resistant Organisms: None Reported Past Surgical History: No Surgical Hx Reported Additional Past Surgical History / Comment(s): removal of nodual rt breast 54 yrs ago. Past Anesthesia/Blood Transfusion Reactions: No Reported Reaction Past Psychological History: Anxiety, Bipolar, Depression, PTSD Smoking Status: Current every day smoker, Smoker, current status unknown Past Alcohol Use History: None Reported Past Drug Use History: None Reported General Exam Limitations: altered mental status General appearance: anxious Head exam: Present: atraumatic, normocephalic, normal inspection Eye exam: Present: normal appearance, PERRL, EOMI. Absent: scleral icterus, conjunctival injection, periorbital swelling ENT exam: Present: mucous membranes dry Respiratory exam: Present: normal lung sounds bilaterally. Absent: respiratory distress, wheezes, rales, rhonchi, stridor Cardiovascular Exam: Present: regular rate, normal rhythm, normal heart sounds. Absent: systolic murmur, diastolic murmur, rubs, gallop, clicks Psychiatric exam: Present: agitated, anxious Course Vital Signs 02/11/24 17:27 Temperature 98.6 F Pulse Rate 90 Respiratory 16 Rate Blood Pressure 115/73 O2 Sat by Pulse 98 Oximetry Medical Decision Making - Medical Decision Making Was pt. sent in by a medical professional or institution (Dr., PA, GREEN MEAT GRADER, urgent care, hospital, or longterm...) When possible be specific @ -No Did you speak to anyone other than the patient for history (EMS, parent, family, police, friend...)? What history was obtained from this source @ -Spoke with the patient's caregivers for history Did you review nursing and triage notes (agree or disagree)? Why? @ -I reviewed and agree with nursing and triage notes Were old charts reviewed (outside hosp., previous admission, EMS record, old EKG, old radiological studies, urgent care reports/EKG's, longterm records)? Report findings @ -I reviewed discharge summary from January 27 Differential Diagnosis (chest pain, altered mental status, abdominal pain women, abdominal pain men, vaginal bleeding, weakness, fever, dyspnea, syncope, headache, dizziness, GI bleed, back pain, seizure, CVA, palpatations, mental health, musculoskeletal)? @ -Differential Altered Mental Status: Hypoglycemia, DKA, hypercapnia, ETOH, overdose, CO poisoning, trauma, myxedema coma, HTN encephalopathy, infection, encephalitis, psychosis, intercranial hemorrhage, hepatic encephalopathy, meningitis, CVA, this is not meant to be an all-inclusive list EKG interpreted by me (3pts min.). @ -Not done X-rays interpreted by me (1pt min.). @ -None done CT interpreted by me (1pt min.). @ -Yes and demonstrates no metastasis to the brain U/S interpreted by me (1pt. min.). @ -None done What testing was considered but not performed or refused? (CT, X-rays, U/S, labs)? Why? @ -None What meds were considered but not given or refused? Why? @ -None Did you discuss the management of the patient with other professionals (prof araiza i.e. KINJAL Martinez, [employer]EN [employer] GRADER, lab, RT, psych nurse, health and social care teacher, senior materials planner, teacher, intelligence officer, child welfare caseworker)? Give summary @ -Spoke with Becca. She does accept admission Was smoking cessation discussed for >3mins.? @ -No Was critical care preformed (if so, how long)? @ -No Were there social determinants of health that impacted care today? How? (Homelessness, low income, unemployed, alcoholism, drug addiction, transportation, low edu. Level, literacy, decrease access to med. care, fdc, r ehab)? @ -No Was there de-escalation of care discussed even if they declined (Discuss DNR or withdrawal of care, Hospice)? DNR status @ -Yes and friends at bedside would like the patient to be a DNR. Patient does have advanced pancreatic cancer and was given 2 months prognosis by oncology What co-morbidities impacted this encounter? (DM, HTN, Smoking, COPD, CAD, Cancer, CVA, ARF, Chemo, Hep., AIDS, mental health diagnosis, sleep apnea, morbid obesity)? @ -Pancreatic cancer Was patient admitted / discharged? Hospital course, mention meds given and route, prescriptions, significant lab abnormalities, going to OR and other pertinent info. @ -Upon arrival patient seen and evaluated in room 23. Thorough history and physical exam was performed. Caretakers at bedside are pending guardianship Friday. Friend states that she can no longer care for the patient. She has been taking care of her at her house and she has been falling. They state that she is extremely agitated and not eating or drinking. They were agreeable to fluid hydration, pain medications and anxiety medications. They would like the patient to be a DNR. They are pending signing onto hospice until after the weaver wire loom gets guardianship. I do feel that this is a reasonable request as patient does have known pancreatic cancer. Patient will be [facility] to [facility]. I spoke with [place] Undiagnosed new problem with uncertain prognosis? @ -No Drug Therapy requiring intensive monitoring for toxicity (Heparin, Nitro, Insulin, Cardizem)? @ -No Were any procedures done? @ -No Diagnosis/symptom? @ -Acute encephalopathy, dehydration, pancreatic cancer Acute, or Chronic, or Acute on Chronic? @ -Acute Uncomplicated (without systemic symptoms) or Complicated (systemic symptoms)? @ -Complicated Side effects of treatment? @ -No Exacerbation, Progression, or Severe Exacerbation? @ -No Poses a threat to life or bodily function? How? (Chest pain, [place], [place], pneumonia, PE, COPD, DKA, ARF, appy, cholecystitis, CVA, Diverticulitis, Homicidal, Suicidal, threat to staff... and all critical care pts) @ -Yes as patient has extremely poor prognosis due to pancreatic cancer diagnosis - Lab Data Result diagrams: 02/11/24 18:25 Lab Results 02/11/24 Range/Units 18:25 WBC 7.3 (3.8-10.6) k/uL RBC 4.42 (3.80-5.40) m/uL Hgb 14.2 (11.4-16.0) gm/dL Hct 42.2 (34.0-46.0) % MCV 95.5 (80.0-100.0) fL MCH 32.1 (25.0-35.0) pg MCHC 33.6 (31.0-37.0) g/dL RDW 14.7 (11.5-15.5) % Plt Count 175 (150-450) k/uL MPV 11.3 Neutrophils % 59 % Lymphocytes % 32 % Monocytes % 6 % Eosinophils % 2 % Basophils % 0 % Neutrophils # 4.3 (1.3-7.7) k/uL Lymphocytes # 2.3 (1.0-4.8) k/uL Monocytes # 0.4 (0-1.0) k/uL Eosinophils # 0.1 (0-0.7) k/uL Basophils # 0.0 (0-0.2) k/uL Manual Slide Review Performed Disposition Clinical Impression: Agitation, Anxiety, Pancreas cancer Disposition: ADMITTED IP TO THIS [facility] Condition: Serious Is patient prescribed a controlled substance at d/c from ED?: No Time of Disposition: 19:02 Decision to Admit Reason: Admit from EC Decision Date: 02/11/24 Decision Time: 19:02
[2024-02-11 19:03] LABS: Basophils % (A) 0 %; Eosinophils # (A) 0.1 k/uL (0-0.7); Eosinophils % (A) 2 %; HCT 42.2 % (34.0-46.0); HGB 14.2 gm/dL (11.4-16.0); Lymphocytes # (A) 2.3 k/uL (1.0-4.8); Lymphocytes % (A) 32 %; MCH 32.1 pg (25.0-35.0); MCHC 33.6 g/dL (31.0-37.0); MCV 95.5 fL (80.0-100.0); Mean Platelet Volume 11.3; Monocytes # (A) 0.4 k/uL (0-1.0); Monocytes % (A) 6 %; Neutrophils # (A) 4.3 k/uL (1.3-7.7); Neutrophils % (A) 59 %; Platelet Count 175 k/uL (150-450); RBC 4.42 m/uL (3.80-5.40); RDW 14.7 % (11.5-15.5); WBC 7.3 k/uL (3.8-10.6)
[2024-02-11] MEDS: SODIUM CHLORIDE 0.9% 1,000 ML IV SCH (19:31)
[2024-02-11] MEDS: LORazepam 2 MG/ML INJ IV STA (19:31)
--- NOTE | 2024-02-11 20:26 | CT ---
EXAMINATION TYPE: CT brain wo con CT DLP: 1271.4 mGycm, Automated exposure control for dose reduction was used. DATE OF EXAM: 02/11/2024 7:59 PM COMPARISON: 12/22/2020. CLINICAL INDICATION:Female, 78 years old with history of Altered mental status, AMS TECHNIQUE: Brain: Axial CT images of the brain were obtained with coronal and sagittal reformats created and rev iewed. Contrast used: None. Oral contrast used: None. FINDINGS: Brain: Extra-axial spaces: No abnormal extra-axial fluid collections. Ventricular system: Within normal limits Cerebral parenchyma: No acute intraparenchymal hemorrhage or mass effect. The conti-white junction is well differentiated. Cerebellum: Unremarkable. Mass effect: No evidence of midline shift. Intracranial vasculature: Atherosclerotic calcifications of the intracranial vessels. Soft tissues: Normal. Calvarium/osseous structures: No depressed skull fracture. Paranasal sinuses and mastoid air cells: Mild scattered paranasal sinus disease. Visualized orbits: Bilateral aphakia IMPRESSION: 1. No acute intracranial process. 2. Nonspecific white matter changes, likely secondary to chronic small vessel ischemic disease.
[2024-02-12 04:47] LABS: ALT 11 U/L (4-34); AST 21 U/L (14-36); African American GFR (CKD) >90 (>60 ml/min/1.73 sqM); Albumin 4.1 g/dL (3.5-5.0); Alkaline Phosphatase 106 U/L (38-126); Anion Gap 15 mmol/L; Blood Urea Nitrogen 14 mg/dL (7-17); Calcium 10.3 mg/dL (8.4-10.2); Carbon Dioxide 16 mmol/L (22-30); Chloride 103 mmol/L (98-107); Creatine Kinase 63 U/L (30-135); Glucose 93 mg/dL (74-99); Non-African American GFR(CKD) 85 (>60 ml/min/1.73 sqM); Potassium 3.6 mmol/L (3.5-5.1); Sodium 134 mmol/L (137-145); Total Bilirubin 0.9 mg/dL (0.2-1.3); Total Protein 6.7 g/dL (6.3-8.2)
[2024-02-12] MEDS: MORPHINE SULFATE 4 MG/ML SYRINGE IV PRN (08:49)
[2024-02-12] MEDS: LORazepam 2 MG/ML INJ IV PRN ×2 (10:06→20:25)
--- NOTE | 2024-02-12 14:39 | HP ---
HISTORY AND PHYSICAL ADDENDUM: Please combine it with the part of H and P which I dictated if possible. PAST MEDICAL HISTORY: Reviewed include pancreatic cancer history, anxiety, bipolar, depression, PTSD, nicotine dependence, and ETOH. REVIEW OF SYSTEMS: Could not be taken. FAMILY HISTORY AND SOCIAL HISTORY: Could not be taken at length, apparently EtOH as well as smoking. PHYSICAL EXAMINATION: VITAL SIGNS: Pulse is 83, blood pressure 141/82, respirations 20. HEENT: Conjunctivae normal. CARDIOVASCULAR: S1, S2. RESPIRATIONS: Few scattered rhonchi. ABDOMEN: Soft, nontender. LEGS: No edema. No swelling. NERVOUS SYSTEM: Diffusely weak. The patient is stuporous. SKIN: No ulcer, rash, bleeding. JOINTS: No active deforming arthropathy. ASSESSMENT: 1. Pancreatic cancer. 2. Change in mental status, metabolic encephalopathy. 3. Anxiety, bipolar, depression. 4. History of nicotine dependence. 5. No code, no CPR. 6. For hospice. RECOMMENDATIONS AND DISCUSSION: This 78-year-old woman presented with multiple complex medical issues. At this time, I recommend to continue the current management, recommended to continue the morphine 2 mg IV q.4 on a scheduled basis and on top of it more morphine could be given for control of agitation and confusion and pain. Otherwise, had a detailed discussion with family at the bedside and we will work with geriatric social work professor and case management team for possible discharge to [facility]. Comfort measures will be continued. Prognosis guarded. Further recommendations to follow. See orders for details. MMODL / IJN: [id number] /
[2024-02-12] MEDS: MORPHINE SULFATE 2 MG/ML SYRINGE IVP SCH (15:11)
[2024-02-13 08:19] VITALS: RESP 18
--- NOTE | 2024-02-13 08:21 | HP ---
HISTORY AND PHYSICAL CHIEF COMPLAINT: Change in mental status and failure to thrive. HISTORY OF PRESENT ILLNESS: This is a 78-year-old woman with a past medical history of multiple medical problems including pancreatic cancer, has significant weakness. The patient is confused and apparently friend is taking care of the patient at this time. She is trying to get the guardianship on Friday. The patient had multiple falls. The patient had poor intake and the patient was agitated and restless and the patient was taken to [facility]. Currently, the patient is on morphine 4 mg q.4 p.r.n. and the patient is closely monitored at this time. The family is planning probably hospice tomorrow and Hospice House. Otherwise, the patient is . The patient is sedated. Most history taken from my discussion with staff as well as discussion with the family members and prospective legal guardian at the bedside and review of the chart. PAST MEDICAL HISTORY: Reviewed include pancreatic cancer, hypertension, hypothyroidism, anxiety, bipolar, depression, PTSD. Rest of the history and rest of the chart is also reviewed. HOME MEDICATIONS: DICTATION ENDS HERE MMSHAD / ABDIRAHMAN: [id number] / MTDD
[2024-02-13] MEDS: MORPHINE SULFATE 4 MG/ML SYRINGE IVP SCH (11:37)
--- NOTE | 2024-02-13 11:41 | P.DS ---
Providers Date of admission: 02/11/24 19:04 Expected date of discharge: 02/13/24 Attending physician: Kritsy Gamino Primary care physician: Jose Manuel Rob MD Hospital Course: Final diagnosis Change in mental status, metabolic encephalopathy Pancreatic cancer Anxiety/bipolar/depression History of nicotine dependence History of deafness Hypertension history Thyroid disorder Lymphedema history Former smoker, questionable daily smoker GI prophylaxis DVT prophylaxis No code Discharge disposition Patient is being discharged in a stable condition with guarded prognosis to [facility]. Patient will follow-up with Dr. Rob in the outpatient setting upon discharge. Patient is to continue with comfort measures. Total time taken is greater than 35 minutes. Hospital course This is a 78-year-old female who was recently admitted with increased agitation, encephalopathy with history of pancreatic cancer. Patient also with history of anxiety, bipolar depression is in no code. Patient received guardianship from a close family friend and has arranged for hospice house with comfort measures. Patient continues to be confused and restless and has been maintained on as needed morphine as well as Ativan. CODE STATUS was addressed and patient is no code. Patient has been having multiple falls with increased agitation and confusion with poor oral intake and not doing very well. Patient will be going to hospice house today. Overall guarded prognosis. Currently no reports of chest pain, shortness of breath, or palpitations. Patient is afebrile. No reports of nausea or vomiting and patient is tolerating diet. Patient is eating very little and has been being assisted and supervised with meals with mostly pured and ground diet. Patient will be going to [facility] today. Physical exam: Gen: This is a 78-year-old female who is awake, alert and oriented x 0-1 to self, extremely anxious, agitated, restless, well-developed, elderly appearing, obese, disheveled and ill-appearing HEENT: Head is atraumatic, normocephalic. Pupils equal, round. Sclerae is anicteric. NECK: Supple. No JVD. No lymphadenopathy. No thyromegaly. LUNGS: Breath sounds diminished bilaterally with some bronchial congestion noted on auscultation. No wheezes or rhonchi. No intercostal retractions. HEART: S1, S2 are muffled. ABDOMEN: Soft. Bowel sounds are present. No masses. No tenderness. EXTREMITIES: No pedal edema. No calf tenderness. NEUROLOGICAL: Patient is awake, alert and oriented x0-1. Restless and anxious Please refer to medication reconciliation sheet for a list of medications. The impression and plan of care has been dictated by Yelena Pepe, Nurse Practitioner as directed. Dr. Stevenson MD I have performed a history and examination and MDM of this patient, discussed the same with the dictator, and agree with the dictator's assessment and plan as written ,documented as a scribe. Based on total visit time, I have performed more than 50% of the visit. Patient Condition at Discharge: Poor Plan - Discharge Summary Discharge Rx Participant: Yes New Discharge Prescriptions: Continue lamoTRIgine 100 mg PO BID fentaNYL 25MCG/HR PATCH [Duragesic 25MCG/HR] 1 patch TRANSDERM Q72H Levothyroxine Sodium [Synthroid] 50 mcg PO DAILY buPROPion XL [Wellbutrin XL] 300 mg PO DAILY traMADol HCL 50 mg PO TID PRN PRN Reason: Pain Ondansetron Odt [Zofran ODT] 8 mg PO BID PRN PRN Reason: Nausea And Vomiting ALPRAZolam [Xanax] 0.5 mg PO BID PRN PRN Reason: Anxiety LORazepam [Ativan] 0.5 mg PO BID PRN PRN Reason: Anxiety Discontinued allopurinoL [Zyloprim] 300 mg PO HS Valbenazine Tosylate [Ingrezza] 80 mg PO DAILY Discharge Medication List Levothyroxine Sodium [Synthroid] 50 mcg PO DAILY 12/22/20 [History] buPROPion XL [Wellbutrin XL] 300 mg PO DAILY 01/24/24 [History] lamoTRIgine 100 mg PO BID 01/24/24 [History] ALPRAZolam [Xanax] 0.5 mg PO BID PRN 02/11/24 [History] LORazepam [Ativan] 0.5 mg PO BID PRN 02/11/24 [History] Ondansetron Odt [Zofran ODT] 8 mg PO BID PRN 02/11/24 [History] fentaNYL 25MCG/HR PATCH [Duragesic 25MCG/HR] 1 patch TRANSDERM Q72H 02/11/24 [History] traMADol HCL 50 mg PO TID PRN 02/11/24 [History] Follow up Appointment(s)/Referral(s): Jose Manuel Rob MD [Primary Care Provider] - 1-2 days Activity/Diet/Wound Care/Special Instructions: [facility] Activity as tolerated Continue with comfort measures Discharge Disposition: OTHER INSTITUTION NOT DEFINED
[2024-02-13 12:24] VITALS: BP 124/60; PULSE 81; TEMP 98.5
[2024-02-13] MEDS: LORazepam 2 MG/ML INJ IV PRN (12:43)
[2024-02-13] MEDS: MORPHINE SULFATE 4 MG/ML SYRINGE IV PRN (14:23)
== END 2024-02-13 15:00 | disposition hospice, inpatient (51) ==
LOC: EC 16:55 → INTOOBSV 19:04 → 5NMEDONC 19:04
PROVIDERS: ADMIT Hospitalist; ATTEND Hospitalist
DX: G93.41 Metabolic encephalopathy (principal); C25.9 Malignant neoplasm of pancreas, unspecified; F41.9 Anxiety disorder, unspecified; F31.9 Bipolar disorder, unspecified; F43.10 Post-traumatic stress disorder, unspecified; H91.90 Unspecified hearing loss, unspecified ear; I10 Essential (primary) hypertension; F17.200 Nicotine dependence, unspecified, uncomplicated; E03.9 Hypothyroidism, unspecified; R29.6 Repeated falls; R62.7 Adult failure to thrive; I89.0 Lymphedema, not elsewhere classified
CPT/HCPCS: 96376 ×2; 96361 ×3; 96366 ×2; 96365; 96375; 36415; 80053; 80175; 82550; 85025; 70450; G0378 ×3; J2060 ×3; J2270 ×5